=== PATIENT | female | born 1965 | race Caucasian/White ===

== ENCOUNTER 2021-08-11 21:52 | Inpatient (IN) | payer MEDICAID ==
[2021-08-11] MEDS ORDERED: solu-MEDROL 125 MG, Sterile H2O 10 ml 2 ML IV ONE ×2 (22:38)
--- NOTE | 2021-08-11 22:38 | ERPHSYRPT ---
- History of Present Illness Time Seen by Provider: 08/11/21 22:30 Source: patient Exam Limitations: clinical condition Patient Subjective Stated Complaint: pt states she has been coughing, short of breath. had fever today of 101.2, increased shortness of breath Triage Nursing Assessment: pt alert and oriented, answers questions approp. pt ambualtory with slow steady gait noted. pt short of breat, insp and exp wheezes noted thoughout. skin warm and dry. edema noted to bilat lower ext- pt states is her normal and no wore than her usual. Physician History: This is a 55-year-old obese white female has a history of asthma on albuterol inhalers and does not have a primary care physician locally. She is on no other medications. In the last 8 days the patient has noticed increasing cough and worsening shortness of breath. Today she had associated fever of 101.2. She has not been vaccinated against COVID-19 infection. She has no known exposures. She is short of breath. She denies chest pain. She has no abdominal pain. She has had no nausea vomiting or diarrhea. Timing/Duration: day(s) Activities at Onset: none Severity of Dyspnea-Max: moderate Severity of Dyspnea-Current: moderate Possible Cause: no prior episodes Modifying Factors: Improves With: coughing Associated Symptoms: cough, fever, weakness, No chest pain/discomfort Allergies/Adverse Reactions: Penicillins Allergy (Unknown, Verified 08/11/21 22:28) Home Medications: Albuterol Sulfate [Ventolin Hfa] 8 gm IH Q4HPRN PRN 08/11/21 [History] Hx Tetanus, Diphtheria Vaccination/Date Given: No Hx Influenza Vaccination/Date Given: No Hx Pneumococcal Vaccination/Date Given: No Immunizations Up to Date: No Travel Risk - International Travel Have you traveled outside of the country in past 3 weeks: No - Coronavirus Screening Are you exhibiting any of the following symptoms?: Yes Symptoms: Fever, Cough: New Onset, Shortness of Breath Close contact with a COVID-19 positive Pt in past 14-21 Days: No - Vaccine Status Have you recieved a Covid-19 vaccination: No - Review of Systems Constitutional: Fever Eyes: No Symptoms Ears, Nose, & Throat: No Symptoms Respiratory: Cough, Dyspnea Cardiac: No Symptoms Abdominal/Gastrointestinal: No Symptoms Genitourinary Symptoms: No Symptoms Musculoskeletal: No Symptoms Skin: No Symptoms Neurological: No Symptoms Psychological: No Symptoms Endocrine: No Symptoms Hematologic/Lymphatic: No Symptoms Immunological/Allergic: No Symptoms All Other Systems: Reviewed and Negative - Past Medical History Pertinent Past Medical History: Yes Respiratory History: Asthma - Past Surgical History Past Surgical History: Yes Female Surgical History: Section - Social History Smoking Status: Never smoker Exposure to second hand smoke: No Drug Use: none Patient Lives Alone: No - Nursing Vital Signs Nursing Vital Signs: Initial Vital Signs Temperature 98.5 F 08/11/21 22:13 Pulse Rate 106 H 08/11/21 22:13 Respiratory Rate 22 08/11/21 22:13 Blood Pressure 170/124 08/11/21 22:13 O2 Sat by Pulse Oximetry 88 L 08/11/21 22:13 Pain Scale Pain Intensity 0 - Physical Exam General Appearance: mild distress, lethargy, obese Eye Exam: PERRL/EOMI, eyes nml inspection Ears, Nose, Throat Exam: hearing grossly normal, normal ENT inspection, normal pharynx Neck Exam: normal inspection, non-tender, supple, full range of motion Respiratory Exam: normal breath sounds, lungs clear, respiratory distress, airway intact (Mild), No chest tenderness Cardiovascular/Chest Exam: normal heart sounds, regular rate/rhythm, murmur Abdominal/Gastrointestinal Exam: soft, normal bowel sounds, No tenderness Rectal Exam: not done Extremity Exam: non-tender, normal range of motion, pedal edema (Bilateral feet and ankles. Patient states this is normal level of pedal edema for her) Neurologic Exam: oriented x 3 (Mildly lethargic but arousable. 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 Skin Exam: normal color, warm, dry Lymphatic Exam: No adenopathy SpO2 Interpretation: hypoxic SpO2: 88 O2 Delivery: Room Air - Course Nursing assessment & vital signs reviewed: Yes Ordered Tests: Active Orders 24 hr Category Date Time Status Button Buttonhole Marker STAT Care 08/11/21 22:39 Active EKG-ER Only STAT Care 08/11/21 22:38 Active IV Insertion STAT Care 08/11/21 22:38 Active Pulse Oximetry (ED) STAT Care 08/11/21 22:38 Active CHEST WITH CONTRAST [CT] Stat Exams 08/12/21 04:34 Taken ARTERIAL BLOOD GASES Stat Lab 08/11/21 22:49 Completed CBC W DIFF Stat Lab 08/11/21 23:09 Completed CMP Stat Lab 08/11/21 23:09 Completed D-DIMER QUANTITATIVE Stat Lab 08/11/21 23:09 Completed INFLUENZA A+B ANKUR Stat Lab 08/11/21 23:09 Completed Lactic Acid Stat Lab 08/11/21 22:49 Completed MAGNESIUM Stat Lab 08/11/21 23:09 Completed [place] Screen Stat Lab 08/11/21 23:09 Completed NT PRO BNP Stat Lab 08/11/21 23:09 Completed TROPONIN Q3H Lab 08/11/21 23:09 Completed TROPONIN Q3H Lab 08/12/21 01:45 Completed TROPONIN Q3H Lab 08/12/21 05:11 Completed TROPONIN Q3H Lab 08/12/21 07:45 Ordered TROPONIN Q3H Lab 08/12/21 10:45 Ordered Transfer Order Routine Transfer 08/12/21 Ordered Medication Summary Discontinued Medications Generic Name Dose Route Start Last Admin Trade Name Freq PRN Reason Stop Dose Admin Methylprednisolone Sodium 0 mg 08/11/21 22:38 08/11/21 23:32 Succinate 125 mg/ Sterile IV 08/11/21 22:39 125 mg Water 2 ml STAT ONE Administration Sodium Chloride 1,000 mls @ 999 mls/hr 08/12/21 03:02 08/12/21 05:00 Sodium Chloride 0.9% 1000 Ml IV 08/12/21 04:02 999 mls/hr .Q1H1M STA Administration Levofloxacin/Dextrose 500 mg in 100 mls @ 100 mls/hr 08/12/21 03:03 08/12/21 05:00 Levofloxacin 500mg/100ml D5w IV 08/12/21 04:02 100 ml/hr STAT STA 100 mls/hr Administration Sodium Chloride Confirm 08/12/21 04:57 Sodium Chloride 0.9% 1000 Ml Administered 08/12/21 04:58 Dose 1,000 mls @ ud .ROUTE .STK-MED ONE Levofloxacin/Dextrose Confirm 08/12/21 04:58 Levofloxacin 500mg/100ml D5w Administered 08/12/21 04:59 Dose 500 mg in 100 mls @ ud IV .STK-MED ONE Methylprednisolone Sodium Succinate Confirm 08/11/21 23:30 Methylprednis Sod Succ 125 Mg/2 Ml Vial Administered 08/11/21 23:31 Dose 125 mg .ROUTE .STK-MED ONE Sterile Water Confirm 08/11/21 23:30 Water For Injection,Sterile 10 Ml Vial Administered 08/11/21 23:31 Dose 10 ml IJ .[place] ONE Lab/Rad Data: Laboratory Result Diagrams 08/11/21 23:09 08/11/21 23:09 Laboratory Results 08/12/21 08/12/21 08/12/21 Range/Units 05:11 01:45 01:10 WBC (4.0-10.5) K/mm3 RBC (4.1-5.4) M/mm3 Hgb (12.0-16.0) gm/dl Hct (35-47) % MCV (78-100) fl MCH (26-32) pg MCHC (32-36) g/dl RDW (11.5-14.0) % Plt Count (150-450) K/mm3 MPV (7.5-11.0) fl Gran % (36.0-66.0) % Eos # (Auto) (0-0.5) Absolute Lymphs (auto) (1.0-4.6) Absolute Monos (auto) (0.0-1.3) Lymphocytes % (24.0-44.0) % Monocytes % (0.0-12.0) % Eosinophils % (0.00-5.0) % Basophils % (0.0-0.4) % Absolute Granulocytes (1.4-6.9) Basophils # (0-0.4) D-Dimer (215-500) ng/mL Puncture Site pCO2 (35-45) mmHg pO2 (75-100) mmHg Base Excess (-2.0-2.0) O2 Saturation (94-100) g/dF ABG pH (7.35-7.45) ABG HCO3 (22-28) ABG O2 Sat (Measured) (95-100) % Ludin Test A-a Gradient a/A Ratio Hemoglobin Carboxyhemoglobin (0.0-6.9) % THgb Methemoglobin (1.4-1.5) % Potassium (3.5-5.1) Temperature C POC O2 Flow Rate % Sodium (137-145) mmol/L Chloride (98-107) mmol/L Carbon Dioxide (22-30) mmol/L Anion Gap (5-15) MEQ/L BUN (7-17) mg/dL Creatinine (0.52-1.04) mg/dL Estimated GFR ML/MIN Glucose (74-106) mg/dL Lactic Acid (0.4-2.0) Calcium (8.4-10.2) mg/dL Magnesium (1.6-2.3) mg/dL Total Bilirubin (0.2-1.3) mg/dL AST (14-36) U/L ALT (0-35) U/L Alkaline Phosphatase (38-126) U/L Troponin I 0.018 0.022 (0.000-0.034) ng/mL NT-Pro-B Natriuret Pep (0-900) pg/mL Serum Total Protein (6.3-8.2) g/dL Albumin (3.5-5.0) g/dL Monoscreen (Negative) Influenza Type A Ag NEGATIVE (NEGATIVE) Influenza Type B Ag NEGATIVE (NEGATIVE) RSV (PCR) NEGATIVE (Negative) SARS-CoV-2 (PCR) NEGATIVE (NEGATIVE) Group A Strep Antibody (NEGATIVE) 08/11/21 08/11/21 08/11/21 Range/Units 23:09 23:09 23:09 WBC (4.0-10.5) K/mm3 RBC (4.1-5.4) M/mm3 Hgb (12.0-16.0) gm/dl Hct (35-47) % MCV (78-100) fl MCH (26-32) pg MCHC (32-36) g/dl RDW (11.5-14.0) % Plt Count (150-450) K/mm3 MPV (7.5-11.0) fl Gran % (36.0-66.0) % Eos # (Auto) (0-0.5) Absolute Lymphs (auto) (1.0-4.6) Absolute Monos (auto) (0.0-1.3) Lymphocytes % (24.0-44.0) % Monocytes % (0.0-12.0) % Eosinophils % (0.00-5.0) % Basophils % (0.0-0.4) % Absolute Granulocytes (1.4-6.9) Basophils # (0-0.4) D-Dimer (215-500) ng/mL Puncture Site pCO2 (35-45) mmHg pO2 (75-100) mmHg Base Excess (-2.0-2.0) O2 Saturation (94-100) g/dF ABG pH (7.35-7.45) ABG HCO3 (22-28) ABG O2 Sat (Measured) (95-100) % Ludin Test A-a Gradient a/A Ratio Hemoglobin Carboxyhemoglobin (0.0-6.9) % THgb Methemoglobin (1.4-1.5) % Potassium (3.5-5.1) Temperature C POC O2 Flow Rate % Sodium (137-145) mmol/L Chloride (98-107) mmol/L Carbon Dioxide (22-30) mmol/L Anion Gap (5-15) MEQ/L BUN (7-17) mg/dL Creatinine (0.52-1.04) mg/dL Estimated GFR ML/MIN Glucose (74-106) mg/dL Lactic Acid (0.4-2.0) Calcium (8.4-10.2) mg/dL Magnesium (1.6-2.3) mg/dL Total Bilirubin (0.2-1.3) mg/dL AST (14-36) U/L ALT (0-35) U/L Alkaline Phosphatase (38-126) U/L Troponin I (0.000-0.034) ng/mL NT-Pro-B Natriuret Pep (0-900) pg/mL Serum Total Protein (6.3-8.2) g/dL Albumin (3.5-5.0) g/dL Monoscreen NEGATIVE (Negative) Influenza Type A Ag NEGATIVE (NEGATIVE) Influenza Type B Ag NEGATIVE (NEGATIVE) RSV (PCR) (Negative) SARS-CoV-2 (PCR) (NEGATIVE) Group A Strep Antibody NOT DETECTED (NEGATIVE) 08/11/21 08/11/21 08/11/21 Range/Units 23:09 23:09 23:09 WBC (4.0-10.5) K/mm3 RBC (4.1-5.4) M/mm3 Hgb (12.0-16.0) gm/dl Hct (35-47) % MCV (78-100) fl MCH (26-32) pg MCHC (32-36) g/dl RDW (11.5-14.0) % Plt Count (150-450) K/mm3 MPV (7.5-11.0) fl Gran % (36.0-66.0) % Eos # (Auto) (0-0.5) Absolute Lymphs (auto) (1.0-4.6) Absolute Monos (auto) (0.0-1.3) Lymphocytes % (24.0-44.0) % Monocytes % (0.0-12.0) % Eosinophils % (0.00-5.0) % Basophils % (0.0-0.4) % Absolute Granulocytes (1.4-6.9) Basophils # (0-0.4) D-Dimer 751 H* (215-500) ng/mL Puncture Site pCO2 (35-45) mmHg pO2 (75-100) mmHg Base Excess (-2.0-2.0) O2 Saturation (94-100) g/dF ABG pH (7.35-7.45) ABG HCO3 (22-28) ABG O2 Sat (Measured) (95-100) % Ludin Test A-a Gradient a/A Ratio Hemoglobin Carboxyhemoglobin (0.0-6.9) % THgb Methemoglobin (1.4-1.5) % Potassium 3.9 (3.5-5.1) Temperature C POC O2 Flow Rate % Sodium 139 (137-145) mmol/L Chloride 99 (98-107) mmol/L Carbon Dioxide 31 H (22-30) mmol/L Anion Gap 12.3 (5-15) MEQ/L BUN 13 (7-17) mg/dL Creatinine 0.67 (0.52-1.04) mg/dL Estimated GFR > 60.0 ML/MIN Glucose 230 H (74-106) mg/dL Lactic Acid (0.4-2.0) Calcium 8.8 (8.4-10.2) mg/dL Magnesium 1.5 L (1.6-2.3) mg/dL Total Bilirubin 0.70 (0.2-1.3) mg/dL AST 24 (14-36) U/L ALT 27 (0-35) U/L Alkaline Phosphatase 60 (38-126) U/L Troponin I 0.012 (0.000-0.034) ng/mL NT-Pro-B Natriuret Pep 522 (0-900) pg/mL Serum Total Protein 7.3 (6.3-8.2) g/dL Albumin 3.9 (3.5-5.0) g/dL Monoscreen (Negative) Influenza Type A Ag (NEGATIVE) Influenza Type B Ag (NEGATIVE) RSV (PCR) (Negative) SARS-CoV-2 (PCR) (NEGATIVE) Group A Strep Antibody (NEGATIVE) 08/11/21 08/11/21 Range/Units 23:09 22:49 WBC 17.4 H (4.0-10.5) K/mm3 RBC 4.47 (4.1-5.4) M/mm3 Hgb 13.1 (12.0-16.0) gm/dl Hct 41.6 (35-47) % MCV 93.1 (78-100) fl MCH 29.3 (26-32) pg MCHC 31.5 L (32-36) g/dl RDW 14.2 H (11.5-14.0) % Plt Count 220 (150-450) K/mm3 MPV 10.6 (7.5-11.0) fl Gran % 91.1 H (36.0-66.0) % Eos # (Auto) 0.14 (0-0.5) Absolute Lymphs (auto) 0.67 L (1.0-4.6) Absolute Monos (auto) 0.73 (0.0-1.3) Lymphocytes % 3.8 L (24.0-44.0) % Monocytes % 4.2 (0.0-12.0) % Eosinophils % 0.8 (0.00-5.0) % Basophils % 0.1 (0.0-0.4) % Absolute Granulocytes 15.88 H (1.4-6.9) Basophils # 0.02 (0-0.4) D-Dimer (215-500) ng/mL Puncture Site RIGHT BRACHIAL pCO2 41 (35-45) mmHg pO2 59 L (75-100) mmHg Base Excess 4.9 H (-2.0-2.0) O2 Saturation 90.8 L (94-100) g/dF ABG pH 7.46 H (7.35-7.45) ABG HCO3 29.2 H* (22-28) ABG O2 Sat (Measured) 93.0 L (95-100) % Ludin Test NOT APPLICABLE A-a Gradient 89 a/A Ratio 0.40 Hemoglobin 13.6 Carboxyhemoglobin 1.5 (0.0-6.9) % THgb Methemoglobin 0.9 L (1.4-1.5) % Potassium 3.5 (3.5-5.1) Temperature 37.0 C POC O2 Flow Rate 28 % Sodium (137-145) mmol/L Chloride (98-107) mmol/L Carbon Dioxide (22-30) mmol/L Anion Gap (5-15) MEQ/L BUN (7-17) mg/dL Creatinine (0.52-1.04) mg/dL Estimated GFR ML/MIN Glucose (74-106) mg/dL Lactic Acid 1.3 (0.4-2.0) Calcium (8.4-10.2) mg/dL Magnesium (1.6-2.3) mg/dL Total Bilirubin (0.2-1.3) mg/dL AST (14-36) U/L ALT (0-35) U/L Alkaline Phosphatase (38-126) U/L Troponin I (0.000-0.034) ng/mL NT-Pro-B Natriuret Pep (0-900) pg/mL Serum Total Protein (6.3-8.2) g/dL Albumin (3.5-5.0) g/dL Monoscreen (Negative) Influenza Type A Ag (NEGATIVE) Influenza Type B Ag (NEGATIVE) RSV (PCR) (Negative) SARS-CoV-2 (PCR) (NEGATIVE) Group A Strep Antibody (NEGATIVE) - Progress Progress: improved Air Movement: good Progress Note: 08/12/21 00:01 Chest x-ray shows bibasilar opacities present in a groundglass fashion. 08/12/21 01:21 Medical decision making: This patient has leukocytosis, entered the emergency department with hypoxia and history of recent fever. She has worsening shortness of breath and coughing in the last 8 days. She is not on any medication. Patient's oxygenation saturation level on 4 L is a running around 93-94%. This patient needs to be checked for COVID-19 infection. I did speak with Dr. Thomas Hernandez regarding admission of this patient. The patient's history, physical exam findings, EKG results, chest x-ray results were discussed with her in detail. She accepts the patient for placement in observation. If the patient is positive for COVID-19 infection, we will contact Dr. Segal for placement in observation in the Covid unit. 08/12/21 06:50 CAT scan of the chest with contrast shows no pulmonary emboli. She has mild air space consolidation in the right middle lobe consistent with multifocal pneumonia. Blood Culture(s) Obtained: Yes Antibiotics given: No Discussed with DrLuiza: Jonh Counseled pt/family regarding: lab results, diagnosis, rad results - Departure Departure Disposition: Observation Clinical Impression: Hypoxia, Leukocytosis, Multifocal pneumonia Condition: Fair Critical Care Time: Yes Critical Care Time(excluding separately billable procedures): Critical 30-74 m ins (30 minutes) Referrals: DOCTOR,NO FAMILY [Primary Care Provider] - Follow up/PCP as directed
[2021-08-11 22:53] LABS: A-aADO2 89; ABG HEMOGLOBIN 13.6; ABG POTASSIUM 3.5 (3.5-5.1); ABG SITE RIGHT BRACHIAL; ARTERIAL BLOOD GAS BASE EXCESS 4.9 (-2.0-2.0); ARTERIAL BLOOD GAS FIO2 28 %; ARTERIAL BLOOD GAS PCO2 41 mmHg (35-45); ARTERIAL BLOOD GAS PO2 59 mmHg (75-100); ARTERIAL BLOOD GAS pH 7.46 (7.35-7.45); CARBOXYHEMOGLOBIN 1.5 % THgb (0.0-6.9); HCO3- 29.2 (22-28); HGB O2 SAT 90.8 g/dF (94-100); Lactic Acid 1.3 (0.4-2.0); Methhemoglobin 0.9 % (1.4-1.5)
[2021-08-11 23:13] LABS: Absolute Neutrophil Ct (ANC) 15.88 (1.4-6.9); BASOPHIL % 0.1 % (0.0-0.4); Basophil (Absolute #) 0.02 (0-0.4); Eosinophil % 0.8 % (0.00-5.0); Eosinophil (Absolute #) 0.14 (0-0.5); Hematocrit 41.6 % (35-47); Hemoglobin 13.1 gm/dl (12.0-16.0); Lymphocyte (Absolute #) 0.67 (1.0-4.6); Lymphocytes % 3.8 % (24.0-44.0); Mean Cell Volume 93.1 fl (78-100); Mean Corpuscular Hemoglobin 29.3 pg (26-32); Mean Corpuscular Hgb Concent. 31.5 g/dl (32-36); Mean Platelet Volume 10.6 fl (7.5-11.0); Monocyte (Absolute #) 0.73 (0.0-1.3); Monocytes % 4.2 % (0.0-12.0); Neutrophil % 91.1 % (36.0-66.0); Platelet Count 220 K/mm3 (150-450); Red Blood Count 4.47 M/mm3 (4.1-5.4); Red Cell Distribution Width 14.2 % (11.5-14.0); White Blood Count 17.4 K/mm3 (4.0-10.5)
[2021-08-11] MEDS ORDERED: Sterile H2O 10 ml IJ ONE (23:30)
[2021-08-11] MEDS ORDERED: solu-MEDROL ONE (23:30)
[2021-08-11 23:32] LABS: INFLUENZA A NEGATIVE (NEGATIVE); INFLUENZA B NEGATIVE (NEGATIVE)
[2021-08-11 23:33] LABS: ALBUMIN 3.9 g/dL (3.5-5.0); ALKALINE PHOSPHATASE 60 U/L (38-126); ANION GAP 12.3 MEQ/L (5-15); BLOOD UREA NITROGEN 13 mg/dL (7-17); CHLORIDE 99 mmol/L (98-107); Calcium 8.8 mg/dL (8.4-10.2); Carbon Dioxide 31 mmol/L (22-30); Creatinine 1 0.67 mg/dL (0.52-1.04); EST GLOMERULAR FILTRATION RATE > 60.0 ML/MIN; Glucose 230 mg/dL (74-106); MAGNESIUM 1.5 mg/dL (1.6-2.3); NT PRO BNP 522 pg/mL (0-900); Potassium 3.9 mmol/L (3.5-5.1); SGOT/AST 24 U/L (14-36); SGPT/ALT 27 U/L (0-35); SODIUM 139 mmol/L (137-145); Total Protein 7.3 g/dL (6.3-8.2)
[2021-08-12 02:17] LABS: INFLUENZA A NEGATIVE (NEGATIVE); INFLUENZA B NEGATIVE (NEGATIVE); RESPIRATORY SYNCTIAL VIRUS NEGATIVE (Negative); SARS-CoV-2 Xpert Express NEGATIVE (NEGATIVE)
[2021-08-12] MEDS ORDERED: Sodium Chloride 0.9% 1000 ML 1,000 ML IV STA (03:02)
[2021-08-12] MEDS ORDERED: Levofloxacin 500MG/100ML D5W 500 MG/100 ML BAG IV STA (03:03)
[2021-08-12] MEDS ORDERED: Sodium Chloride 0.9% 1000 ML 1,000 ML ONE (04:57)
[2021-08-12] MEDS ORDERED: Levofloxacin 500MG/100ML D5W 500 MG/100 ML BAG IV ONE (04:58)
--- NOTE | 2021-08-12 08:52 | XRAY ---
Indication: Cough, short of breath, and elevated d-dimer. Multiple contiguous axial images obtained through the chest using 100 cc Isovue 370 contrast and PE protocol. Comparison: None There is good opacification of the pulmonary arteries to include the lobar and segmental branches. No pulmonary embolus. Heart not enlarged. Aorta is normal in course and caliber. No pathologic mediastinal/hilar lymphadenopathy. Lungs demonstrates right lower patchy consolidating airspace disease. Lesser degree seen of the right middle and left lower lobes. No effusion. Bony thorax intact with mild degenerative changes throughout the spine. Limited upper abdomen demonstrates fatty liver, 13.7 cm splenomegaly, and at least 2 gallstones, largest measuring 2.8 cm. Impression: 1. Negative pulmonary embolus. 2. Bilateral patchy consolidating airspace disease greatest right lower lobe. 3. Incidental fatty liver, splenomegaly, and cholelithiasis. Comment: Preliminary interpretation made by C. No critical discrepancy.
--- NOTE | 2021-08-12 08:54 | XRAY ---
Indication: Cough and short of breath. Suspect Covid 19. Comparison: None Portable chest demonstrates moderate right base and minimal left base airspace disease. Remaining heart and upper lungs unremarkable. Bony thorax intact with mild degenerative changes.
[2021-08-12] MEDS ORDERED: TYLENOL 325 MG PO PRN (09:15)
[2021-08-12] MEDS ORDERED: Zofran 4 MG/2 ML VIAL IV PRN (09:15)
[2021-08-12] MEDS ORDERED: HYDROCODONE-ACETAMIN 2.5-108/5 ML SOLUTION PO PRN (09:15)
--- NOTE | 2021-08-12 09:46 | PCM.HP ---
History of Present Illness - Chief Complaint Chief Complaint: cough History of Present Illness: is a 55 year old female who apparently has not seen a physician for the last several years but has seen me in the past. She presented with a 10 day history of cough, she progressively became short of breath in the last 2-3 days. She has some underlying lung problems and using an old script of ventolin, history of asthma but states she gets bronchitis every year and wheezes. she was found to have multifocal pneumonia, hypoxia and mild respiratory distress in ER but covid was surprisingly negative. - Review of Systems Constitutional: Fever, Chills Respiratory: Cough, Short Of Breath Cardiac: No Chest Pain, No Edema, No Syncope Abdominal/Gastrointestinal: No Abdominal Pain, No Nausea, No Vomiting, No Diarrhea Skin: No Rash Neurological: No Dizziness, No Focal Weakness, No Sensory Changes All Other Systems: Reviewed and Negative Medications & Allergies Home Medications: Home Medication List Albuterol Sulfate [Ventolin Hfa] 8 gm IH Q4HPRN PRN 08/11/21 [History Confirmed 08/12/21] Ascorbic Acid/Bioflavonoids [C Plus 1,000 mg Tablet] 1 each PO DAILY 08/12/21 [History Confirmed 08/12/21] Zinc 50 mg PO DAILY 08/12/21 [History Confirmed 08/12/21] Allergies/Adverse Reactions: Allergies Allergy/AdvReac Type Severity Reaction Status Date / Time Penicillins Allergy Unknown Verified 08/11/21 22:28 - Past Medical History Past Medical History: Yes Respiratory History: Asthma - Past Surgical History Past Surgical History: Yes Female Surgical History: Section - Social History Smoking Status: Never smoker Exposure to second hand smoke: No Alcohol: None Drug Use: none - Physical Exam Vital Signs: Vital Signs - 24 hr Temp Pulse Resp BP Pulse Ox 08/12/21 08:04 82 16 155/110 96 08/12/21 07:14 74 20 156/80 96 08/12/21 07:03 88 L 08/12/21 06:00 20 140/79 96 08/12/21 04:00 98 H 18 97 08/12/21 03:00 98 H 18 96 08/12/21 02:08 99 H 20 145/89 95 08/12/21 02:00 90 24 145/89 94 L 08/12/21 01:00 93 H 20 134/94 95 08/12/21 00:00 99 H 20 143/74 93 L 08/11/21 22:38 92 L 08/11/21 22:13 98.5 F 106 H 22 170/124 88 L General Appearance: no apparent distress Respiratory Exam: accessory muscle use, wheezing Cardiovascular Exam: regular rate/rhythm, normal heart sounds, normal peripheral pulses Gastrointestinal/Abdomen Exam: soft, normal bowel sounds, No tenderness, No mass Extremity Exam: normal inspection, normal range of motion, pelvis stable Skin Exam: normal color, warm, dry, No rash Results - Labs Lab/Micro Results: Lab Results-Last 24 Hours 08/11/21 08/11/21 08/11/21 Range/Units 22:49 23:09 23:09 WBC 17.4 H (4.0-10.5) K/mm3 RBC 4.47 (4.1-5.4) M/mm3 Hgb 13.1 (12.0-16.0) gm/dl Hct 41.6 (35-47) % MCV 93.1 (78-100) fl MCH 29.3 (26-32) pg MCHC 31.5 L (32-36) g/dl RDW 14.2 H (11.5-14.0) % Plt Count 220 (150-450) K/mm3 MPV 10.6 (7.5-11.0) fl Gran % 91.1 H (36.0-66.0) % Eos # (Auto) 0.14 (0-0.5) Absolute Lymphs (auto) 0.67 L (1.0-4.6) Absolute Monos (auto) 0.73 (0.0-1.3) Lymphocytes % 3.8 L (24.0-44.0) % Monocytes % 4.2 (0.0-12.0) % Eosinophils % 0.8 (0.00-5.0) % Basophils % 0.1 (0.0-0.4) % Absolute Granulocytes 15.88 H (1.4-6.9) Basophils # 0.02 (0-0.4) D-Dimer (215-500) ng/mL Puncture Site RIGHT BRACHIAL pCO2 41 (35-45) mmHg pO2 59 L (75-100) mmHg Base Excess 4.9 H (-2.0-2.0) O2 Saturation 90.8 L (94-100) g/dF ABG pH 7.46 H (7.35-7.45) ABG HCO3 29.2 H* (22-28) ABG O2 Sat (Measured) 93.0 L (95-100) % Ludin Test NOT APPLICABLE A-a Gradient 89 a/A Ratio 0.40 Hemoglobin 13.6 Carboxyhemoglobin 1.5 (0.0-6.9) % THgb Methemoglobin 0.9 L (1.4-1.5) % Potassium 3.5 3.9 (3.5-5.1) Temperature 37.0 C POC O2 Flow Rate 28 % Sodium 139 (137-145) mmol/L Chloride 99 (98-107) mmol/L Carbon Dioxide 31 H (22-30) mmol/L Anion Gap 12.3 (5-15) MEQ/L BUN 13 (7-17) mg/dL Creatinine 0.67 (0.52-1.04) mg/dL Estimated GFR > 60.0 ML/MIN Glucose 230 H (74-106) mg/dL Lactic Acid 1.3 (0.4-2.0) Calcium 8.8 (8.4-10.2) mg/dL Magnesium 1.5 L (1.6-2.3) mg/dL Total Bilirubin 0.70 (0.2-1.3) mg/dL AST 24 (14-36) U/L ALT 27 (0-35) U/L Alkaline Phosphatase 60 (38-126) U/L Troponin I (0.000-0.034) ng/mL NT-Pro-B Natriuret Pep 522 (0-900) pg/mL Serum Total Protein 7.3 (6.3-8.2) g/dL Albumin 3.9 (3.5-5.0) g/dL Monoscreen (Negative) Influenza Type A Ag (NEGATIVE) Influenza Type B Ag (NEGATIVE) RSV (PCR) (Negative) SARS-CoV-2 (PCR) (NEGATIVE) Group A Strep Antibody (NEGATIVE) 08/11/21 08/11/21 08/11/21 Range/Units 23:09 23:09 23:09 WBC (4.0-10.5) K/mm3 RBC (4.1-5.4) M/mm3 Hgb (12.0-16.0) gm/dl Hct (35-47) % MCV (78-100) fl MCH (26-32) pg MCHC (32-36) g/dl RDW (11.5-14.0) % Plt Count (150-450) K/mm3 MPV (7.5-11.0) fl Gran % (36.0-66.0) % Eos # (Auto) (0-0.5) Absolute Lymphs (auto) (1.0-4.6) Absolute Monos (auto) (0.0-1.3) Lymphocytes % (24.0-44.0) % Monocytes % (0.0-12.0) % Eosinophils % (0.00-5.0) % Basophils % (0.0-0.4) % Absolute Granulocytes (1.4-6.9) Basophils # (0-0.4) D-Dimer 751 H* (215-500) ng/mL Puncture Site pCO2 (35-45) mmHg pO2 (75-100) mmHg Base Excess (-2.0-2.0) O2 Saturation (94-100) g/dF ABG pH (7.35-7.45) ABG HCO3 (22-28) ABG O2 Sat (Measured) (95-100) % Ludin Test A-a Gradient a/A Ratio Hemoglobin Carboxyhemoglobin (0.0-6.9) % THgb Methemoglobin (1.4-1.5) % Potassium (3.5-5.1) Temperature C POC O2 Flow Rate % Sodium (137-145) mmol/L Chloride (98-107) mmol/L Carbon Dioxide (22-30) mmol/L Anion Gap (5-15) MEQ/L BUN (7-17) mg/dL Creatinine (0.52-1.04) mg/dL Estimated GFR ML/MIN Glucose (74-106) mg/dL Lactic Acid (0.4-2.0) Calcium (8.4-10.2) mg/dL Magnesium (1.6-2.3) mg/dL Total Bilirubin (0.2-1.3) mg/dL AST (14-36) U/L ALT (0-35) U/L Alkaline Phosphatase (38-126) U/L Troponin I 0.012 (0.000-0.034) ng/mL NT-Pro-B Natriuret Pep (0-900) pg/mL Serum Total Protein (6.3-8.2) g/dL Albumin (3.5-5.0) g/dL Monoscreen (Negative) Influenza Type A Ag NEGATIVE (NEGATIVE) Influenza Type B Ag NEGATIVE (NEGATIVE) RSV (PCR) (Negative) SARS-CoV-2 (PCR) (NEGATIVE) Group A Strep Antibody (NEGATIVE) 08/11/21 08/11/21 08/12/21 Range/Units 23:09 23:09 01:10 WBC (4.0-10.5) K/mm3 RBC (4.1-5.4) M/mm3 Hgb (12.0-16.0) gm/dl Hct (35-47) % MCV (78-100) fl MCH (26-32) pg MCHC (32-36) g/dl RDW (11.5-14.0) % Plt Count (150-450) K/mm3 MPV (7.5-11.0) fl Gran % (36.0-66.0) % Eos # (Auto) (0-0.5) Absolute Lymphs (auto) (1.0-4.6) Absolute Monos (auto) (0.0-1.3) Lymphocytes % (24.0-44.0) % Monocytes % (0.0-12.0) % Eosinophils % (0.00-5.0) % Basophils % (0.0-0.4) % Absolute Granulocytes (1.4-6.9) Basophils # (0-0.4) D-Dimer (215-500) ng/mL Puncture Site pCO2 (35-45) mmHg pO2 (75-100) mmHg Base Excess (-2.0-2.0) O2 Saturation (94-100) g/dF ABG pH (7.35-7.45) ABG HCO3 (22-28) ABG O2 Sat (Measured) (95-100) % Ludin Test A-a Gradient a/A Ratio Hemoglobin Carboxyhemoglobin (0.0-6.9) % THgb Methemoglobin (1.4-1.5) % Potassium (3.5-5.1) Temperature C POC O2 Flow Rate % Sodium (137-145) mmol/L Chloride (98-107) mmol/L Carbon Dioxide (22-30) mmol/L Anion Gap (5-15) MEQ/L BUN (7-17) mg/dL Creatinine (0.52-1.04) mg/dL Estimated GFR ML/MIN Glucose (74-106) mg/dL Lactic Acid (0.4-2.0) Calcium (8.4-10.2) mg/dL Magnesium (1.6-2.3) mg/dL Total Bilirubin (0.2-1.3) mg/dL AST (14-36) U/L ALT (0-35) U/L Alkaline Phosphatase (38-126) U/L Troponin I (0.000-0.034) ng/mL NT-Pro-B Natriuret Pep (0-900) pg/mL Serum Total Protein (6.3-8.2) g/dL Albumin (3.5-5.0) g/dL Monoscreen NEGATIVE (Negative) Influenza Type A Ag NEGATIVE (NEGATIVE) Influenza Type B Ag NEGATIVE (NEGATIVE) RSV (PCR) NEGATIVE (Negative) SARS-CoV-2 (PCR) NEGATIVE (NEGATIVE) Group A Strep Antibody NOT DETECTED (NEGATIVE) 08/12/21 08/12/21 08/12/21 Range/Units 01:45 05:11 07:55 WBC (4.0-10.5) K/mm3 RBC (4.1-5.4) M/mm3 Hgb (12.0-16.0) gm/dl Hct (35-47) % MCV (78-100) fl MCH (26-32) pg MCHC (32-36) g/dl RDW (11.5-14.0) % Plt Count (150-450) K/mm3 MPV (7.5-11.0) fl Gran % (36.0-66.0) % Eos # (Auto) (0-0.5) Absolute Lymphs (auto) (1.0-4.6) Absolute Monos (auto) (0.0-1.3) Lymphocytes % (24.0-44.0) % Monocytes % (0.0-12.0) % Eosinophils % (0.00-5.0) % Basophils % (0.0-0.4) % Absolute Granulocytes (1.4-6.9) Basophils # (0-0.4) D-Dimer (215-500) ng/mL Puncture Site pCO2 (35-45) mmHg pO2 (75-100) mmHg Base Excess (-2.0-2.0) O2 Saturation (94-100) g/dF ABG pH (7.35-7.45) ABG HCO3 (22-28) ABG O2 Sat (Measured) (95-100) % Ludin Test A-a Gradient a/A Ratio Hemoglobin Carboxyhemoglobin (0.0-6.9) % THgb Methemoglobin (1.4-1.5) % Potassium (3.5-5.1) Temperature C POC O2 Flow Rate % Sodium (137-145) mmol/L Chloride (98-107) mmol/L Carbon Dioxide (22-30) mmol/L Anion Gap (5-15) MEQ/L BUN (7-17) mg/dL Creatinine (0.52-1.04) mg/dL Estimated GFR ML/MIN Glucose (74-106) mg/dL Lactic Acid (0.4-2.0) Calcium (8.4-10.2) mg/dL Magnesium (1.6-2.3) mg/dL Total Bilirubin (0.2-1.3) mg/dL AST (14-36) U/L ALT (0-35) U/L Alkaline Phosphatase (38-126) U/L Troponin I 0.022 0.018 0.016 (0.000-0.034) ng/mL NT-Pro-B Natriuret Pep (0-900) pg/mL Serum Total Protein (6.3-8.2) g/dL Albumin (3.5-5.0) g/dL Monoscreen (Negative) Influenza Type A Ag (NEGATIVE) Influenza Type B Ag (NEGATIVE) RSV (PCR) (Negative) SARS-CoV-2 (PCR) (NEGATIVE) Group A Strep Antibody (NEGATIVE) - Radiology Impressions Radiology Exams & Impressions: Radiology Procedures Category Date Time Status CHEST 1 VIEW (PORTABLE) Stat Exams 08/11/21 00:30 Completed CHEST WITH CONTRAST [CT] Stat Exams 08/12/21 04:34 Completed - Other Procedures and Tests Respiratory Therapy 08/12/21 09:15 EKG Q8HX2 Oxygen Nasal Cannula 2 lpm Assessment/Plan (1) Multifocal pneumonia Current Visit: Yes Status: Acute Assessment & Plan: IV levaquin order (PCN allergic) likely viral based on xray but will treat with abx, has subjective fever and leukocytosis Code(s): J18.9 - PNEUMONIA, UNSPECIFIED ORGANISM (2) Acute bronchospasm Current Visit: Yes Status: Acute Assessment & Plan: IV steroids and nebs, likely component of asthma exacerbation. (3) Hypoxia Current Visit: Yes Status: Acute Assessment & Plan: supplemental oxygen ordered. Code(s): R09.02 - HYPOXEMIA
[2021-08-12] MEDS ORDERED: Levofloxacin 500MG/100ML D5W 500 MG/100 ML BAG IV SCH (10:00)
[2021-08-12] MEDS ORDERED: LEVOFLOXACIN 750MG/150ML D5W 750 MG/150 ML BAG IV SCH (10:00)
[2021-08-12] MEDS: Sodium Chloride 0.9% 1000 ML 1,000 ML IV SCH (10:37)
[2021-08-12] MEDS: ENOXAPARIN SODIUM SQ SCH (10:38)
[2021-08-12] MEDS: DUONEB 0.5-3 MG/3 ml Neb IH SCH ×2 (11:09→19:23)
[2021-08-12] MEDS ORDERED: solu-MEDROL W/DILUENT 500 MG IV SCH (12:00)
[2021-08-12] MEDS: solu-MEDROL 80 MG, Sterile H2O 10 ml 2 ML IV SCH ×6 (12:15→23:35)
[2021-08-12] MEDS: HUMALOG SQ PRN ×2 (17:36→21:51)
[2021-08-12] MEDS ORDERED: solu-MEDROL ONE (23:25)
[2021-08-13] MEDS: DUONEB 0.5-3 MG/3 ml Neb IH SCH ×4 (01:00→16:39)
[2021-08-13] MEDS: Sodium Chloride 0.9% 1000 ML 1,000 ML IV SCH ×2 (03:09→21:46)
[2021-08-13] MEDS: HUMALOG SQ PRN ×5 (03:20→21:49)
[2021-08-13] MEDS: solu-MEDROL 80 MG, Sterile H2O 10 ml 2 ML IV SCH ×6 (04:59→17:46)
[2021-08-13] MEDS: LEVOFLOXACIN 750MG/150ML D5W 750 MG/150 ML BAG IV SCH ×2 (05:00→21:47)
[2021-08-13 06:03] LABS: Hematocrit 41.3 % (35-47); Hemoglobin 12.6 gm/dl (12.0-16.0); Mean Cell Volume 95.8 fl (78-100); Mean Corpuscular Hemoglobin 29.2 pg (26-32); Mean Corpuscular Hgb Concent. 30.5 g/dl (32-36); Mean Platelet Volume 11.3 fl (7.5-11.0); Platelet Count 245 K/mm3 (150-450); Red Blood Count 4.31 M/mm3 (4.1-5.4); Red Cell Distribution Width 14.4 % (11.5-14.0)
[2021-08-13 06:07] LABS: White Blood Count 26.5 K/mm3 (4.0-10.5)
[2021-08-13 06:20] LABS: ALBUMIN 3.5 g/dL (3.5-5.0); ALKALINE PHOSPHATASE 52 U/L (38-126); BLOOD UREA NITROGEN 17 mg/dL (7-17); CHLORIDE 102 mmol/L (98-107); Calcium 8.7 mg/dL (8.4-10.2); Carbon Dioxide 28 mmol/L (22-30); Creatinine 1 0.49 mg/dL (0.52-1.04); EST GLOMERULAR FILTRATION RATE > 60.0 ML/MIN; Glucose 306 mg/dL (74-106); SGOT/AST 27 U/L (14-36); SGPT/ALT 29 U/L (0-35); SODIUM 139 mmol/L (137-145); Total Protein 6.6 g/dL (6.3-8.2)
[2021-08-13 06:43] LABS: Potassium 4.7 mmol/L (3.5-5.1)
[2021-08-13 07:34] LABS: BAND 10 % (0.0-2.0); Lymphocytes 1 % (24-44); Monocyte 2 % (0.0-12.0); Neutrophils 87 % (36.0-66.0); Total Cells Counted 100
[2021-08-13 07:35] LABS: Platelet Estimate NORMAL (NORMAL)
--- NOTE | 2021-08-13 08:45 | PCM.NOTE ---
Date and Time: 08/13/21 0843 Subjective Assessment: patient was able to lie flat last night and breathe which is an improvement. no new complaints, still requiring oxygen at 5L Objective Exam General Appearance: no apparent distress, obese Neurologic Exam: alert, oriented x 3 Respiratory Exam: accessory muscle use, prolonged expirations, wheezing Cardiovascular Exam: regular rate/rhythm, normal heart sounds Gastrointestinal/Abdomen Exam: soft, No tenderness, No mass Extremity Exam: normal inspection, normal range of motion OBJECTIVE DATA Vital Signs: Vital Signs - 24 hr Temp Pulse Resp BP Pulse Ox 08/13/21 07:42 97.7 F 97 H 16 114/56 94 L 08/13/21 06:47 99 H 24 91 L 08/13/21 04:00 97.5 F 108 H 25 H 130/88 90 L 08/13/21 01:00 101 H 27 H 91 L 08/12/21 23:42 97.8 F 96 H 26 H 167/85 94 L 08/12/21 20:01 97.5 F 81 22 136/70 93 L 08/12/21 19:23 80 24 91 L 08/12/21 16:00 98.1 F 80 18 138/71 96 08/12/21 12:00 97.1 F 78 24 140/70 93 L 08/12/21 11:15 78 22 93 L 08/12/21 09:59 97.1 F 79 16 140/70 91 L Pain Assessment - Last Documented Pain Intensity 0 Intake and Output: Intake & Output 08/10/21 08/11/21 08/12/21 08/13/21 11:59 11:59 11:59 11:59 Intake Total 240 2097 Output Total 300 2350 Balance -60 -253 Weight 116.8 kg 116.2 kg Lab Results: Lab Results-Last 24 Hours 08/11/21 08/12/21 08/12/21 Range/Units 22:53 07:55 10:52 WBC (4.0-10.5) K/mm3 RBC (4.1-5.4) M/mm3 Hgb (12.0-16.0) gm/dl Hct (35-47) % MCV (78-100) fl MCH (26-32) pg MCHC (32-36) g/dl RDW (11.5-14.0) % Plt Count (150-450) K/mm3 MPV (7.5-11.0) fl Segmented Neutrophils (36.0-66.0) % Band Neutrophils (0.0-2.0) % Lymphocytes (Manual) (24-44) % Monocytes (Manual) (0.0-12.0) % Platelet Estimate (NORMAL) RBC Morphology Sodium (137-145) mmol/L Potassium (3.5-5.1) mmol/L Chloride (98-107) mmol/L Carbon Dioxide (22-30) mmol/L Anion Gap (5-15) MEQ/L BUN (7-17) mg/dL Creatinine (0.52-1.04) mg/dL Estimated GFR ML/MIN Glucose (74-106) mg/dL POC Glucometer (74 to 106) mg/dL Hemoglobin A1c 7.14 H (4.5-6.0) % Calcium (8.4-10.2) mg/dL Total Bilirubin (0.2-1.3) mg/dL AST (14-36) U/L ALT (0-35) U/L Alkaline Phosphatase (38-126) U/L Troponin I 0.016 < 0.012 (0.000-0.034) ng/mL Serum Total Protein (6.3-8.2) g/dL Albumin (3.5-5.0) g/dL 08/12/21 08/12/21 08/13/21 Range/Units 16:25 20:43 03:15 WBC (4.0-10.5) K/mm3 RBC (4.1-5.4) M/mm3 Hgb (12.0-16.0) gm/dl Hct (35-47) % MCV (78-100) fl MCH (26-32) pg MCHC (32-36) g/dl RDW (11.5-14.0) % Plt Count (150-450) K/mm3 MPV (7.5-11.0) fl Segmented Neutrophils (36.0-66.0) % Band Neutrophils (0.0-2.0) % Lymphocytes (Manual) (24-44) % Monocytes (Manual) (0.0-12.0) % Platelet Estimate (NORMAL) RBC Morphology Sodium (137-145) mmol/L Potassium (3.5-5.1) mmol/L Chloride (98-107) mmol/L Carbon Dioxide (22-30) mmol/L Anion Gap (5-15) MEQ/L BUN (7-17) mg/dL Creatinine (0.52-1.04) mg/dL Estimated GFR ML/MIN Glucose (74-106) mg/dL POC Glucometer 334 H 434 H 311 H (74 to 106) mg/dL Hemoglobin A1c (4.5-6.0) % Calcium (8.4-10.2) mg/dL Total Bilirubin (0.2-1.3) mg/dL AST (14-36) U/L ALT (0-35) U/L Alkaline Phosphatase (38-126) U/L Troponin I (0.000-0.034) ng/mL Serum Total Protein (6.3-8.2) g/dL Albumin (3.5-5.0) g/dL 08/13/21 08/13/21 08/13/21 Range/Units 05:15 05:15 07:32 WBC 26.5 H* (4.0-10.5) K/mm3 RBC 4.31 (4.1-5.4) M/mm3 Hgb 12.6 (12.0-16.0) gm/dl Hct 41.3 (35-47) % MCV 95.8 (78-100) fl MCH 29.2 (26-32) pg MCHC 30.5 L (32-36) g/dl RDW 14.4 H (11.5-14.0) % Plt Count 245 (150-450) K/mm3 MPV 11.3 H (7.5-11.0) fl Segmented Neutrophils 87 H (36.0-66.0) % Band Neutrophils 10 H (0.0-2.0) % Lymphocytes (Manual) 1 L (24-44) % Monocytes (Manual) 2 (0.0-12.0) % Platelet Estimate NORMAL (NORMAL) RBC Morphology NORMAL Sodium 139 (137-145) mmol/L Potassium 4.7 D (3.5-5.1) mmol/L Chloride 102 (98-107) mmol/L Carbon Dioxide 28 (22-30) mmol/L Anion Gap 14.0 (5-15) MEQ/L BUN 17 (7-17) mg/dL Creatinine 0.49 L (0.52-1.04) mg/dL Estimated GFR > 60.0 ML/MIN Glucose 306 H (74-106) mg/dL POC Glucometer 361 H (74 to 106) mg/dL Hemoglobin A1c (4.5-6.0) % Calcium 8.7 (8.4-10.2) mg/dL Total Bilirubin 0.50 (0.2-1.3) mg/dL AST 27 (14-36) U/L ALT 29 (0-35) U/L Alkaline Phosphatase 52 (38-126) U/L Troponin I (0.000-0.034) ng/mL Serum Total Protein 6.6 (6.3-8.2) g/dL Albumin 3.5 (3.5-5.0) g/dL Radiology Exams: Radiology Procedures Category Date Time Status CHEST WITH CONTRAST [CT] Stat Exams 08/12/21 04:34 Completed Assessment/Plan (1) Multifocal pneumonia Current Visit: Yes Status: Acute Assessment & Plan: continue levaquin Code(s): J18.9 - PNEUMONIA, UNSPECIFIED ORGANISM (2) Acute bronchospasm Current Visit: Yes Status: Acute Assessment & Plan: continue steroids, abx and nebs (3) Hypoxia Current Visit: Yes Status: Acute Code(s): R09.02 - HYPOXEMIA
[2021-08-13] MEDS: ENOXAPARIN SODIUM SQ SCH (09:28)
[2021-08-13] MEDS ORDERED: solu-MEDROL ONE (21:30)
[2021-08-14] MEDS: solu-MEDROL 80 MG, Sterile H2O 10 ml 2 ML IV SCH ×4 (00:19→05:55)
[2021-08-14] MEDS: DUONEB 0.5-3 MG/3 ml Neb IH SCH ×2 (00:24→05:44)
[2021-08-14 05:47] LABS: Hematocrit 38.7 % (35-47); Hemoglobin 11.6 gm/dl (12.0-16.0); Mean Cell Volume 95.6 fl (78-100); Mean Corpuscular Hemoglobin 28.6 pg (26-32); Mean Platelet Volume 11.8 fl (7.5-11.0); Platelet Count 222 K/mm3 (150-450); Red Blood Count 4.05 M/mm3 (4.1-5.4); Red Cell Distribution Width 14.4 % (11.5-14.0); White Blood Count 19.4 K/mm3 (4.0-10.5)
[2021-08-14 05:50] VITALS: O2SAT 92
[2021-08-14] MEDS ORDERED: solu-MEDROL ONE (05:50)
[2021-08-14 06:08] LABS: ANION GAP 14.2 MEQ/L (5-15); BLOOD UREA NITROGEN 21 mg/dL (7-17); CHLORIDE 102 mmol/L (98-107); Calcium 8.7 mg/dL (8.4-10.2); Carbon Dioxide 29 mmol/L (22-30); Creatinine 1 0.54 mg/dL (0.52-1.04); EST GLOMERULAR FILTRATION RATE > 60.0 ML/MIN; Glucose 274 mg/dL (74-106); Potassium 4.4 mmol/L (3.5-5.1); SODIUM 141 mmol/L (137-145)
[2021-08-14 06:46] LABS: Lymphocytes 2 % (24-44); Monocyte 5 % (0.0-12.0); Neutrophils 93 % (36.0-66.0); Platelet Estimate NORMAL (NORMAL); Total Cells Counted 100
[2021-08-14 08:02] VITALS: BP 165/77; PULSE 83
--- NOTE | 2021-08-14 08:30 | XRAY ---
Indication: Follow-up pneumonia. Comparison: August 11, 2021 Portable chest again demonstrates bilateral mid to lower lung airspace disease minimally worsened on the left. Remaining heart and upper lungs unremarkable.
[2021-08-14] MEDS: HUMALOG SQ PRN (08:35)
--- NOTE | 2021-08-14 09:05 | PCM.DS ---
Discharge Summary Date of Admission: 08/12/21 08:45 Admitting Physician: ALEXSANDRA HINOJOSA Primary Care Provider: NO FAMILY DOCTOR Allergies Allergies Penicillins Allergy (Unknown, Verified 08/11/21 22:28) Hospital Summary - Hospital Course Hospital Course: patient was admitted with cough and shortness of breath, found to have bilateral pneumonia, covid was negative. treated with antibiotics and steroids, doing much better. sugars were high, a1c 7.1% so new onset of diabetes noted. - Vitals & Intake/Output Vital Signs: Vital Signs Temperature 98.6 F 08/14/21 08:00 Pulse Rate 83 08/14/21 08:00 Respiratory Rate 19 08/14/21 08:00 Blood Pressure 165/77 08/14/21 08:00 O2 Sat by Pulse Oximetry 92 L 08/14/21 05:45 Intake & Output: Intake & Output 08/11/21 08/12/21 08/13/21 08/14/21 11:59 11:59 11:59 11:59 Intake Total 240 2777 3737 Output Total 300 2350 2600 Balance -60 427 1137 Weight 116.8 kg 116.2 kg - Lab Result Diagrams: 08/14/21 04:20 08/14/21 04:20 Lab Results-Last 24 Hrs: Lab Results-Last 24 Hours 08/13/21 08/13/21 08/13/21 Range/Units 11:19 16:40 21:13 WBC (4.0-10.5) K/mm3 RBC (4.1-5.4) M/mm3 Hgb (12.0-16.0) gm/dl Hct (35-47) % MCV (78-100) fl MCH (26-32) pg MCHC (32-36) g/dl RDW (11.5-14.0) % Plt Count (150-450) K/mm3 MPV (7.5-11.0) fl Segmented Neutrophils (36.0-66.0) % Lymphocytes (Manual) (24-44) % Monocytes (Manual) (0.0-12.0) % Platelet Estimate (NORMAL) RBC Morphology Sodium (137-145) mmol/L Potassium (3.5-5.1) mmol/L Chloride (98-107) mmol/L Carbon Dioxide (22-30) mmol/L Anion Gap (5-15) MEQ/L BUN (7-17) mg/dL Creatinine (0.52-1.04) mg/dL Estimated GFR ML/MIN Glucose (74-106) mg/dL POC Glucometer 353 H 428 H 413 H (74 to 106) mg/dL Calcium (8.4-10.2) mg/dL 08/14/21 08/14/21 08/14/21 Range/Units 04:20 04:20 07:36 WBC 19.4 H (4.0-10.5) K/mm3 RBC 4.05 L (4.1-5.4) M/mm3 Hgb 11.6 L (12.0-16.0) gm/dl Hct 38.7 (35-47) % MCV 95.6 (78-100) fl MCH 28.6 (26-32) pg MCHC 30.0 L (32-36) g/dl RDW 14.4 H (11.5-14.0) % Plt Count 222 (150-450) K/mm3 MPV 11.8 H (7.5-11.0) fl Segmented Neutrophils 93 H (36.0-66.0) % Lymphocytes (Manual) 2 L (24-44) % Monocytes (Manual) 5 (0.0-12.0) % Platelet Estimate NORMAL (NORMAL) RBC Morphology NORMAL Sodium 141 (137-145) mmol/L Potassium 4.4 (3.5-5.1) mmol/L Chloride 102 (98-107) mmol/L Carbon Dioxide 29 (22-30) mmol/L Anion Gap 14.2 (5-15) MEQ/L BUN 21 H (7-17) mg/dL Creatinine 0.54 (0.52-1.04) mg/dL Estimated GFR > 60.0 ML/MIN Glucose 274 H (74-106) mg/dL POC Glucometer 275 H (74 to 106) mg/dL Calcium 8.7 (8.4-10.2) mg/dL Micro Results-Entire Visit: Accuchecks Date 08/14/21 Date 08/13/21 Date 08/13/21 Time 07:40 Time 16:47 Time 11:39 - Radiology Exams Ordered Rad Exams-Entire Visit: Radiology Procedures Category Date Time Status CHEST 1 VIEW (PORTABLE) Routine Exams 08/14/21 07:00 Completed - Procedures and Test Procedures and Tests throughout Hospitalization: Therapy Orders & Screens 08/12/21 09:15 Oxygen Nasal Cannula 2 lpm Comment: 08/12/21 09:47 EKG ONCE Comment: 08/12/21 11:01 Respiratory Therapy Assessment DAILY Comment: Diagnosis: cough, sob, pneumonia Discharge Exam General Appearance: no apparent distress, obese Neurologic Exam: alert, oriented x 3 Respiratory Exam: wheezing, No respiratory distress, No accessory muscle use Cardiovascular Exam: regular rate/rhythm, normal heart sounds Gastrointestinal/Abdomen Exam: soft, No tenderness, No mass Extremity Exam: normal inspection, normal range of motion Skin Exam: normal color, warm, dry Final Diagnosis/Problem List - Final Discharge Diagnosis/Problem (1) Multifocal pneumonia Current Visit: Yes Status: Acute Assessment & Plan: home on po levaquin x 3 more days Code(s): J18.9 - PNEUMONIA, UNSPECIFIED ORGANISM (2) Acute bronchospasm Current Visit: Yes Status: Acute Assessment & Plan: home on albuterol prn (3) Hypoxia Current Visit: Yes Status: Acute Assessment & Plan: home on oxygen therapy 2L Code(s): R09.02 - HYPOXEMIA (4) Diabetes mellitus type 2 in obese Current Visit: Yes Status: Acute Code(s): E11.69 - TYPE 2 DIABETES MELLITUS WITH OTHER SPECIFIED COMPLICATION; E66.9 - OBESITY, UNSPECIFIED (5) Chronic obstructive pulmonary disease with hypoxia Current Visit: Yes Status: Acute Code(s): J44.9 - CHRONIC OBSTRUCTIVE PULMONARY DISEASE, UNSPECIFIED; R09.02 - HYPOXEMIA - Discharge Disposition: Home, Self-Care Condition: Good Prescriptions: New Nebulizer Accessories [Adult Aerosol Mask] 1 each MC DAILY #1 unit Prednisone 20 mg [Deltasone 20 mg] 20 mg PO UD #18 tablet Albuterol/Ipratropium 3ml Neb* [DUONEB 0.5-3 MG/3 ml Neb] 3 ml IH Q6H PRN PRN #100 units PRN Reason: wheezing Metformin HCl 500 mg [Glucophage 500 MG] 500 mg PO BIDWM #60 tablet levoFLOXacin [Levofloxacin] 750 mg PO DAILY #3 tablet Continue Zinc 50 mg PO DAILY Ascorbic Acid/Bioflavonoids [C Plus 1,000 mg Tablet] 1 each PO DAILY Changed Albuterol Sulfate [Ventolin Hfa] 2 puffs IH Q4HPRN PRN #2 unit PRN Reason: Shortness Of Breath/Wheezing Follow up with: ALEXSANDRA HINOJOSA MD [ACTIVE STAFF] - 08/20/21 1:30 am (Dr Hinojosa scheduled appt)
[2021-08-14] MEDS: ENOXAPARIN SODIUM SQ SCH (09:38)
== END 2021-08-14 11:38 | disposition home or self-care (01) | DRG 195 ==
LOC: ED 21:52 → OBSVTOIN 08-12 08:45 → MED SURG 08-12 08:45
PROVIDERS: ADMIT Family Medicine; ATTEND Family Medicine
DX: J18.9 Pneumonia, unspecified organism (principal); J98.01 Acute bronchospasm; D72.829 Elevated white blood cell count, unspecified; R09.02 Hypoxemia; J44.9 Chronic obstructive pulmonary disease, unspecified; E11.69 Type 2 diabetes mellitus with other specified complication; E66.9 Obesity, unspecified; Z20.828 Contact with and (suspected) exposure to other viral communicable diseases; Z79.899 Other long term (current) drug therapy
CPT/HCPCS: 0241U; 36000; 36415; 36600; 71045; 71260; 80048; 80053; 82375; 82803; 82947; 83036; 83605; 83735; 83880; 84484; 85025; 85379; 86308; 87400; 87651; 93005; 93041; 94640; 94760; 96365; 96374; 99285; 99291; J1650; J1817; J1956; J2930; A9270-GY

== ENCOUNTER 2022-05-20 08:23 | Inpatient (IN) | payer MEDICAID, OTHER ==
[2022-05-20] MEDS ORDERED: DUONEB 0.5-3 MG/3 ml Neb IH ONE ×2 (08:25→08:39)
[2022-05-20] MEDS ORDERED: solu-MEDROL 125 MG, Sterile H2O 10 ml 2 ML IV ONE ×2 (08:39)
--- NOTE | 2022-05-20 08:50 | ERPHSYRPT ---
- History of Present Illness Time Seen by Provider: 05/20/22 08:30 Source: patient Exam Limitations: no limitations Patient Subjective Stated Complaint: " I feel short of breath that began yesterday". Triage Nursing Assessment: Pt presents to ER with complaints of shortness of breath that began yesterday, pt appears short of breath. Respirations are labored. Mild cough. Lung sounds present wheezes and mild crackles throughout. Air movement is "tight". Pt is alert and oriented, able to speak in 4-5 word sentences. Pt is pale, hot, and diaphoretic. Able to ambulate short steps with assistance. States had nausea yesterday and vomited "bile". Pt is weak and low grade fever upon triage. States was around Covid+ person a couple weeks ago. Physician History: Patient is a 56-year-old female presents to emergency department for evaluation of shortness of breath x1 day. Patient has been coughing. Patient states that shortness of breath is progressively worse. She does not require oxygen at home. Upon arrival to our ED patient was hypoxic. Patient started on 2 L nasal cannula. Patient states she feels somewhat weak. Patient had 1 episode of nausea and vomiting. No reported fever. No rash. Positive COVID contact. Patient has not been formally tested for COVID. Symptoms are moderate in intensity. No specific worsening improving factors. Patient voices no other complaints or concerns at this time. Portions of this note were created with voice recognition technology. There may be grammatical, spelling, punctuation or sound alike errors Timing/Duration: yesterday Activities at Onset: none Severity of Dyspnea-Max: moderate Severity of Dyspnea-Current: mild Possible Cause: no prior episodes Modifying Factors: Improves With: other (Activity worsens shortness of breath) Associated Symptoms: cough, wheezing, No chest pain/discomfort, No fever, No ankle swelling, No dizziness, No heart racing, No leg swelling, No painful breathing, No tingling hands Allergies/Adverse Reactions: Penicillins Allergy (Unknown, Verified 05/20/22 08:24) Home Medications: Budesonide/Formoterol Fumarate [Budesonide-Formoterol 160-4.5] 2 puff IH BID 05/20/22 [History] Hx Tetanus, Diphtheria Vaccination/Date Given: No Hx Influenza Vaccination/Date Given: No Hx Pneumococcal Vaccination/Date Given: No Immunizations Up to Date: No Travel Risk - International Travel Have you traveled outside of the country in past 3 weeks: No - Coronavirus Screening Are you exhibiting any of the following symptoms?: Yes Symptoms: Fever, Cough: New Onset, Shortness of Breath, Vomiting/Diarrhea Close contact with a COVID-19 positive Pt in past 14-21 Days: Yes - Vaccine Status Have you recieved a Covid-19 vaccination: No - Review of Systems Constitutional: No Symptoms, No Fever, No Chills Eyes: No Symptoms Ears, Nose, & Throat: No Symptoms Respiratory: No Symptoms, No Cough, No Dyspnea Cardiac: No Symptoms, No Chest Pain, No Edema, No Syncope Abdominal/Gastrointestinal: No Symptoms, No Abdominal Pain, No Nausea, No Vomiting, No Diarrhea Genitourinary Symptoms: No Symptoms, No Dysuria Musculoskeletal: No Symptoms, No Back Pain, No Neck Pain Skin: No Symptoms, No Rash Neurological: No Symptoms, No Dizziness, No Focal Weakness, No Sensory Changes Psychological: No Symptoms Endocrine: No Symptoms Hematologic/Lymphatic: No Symptoms Immunological/Allergic: No Symptoms All Other Systems: Reviewed and Negative - Past Medical History Pertinent Past Medical History: Yes Neurological History: No Pertinent History ENT History: No Pertinent History Cardiac History: No Pertinent History Respiratory History: Asthma Endocrine Medical History: Diabetes Type II Musculoskeletal History: Fractures GI Medical History: Colitis History: No Pertinent History Female Reproductive Disorders: No Pertinent History Other Medical History: fx r ankle, pathological fx r foot - Past Surgical History Past Surgical History: Yes Neuro Surgical History: No Pertinent History Cardiac: No Pertinent History Respiratory: No Pertinent History Gastrointestinal: No Pertinent History Genitourinary: No Pertinent History Musculoskeletal: No Pertinent History Female Surgical History: Section Other Surgical History: brain hematoma drained as child - Social History Smoking Status: Never smoker Exposure to second hand smoke: No Drug Use: none Patient Lives Alone: No - Nursing Vital Signs Nursing Vital Signs: Initial Vital Signs Temperature 99.3 F 05/20/22 08:24 Pulse Rate 77 05/20/22 08:24 Respiratory Rate 24 05/20/22 08:24 Blood Pressure 117/77 05/20/22 08:24 O2 Sat by Pulse Oximetry 82 L 05/20/22 08:24 Pain Scale Pain Intensity 0 - Physical Exam General Appearance: no apparent distress, alert Eye Exam: PERRL/EOMI, eyes nml inspection Ears, Nose, Throat Exam: hearing grossly normal, normal ENT inspection, normal pharynx Neck Exam: normal inspection, supple, full range of motion Respiratory Exam: diminished breath sounds, wheezing (Breath sounds diminished wheezing mildly coarse), other (Hypoxia) Cardiovascular/Chest Exam: normal heart sounds, regular rate/rhythm, 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) Abdominal/Gastrointestinal Exam: soft, No tenderness, No distention, No mass Extremity Exam: non-tender, normal range of motion, normal inspection, no calf tenderness, no pedal edema Neurologic Exam: alert, oriented x 3, cooperative, 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 Bilateral pneumonia observed. 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 Care 05/20/22 08:38 Completed Code Status Order ROUTINE Care 05/20/22 11:11 Active EKG-ER Only STAT Care 05/20/22 08:37 Completed IV Care Q6H Care 05/20/22 11:11 Active IV Insertion STAT Care 05/20/22 08:[address] in Observation ROUTINE Care 05/20/22 11:11 Active Pulse Oximetry (ED) STAT Care 05/20/22 08:37 Completed Telemetry q6h Care 05/20/22 11:11 Active Consistent Carbohydrate Diet 2000 Calorie Diet 05/20/22 Lunch Active CHEST 1 VIEW (PORTABLE) Stat Exams 05/20/22 08:38 Completed CHEST WITH CONTRAST [CT] Stat Exams 05/20/22 09:46 Completed BNP [NT PRO BNP] Stat Lab 05/20/22 08:00 Completed CBC W DIFF AM.LAB Lab 05/21/22 04:00 Ordered CBC W DIFF Stat Lab 05/20/22 08:55 Completed CMP AM.LAB Lab 05/21/22 04:00 Ordered CMP Stat Lab 05/20/22 08:55 Completed CULTURE,URINE Stat Lab 05/20/22 12:23 Received D-DIMER QUANTITATIVE Stat Lab 05/20/22 08:50 Completed Lactic Acid Stat Lab 05/20/22 08:37 Completed PROCALCITONIN Stat Lab 05/20/22 08:55 Completed UA W/RFX CULTURE Stat Lab 05/20/22 12:23 Completed Pulse Oximetry CONTINUOUS RT 05/20/22 11:11 Active Transfer Order Routine Transfer 05/20/22 Completed Medication Summary Generic Name Dose Route Start Last Admin Trade Name Freq PRN Reason Stop Dose Admin Acetaminophen 650 mg 05/20/22 11:11 Acetaminophen 325 Mg Tablet PO 06/19/22 11:10 Q4H PRN PRN PAIN AND/OR FEVER Albuterol Sulfate 2.5 mg 05/20/22 11:11 05/20/22 14:45 Albuterol Sulfate 2.5 Mg/3 Ml On license of [facility] 06/19/22 11:10 2.5 mg Q4H PRN PRN Administration SHORTNESS OF BREATH/WHEEZING Albuterol/Ipratropium 3 ml 05/20/22 19:00 Ipratropium/Albuterol Sulfate 3 Ml Ampul.On license of [facility] 06/19/22 18:59 QIDRT CAMI Device 1 05/22/22 09:30 Therapuetic Drug Level Monitor Each IJ 05/22/22 09:31 1XONLY ONE Aztreonam 1 gm/ Sodium 100 mls @ 200 mls/hr 05/20/22 22:00 Chloride IV 05/23/22 21:59 Q12HT [facility] Vancomycin HCl 1.25 gm in 250 mls @ 166.667 mls/hr 05/20/22 22:00 Vancomycin 1.25 Gm/250 Ml Bag IV 05/23/22 21:59 Q12HT [facility] Insulin Human Lispro 0 unit 05/20/22 14:25 05/20/22 14:55 Insulin Lispro 1 Unit SQ 06/19/22 14:24 5 unit UD PRN Administration HYPERGLYCEMIA Morphine Sulfate 2 mg 05/20/22 11:11 Morphine Sulfate 2 Mg/Ml Inj IV 05/25/22 11:10 Q4H PRN PRN PAIN Ondansetron HCl 4 mg 05/20/22 11:11 Ondansetron Hcl 4 Mg/2 Ml Vial IV 06/19/22 11:10 Q6H PRN PRN NAUSEA/VOMITING Fluticasone/Salmeterol 2 puff 05/20/22 19:00 Fluticasone/Salmeterol 230/21 Common Canister IH 06/19/22 18:59 BIDRT CAMI Discontinued Medications Generic Name Dose Route Start Last Admin Trade Name Freisabel PRN Reason Stop Dose Admin Albuterol Sulfate Confirm 05/20/22 11:17 Albuterol Sulfate 2.5 Mg/3 Ml Neb Administered 05/20/22 11:18 Dose 2.5 mg IH .STK-MED ONE Albuterol/Ipratropium Confirm 05/20/22 08:25 Ipratropium/Albuterol Sulfate 3 Ml Ampul.Neb Administered 05/20/22 08:26 Dose 3 ml IH .STK-MED ONE Albuterol/Ipratropium 3 ml 05/20/22 08:39 05/20/22 08:44 Ipratropium/Albuterol Sulfate 3 Ml Ampul.Neb IH 05/20/22 08:40 3 ml STAT ONE Administration Methylprednisolone Sodium 0 mg 05/20/22 08:39 05/20/22 08:53 Succinate 125 mg/ Sterile IV 05/20/22 08:40 125 mg Water 2 ml STAT ONE Administration Vancomycin HCl 1 gm in 200 mls @ 125 mls/hr 05/20/22 10:26 05/20/22 10:32 Vancomycin 1 Gram/200 Ml Bag IV 05/20/22 12:01 Not Given STAT ONE Aztreonam 1 gm in 100 mls @ 100 mls/hr 05/20/22 11:00 05/20/22 10:38 Azactam 1 Gm/100 Ml D5w IV 05/20/22 11:59 100 mls/hr STAT ONE Administration Methylprednisolone Sodium Succinate Confirm 05/20/22 08:53 Methylprednis Sod Succ 125 Mg/2 Ml Vial Administered 05/20/22 08:54 Dose 125 mg .ROUTE .STK-MED ONE Miscellaneous Information 1 each 05/20/22 14:00 Medication Intervention 1 Each Each 06/19/22 13:59 .RT TO CHECK CAMI Sterile Water Confirm 05/20/22 08:53 Water For Injection,Sterile 10 Ml Vial Administered 05/20/22 08:54 Dose 10 ml IJ .STK-MED ONE Lab/Rad Data: Laboratory Result Diagrams 05/20/22 08:55 05/20/22 08:55 Laboratory Results 05/20/22 05/20/22 05/20/22 Range/Units 08:57 08:55 08:55 WBC (4.0-10.5) x10^3/uL RBC (4.1-5.4) x10^6/uL Hgb (12.0-16.0) g/dL Hct (35-47) % MCV (78-100) fL MCH (26-32) pg MCHC (32-36) g/dL RDW (11.5-14.0) % Plt Count (150-450) x10^3/uL MPV (7.5-11.0) fL Gran % (36.0-66.0) % Immature Gran % (Auto) (0.00-0.4) % Nucleat RBC Rel Count (0.00-0.1) % Eos # (Auto) (0-0.5) x10^3/uL Immature Gran # (Auto) (0.00-0.03) x10^3u/L Absolute Lymphs (auto) (1.0-4.6) x10^3/uL Absolute Monos (auto) (0.0-1.3) x10^3/uL Absolute Nucleated RBC (0.00-0.01) x10^3u/L Lymphocytes % (24.0-44.0) % Monocytes % (0.0-12.0) % Eosinophils % (0.00-5.0) % Basophils % (0.0-0.4) % Absolute Granulocytes (1.4-6.9) x10^3/uL Basophils # (0-0.4) x10^3/uL D-Dimer (0.0-0.50) mg/L Sodium 136 L (137-145) mmol/L Potassium 3.6 (3.5-5.1) mmol/L Chloride 95 L (98-107) mmol/L Carbon Dioxide 33 H (22-30) mmol/L Anion Gap 12.1 (5-15) MEQ/L BUN 17 (7-17) mg/dL Creatinine 0.86 (0.52-1.04) mg/dL Estimated GFR > 60.0 ML/MIN Glucose 172 H (74-106) mg/dL Lactic Acid (0.4-2.0) Calcium 8.8 (8.4-10.2) mg/dL Total Bilirubin 1.00 (0.2-1.3) mg/dL AST 109 H (14-36) U/L ALT 94 H (0-35) U/L Alkaline Phosphatase 100 (38-126) U/L NT-Pro-B Natriuret Pep (0-900) pg/mL Serum Total Protein 8.1 (6.3-8.2) g/dL Albumin 3.9 (3.5-5.0) g/dL Procalcitonin 0.782 H (0.030-0.080) ng/mL Influenza Type A Ag NEGATIVE (NEGATIVE) Influenza Type B Ag NEGATIVE (NEGATIVE) RSV (PCR) NEGATIVE (Negative) SARS-CoV-2 (PCR) NEGATIVE (NEGATIVE) 05/20/22 05/20/22 05/20/22 Range/Units 08:55 08:50 08:37 WBC 19.3 H (4.0-10.5) x10^3/uL RBC 4.20 (4.1-5.4) x10^6/uL Hgb 12.2 (12.0-16.0) g/dL Hct 38.3 (35-47) % MCV 91.2 (78-100) fL MCH 29.0 (26-32) pg MCHC 31.9 L (32-36) g/dL RDW 14.3 H (11.5-14.0) % Plt Count 244 (150-450) x10^3/uL MPV 11.8 H (7.5-11.0) fL Gran % 83.0 H (36.0-66.0) % Immature Gran % (Auto) 2.5 H (0.00-0.4) % Nucleat RBC Rel Count 0.0 (0.00-0.1) % Eos # (Auto) 0.07 (0-0.5) x10^3/uL Immature Gran # (Auto) 0.49 H (0.00-0.03) x10^3u/L Absolute Lymphs (auto) 1.17 (1.0-4.6) x10^3/uL Absolute Monos (auto) 1.43 H (0.0-1.3) x10^3/uL Absolute Nucleated RBC 0.00 (0.00-0.01) x10^3u/L Lymphocytes % 6.1 L (24.0-44.0) % Monocytes % 7.4 (0.0-12.0) % Eosinophils % 0.4 (0.00-5.0) % Basophils % 0.6 (0.0-0.4) % Absolute Granulocytes 16.01 H (1.4-6.9) x10^3/uL Basophils # 0.11 (0-0.4) x10^3/uL D-Dimer 2.00 H* (0.0-0.50) mg/L Sodium (137-145) mmol/L Potassium (3.5-5.1) mmol/L Chloride (98-107) mmol/L Carbon Dioxide (22-30) mmol/L Anion Gap (5-15) MEQ/L BUN (7-17) mg/dL Creatinine (0.52-1.04) mg/dL Estimated GFR ML/MIN Glucose (74-106) mg/dL Lactic Acid 1.8 (0.4-2.0) Calcium (8.4-10.2) mg/dL Total Bilirubin (0.2-1.3) mg/dL AST (14-36) U/L ALT (0-35) U/L Alkaline Phosphatase (38-126) U/L NT-Pro-B Natriuret Pep (0-900) pg/mL Serum Total Protein (6.3-8.2) g/dL Albumin (3.5-5.0) g/dL Procalcitonin (0.030-0.080) ng/mL Influenza Type A Ag (NEGATIVE) Influenza Type B Ag (NEGATIVE) RSV (PCR) (Negative) SARS-CoV-2 (PCR) (NEGATIVE) 05/20/22 Range/Units 08:00 WBC (4.0-10.5) x10^3/uL RBC (4.1-5.4) x10^6/uL Hgb (12.0-16.0) g/dL Hct (35-47) % MCV (78-100) fL MCH (26-32) pg MCHC (32-36) g/dL RDW (11.5-14.0) % Plt Count (150-450) x10^3/uL MPV (7.5-11.0) fL Gran % (36.0-66.0) % Immature Gran % (Auto) (0.00-0.4) % Nucleat RBC Rel Count (0.00-0.1) % Eos # (Auto) (0-0.5) x10^3/uL Immature Gran # (Auto) (0.00-0.03) x10^3u/L Absolute Lymphs (auto) (1.0-4.6) x10^3/uL Absolute Monos (auto) (0.0-1.3) x10^3/uL Absolute Nucleated RBC (0.00-0.01) x10^3u/L Lymphocytes % (24.0-44.0) % Monocytes % (0.0-12.0) % Eosinophils % (0.00-5.0) % Basophils % (0.0-0.4) % Absolute Granulocytes (1.4-6.9) x10^3/uL Basophils # (0-0.4) x10^3/uL D-Dimer (0.0-0.50) mg/L Sodium (137-145) mmol/L Potassium (3.5-5.1) mmol/L Chloride (98-107) mmol/L Carbon Dioxide (22-30) mmol/L Anion Gap (5-15) MEQ/L BUN (7-17) mg/dL Creatinine (0.52-1.04) mg/dL Estimated GFR ML/MIN Glucose (74-106) mg/dL Lactic Acid (0.4-2.0) Calcium (8.4-10.2) mg/dL Total Bilirubin (0.2-1.3) mg/dL AST (14-36) U/L ALT (0-35) U/L Alkaline Phosphatase (38-126) U/L NT-Pro-B Natriuret Pep 629 (0-900) pg/mL Serum Total Protein (6.3-8.2) g/dL Albumin (3.5-5.0) g/dL Procalcitonin (0.030-0.080) ng/mL Influenza Type A Ag (NEGATIVE) Influenza Type B Ag (NEGATIVE) RSV (PCR) (Negative) SARS-CoV-2 (PCR) (NEGATIVE) - Progress Progress: improved Air Movement: poor Progress Note: Work-up reveals bilateral pneumonia. Patient was hypoxic and placed on oxygen. Blood cultures obtained. Antibiotics obtained. CTA chest negative for PE. Case discussed Dr. Hubbard accepts admission to observation. Plan of care discussed with patient. She agrees to admission [facility] for further evaluation and treatment. Portions of this note were created with voice recognition technology. There may be grammatical, spelling, punctuation or sound alike errors 05/20/22 15:03 Blood Culture(s) Obtained: Yes Discussed with Dr.: Shelly Will see patient in: hospital (observation) - Departure Departure Disposition: Observation Clinical Impression: Hypoxia, SOB (shortness of breath), Leukocytosis, Hyperglycemia, Elevated liver enzymes, Pneumonia, Fatty liver, Splenomegaly, Gallstones, Pleural effusion Condition: Stable Critical Care Time: No
[2022-05-20 08:51] LABS: Absolute Neutrophil Ct (ANC) 16.01 x10^3/uL (1.4-6.9); Basophil (Absolute #) 0.11 x10^3/uL (0-0.4); Eosinophil % 0.4 % (0.00-5.0); Eosinophil (Absolute #) 0.07 x10^3/uL (0-0.5); Hematocrit 38.3 % (35-47); Hemoglobin 12.2 g/dL (12.0-16.0); Lymphocyte (Absolute #) 1.17 x10^3/uL (1.0-4.6); Lymphocytes % 6.1 % (24.0-44.0); Mean Cell Volume 91.2 fL (78-100); Mean Corpuscular Hgb Concent. 31.9 g/dL (32-36); Mean Platelet Volume 11.8 fL (7.5-11.0); Monocyte (Absolute #) 1.43 x10^3/uL (0.0-1.3); Monocytes % 7.4 % (0.0-12.0); Platelet Count 244 x10^3/uL (150-450); Red Cell Distribution Width 14.3 % (11.5-14.0); White Blood Count 19.3 x10^3/uL (4.0-10.5)
[2022-05-20] MEDS ORDERED: Sterile H2O 10 ml IJ ONE (08:53)
[2022-05-20] MEDS ORDERED: solu-MEDROL ONE (08:53)
[2022-05-20 09:06] LABS: ALBUMIN 3.9 g/dL (3.5-5.0); ALKALINE PHOSPHATASE 100 U/L (38-126); ANION GAP 12.1 MEQ/L (5-15); BLOOD UREA NITROGEN 17 mg/dL (7-17); CHLORIDE 95 mmol/L (98-107); Calcium 8.8 mg/dL (8.4-10.2); Carbon Dioxide 33 mmol/L (22-30); Creatinine 1 0.86 mg/dL (0.52-1.04); EST GLOMERULAR FILTRATION RATE > 60.0 ML/MIN; Glucose 172 mg/dL (74-106); Potassium 3.6 mmol/L (3.5-5.1); SGOT/AST 109 U/L (14-36); SGPT/ALT 94 U/L (0-35); SODIUM 136 mmol/L (137-145); Total Protein 8.1 g/dL (6.3-8.2)
--- NOTE | 2022-05-20 09:26 | XRAY ---
Indication: Short of breath and fever. Comparison: August 14, 2021 Portable chest again demonstrates bilateral mid and lower lung airspace disease more than before. No consolidation/large effusion. Heart not enlarged. Bony thorax intact again with degenerative changes.
[2022-05-20 09:39] LABS: INFLUENZA A NEGATIVE (NEGATIVE); INFLUENZA B NEGATIVE (NEGATIVE); RESPIRATORY SYNCTIAL VIRUS NEGATIVE (Negative); SARS-CoV-2 Xpert Express NEGATIVE (NEGATIVE)
[2022-05-20] MEDS ORDERED: VANCOMYCIN 1 GRAM/200 ML BAG 1 GM/200 ML PIGGYBACK IV ONE (10:26)
--- NOTE | 2022-05-20 10:50 | XRAY ---
Indication: Cough and short of breath. Elevated d-dimer. Multiple contiguous axial images obtained through the chest using 100 cc Isovue 370 contrast and PE protocol. Comparison: August 12, 2021 Good opacification of the pulmonary arteries to include the lobar and segmental branches. However mild respiration artifact limits evaluation the more distal lobar and segmental branches. No obvious central pulmonary embolus. Heart not enlarged. Aorta is normal in course and caliber. No pathologic mediastinal/hilar lymphadenopathy. Lungs demonstrates worsening bilateral mid to lower lung patchy consolidating airspace disease greatest in both lower lobes.. New tiny bilateral pleural effusions. Bony thorax intact again with mild degenerative changes throughout the spine. Limited upper abdomen again demonstrates fatty liver, 13.2 cm splenomegaly, and large gallstones. Impression: 1. Respiration artifact limits evaluation for pulmonary embolus. Again no obvious central pulmonary embolus. 2. Worsening bilateral mid to lower lung consolidating airspace disease with new tiny bilateral effusions. 3. Again incidental fatty liver, splenomegaly, and cholelithiasis.
[2022-05-20] MEDS ORDERED: Azactam 1 GM/100 ML D5W 1 GM/100 ML IVPB IV ONE (11:00)
[2022-05-20] MEDS ORDERED: MORPHINE SULFATE 2 MG INJ IV PRN (11:11)
[2022-05-20] MEDS ORDERED: Zofran 4 MG/2 ML VIAL IV PRN (11:11)
[2022-05-20] MEDS ORDERED: TYLENOL 325 MG PO PRN (11:11)
[2022-05-20] MEDS ORDERED: PROVENTIL 2.5 MG/3 ML NEB IH ONE (11:17)
[2022-05-20] MEDS: PROVENTIL 2.5 MG/3 ML NEB IH PRN ×3 (11:23→23:00)
[2022-05-20 12:39] LABS: RBC 0-2 /HPF (0-2)
[2022-05-20 12:41] LABS: Appearance CLEAR (CLEAR); Bilirubin SMALL (NEGATIVE); Dipstick done @ ? MAIN LAB; Glucose NEGATIVE (NEGATIVE); Ketones TRACE (NEGATIVE); Nitrite NEGATIVE (NEGATIVE); Protein,Urine Dip 30 (Negative); RBC TRACE-INTACT Ery/ul (0-5); Specific Gravity <=1.005 (1.005-1.025); Urobilinogen 0.2 mg/dL (0-1)
[2022-05-20 12:46] LABS: Urine Cultured Indicated? YES
[2022-05-20] MEDS ORDERED: MEDICATION INTERVENTION MC SCH (14:00)
[2022-05-20] MEDS: HUMALOG SQ PRN ×3 (14:55→21:37)
[2022-05-20] MEDS: DUONEB 0.5-3 MG/3 ml Neb IH SCH (19:19)
[2022-05-20] MEDS: Advair Hfa 230/21 Mcg COMMON CANISTER IH SCH (19:19)
[2022-05-20] MEDS: AZACTAM 1 GM*** 1 GM in Sodium Chloride 100ML MINI-BAG PLUS 100 ML IV SCH (20:51)
[2022-05-20] MEDS: VANCOMYCIN 1.25 GM/250 ML BAG 1.25 GM/250 ML PIGGYBACK IV SCH (21:39)
[2022-05-20] MEDS ORDERED: NON-FORMULARY ITEM (Budesonide/Formoterol Fumarate [Budesonide-Formoterol 160-4.5] 10.2 GM IH SCH (22:00)
[2022-05-21] MEDS: PROVENTIL 2.5 MG/3 ML NEB IH PRN (03:56)
[2022-05-21 04:07] LABS: Absolute Neutrophil Ct (ANC) 16.82 x10^3/uL (1.4-6.9); Basophil (Absolute #) 0.11 x10^3/uL (0-0.4); Eosinophil (Absolute #) 0 x10^3/uL (0-0.5); Hematocrit 35.7 % (35-47); Hemoglobin 11.3 g/dL (12.0-16.0); Lymphocyte (Absolute #) 1.02 x10^3/uL (1.0-4.6); Lymphocytes % 5.2 % (24.0-44.0); Mean Cell Volume 89.9 fL (78-100); Mean Corpuscular Hemoglobin 28.5 pg (26-32); Mean Corpuscular Hgb Concent. 31.7 g/dL (32-36); Mean Platelet Volume 11.6 fL (7.5-11.0); Monocyte (Absolute #) 1.02 x10^3/uL (0.0-1.3); Monocytes % 5.2 % (0.0-12.0); Neutrophil % 85.4 % (36.0-66.0); Platelet Count 284 x10^3/uL (150-450); Red Blood Count 3.97 x10^6/uL (4.1-5.4); Red Cell Distribution Width 14.6 % (11.5-14.0); White Blood Count 19.7 x10^3/uL (4.0-10.5)
[2022-05-21 04:38] LABS: ALBUMIN 3.1 g/dL (3.5-5.0); ALKALINE PHOSPHATASE 82 U/L (38-126); ANION GAP 11.5 MEQ/L (5-15); BLOOD UREA NITROGEN 24 mg/dL (7-17); CHLORIDE 99 mmol/L (98-107); Calcium 8.4 mg/dL (8.4-10.2); Carbon Dioxide 31 mmol/L (22-30); Creatinine 1 0.67 mg/dL (0.52-1.04); EST GLOMERULAR FILTRATION RATE > 60.0 ML/MIN; Glucose 234 mg/dL (74-106); Potassium 3.7 mmol/L (3.5-5.1); SGOT/AST 98 U/L (14-36); SGPT/ALT 102 U/L (0-35); SODIUM 137 mmol/L (137-145); Total Protein 6.4 g/dL (6.3-8.2)
[2022-05-21] MEDS: DUONEB 0.5-3 MG/3 ml Neb IH SCH ×4 (07:05→18:37)
[2022-05-21] MEDS: Advair Hfa 230/21 Mcg COMMON CANISTER IH SCH ×2 (07:08→18:41)
--- NOTE | 2022-05-21 08:10 | PCM.HP ---
History of Present Illness - Chief Complaint Chief Complaint: PNEUMONIA, HYPOXIA, LUEKOCYTOSIS History of Present Illness: is a 56 year old female who presented to the ER with increasing shortness of breath and wheezing, she has some cough, no fever. cough is not productive, her breathing and oxygen sats were worsening at home. she was admitted to in in July as a service patient with pneumonia and apparent copd exacerbation at that time. - Review of Systems Constitutional: No Symptoms Respiratory: Cough, Short Of Breath, Wheezing Cardiac: No Chest Pain, No Edema, No Syncope Abdominal/Gastrointestinal: No Abdominal Pain, No Nausea, No Vomiting, No Diarrhea Genitourinary Symptoms: No Dysuria Skin: No Rash All Other Systems: Reviewed and Negative Medications & Allergies Home Medications: Home Medication List Albuterol Sulfate [Ventolin Hfa] 2 puffs IH Q4HPRN PRN #2 unit 08/14/21 [Rx Confirmed 05/20/22] Albuterol/Ipratropium 3ml Neb* [DUONEB 0.5-3 MG/3 ml Neb] 3 ml IH Q6H PRN PRN #100 units 08/14/21 [Rx Confirmed 05/20/22] Metformin HCl 500 mg [Glucophage 500 MG] 500 mg PO BIDWM #60 tablet 08/14/21 [Rx Confirmed 05/20/22] Budesonide/Formoterol Fumarate [Budesonide-Formoterol 160-4.5] 2 puff IH BID 05/20/22 [History Confirmed 05/20/22] Allergies/Adverse Reactions: Allergies Allergy/AdvReac Type Severity Reaction Status Date / Time Penicillins Allergy Unknown Verified 05/20/22 08:24 - Past Medical History Past Medical History: Yes Neurological History: No Pertinent History ENT History: No Pertinent History Cardiac History: No Pertinent History Respiratory History: Asthma Endocrine Medical History: Diabetes Type II Musculoskelatal History: Fractures GI Medical History: Colitis History: No Pertinent History Reproductive Disorders: No Pertinent History Comment: fx r ankle, pathological fx r foot - Past Surgical History Past Surgical History: Yes Neuro Surgical History: No Pertinent History Cardiac History: No Pertinent History Respiratory Surgery: No Pertinent History GI Surgical History: No Pertinent History Genitourinary Surgical Hx: No Pertinent History Musculskeletal Surgical Hx: No Pertinent History Female Surgical History: Section Other Surgical History: brain hematoma drained as child - Social History Smoking Status: Never smoker Exposure to second hand smoke: No Alcohol: None Drug Use: none - Physical Exam Vital Signs: Vital Signs - 24 hr Temp Pulse Resp BP Pulse Ox 05/21/22 07:08 20 L 94 L 05/21/22 04:00 97.1 F 56 L 21 147/65 96 05/21/22 03:56 60 19 92 L 05/20/22 23:28 98.0 F 60 17 127/59 100 05/20/22 23:01 60 22 100 05/20/22 19:30 97.9 F 69 24 121/84 92 L 05/20/22 19:19 73 23 93 L 05/20/22 17:00 94 L 05/20/22 16:00 97.3 F 69 32 H 135/80 94 L 05/20/22 15:35 96 05/20/22 15:04 82 L 05/20/22 14:47 77 24 98 05/20/22 11:26 89 L 05/20/22 10:30 99.3 F 74 20 112/70 90 L 05/20/22 09:44 99.3 F 74 20 112/71 93 L 05/20/22 08:57 88 L 05/20/22 08:51 88 L 05/20/22 08:49 79 21 91 L 05/20/22 08:24 99.3 F 77 24 117/77 82 L General Appearance: no apparent distress, obese Neurologic Exam: alert, oriented x 3, cooperative, normal mood/affect, nml cerebellar function, nml station & gait, sensation nml, No motor deficits Eye Exam: PERRL/EOMI, eyes nml inspection Neck Exam: normal inspection, non-tender, supple, full range of motion Respiratory Exam: diminished breath sounds, prolonged expirations, wheezing Cardiovascular Exam: regular rate/rhythm, normal heart sounds, normal peripheral pulses Gastrointestinal/Abdomen Exam: soft, normal bowel sounds, No tenderness, No mass Extremity Exam: normal inspection, normal range of motion, pelvis stable Skin Exam: normal color, warm, dry, No rash Results - Labs Lab/Micro Results: Lab Results-Last 24 Hours 05/20/22 05/20/22 05/20/22 Range/Units 08:00 08:37 08:50 WBC (4.0-10.5) x10^3/uL RBC (4.1-5.4) x10^6/uL Hgb (12.0-16.0) g/dL Hct (35-47) % MCV (78-100) fL MCH (26-32) pg MCHC (32-36) g/dL RDW (11.5-14.0) % Plt Count (150-450) x10^3/uL MPV (7.5-11.0) fL Gran % (36.0-66.0) % Immature Gran % (Auto) (0.00-0.4) % Nucleat RBC Rel Count (0.00-0.1) % Eos # (Auto) (0-0.5) x10^3/uL Immature Gran # (Auto) (0.00-0.03) x10^3u/L Absolute Lymphs (auto) (1.0-4.6) x10^3/uL Absolute Monos (auto) (0.0-1.3) x10^3/uL Absolute Nucleated RBC (0.00-0.01) x10^3u/L Lymphocytes % (24.0-44.0) % Monocytes % (0.0-12.0) % Eosinophils % (0.00-5.0) % Basophils % (0.0-0.4) % Absolute Granulocytes (1.4-6.9) x10^3/uL Basophils # (0-0.4) x10^3/uL D-Dimer 2.00 H* (0.0-0.50) mg/L Sodium (137-145) mmol/L Potassium (3.5-5.1) mmol/L Chloride (98-107) mmol/L Carbon Dioxide (22-30) mmol/L Anion Gap (5-15) MEQ/L BUN (7-17) mg/dL Creatinine (0.52-1.04) mg/dL Estimated GFR ML/MIN Glucose (74-106) mg/dL POC Glucometer (74 to 106) mg/dL Lactic Acid 1.8 (0.4-2.0) Calcium (8.4-10.2) mg/dL Total Bilirubin (0.2-1.3) mg/dL AST (14-36) U/L ALT (0-35) U/L Alkaline Phosphatase (38-126) U/L NT-Pro-B Natriuret Pep 629 (0-900) pg/mL Serum Total Protein (6.3-8.2) g/dL Albumin (3.5-5.0) g/dL Procalcitonin (0.030-0.080) ng/mL Urinalys Dipstick Clnc Urine Color (YELLOW) Urine Appearance (CLEAR) Urine pH (5-6) Ur Specific [place] (1.005-1.025) POC Urine Protein Conf (Negative) Urine Ketones (NEGATIVE) Urine Nitrite (NEGATIVE) Urine Bilirubin (NEGATIVE) Urine Urobilinogen (0-1) mg/dL Urine Leukocytes (NEGATIVE) Urine WBC (Auto) (0-5) /HPF Urine RBC (Auto) (0-2) /HPF U Epithel Cells (Auto) (FEW) /HPF Urine Bacteria (Auto) (NEGATIVE) /HPF Urine RBC (0-5) Drew/ul Ur Culture Indicated? Urine Glucose (NEGATIVE) mg/dL Influenza Type A Ag (NEGATIVE) Influenza Type B Ag (NEGATIVE) RSV (PCR) (Negative) SARS-CoV-2 (PCR) (NEGATIVE) 05/20/22 05/20/22 05/20/22 Range/Units 08:55 08:55 08:55 WBC 19.3 H (4.0-10.5) x10^3/uL RBC 4.20 (4.1-5.4) x10^6/uL Hgb 12.2 (12.0-16.0) g/dL Hct 38.3 (35-47) % MCV 91.2 (78-100) fL MCH 29.0 (26-32) pg MCHC 31.9 L (32-36) g/dL RDW 14.3 H (11.5-14.0) % Plt Count 244 (150-450) x10^3/uL MPV 11.8 H (7.5-11.0) fL Gran % 83.0 H (36.0-66.0) % Immature Gran % (Auto) 2.5 H (0.00-0.4) % Nucleat RBC Rel Count 0.0 (0.00-0.1) % Eos # (Auto) 0.07 (0-0.5) x10^3/uL Immature Gran # (Auto) 0.49 H (0.00-0.03) x10^3u/L Absolute Lymphs (auto) 1.17 (1.0-4.6) x10^3/uL Absolute Monos (auto) 1.43 H (0.0-1.3) x10^3/uL Absolute Nucleated RBC 0.00 (0.00-0.01) x10^3u/L Lymphocytes % 6.1 L (24.0-44.0) % Monocytes % 7.4 (0.0-12.0) % Eosinophils % 0.4 (0.00-5.0) % Basophils % 0.6 (0.0-0.4) % Absolute Granulocytes 16.01 H (1.4-6.9) x10^3/uL Basophils # 0.11 (0-0.4) x10^3/uL D-Dimer (0.0-0.50) mg/L Sodium 136 L (137-145) mmol/L Potassium 3.6 (3.5-5.1) mmol/L Chloride 95 L (98-107) mmol/L Carbon Dioxide 33 H (22-30) mmol/L Anion Gap 12.1 (5-15) MEQ/L BUN 17 (7-17) mg/dL Creatinine 0.86 (0.52-1.04) mg/dL Estimated GFR > 60.0 ML/MIN Glucose 172 H (74-106) mg/dL POC Glucometer (74 to 106) mg/dL Lactic Acid (0.4-2.0) Calcium 8.8 (8.4-10.2) mg/dL Total Bilirubin 1.00 (0.2-1.3) mg/dL AST 109 H (14-36) U/L ALT 94 H (0-35) U/L Alkaline Phosphatase 100 (38-126) U/L NT-Pro-B Natriuret Pep (0-900) pg/mL Serum Total Protein 8.1 (6.3-8.2) g/dL Albumin 3.9 (3.5-5.0) g/dL Procalcitonin 0.782 H (0.030-0.080) ng/mL Urinalys Dipstick Clnc Urine Color (YELLOW) Urine Appearance (CLEAR) Urine pH (5-6) Ur Specific [place] (1.005-1.025) POC Urine Protein Conf (Negative) Urine Ketones (NEGATIVE) Urine Nitrite (NEGATIVE) Urine Bilirubin (NEGATIVE) Urine Urobilinogen (0-1) mg/dL Urine Leukocytes (NEGATIVE) Urine WBC (Auto) (0-5) /HPF Urine RBC (Auto) (0-2) /HPF U Epithel Cells (Auto) (FEW) /HPF Urine Bacteria (Auto) (NEGATIVE) /HPF Urine RBC (0-5) Drew/ul Ur Culture Indicated? Urine Glucose (NEGATIVE) mg/dL Influenza Type A Ag (NEGATIVE) Influenza Type B Ag (NEGATIVE) RSV (PCR) (Negative) SARS-CoV-2 (PCR) (NEGATIVE) 05/20/22 05/20/22 05/20/22 Range/Units 08:57 12:23 13:41 WBC (4.0-10.5) x10^3/uL RBC (4.1-5.4) x10^6/uL Hgb (12.0-16.0) g/dL Hct (35-47) % MCV (78-100) fL MCH (26-32) pg MCHC (32-36) g/dL RDW (11.5-14.0) % Plt Count (150-450) x10^3/uL MPV (7.5-11.0) fL Gran % (36.0-66.0) % Immature Gran % (Auto) (0.00-0.4) % Nucleat RBC Rel Count (0.00-0.1) % Eos # (Auto) (0-0.5) x10^3/uL Immature Gran # (Auto) (0.00-0.03) x10^3u/L Absolute Lymphs (auto) (1.0-4.6) x10^3/uL Absolute Monos (auto) (0.0-1.3) x10^3/uL Absolute Nucleated RBC (0.00-0.01) x10^3u/L Lymphocytes % (24.0-44.0) % Monocytes % (0.0-12.0) % Eosinophils % (0.00-5.0) % Basophils % (0.0-0.4) % Absolute Granulocytes (1.4-6.9) x10^3/uL Basophils # (0-0.4) x10^3/uL D-Dimer (0.0-0.50) mg/L Sodium (137-145) mmol/L Potassium (3.5-5.1) mmol/L Chloride (98-107) mmol/L Carbon Dioxide (22-30) mmol/L Anion Gap (5-15) MEQ/L BUN (7-17) mg/dL Creatinine (0.52-1.04) mg/dL Estimated GFR ML/MIN Glucose (74-106) mg/dL POC Glucometer 247 H (74 to 106) mg/dL Lactic Acid (0.4-2.0) Calcium (8.4-10.2) mg/dL Total Bilirubin (0.2-1.3) mg/dL AST (14-36) U/L ALT (0-35) U/L Alkaline Phosphatase (38-126) U/L NT-Pro-B Natriuret Pep (0-900) pg/mL Serum Total Protein (6.3-8.2) g/dL Albumin (3.5-5.0) g/dL Procalcitonin (0.030-0.080) ng/mL Urinalys Dipstick Clnc MAIN LAB Urine Color YELLOW (YELLOW) Urine Appearance CLEAR (CLEAR) Urine pH 7.0 (5-6) Ur Specific [place] <=1.005 (1.005-1.025) POC Urine Protein Conf 30 (Negative) Urine Ketones TRACE (NEGATIVE) Urine Nitrite NEGATIVE (NEGATIVE) Urine Bilirubin SMALL (NEGATIVE) Urine Urobilinogen 0.2 (0-1) mg/dL Urine Leukocytes NEGATIVE (NEGATIVE) Urine WBC (Auto) 3-5 (0-5) /HPF Urine RBC (Auto) 0-2 (0-2) /HPF U Epithel Cells (Auto) NONE (FEW) /HPF Urine Bacteria (Auto) NONE (NEGATIVE) /HPF Urine RBC TRACE-INTACT (0-5) Drew/ul Ur Culture Indicated? YES Urine Glucose NEGATIVE (NEGATIVE) mg/dL Influenza Type A Ag NEGATIVE (NEGATIVE) Influenza Type B Ag NEGATIVE (NEGATIVE) RSV (PCR) NEGATIVE (Negative) SARS-CoV-2 (PCR) NEGATIVE (NEGATIVE) 05/20/22 05/20/22 05/21/22 Range/Units 16:41 21:15 03:17 WBC (4.0-10.5) x10^3/uL RBC (4.1-5.4) x10^6/uL Hgb (12.0-16.0) g/dL Hct (35-47) % MCV (78-100) fL MCH (26-32) pg MCHC (32-36) g/dL RDW (11.5-14.0) % Plt Count (150-450) x10^3/uL MPV (7.5-11.0) fL Gran % (36.0-66.0) % Immature Gran % (Auto) (0.00-0.4) % Nucleat RBC Rel Count (0.00-0.1) % Eos # (Auto) (0-0.5) x10^3/uL Immature Gran # (Auto) (0.00-0.03) x10^3u/L Absolute Lymphs (auto) (1.0-4.6) x10^3/uL Absolute Monos (auto) (0.0-1.3) x10^3/uL Absolute Nucleated RBC (0.00-0.01) x10^3u/L Lymphocytes % (24.0-44.0) % Monocytes % (0.0-12.0) % Eosinophils % (0.00-5.0) % Basophils % (0.0-0.4) % Absolute Granulocytes (1.4-6.9) x10^3/uL Basophils # (0-0.4) x10^3/uL D-Dimer (0.0-0.50) mg/L Sodium (137-145) mmol/L Potassium (3.5-5.1) mmol/L Chloride (98-107) mmol/L Carbon Dioxide (22-30) mmol/L Anion Gap (5-15) MEQ/L BUN (7-17) mg/dL Creatinine (0.52-1.04) mg/dL Estimated GFR ML/MIN Glucose (74-106) mg/dL POC Glucometer 277 H 284 H 212 H (74 to 106) mg/dL Lactic Acid (0.4-2.0) Calcium (8.4-10.2) mg/dL Total Bilirubin (0.2-1.3) mg/dL AST (14-36) U/L ALT (0-35) U/L Alkaline Phosphatase (38-126) U/L NT-Pro-B Natriuret Pep (0-900) pg/mL Serum Total Protein (6.3-8.2) g/dL Albumin (3.5-5.0) g/dL Procalcitonin (0.030-0.080) ng/mL Urinalys Dipstick Clnc Urine Color (YELLOW) Urine Appearance (CLEAR) Urine pH (5-6) Ur Specific [place] (1.005-1.025) POC Urine Protein Conf (Negative) Urine Ketones (NEGATIVE) Urine Nitrite (NEGATIVE) Urine Bilirubin (NEGATIVE) Urine Urobilinogen (0-1) mg/dL Urine Leukocytes (NEGATIVE) Urine WBC (Auto) (0-5) /HPF Urine RBC (Auto) (0-2) /HPF U Epithel Cells (Auto) (FEW) /HPF Urine Bacteria (Auto) (NEGATIVE) /HPF Urine RBC (0-5) Drew/ul Ur Culture Indicated? Urine Glucose (NEGATIVE) mg/dL Influenza Type A Ag (NEGATIVE) Influenza Type B Ag (NEGATIVE) RSV (PCR) (Negative) SARS-CoV-2 (PCR) (NEGATIVE) 05/21/22 05/21/22 05/21/22 Range/Units 04:00 04:00 07:34 WBC 19.7 H (4.0-10.5) x10^3/uL RBC 3.97 L (4.1-5.4) x10^6/uL Hgb 11.3 L (12.0-16.0) g/dL Hct 35.7 (35-47) % MCV 89.9 (78-100) fL MCH 28.5 (26-32) pg MCHC 31.7 L (32-36) g/dL RDW 14.6 H (11.5-14.0) % Plt Count 284 (150-450) x10^3/uL MPV 11.6 H (7.5-11.0) fL Gran % 85.4 H (36.0-66.0) % Immature Gran % (Auto) 3.6 H (0.00-0.4) % Nucleat RBC Rel Count 0.0 (0.00-0.1) % Eos # (Auto) 0 (0-0.5) x10^3/uL Immature Gran # (Auto) 0.70 H (0.00-0.03) x10^3u/L Absolute Lymphs (auto) 1.02 (1.0-4.6) x10^3/uL Absolute Monos (auto) 1.02 (0.0-1.3) x10^3/uL Absolute Nucleated RBC 0.00 (0.00-0.01) x10^3u/L Lymphocytes % 5.2 L (24.0-44.0) % Monocytes % 5.2 (0.0-12.0) % Eosinophils % 0.0 (0.00-5.0) % Basophils % 0.6 (0.0-0.4) % Absolute Granulocytes 16.82 H (1.4-6.9) x10^3/uL Basophils # 0.11 (0-0.4) x10^3/uL D-Dimer (0.0-0.50) mg/L Sodium 137 (137-145) mmol/L Potassium 3.7 (3.5-5.1) mmol/L Chloride 99 (98-107) mmol/L Carbon Dioxide 31 H (22-30) mmol/L Anion Gap 11.5 (5-15) MEQ/L BUN 24 H (7-17) mg/dL Creatinine 0.67 (0.52-1.04) mg/dL Estimated GFR > 60.0 ML/MIN Glucose 234 H (74-106) mg/dL POC Glucometer 187 H (74 to 106) mg/dL Lactic Acid (0.4-2.0) Calcium 8.4 (8.4-10.2) mg/dL Total Bilirubin 0.40 (0.2-1.3) mg/dL AST 98 H (14-36) U/L ALT 102 H (0-35) U/L Alkaline Phosphatase 82 (38-126) U/L NT-Pro-B Natriuret Pep (0-900) pg/mL Serum Total Protein 6.4 (6.3-8.2) g/dL Albumin 3.1 L (3.5-5.0) g/dL Procalcitonin (0.030-0.080) ng/mL Urinalys Dipstick Clnc Urine Color (YELLOW) Urine Appearance (CLEAR) Urine pH (5-6) Ur Specific [place] (1.005-1.025) POC Urine Protein Conf (Negative) Urine Ketones (NEGATIVE) Urine Nitrite (NEGATIVE) Urine Bilirubin (NEGATIVE) Urine Urobilinogen (0-1) mg/dL Urine Leukocytes (NEGATIVE) Urine WBC (Auto) (0-5) /HPF Urine RBC (Auto) (0-2) /HPF U Epithel Cells (Auto) (FEW) /HPF Urine Bacteria (Auto) (NEGATIVE) /HPF Urine RBC (0-5) Drew/ul Ur Culture Indicated? Urine Glucose (NEGATIVE) mg/dL Influenza Type A Ag (NEGATIVE) Influenza Type B Ag (NEGATIVE) RSV (PCR) (Negative) SARS-CoV-2 (PCR) (NEGATIVE) Accuchecks Date 05/20/22 - Radiology Impressions Radiology Exams & Impressions: Radiology Procedures Category Date Time Status CHEST 1 VIEW (PORTABLE) Stat Exams 05/20/22 08:38 Completed CHEST WITH CONTRAST [CT] Stat Exams 05/20/22 09:46 Completed - Other Procedures and Tests Respiratory Therapy 05/20/22 12:20 Oxygen High Flow per RT 100% Assessment/Plan (1) Pneumonia Current Visit: Yes Status: Acute Assessment & Plan: on vanc and azactam, wbc remains elevated but patient got steroids in ER. will follow elevated procalcitonin, discussed that patient will need pulm consult after pneumonia improved Code(s): J18.9 - PNEUMONIA, UNSPECIFIED ORGANISM (2) Acute exacerbation of chronic obstructive airways disease Current Visit: Yes Status: Acute Assessment & Plan: IV steroids ordered, continue antibiotics Code(s): J44.1 - CHRONIC OBSTRUCTIVE PULMONARY DISEASE W (ACUTE) EXACERBATION
[2022-05-21] MEDS: AZACTAM 1 GM*** 1 GM in Sodium Chloride 100ML MINI-BAG PLUS 100 ML IV SCH ×2 (09:38→21:14)
[2022-05-21] MEDS: VANCOMYCIN 1.25 GM/250 ML BAG 1.25 GM/250 ML PIGGYBACK IV SCH ×2 (09:43→21:47)
[2022-05-21] MEDS ORDERED: solu-MEDROL IV SCH (12:00)
[2022-05-21] MEDS: solu-MEDROL 125 MG, Sterile H2O 10 ml 2 ML IV SCH ×4 (13:15→18:39)
[2022-05-21] MEDS: HYDROCODONE-CHLORPHEN ER SUSP PO PRN (16:59)
[2022-05-21] MEDS: HUMALOG SQ PRN ×2 (18:39→21:07)
[2022-05-22] MEDS: solu-MEDROL 125 MG, Sterile H2O 10 ml 2 ML IV SCH ×10 (00:08→23:44)
[2022-05-22] MEDS ORDERED: solu-MEDROL ONE (04:41)
[2022-05-22] MEDS: HYDROCODONE-CHLORPHEN ER SUSP PO PRN ×3 (05:31→19:23)
[2022-05-22] MEDS: Advair Hfa 230/21 Mcg COMMON CANISTER IH SCH ×2 (06:00→19:12)
[2022-05-22] MEDS: DUONEB 0.5-3 MG/3 ml Neb IH SCH ×5 (06:00→19:12)
[2022-05-22 06:26] LABS: Absolute Neutrophil Ct (ANC) 14.31 x10^3/uL (1.4-6.9); Basophil (Absolute #) 0.07 x10^3/uL (0-0.4); Eosinophil (Absolute #) 0 x10^3/uL (0-0.5); Hematocrit 35.9 % (35-47); Lymphocyte (Absolute #) 0.99 x10^3/uL (1.0-4.6); Lymphocytes % 6.1 % (24.0-44.0); Mean Cell Volume 93.5 fL (78-100); Mean Corpuscular Hemoglobin 28.6 pg (26-32); Mean Corpuscular Hgb Concent. 30.6 g/dL (32-36); Mean Platelet Volume 11.9 fL (7.5-11.0); Monocyte (Absolute #) 0.37 x10^3/uL (0.0-1.3); Monocytes % 2.3 % (0.0-12.0); Neutrophil % 87.8 % (36.0-66.0); Platelet Count 235 x10^3/uL (150-450); Red Blood Count 3.84 x10^6/uL (4.1-5.4); Red Cell Distribution Width 14.6 % (11.5-14.0); White Blood Count 16.3 x10^3/uL (4.0-10.5)
[2022-05-22 06:45] LABS: ANION GAP 11.3 MEQ/L (5-15); BLOOD UREA NITROGEN 23 mg/dL (7-17); CHLORIDE 99 mmol/L (98-107); Calcium 8.6 mg/dL (8.4-10.2); Carbon Dioxide 31 mmol/L (22-30); EST GLOMERULAR FILTRATION RATE > 60.0 ML/MIN; Glucose 304 mg/dL (74-106); MAGNESIUM 2.2 mg/dL (1.6-2.3); Potassium 4.5 mmol/L (3.5-5.1); SODIUM 137 mmol/L (137-145)
[2022-05-22] MEDS: AZACTAM 1 GM*** 1 GM in Sodium Chloride 100ML MINI-BAG PLUS 100 ML IV SCH ×2 (09:27→21:41)
[2022-05-22] MEDS: HUMALOG SQ PRN ×3 (09:29→21:41)
[2022-05-22] MEDS ORDERED: TROUGH DRUG LEVELS IJ ONE (09:30)
[2022-05-22] MEDS: Tessalon Perles 100 MG PO PRN ×2 (13:17→21:41)
--- NOTE | 2022-05-22 13:52 | PCM.NOTE ---
Date and Time: 05/22/22 1350 Subjective Assessment: still very short of breath, still require high flow oxygen - Review of Systems Constitutional: No Fever, No Chills Eyes: No Symptoms Ears, Nose, & Throat: No Symptoms Respiratory: Orthopnea, Short Of Breath, Wheezing, No Cough Cardiac: No Chest Pain, No Edema, No Syncope Abdominal/Gastrointestinal: No Abdominal Pain, No Nausea, No Vomiting, No Diarrhea Genitourinary Symptoms: No Dysuria Musculoskeletal: No Back Pain, No Neck Pain Skin: No Rash Neurological: No Dizziness, No Focal Weakness, No Sensory Changes Psychological: No Symptoms Endocrine: No Symptoms Hematologic/Lymphatic: No Symptoms Immunological/Allergic: No Symptoms Objective Exam General Appearance: no apparent distress, alert Neurologic Exam: alert, oriented x 3, cooperative, normal mood/affect, nml cerebellar function, sensation nml, No motor deficits Skin Exam: normal color, warm, dry Eye Exam: PERRL, EOMI, eyes nml inspection Ears, Nose, Throat Exam: normal ENT inspection, pharynx normal, moist mucous membranes Neck Exam: normal inspection, non-tender, supple, full range of motion Respiratory Exam: respiratory distress, diminished breath sounds, crackles/rales, rhonchi, wheezing Cardiovascular Exam: regular rate/rhythm, normal heart sounds Gastrointestinal/Abdomen Exam: soft, No tenderness, No mass Extremity Exam: normal inspection, normal range of motion Back Exam: normal inspection, normal range of motion, No CVA tenderness, No vertebral tenderness Pelvic Exam: deferred Rectal Exam: deferred OBJECTIVE DATA Vital Signs: Vital Signs - 24 hr Temp Pulse Resp BP Pulse Ox 05/22/22 12:00 97.1 F 69 23 143/76 88 L 05/22/22 10:43 66 20 94 L 05/22/22 08:00 97.3 F 60 19 144/76 90 L 05/22/22 06:00 63 20 94 L 05/22/22 03:43 97.1 F 60 22 127/77 92 L 05/21/22 23:46 97.9 F 64 16 121/66 91 L 05/21/22 20:00 97.3 F 71 16 120/71 91 L 05/21/22 18:42 65 20 96 05/21/22 16:00 97.5 F 76 32 H 121/59 05/21/22 15:07 90 22 89 L Pain Assessment - Last Documented Pain Intensity 0 Intake and Output: Intake & Output 05/20/22 05/21/22 05/22/22 05/23/22 11:59 11:59 11:59 11:59 Intake Total 660 1880 120 Output Total 650 1200 300 Balance 10 680 -180 Weight 102 kg Lab Results: Lab Results-Last 24 Hours 05/21/22 05/21/22 05/22/22 Range/Units 16:07 20:47 05:28 WBC 16.3 H (4.0-10.5) x10^3/uL RBC 3.84 L (4.1-5.4) x10^6/uL Hgb 11.0 L (12.0-16.0) g/dL Hct 35.9 (35-47) % MCV 93.5 (78-100) fL MCH 28.6 (26-32) pg MCHC 30.6 L (32-36) g/dL RDW 14.6 H (11.5-14.0) % Plt Count 235 (150-450) x10^3/uL MPV 11.9 H (7.5-11.0) fL Gran % 87.8 H (36.0-66.0) % Immature Gran % (Auto) 3.4 H (0.00-0.4) % Nucleat RBC Rel Count 0.0 (0.00-0.1) % Eos # (Auto) 0 (0-0.5) x10^3/uL Immature Gran # (Auto) 0.55 H (0.00-0.03) x10^3u/L Absolute Lymphs (auto) 0.99 L (1.0-4.6) x10^3/uL Absolute Monos (auto) 0.37 (0.0-1.3) x10^3/uL Absolute Nucleated RBC 0.00 (0.00-0.01) x10^3u/L Lymphocytes % 6.1 L (24.0-44.0) % Monocytes % 2.3 (0.0-12.0) % Eosinophils % 0.0 (0.00-5.0) % Basophils % 0.4 (0.0-0.4) % Absolute Granulocytes 14.31 H (1.4-6.9) x10^3/uL Basophils # 0.07 (0-0.4) x10^3/uL Sodium (137-145) mmol/L Potassium (3.5-5.1) mmol/L Chloride (98-107) mmol/L Carbon Dioxide (22-30) mmol/L Anion Gap (5-15) MEQ/L BUN (7-17) mg/dL Creatinine (0.52-1.04) mg/dL Estimated GFR ML/MIN Glucose (74-106) mg/dL POC Glucometer 275 H 323 H (74 to 106) mg/dL Calcium (8.4-10.2) mg/dL Magnesium (1.6-2.3) mg/dL Vancomycin Trough (10-20) ug/mL 05/22/22 05/22/22 05/22/22 Range/Units 05:28 07:47 09:00 WBC (4.0-10.5) x10^3/uL RBC (4.1-5.4) x10^6/uL Hgb (12.0-16.0) g/dL Hct (35-47) % MCV (78-100) fL MCH (26-32) pg MCHC (32-36) g/dL RDW (11.5-14.0) % Plt Count (150-450) x10^3/uL MPV (7.5-11.0) fL Gran % (36.0-66.0) % Immature Gran % (Auto) (0.00-0.4) % Nucleat RBC Rel Count (0.00-0.1) % Eos # (Auto) (0-0.5) x10^3/uL Immature Gran # (Auto) (0.00-0.03) x10^3u/L Absolute Lymphs (auto) (1.0-4.6) x10^3/uL Absolute Monos (auto) (0.0-1.3) x10^3/uL Absolute Nucleated RBC (0.00-0.01) x10^3u/L Lymphocytes % (24.0-44.0) % Monocytes % (0.0-12.0) % Eosinophils % (0.00-5.0) % Basophils % (0.0-0.4) % Absolute Granulocytes (1.4-6.9) x10^3/uL Basophils # (0-0.4) x10^3/uL Sodium 137 (137-145) mmol/L Potassium 4.5 D (3.5-5.1) mmol/L Chloride 99 (98-107) mmol/L Carbon Dioxide 31 H (22-30) mmol/L Anion Gap 11.3 (5-15) MEQ/L BUN 23 H (7-17) mg/dL Creatinine 0.70 (0.52-1.04) mg/dL Estimated GFR > 60.0 ML/MIN Glucose 304 H (74-106) mg/dL POC Glucometer 286 H (74 to 106) mg/dL Calcium 8.6 (8.4-10.2) mg/dL Magnesium 2.2 (1.6-2.3) mg/dL Vancomycin Trough 8.21 L (10-20) ug/mL 05/22/22 Range/Units 11:30 WBC (4.0-10.5) x10^3/uL RBC (4.1-5.4) x10^6/uL Hgb (12.0-16.0) g/dL Hct (35-47) % MCV (78-100) fL MCH (26-32) pg MCHC (32-36) g/dL RDW (11.5-14.0) % Plt Count (150-450) x10^3/uL MPV (7.5-11.0) fL Gran % (36.0-66.0) % Immature Gran % (Auto) (0.00-0.4) % Nucleat RBC Rel Count (0.00-0.1) % Eos # (Auto) (0-0.5) x10^3/uL Immature Gran # (Auto) (0.00-0.03) x10^3u/L Absolute Lymphs (auto) (1.0-4.6) x10^3/uL Absolute Monos (auto) (0.0-1.3) x10^3/uL Absolute Nucleated RBC (0.00-0.01) x10^3u/L Lymphocytes % (24.0-44.0) % Monocytes % (0.0-12.0) % Eosinophils % (0.00-5.0) % Basophils % (0.0-0.4) % Absolute Granulocytes (1.4-6.9) x10^3/uL Basophils # (0-0.4) x10^3/uL Sodium (137-145) mmol/L Potassium (3.5-5.1) mmol/L Chloride (98-107) mmol/L Carbon Dioxide (22-30) mmol/L Anion Gap (5-15) MEQ/L BUN (7-17) mg/dL Creatinine (0.52-1.04) mg/dL Estimated GFR ML/MIN Glucose (74-106) mg/dL POC Glucometer 305 H (74 to 106) mg/dL Calcium (8.4-10.2) mg/dL Magnesium (1.6-2.3) mg/dL Vancomycin Trough (10-20) ug/mL Assessment/Plan (1) Chronic obstructive pulmonary disease with hypoxia Current Visit: Yes Status: Acute Assessment & Plan: Chief Complaint Diagnosis PNEUMONIA, HYPOXIA, LUEKOCYTOSIS Allergies Allergy/AdvReac Type Severity Reaction Status Date / Time Penicillins Allergy Unknown Verified 05/20/22 08:24 Vital Signs (Last 24 hours) Temp Pulse Resp BP Pulse Ox 05/22/22 12:00 97.1 F 69 23 143/76 88 L 05/22/22 10:43 66 20 94 L 05/22/22 08:00 97.3 F 60 19 144/76 90 L 05/22/22 06:00 63 20 94 L 05/22/22 03:43 97.1 F 60 22 127/77 92 L 05/21/22 23:46 97.9 F 64 16 121/66 91 L 05/21/22 20:00 97.3 F 71 16 120/71 91 L 05/21/22 18:42 65 20 96 05/21/22 16:00 97.5 F 76 32 H 121/59 05/21/22 15:07 90 22 89 L Home Medications Medication Instructions Recorded Confirmed Last Taken Type Budesonide/Formoterol Fumarate 2 puff IH BID 05/20/22 05/20/22 05/20/22 History [Budesonide-Formoterol 160-4.5] Current Medications Generic Name Dose Route Start Last Admin Trade Name Freq PRN Reason Stop Dose Admin Acetaminophen 650 mg 05/20/22 11:11 Acetaminophen 325 Mg Tablet PO 06/19/22 11:10 Q4H PRN PRN PAIN AND/OR FEVER Albuterol Sulfate 2.5 mg 05/20/22 11:11 05/21/22 03:56 Albuterol Sulfate 2.5 Mg/3 Ml [facility] 06/19/22 11:10 2.5 mg Q4H PRN PRN Administration SHORTNESS OF BREATH/WHEEZING Albuterol/Ipratropium 3 ml 05/20/22 15:00 05/22/22 10:40 Ipratropium/Albuterol Sulfate 3 Ml Ampul.[facility] 06/19/22 14:59 3 ml QIDRT CAMI Administration Benzonatate 100 mg 05/22/22 11:54 05/22/22 13:17 Benzonatate 100 Mg Capsule PO 06/21/22 11:53 100 mg QID PRN PRN Administration COUGH Chlorphenir/Hydrocodone Polistirex 5 ml 05/21/22 16:52 05/22/22 05:38 Hydrocodone/Chlorphen P-Stirex 1 Ml [facility].12h PO 06/20/22 16:51 5 ml [id number] PRN Administration COUGH Methylprednisolone Sodium 0 mg 05/21/22 12:00 05/22/22 13:18 Succinate 125 mg/ Sterile IV 06/20/22 11:59 125 mg Water 2 ml Q6HT CAMI Administration Aztreonam 1 gm/ Sodium 100 mls @ 200 mls/hr 05/20/22 22:00 05/22/22 09:27 Chloride IV 05/23/22 21:59 200 mls/hr Q12HT CAMI Administration Vancomycin HCl 1.5 gm in 300 mls @ 166.667 mls/hr 05/22/22 14:00 Vancomycin 1.5 Gram/300 Ml Bag IV 06/21/22 13:59 Q12HT [facility] Insulin Human Lispro 0 unit 05/20/22 14:25 05/22/22 13:19 Insulin Lispro 1 Unit SQ 06/19/22 14:24 9 unit UD PRN Administration HYPERGLYCEMIA Morphine Sulfate 2 mg 05/20/22 11:11 Morphine Sulfate 2 Mg/Ml Inj IV 05/25/22 11:10 Q4H PRN PRN PAIN Ondansetron HCl 4 mg 05/20/22 11:11 Ondansetron Hcl 4 Mg/2 Ml Vial IV 06/19/22 11:10 Q6H PRN PRN NAUSEA/VOMITING Fluticasone/Salmeterol 2 puff 05/20/22 19:00 05/22/22 06:00 Fluticasone/Salmeterol 230/21 Common Canister 06/19/22 18:59 2 puff BIDRT ACMI Administration Discontinued Medications Generic Name Dose Route Start Last Admin Trade Name Freq PRN Reason Stop Dose Admin Albuterol Sulfate Confirm 05/20/22 11:17 Albuterol Sulfate 2.5 Mg/3 Ml Neb Administered 05/20/22 11:18 Dose 2.5 mg IH .STK-MED ONE Albuterol/Ipratropium Confirm 05/20/22 08:25 Ipratropium/Albuterol Sulfate 3 Ml Ampul.Neb Administered 05/20/22 08:26 Dose 3 ml IH .STK-MED ONE Albuterol/Ipratropium 3 ml 05/20/22 08:39 05/20/22 08:44 Ipratropium/Albuterol Sulfate 3 Ml Ampul.Neb IH 05/20/22 08:40 3 ml STAT ONE Administration Methylprednisolone Sodium 0 mg 05/20/22 08:39 05/20/22 08:53 Succinate 125 mg/ Sterile IV 05/20/22 08:40 125 mg Water 2 ml STAT ONE Administration Device 1 05/22/22 09:30 Therapuetic Drug Level Monitor Each IJ 05/22/22 09:31 1XONLY ONE Vancomycin HCl 1 gm in 200 mls @ 125 mls/hr 05/20/22 10:26 05/20/22 10:32 Vancomycin 1 Gram/200 Ml Bag IV 05/20/22 12:01 Not Given STAT ONE Aztreonam 1 gm in 100 mls @ 100 mls/hr 05/20/22 11:00 05/20/22 10:38 Azactam 1 Gm/100 Ml D5w IV 05/20/22 11:59 100 mls/hr STAT ONE Administration Vancomycin HCl 1.25 gm in 250 mls @ 166.667 mls/hr 05/20/22 22:00 05/21/22 21:47 Vancomycin 1.25 Gm/250 Ml Bag IV 05/23/22 21:59 166.667 mls/hr Q12HT CAMI Administration Methylprednisolone Sodium Succinate Confirm 05/20/22 08:53 Methylprednis Sod Succ 125 Mg/2 Ml Vial Administered 05/20/22 08:54 Dose 125 mg .ROUTE .STK-MED ONE Methylprednisolone Sodium Succinate 125 mg 05/21/22 12:00 Methylprednis Sod Succ 125 Mg/2 Ml Vial IV 06/20/22 11:59 Q6HT CAMI Methylprednisolone Sodium Succinate Confirm 05/22/22 04:41 Methylprednis Sod Succ 125 Mg/2 Ml Vial Administered 05/22/22 04:42 Dose 125 mg .ROUTE .STK-MED ONE Miscellaneous Information 1 each 05/20/22 14:00 Medication Intervention 1 Each Each MC 06/19/22 13:59 .RT TO CHECK CAMI Sterile Water Confirm 05/20/22 08:53 Water For Injection,Sterile 10 Ml Vial Administered 05/20/22 08:54 Dose 10 ml IJ .STK-MED ONE Intake & Output (Last 24 hours) 05/20/22 05/21/22 05/22/22 05/23/22 11:59 11:59 11:59 11:59 Intake Total 660 1880 120 Output Total 650 1200 300 Balance 10 680 -180 Weight 102 kg Microbiology Results (Last 24 hours) 05/20/22 12:23 Urine, Void Urine Culture - Preliminary <10K NORMAL SKIN CLARA PROBABLE SKIN CONTAMINANT Laboratory Results (Last 24 hours) 05/22/22 05/22/22 05/22/22 11:30 09:00 07:47 WBC RBC Hgb Hct MCV MCH MCHC RDW Plt Count MPV Gran % Immature Gran % (Auto) Nucleat RBC Rel Count Eos # (Auto) Immature Gran # (Auto) Absolute Lymphs (auto) Absolute Monos (auto) Absolute Nucleated RBC Lymphocytes % Monocytes % Eosinophils % Basophils % Absolute Granulocytes Basophils # Sodium Potassium Chloride Carbon Dioxide Anion Gap BUN Creatinine Estimated GFR Glucose POC Glucometer 305 H 286 H Calcium Magnesium Vancomycin Trough 8.21 L 05/22/22 05/22/22 05/21/22 05:28 05:28 20:47 WBC 16.3 H RBC 3.84 L Hgb 11.0 L Hct 35.9 MCV 93.5 MCH 28.6 MCHC 30.6 L RDW 14.6 H Plt Count 235 MPV 11.9 H Gran % 87.8 H Immature Gran % (Auto) 3.4 H Nucleat RBC Rel Count 0.0 Eos # (Auto) 0 Immature Gran # (Auto) 0.55 H Absolute Lymphs (auto) 0.99 L Absolute Monos (auto) 0.37 Absolute Nucleated RBC 0.00 Lymphocytes % 6.1 L Monocytes % 2.3 Eosinophils % 0.0 Basophils % 0.4 Absolute Granulocytes 14.31 H Basophils # 0.07 Sodium 137 Potassium 4.5 D Chloride 99 Carbon Dioxide 31 H Anion Gap 11.3 BUN 23 H Creatinine 0.70 Estimated GFR > 60.0 Glucose 304 H POC Glucometer 323 H Calcium 8.6 Magnesium 2.2 Vancomycin Trough 05/21/22 16:07 WBC RBC Hgb Hct MCV MCH MCHC RDW Plt Count MPV Gran % Immature Gran % (Auto) Nucleat RBC Rel Count Eos # (Auto) Immature Gran # (Auto) Absolute Lymphs (auto) Absolute Monos (auto) Absolute Nucleated RBC Lymphocytes % Monocytes % Eosinophils % Basophils % Absolute Granulocytes Basophils # Sodium Potassium Chloride Carbon Dioxide Anion Gap BUN Creatinine Estimated GFR Glucose POC Glucometer 275 H Calcium Magnesium Vancomycin Trough Orders (Last 24 hours) Category Date Time Status BMP AM.LAB Lab 05/22/22 05:28 Completed CBC W DIFF AM.LAB Lab 05/22/22 05:28 Completed MAGNESIUM AM.LAB Lab 05/22/22 05:28 Completed POCT GLUCOSE Stat Lab 05/21/22 16:07 Completed POCT GLUCOSE Stat Lab 05/21/22 20:47 Completed POCT GLUCOSE Stat Lab 05/22/22 07:47 Completed POCT GLUCOSE Stat Lab 05/22/22 11:30 Completed Vancomycin, Trough Urgent Lab 05/22/22 09:00 Completed Vancomycin, Trough Urgent Lab 05/24/22 09:30 Ordered Benzonatate 100 mg [Tessalon Perles 100 MG] Med 05/22/22 11:54 Active 100 mg PO QID PRN PRN Hydrocodone/Chlorphen P-Stirex [Hydrocodone-Chlorphen Med 05/21/22 16:52 Active ER Susp] 5 ml PO [id number] PRN Methylprednis Sod Succ 125 mg* [solu-MEDROL] Med 05/22/22 04:41 Discontinued 125 mg .ROUTE .STK-MED ONE Therapuetic Drug Level Monitor [Trough Drug Levels] Med 05/22/22 09:30 Discontinued 1 IJ 1XONLY ONE Vancomycin/Water For Inj (Peg) [Vancomycin 1.5 Gram/300 Med 05/22/22 14:00 Active ml Bag] 1.5 gm in 300 ml IV Q12HT Patient Care Notes (Last 24 hours) 05/21/22 17:06 Nursing Note by Ernie Stark PT HAVING COUGHING FITS MAKING HER SOB. CALLED DR HINOJOSA, NEW ORDER FOR JUDSON Initialized on 05/21/22 17:06 - END OF NOTE Code(s): J44.9 - CHRONIC OBSTRUCTIVE PULMONARY DISEASE, UNSPECIFIED; R09.02 - HYPOXEMIA (2) Acute exacerbation of chronic obstructive airways disease Current Visit: Yes Status: Acute Code(s): J44.1 - CHRONIC OBSTRUCTIVE PULMONARY DISEASE W (ACUTE) EXACERBATION (3) Elevated liver enzymes Current Visit: Yes Status: Acute Code(s): R74.8 - ABNORMAL LEVELS OF OTHER SERUM ENZYMES (4) Hypoxia Current Visit: Yes Status: Acute Code(s): R09.02 - HYPOXEMIA (5) Diabetes mellitus type 2 in obese Current Visit: No Status: Acute Code(s): E11.69 - TYPE 2 DIABETES MELLITUS WITH OTHER SPECIFIED COMPLICATION; E66.9 - OBESITY, UNSPECIFIED
[2022-05-22] MEDS: VANCOMYCIN 1.5 GRAM/300 ML BAG 1.5 GM/300 ML PIGGYBACK IV SCH ×2 (14:50→22:22)
[2022-05-22] MEDS: VANCOMYCIN 1.25 GM/250 ML BAG 1.25 GM/250 ML PIGGYBACK IV SCH (15:32)
[2022-05-23] MEDS ORDERED: solu-MEDROL ONE (05:37)
[2022-05-23] MEDS: solu-MEDROL 125 MG, Sterile H2O 10 ml 2 ML IV SCH ×6 (05:40→17:23)
[2022-05-23] MEDS: Tessalon Perles 100 MG PO PRN ×2 (05:47→15:24)
[2022-05-23 06:46] LABS: Absolute Neutrophil Ct (ANC) 13.54 x10^3/uL (1.4-6.9); Basophil (Absolute #) 0.05 x10^3/uL (0-0.4); Eosinophil (Absolute #) 0 x10^3/uL (0-0.5); Hematocrit 36.6 % (35-47); Hemoglobin 11.1 g/dL (12.0-16.0); Lymphocyte (Absolute #) 0.82 x10^3/uL (1.0-4.6); Lymphocytes % 5.2 % (24.0-44.0); Mean Cell Volume 95.1 fL (78-100); Mean Corpuscular Hemoglobin 28.8 pg (26-32); Mean Corpuscular Hgb Concent. 30.3 g/dL (32-36); Mean Platelet Volume 11.7 fL (7.5-11.0); Monocytes % 3.2 % (0.0-12.0); Neutrophil % 86.7 % (36.0-66.0); Platelet Count 246 x10^3/uL (150-450); Red Blood Count 3.85 x10^6/uL (4.1-5.4); Red Cell Distribution Width 14.6 % (11.5-14.0); White Blood Count 15.6 x10^3/uL (4.0-10.5)
[2022-05-23] MEDS: DUONEB 0.5-3 MG/3 ml Neb IH SCH ×4 (06:56→19:01)
[2022-05-23] MEDS: Advair Hfa 230/21 Mcg COMMON CANISTER IH SCH ×2 (06:56→19:02)
[2022-05-23 06:58] LABS: ALBUMIN 3.3 g/dL (3.5-5.0); ALKALINE PHOSPHATASE 63 U/L (38-126); ANION GAP 12.7 MEQ/L (5-15); BLOOD UREA NITROGEN 24 mg/dL (7-17); CHLORIDE 99 mmol/L (98-107); Calcium 8.4 mg/dL (8.4-10.2); Carbon Dioxide 29 mmol/L (22-30); Creatinine 1 0.74 mg/dL (0.52-1.04); EST GLOMERULAR FILTRATION RATE > 60.0 ML/MIN; Glucose 386 mg/dL (74-106); Potassium 4.8 mmol/L (3.5-5.1); SGOT/AST 21 U/L (14-36); SGPT/ALT 61 U/L (0-35); SODIUM 136 mmol/L (137-145); Total Protein 6.8 g/dL (6.3-8.2)
[2022-05-23] MEDS: HUMALOG SQ PRN ×4 (08:25→21:33)
--- NOTE | 2022-05-23 08:54 | PCM.NOTE ---
Date and Time: 05/23/22 0850 Subjective Assessment: still short of breath - Review of Systems Constitutional: No Fever, No Chills Eyes: No Symptoms Ears, Nose, & Throat: No Symptoms Respiratory: Short Of Breath, Wheezing, No Cough Cardiac: No Chest Pain, No Edema, No Syncope Abdominal/Gastrointestinal: No Abdominal Pain, No Nausea, No Vomiting, No Diarrhea Genitourinary Symptoms: No Dysuria Musculoskeletal: No Back Pain, No Neck Pain Skin: No Rash Neurological: No Dizziness, No Focal Weakness, No Sensory Changes Psychological: No Symptoms Endocrine: No Symptoms Hematologic/Lymphatic: No Symptoms Immunological/Allergic: No Symptoms Objective Exam General Appearance: no apparent distress, alert Neurologic Exam: alert, oriented x 3, cooperative, normal mood/affect, nml cerebellar function, sensation nml, No motor deficits Skin Exam: normal color, warm, dry Eye Exam: PERRL, EOMI, eyes nml inspection Ears, Nose, Throat Exam: normal ENT inspection, pharynx normal, moist mucous membranes Neck Exam: normal inspection, non-tender, supple, full range of motion Respiratory Exam: diminished breath sounds, rhonchi, wheezing, No respiratory distress Cardiovascular Exam: regular rate/rhythm, normal heart sounds Gastrointestinal/Abdomen Exam: soft, No tenderness, No mass Extremity Exam: normal inspection, normal range of motion Back Exam: normal inspection, normal range of motion, No CVA tenderness, No vertebral tenderness Pelvic Exam: deferred Rectal Exam: deferred OBJECTIVE DATA Vital Signs: Vital Signs - 24 hr Temp Pulse Resp BP Pulse Ox 05/23/22 07:08 98.1 F 48 L 20 168/79 94 L 05/23/22 06:56 57 L 20 92 L 05/23/22 04:00 96.4 F 56 L 18 131/71 98 05/22/22 23:59 97.1 F 66 19 130/65 95 05/22/22 19:48 97.5 F 69 18 132/70 91 L 05/22/22 19:11 69 20 94 L 05/22/22 16:00 97.5 F 57 L 21 153/74 91 L 05/22/22 15:51 84 20 91 L 05/22/22 12:00 97.1 F 69 23 143/76 88 L 05/22/22 10:43 66 20 94 L Pain Assessment - Last Documented Pain Intensity 0 Pain Scale Used FLACC Intake and Output: Intake & Output 05/20/22 05/21/22 05/22/22 05/23/22 11:59 11:59 11:59 11:59 Intake Total 660 1880 1080 Output Total 650 1200 1700 Balance 10 680 -620 Weight 102 kg Lab Results: Lab Results-Last 24 Hours 05/22/22 05/22/22 05/22/22 Range/Units 09:00 11:30 15:52 WBC (4.0-10.5) x10^3/uL RBC (4.1-5.4) x10^6/uL Hgb (12.0-16.0) g/dL Hct (35-47) % MCV (78-100) fL MCH (26-32) pg MCHC (32-36) g/dL RDW (11.5-14.0) % Plt Count (150-450) x10^3/uL MPV (7.5-11.0) fL Gran % (36.0-66.0) % Immature Gran % (Auto) (0.00-0.4) % Nucleat RBC Rel Count (0.00-0.1) % Eos # (Auto) (0-0.5) x10^3/uL Immature Gran # (Auto) (0.00-0.03) x10^3u/L Absolute Lymphs (auto) (1.0-4.6) x10^3/uL Absolute Monos (auto) (0.0-1.3) x10^3/uL Absolute Nucleated RBC (0.00-0.01) x10^3u/L Lymphocytes % (24.0-44.0) % Monocytes % (0.0-12.0) % Eosinophils % (0.00-5.0) % Basophils % (0.0-0.4) % Absolute Granulocytes (1.4-6.9) x10^3/uL Basophils # (0-0.4) x10^3/uL Sodium (137-145) mmol/L Potassium (3.5-5.1) mmol/L Chloride (98-107) mmol/L Carbon Dioxide (22-30) mmol/L Anion Gap (5-15) MEQ/L BUN (7-17) mg/dL Creatinine (0.52-1.04) mg/dL Estimated GFR ML/MIN Glucose (74-106) mg/dL POC Glucometer 305 H 267 H (74 to 106) mg/dL Calcium (8.4-10.2) mg/dL Total Bilirubin (0.2-1.3) mg/dL AST (14-36) U/L ALT (0-35) U/L Alkaline Phosphatase (38-126) U/L Serum Total Protein (6.3-8.2) g/dL Albumin (3.5-5.0) g/dL Vancomycin Trough 8.21 L (10-20) ug/mL 05/22/22 05/23/22 05/23/22 Range/Units 20:38 05:42 05:42 WBC 15.6 H (4.0-10.5) x10^3/uL RBC 3.85 L (4.1-5.4) x10^6/uL Hgb 11.1 L (12.0-16.0) g/dL Hct 36.6 (35-47) % MCV 95.1 (78-100) fL MCH 28.8 (26-32) pg MCHC 30.3 L (32-36) g/dL RDW 14.6 H (11.5-14.0) % Plt Count 246 (150-450) x10^3/uL MPV 11.7 H (7.5-11.0) fL Gran % 86.7 H (36.0-66.0) % Immature Gran % (Auto) 4.6 H (0.00-0.4) % Nucleat RBC Rel Count 0.0 (0.00-0.1) % Eos # (Auto) 0 (0-0.5) x10^3/uL Immature Gran # (Auto) 0.72 H (0.00-0.03) x10^3u/L Absolute Lymphs (auto) 0.82 L (1.0-4.6) x10^3/uL Absolute Monos (auto) 0.50 (0.0-1.3) x10^3/uL Absolute Nucleated RBC 0.00 (0.00-0.01) x10^3u/L Lymphocytes % 5.2 L (24.0-44.0) % Monocytes % 3.2 (0.0-12.0) % Eosinophils % 0.0 (0.00-5.0) % Basophils % 0.3 (0.0-0.4) % Absolute Granulocytes 13.54 H (1.4-6.9) x10^3/uL Basophils # 0.05 (0-0.4) x10^3/uL Sodium 136 L (137-145) mmol/L Potassium 4.8 (3.5-5.1) mmol/L Chloride 99 (98-107) mmol/L Carbon Dioxide 29 (22-30) mmol/L Anion Gap 12.7 (5-15) MEQ/L BUN 24 H (7-17) mg/dL Creatinine 0.74 (0.52-1.04) mg/dL Estimated GFR > 60.0 ML/MIN Glucose 386 H (74-106) mg/dL POC Glucometer 341 H (74 to 106) mg/dL Calcium 8.4 (8.4-10.2) mg/dL Total Bilirubin 0.30 (0.2-1.3) mg/dL AST 21 (14-36) U/L ALT 61 H (0-35) U/L Alkaline Phosphatase 63 (38-126) U/L Serum Total Protein 6.8 (6.3-8.2) g/dL Albumin 3.3 L (3.5-5.0) g/dL Vancomycin Trough (10-20) ug/mL 05/23/22 Range/Units 07:34 WBC (4.0-10.5) x10^3/uL RBC (4.1-5.4) x10^6/uL Hgb (12.0-16.0) g/dL Hct (35-47) % MCV (78-100) fL MCH (26-32) pg MCHC (32-36) g/dL RDW (11.5-14.0) % Plt Count (150-450) x10^3/uL MPV (7.5-11.0) fL Gran % (36.0-66.0) % Immature Gran % (Auto) (0.00-0.4) % Nucleat RBC Rel Count (0.00-0.1) % Eos # (Auto) (0-0.5) x10^3/uL Immature Gran # (Auto) (0.00-0.03) x10^3u/L Absolute Lymphs (auto) (1.0-4.6) x10^3/uL Absolute Monos (auto) (0.0-1.3) x10^3/uL Absolute Nucleated RBC (0.00-0.01) x10^3u/L Lymphocytes % (24.0-44.0) % Monocytes % (0.0-12.0) % Eosinophils % (0.00-5.0) % Basophils % (0.0-0.4) % Absolute Granulocytes (1.4-6.9) x10^3/uL Basophils # (0-0.4) x10^3/uL Sodium (137-145) mmol/L Potassium (3.5-5.1) mmol/L Chloride (98-107) mmol/L Carbon Dioxide (22-30) mmol/L Anion Gap (5-15) MEQ/L BUN (7-17) mg/dL Creatinine (0.52-1.04) mg/dL Estimated GFR ML/MIN Glucose (74-106) mg/dL POC Glucometer 323 H (74 to 106) mg/dL Calcium (8.4-10.2) mg/dL Total Bilirubin (0.2-1.3) mg/dL AST (14-36) U/L ALT (0-35) U/L Alkaline Phosphatase (38-126) U/L Serum Total Protein (6.3-8.2) g/dL Albumin (3.5-5.0) g/dL Vancomycin Trough (10-20) ug/mL Radiology Exams: 0004 CT/CHEST WITH CONTRAST Indication: Cough and short of breath. Elevated d-dimer. Multiple contiguous axial images obtained through the chest using 100 cc Isovue 370 contrast and PE protocol. Comparison: August 12, 2021 Good opacification of the pulmonary arteries to include the lobar and segmental branches. However mild respiration artifact limits evaluation the more distal lobar and segmental branches. No obvious central pulmonary embolus. Heart not enlarged. Aorta is normal in course and caliber. No pathologic mediastinal/hilar lymphadenopathy. Lungs demonstrates worsening bilateral mid to lower lung patchy consolidating airspace disease greatest in both lower lobes.. New tiny bilateral pleural effusions. Bony thorax intact again with mild degenerative changes throughout the spine. Limited upper abdomen again demonstrates fatty liver, 13.2 cm splenomegaly, and large gallstones. Impression: 1. Respiration artifact limits evaluation for pulmonary embolus. Again no obvious central pulmonary embolus. 2. Worsening bilateral mid to lower lung consolidating airspace disease with new tiny bilateral effusions. 3. Again incidental fatty liver, splenomegaly, and cholelithiasis. Assessment/Plan (1) Acute exacerbation of chronic obstructive airways disease Current Visit: Yes Status: Acute Code(s): J44.1 - CHRONIC OBSTRUCTIVE PULMONARY DISEASE W (ACUTE) EXACERBATION (2) Chronic obstructive pulmonary disease with hypoxia Current Visit: Yes Status: Acute Code(s): J44.9 - CHRONIC OBSTRUCTIVE PULMONARY DISEASE, UNSPECIFIED; R09.02 - HYPOXEMIA (3) Elevated liver enzymes Current Visit: Yes Status: Acute Code(s): R74.8 - ABNORMAL LEVELS OF OTHER SERUM ENZYMES (4) Hypoxia Current Visit: Yes Status: Acute Code(s): R09.02 - HYPOXEMIA (5) Diabetes mellitus type 2 in obese Current Visit: No Status: Acute Code(s): E11.69 - TYPE 2 DIABETES MELLITUS WITH OTHER SPECIFIED COMPLICATION; E66.9 - OBESITY, UNSPECIFIED (6) Cholelithiasis Current Visit: Yes Status: Acute Qualifiers: Cholecystitis presence: without cholecystitis Biliary obstruction: without biliary obstruction (7) Pneumonia Current Visit: Yes Status: Acute Qualifiers: Pneumonia type: due to unspecified organism Laterality: bilateral Lung location: lower lobe of lung Qualified Code(s): J18.9 - Pneumonia, unspecified organism Assessment & Plan: Chief Complaint Diagnosis PNEUMONIA, HYPOXIA, LUEKOCYTOSIS Allergies Allergy/AdvReac Type Severity Reaction Status Date / Time Penicillins Allergy Unknown Verified 05/20/22 08:24 Vital Signs (Last 24 hours) Temp Pulse Resp BP Pulse Ox 05/23/22 07:08 98.1 F 48 L 20 168/79 94 L 05/23/22 06:56 57 L 20 92 L 05/23/22 04:00 96.4 F 56 L 18 131/71 98 05/22/22 23:59 97.1 F 66 19 130/65 95 05/22/22 19:48 97.5 F 69 18 132/70 91 L 05/22/22 19:11 69 20 94 L 05/22/22 16:00 97.5 F 57 L 21 153/74 91 L 05/22/22 15:51 84 20 91 L 05/22/22 12:00 97.1 F 69 23 143/76 88 L 05/22/22 10:43 66 20 94 L Home Medications Medication Instructions Recorded Confirmed Last Taken Type Budesonide/Formoterol Fumarate 2 puff IH BID 05/20/22 05/20/22 05/20/22 History [Budesonide-Formoterol 160-4.5] Current Medications Generic Name Dose Route Start Last Admin Trade Name Freq PRN Reason Stop Dose Admin Acetaminophen 650 mg 05/20/22 11:11 Acetaminophen 325 Mg Tablet PO 06/19/22 11:10 Q4H PRN PRN PAIN AND/OR FEVER Albuterol Sulfate 2.5 mg 05/20/22 11:11 05/21/22 03:56 Albuterol Sulfate 2.5 Mg/3 Ml [facility] 06/19/22 11:10 2.5 mg Q4H PRN PRN Administration SHORTNESS OF BREATH/WHEEZING Albuterol/Ipratropium 3 ml 05/20/22 15:00 05/23/22 06:56 Ipratropium/Albuterol Sulfate 3 Ml [facility] 06/19/22 14:59 3 ml QIDRT CAMI Administration Benzonatate 100 mg 05/22/22 11:54 05/23/22 05:47 Benzonatate 100 Mg Capsule PO 06/21/22 11:53 100 mg QID PRN PRN Administration COUGH Chlorphenir/Hydrocodone Polistirex 5 ml 05/21/22 16:52 05/22/22 19:23 Hydrocodone/Chlorphen P-Stirex 1 Ml Belinda.Er.12h PO 06/20/22 16:51 5 ml [id number] PRN Administration COUGH Methylprednisolone Sodium 0 mg 05/21/22 12:00 05/23/22 05:40 Succinate 125 mg/ Sterile IV 06/20/22 11:59 125 mg Water 2 ml Q6HT CAMI Administration Aztreonam 1 gm/ Sodium 100 mls @ 200 mls/hr 05/20/22 22:00 05/22/22 21:41 Chloride IV 05/23/22 21:59 200 mls/hr Q12HT CAMI Administration Vancomycin HCl 1.5 gm in 300 mls @ 166.667 mls/hr 05/22/22 14:00 05/22/22 22:22 Vancomycin 1.5 Gram/300 Ml Bag IV 06/21/22 13:59 166.667 mls/hr Q12HT CAMI Administration Insulin Human Lispro 0 unit 05/20/22 14:25 05/23/22 08:25 Insulin Lispro 1 Unit SQ 06/19/22 14:24 9 unit UD PRN Administration HYPERGLYCEMIA Metformin HCl 500 mg 05/23/22 09:00 Metformin Hcl 500 Mg Tablet PO 06/22/22 08:59 BIDWM CAMI Morphine Sulfate 2 mg 05/20/22 11:11 Morphine Sulfate 2 Mg/Ml Inj IV 05/25/22 11:10 Q4H PRN PRN PAIN Ondansetron HCl 4 mg 05/20/22 11:11 Ondansetron Hcl 4 Mg/2 Ml Vial IV 06/19/22 11:10 Q6H PRN PRN NAUSEA/VOMITING Fluticasone/Salmeterol 2 puff 05/20/22 19:00 05/23/22 06:56 Fluticasone/Salmeterol 230/21 Common Canister 06/19/22 18:59 2 puff BIDRT CAMI Administration Discontinued Medications Generic Name Dose Route Start Last Admin Trade Name Freq PRN Reason Stop Dose Admin Albuterol Sulfate Confirm 05/20/22 11:17 Albuterol Sulfate 2.5 Mg/3 Ml Neb Administered 05/20/22 11:18 Dose 2.5 mg IH .STK-MED ONE Albuterol/Ipratropium Confirm 05/20/22 08:25 Ipratropium/Albuterol Sulfate 3 Ml Ampul.Neb Administered 05/20/22 08:26 Dose 3 ml IH .STK-MED ONE Albuterol/Ipratropium 3 ml 05/20/22 08:39 05/20/22 08:44 Ipratropium/Albuterol Sulfate 3 Ml Ampul.Neb IH 05/20/22 08:40 3 ml STAT ONE Administration Methylprednisolone Sodium 0 mg 05/20/22 08:39 05/20/22 08:53 Succinate 125 mg/ Sterile IV 05/20/22 08:40 125 mg Water 2 ml STAT ONE Administration Device 1 05/22/22 09:30 05/22/22 14:47 Therapuetic Drug Level Monitor Each IJ 05/22/22 09:31 1 1XONLY ONE Administration Vancomycin HCl 1 gm in 200 mls @ 125 mls/hr 05/20/22 10:26 05/20/22 10:32 Vancomycin 1 Gram/200 Ml Bag IV 05/20/22 12:01 Not Given STAT ONE Aztreonam 1 gm in 100 mls @ 100 mls/hr 05/20/22 11:00 05/20/22 10:38 Azactam 1 Gm/100 Ml D5w IV 05/20/22 11:59 100 mls/hr STAT ONE Administration Vancomycin HCl 1.25 gm in 250 mls @ 166.667 mls/hr 05/20/22 22:00 05/22/22 15:32 Vancomycin 1.25 Gm/250 Ml Bag IV 05/23/22 21:59 Not Given Q12HT [facility] Methylprednisolone Sodium Succinate Confirm 05/20/22 08:53 Methylprednis Sod Succ 125 Mg/2 Ml Vial Administered 05/20/22 08:54 Dose 125 mg .ROUTE .STK-MED ONE Methylprednisolone Sodium Succinate 125 mg 05/21/22 12:00 Methylprednis Sod Succ 125 Mg/2 Ml Vial IV 06/20/22 11:59 Q6HT [facility] Methylprednisolone Sodium Succinate Confirm 05/22/22 04:41 Methylprednis Sod Succ 125 Mg/2 Ml Vial Administered 05/22/22 04:42 Dose 125 mg .ROUTE .STK-MED ONE Methylprednisolone Sodium Succinate Confirm 05/23/22 05:37 Methylprednis Sod Succ 125 Mg/2 Ml Vial Administered 05/23/22 05:38 Dose 125 mg .ROUTE .STK-MED ONE Miscellaneous Information 1 each 05/20/22 14:00 Medication Intervention 1 Each Each 06/19/22 13:59 .RT TO CHECK [facility] Sterile Water Confirm 05/20/22 08:53 Water For Injection,Sterile 10 Ml Vial Administered 05/20/22 08:54 Dose 10 ml IJ .STK-MED ONE Intake & Output (Last 24 hours) 05/20/22 05/21/22 05/22/22 05/23/22 11:59 11:59 11:59 11:59 Intake Total 660 1880 1080 Output Total 650 1200 1700 Balance 10 680 -620 Weight 102 kg Microbiology Results (Last 24 hours) 05/20/22 12:23 Urine, Void Urine Culture - Final MIXED CLARA; 3 OR MORE TYPES. NO PREDOMINANT ORGANISM. NO FURTHER WORKUP. PLEASE RESUBMIT IF CLINICALLY INDICATED. Laboratory Results (Last 24 hours) 05/23/22 05/23/22 05/23/22 07:34 05:42 05:42 WBC 15.6 H RBC 3.85 L Hgb 11.1 L Hct 36.6 MCV 95.1 MCH 28.8 MCHC 30.3 L RDW 14.6 H Plt Count 246 MPV 11.7 H Gran % 86.7 H Immature Gran % (Auto) 4.6 H Nucleat RBC Rel Count 0.0 Eos # (Auto) 0 Immature Gran # (Auto) 0.72 H Absolute Lymphs (auto) 0.82 L Absolute Monos (auto) 0.50 Absolute Nucleated RBC 0.00 Lymphocytes % 5.2 L Monocytes % 3.2 Eosinophils % 0.0 Basophils % 0.3 Absolute Granulocytes 13.54 H Basophils # 0.05 Sodium 136 L Potassium 4.8 Chloride 99 Carbon Dioxide 29 Anion Gap 12.7 BUN 24 H Creatinine 0.74 Estimated GFR > 60.0 Glucose 386 H POC Glucometer 323 H Calcium 8.4 Total Bilirubin 0.30 AST 21 ALT 61 H Alkaline Phosphatase 63 Serum Total Protein 6.8 Albumin 3.3 L Vancomycin Trough 05/22/22 05/22/22 05/22/22 20:38 15:52 11:30 WBC RBC Hgb Hct MCV MCH MCHC RDW Plt Count MPV Gran % Immature Gran % (Auto) Nucleat RBC Rel Count Eos # (Auto) Immature Gran # (Auto) Absolute Lymphs (auto) Absolute Monos (auto) Absolute Nucleated RBC Lymphocytes % Monocytes % Eosinophils % Basophils % Absolute Granulocytes Basophils # Sodium Potassium Chloride Carbon Dioxide Anion Gap BUN Creatinine Estimated GFR Glucose POC Glucometer 341 H 267 H 305 H Calcium Total Bilirubin AST ALT Alkaline Phosphatase Serum Total Protein Albumin Vancomycin Trough 05/22/22 09:00 WBC RBC Hgb Hct MCV MCH MCHC RDW Plt Count MPV Gran % Immature Gran % (Auto) Nucleat RBC Rel Count Eos # (Auto) Immature Gran # (Auto) Absolute Lymphs (auto) Absolute Monos (auto) Absolute Nucleated RBC Lymphocytes % Monocytes % Eosinophils % Basophils % Absolute Granulocytes Basophils # Sodium Potassium Chloride Carbon Dioxide Anion Gap BUN Creatinine Estimated GFR Glucose POC Glucometer Calcium Total Bilirubin AST ALT Alkaline Phosphatase Serum Total Protein Albumin Vancomycin Trough 8.21 L Orders (Last 24 hours) Category Date Time Status CBC W DIFF AM.LAB Lab 05/23/22 05:42 Completed CMP AM.LAB Lab 05/23/22 05:42 Completed POCT GLUCOSE Stat Lab 05/22/22 11:30 Completed POCT GLUCOSE Stat Lab 05/22/22 15:52 Completed POCT GLUCOSE Stat Lab 05/22/22 20:38 Completed POCT GLUCOSE Stat Lab 05/23/22 07:34 Completed Vancomycin, Trough Urgent Lab 05/22/22 09:00 Completed Vancomycin, Trough Urgent Lab 05/24/22 09:30 Ordered Benzonatate 100 mg [Tessalon Perles 100 MG] Med 05/22/22 11:54 Active 100 mg PO QID PRN PRN Metformin HCl 500 mg [Glucophage 500 MG] Med 05/23/22 09:00 Active 500 mg PO BIDWM Methylprednis Sod Succ 125 mg* [solu-MEDROL] Med 05/23/22 05:37 Discontinued 125 mg .ROUTE .STK-MED ONE Therapuetic Drug Level Monitor [Trough Drug Levels] Med 05/22/22 09:30 Discontinued 1 IJ 1XONLY ONE Vancomycin/Water For Inj (Peg) [Vancomycin 1.5 Gram/300 Med 05/22/22 14:00 Active ml Bag] 1.5 gm in 300 ml IV Q12HT Code(s): J18.9 - PNEUMONIA, UNSPECIFIED ORGANISM
[2022-05-23] MEDS: Glucophage 500 MG PO SCH ×2 (09:22→17:23)
[2022-05-23] MEDS: VANCOMYCIN 1.5 GRAM/300 ML BAG 1.5 GM/300 ML PIGGYBACK IV SCH ×2 (09:22→21:38)
[2022-05-23] MEDS: AZACTAM 1 GM*** 1 GM in Sodium Chloride 100ML MINI-BAG PLUS 100 ML IV SCH ×2 (09:22→23:30)
[2022-05-23] MEDS: HYDROCODONE-CHLORPHEN ER SUSP PO PRN ×2 (10:29→23:04)
[2022-05-24] MEDS: solu-MEDROL 125 MG, Sterile H2O 10 ml 2 ML IV SCH ×10 (00:01→23:46)
[2022-05-24] MEDS: Tessalon Perles 100 MG PO PRN ×4 (00:02→23:47)
[2022-05-24] MEDS: DUONEB 0.5-3 MG/3 ml Neb IH SCH ×4 (07:15→19:08)
[2022-05-24] MEDS: Advair Hfa 230/21 Mcg COMMON CANISTER IH SCH ×2 (07:16→19:08)
--- NOTE | 2022-05-24 09:30 | PCM.NOTE ---
Date and Time: 05/24/22928 Subjective Assessment: still vary short of breath - Review of Systems Constitutional: No Fever, No Chills Eyes: No Symptoms Ears, Nose, & Throat: No Symptoms Respiratory: Orthopnea, Short Of Breath, No Cough Cardiac: No Chest Pain, No Edema, No Syncope Abdominal/Gastrointestinal: No Abdominal Pain, No Nausea, No Vomiting, No Diarrhea Genitourinary Symptoms: No Dysuria Musculoskeletal: No Back Pain, No Neck Pain Skin: No Rash Neurological: No Dizziness, No Focal Weakness, No Sensory Changes Psychological: No Symptoms Endocrine: No Symptoms Hematologic/Lymphatic: No Symptoms Immunological/Allergic: No Symptoms Objective Exam General Appearance: no apparent distress, alert Neurologic Exam: alert, oriented x 3, cooperative, normal mood/affect, nml cerebellar function, sensation nml, No motor deficits Skin Exam: normal color, warm, dry Eye Exam: PERRL, EOMI, eyes nml inspection Ears, Nose, Throat Exam: normal ENT inspection, pharynx normal, moist mucous membranes Neck Exam: normal inspection, non-tender, supple, full range of motion Respiratory Exam: diminished breath sounds, crackles/rales, wheezing, No respiratory distress Cardiovascular Exam: regular rate/rhythm, normal heart sounds Gastrointestinal/Abdomen Exam: soft, No tenderness, No mass Extremity Exam: normal inspection, normal range of motion Back Exam: normal inspection, normal range of motion, No CVA tenderness, No vertebral tenderness Pelvic Exam: deferred Rectal Exam: deferred OBJECTIVE DATA Vital Signs: Vital Signs - 24 hr Temp Pulse Resp BP Pulse Ox 05/24/22 07:39 97.9 F 52 L 16 173/84 95 05/24/22 07:16 60 20 96 05/24/22 04:00 97.3 F 55 L 19 123/59 93 L 05/23/22 23:48 97.5 F 74 20 133/83 97 05/23/22 19:50 97.8 F 85 19 152/79 92 L 05/23/22 19:05 60 18 92 L 05/23/22 16:00 98.0 F 72 16 139/87 92 L 05/23/22 15:14 66 18 93 L 05/23/22 11:50 97.8 F 73 18 131/74 91 L 05/23/22 10:59 64 20 94 L Pain Assessment - Last Documented Pain Intensity 0 Pain Scale Used FLACC Intake and Output: Intake & Output 05/21/22 05/22/22 05/23/22 05/24/22 11:59 11:59 11:59 11:59 Intake Total 660 1880 1360 2520 Output Total 650 1200 1700 2100 Balance 10 680 -340 420 Weight 102 kg Lab Results: Lab Results-Last 24 Hours 05/23/22 05/23/22 05/23/22 Range/Units 11:21 16:25 20:26 POC Glucometer 344 H 284 H 297 H (74 to 106) mg/dL 05/24/22 Range/Units 07:05 POC Glucometer 309 H (74 to 106) mg/dL Multi-Disciplinary Progress Notes: Multi-Disciplinary Progress Notes 05/23/22 17:43 Respiratory Note by Tena Mahoney spo2 96% on n/c 3lpm. dec to 2lpm Initialized on 05/23/22 17:43 - END OF NOTE Assessment/Plan (1) Acute exacerbation of chronic obstructive airways disease Current Visit: Yes Status: Acute Assessment & Plan: Chief Complaint Diagnosis PNEUMONIA, HYPOXIA, LUEKOCYTOSIS Allergies Allergy/AdvReac Type Severity Reaction Status Date / Time Penicillins Allergy Unknown Verified 05/20/22 08:24 Vital Signs (Last 24 hours) Temp Pulse Resp BP Pulse Ox 05/24/22 07:39 97.9 F 52 L 16 173/84 95 05/24/22 07:16 60 20 96 05/24/22 04:00 97.3 F 55 L 19 123/59 93 L 05/23/22 23:48 97.5 F 74 20 133/83 97 05/23/22 19:50 97.8 F 85 19 152/79 92 L 05/23/22 19:05 60 18 92 L 05/23/22 16:00 98.0 F 72 16 139/87 92 L 05/23/22 15:14 66 18 93 L 05/23/22 11:50 97.8 F 73 18 131/74 91 L 05/23/22 10:59 64 20 94 L Home Medications Medication Instructions Recorded Confirmed Last Taken Type Budesonide/Formoterol Fumarate 2 puff IH BID 05/20/22 05/20/22 05/20/22 History [Budesonide-Formoterol 160-4.5] Current Medications Generic Name Dose Route Start Last Admin Trade Name Freq PRN Reason Stop Dose Admin Acetaminophen 650 mg 05/20/22 11:11 Acetaminophen 325 Mg Tablet PO 06/19/22 11:10 Q4H PRN PRN PAIN AND/OR FEVER Albuterol Sulfate 2.5 mg 05/20/22 11:11 05/21/22 03:56 Albuterol Sulfate 2.5 Mg/3 Ml [facility] 06/19/22 11:10 2.5 mg Q4H PRN PRN Administration SHORTNESS OF BREATH/WHEEZING Albuterol/Ipratropium 3 ml 05/20/22 15:00 05/24/22 07:15 Ipratropium/Albuterol Sulfate 3 Ml Ampul[facility] 06/19/22 14:59 3 ml QIDRT CAMI Administration Benzonatate 100 mg 05/22/22 11:54 05/24/22 00:02 Benzonatate 100 Mg Capsule PO 06/21/22 11:53 100 mg QID PRN PRN Administration COUGH Chlorphenir/Hydrocodone Polistirex 5 ml 05/21/22 16:52 05/23/22 23:04 Hydrocodone/Chlorphen P-Stirex 1 Ml [facility]inda.Er.12h PO 06/20/22 16:51 5 ml [id number] PRN Administration COUGH Methylprednisolone Sodium 0 mg 05/21/22 12:00 05/24/22 05:30 Succinate 125 mg/ Sterile IV 06/20/22 11:59 125 mg Water 2 ml Q6HT CAMI Administration Aztreonam 1 gm/ Sodium 100 mls @ 200 mls/hr 05/20/22 22:00 05/23/22 23:30 Chloride IV 05/24/22 21:59 200 mls/hr Q12HT CAMI Administration Vancomycin HCl 1.5 gm in 300 mls @ 166.667 mls/hr 05/22/22 14:00 05/23/22 21:38 Vancomycin 1.5 Gram/300 Ml Bag IV 06/21/22 13:59 166.667 mls/hr Q12HT CAMI Administration Insulin Human Lispro 0 unit 05/20/22 14:25 05/23/22 21:33 Insulin Lispro 1 Unit SQ 06/19/22 14:24 7 unit UD PRN Administration HYPERGLYCEMIA Metformin HCl 500 mg 05/23/22 09:00 05/23/22 17:23 Metformin Hcl 500 Mg Tablet PO 06/22/22 08:59 500 mg BIDWM CAMI Administration Morphine Sulfate 2 mg 05/20/22 11:11 Morphine Sulfate 2 Mg/Ml Inj IV 05/25/22 11:10 Q4H PRN PRN PAIN Ondansetron HCl 4 mg 05/20/22 11:11 Ondansetron Hcl 4 Mg/2 Ml Vial IV 06/19/22 11:10 Q6H PRN PRN NAUSEA/VOMITING Fluticasone/Salmeterol 2 puff 05/20/22 19:00 05/24/22 07:16 Fluticasone/Salmeterol / Common Canister IH 06/19/22 18:59 2 puff BIDRT CAMI Administration Discontinued Medications Generic Name Dose Route Start Last Admin Trade Name Freq PRN Reason Stop Dose Admin Albuterol Sulfate Confirm 05/20/22 11:17 Albuterol Sulfate 2.5 Mg/3 Ml Neb Administered 05/20/22 11:18 Dose 2.5 mg IH .STK-MED ONE Albuterol/Ipratropium Confirm 05/20/22 08:25 Ipratropium/Albuterol Sulfate 3 Ml Ampul.Neb Administered 05/20/22 08:26 Dose 3 ml IH .STK-MED ONE Albuterol/Ipratropium 3 ml 05/20/22 08:39 05/20/22 08:44 Ipratropium/Albuterol Sulfate 3 Ml Ampul.Neb IH 05/20/22 08:40 3 ml STAT ONE Administration Methylprednisolone Sodium 0 mg 05/20/22 08:39 05/20/22 08:53 Succinate 125 mg/ Sterile IV 05/20/22 08:40 125 mg Water 2 ml STAT ONE Administration Device 1 05/22/22 09:30 05/22/22 14:47 Therapuetic Drug Level Monitor Each IJ 05/22/22 09:31 1 1XONLY ONE Administration Vancomycin HCl 1 gm in 200 mls @ 125 mls/hr 05/20/22 10:26 05/20/22 10:32 Vancomycin 1 Gram/200 Ml Bag IV 05/20/22 12:01 Not Given STAT ONE Aztreonam 1 gm in 100 mls @ 100 mls/hr 05/20/22 11:00 05/20/22 10:38 Azactam 1 Gm/100 Ml D5w IV 05/20/22 11:59 100 mls/hr STAT ONE Administration Vancomycin HCl 1.25 gm in 250 mls @ 166.667 mls/hr 05/20/22 22:00 05/22/22 15:32 Vancomycin 1.25 Gm/250 Ml Bag IV 05/23/22 21:59 Not Given Q12HT [facility] Methylprednisolone Sodium Succinate Confirm 05/20/22 08:53 Methylprednis Sod Succ 125 Mg/2 Ml Vial Administered 05/20/22 08:54 Dose 125 mg .ROUTE .STK-MED ONE Methylprednisolone Sodium Succinate 125 mg 05/21/22 12:00 Methylprednis Sod Succ 125 Mg/2 Ml Vial IV 06/20/22 11:59 Q6HT [facility] Methylprednisolone Sodium Succinate Confirm 05/22/22 04:41 Methylprednis Sod Succ 125 Mg/2 Ml Vial Administered 05/22/22 04:42 Dose 125 mg .ROUTE .STK-MED ONE Methylprednisolone Sodium Succinate Confirm 05/23/22 05:37 Methylprednis Sod Succ 125 Mg/2 Ml Vial Administered 05/23/22 05:38 Dose 125 mg .ROUTE .STK-MED ONE Miscellaneous Information 1 each 05/20/22 14:00 Medication Intervention 1 Each Each 06/19/22 13:59 .RT TO CHECK [facility] Sterile Water Confirm 05/20/22 08:53 Water For Injection,Sterile 10 Ml Vial Administered 05/20/22 08:54 Dose 10 ml IJ .STK-MED ONE Intake & Output (Last 24 hours) 05/21/22 05/22/22 05/23/22 05/24/22 11:59 11:59 11:59 11:59 Intake Total 660 1880 1360 2520 Output Total 650 1200 1700 2100 Balance 10 680 -340 420 Weight 102 kg Laboratory Results (Last 24 hours) 05/24/22 05/23/22 05/23/22 07:05 20:26 16:25 POC Glucometer 309 H 297 H 284 H 05/23/22 11:21 POC Glucometer 344 H Orders (Last 24 hours) Category Date Time Status POCT GLUCOSE Stat Lab 05/23/22 11:21 Completed POCT GLUCOSE Stat Lab 05/23/22 16:25 Completed POCT GLUCOSE Stat Lab 05/23/22 20:26 Completed POCT GLUCOSE Stat Lab 05/24/22 07:05 Completed Vancomycin, [facility] 05/24/22 09:30 Ordered Metformin HCl 500 mg [Glucophage 500 MG] Med 05/23/22 09:00 Active 500 mg PO BIDWM Patient Care Notes (Last 24 hours) 05/23/22 17:43 Respiratory Note by Tena Mahoney spo2 96% on n/c 3lpm. dec to 2lpm Initialized on 05/23/22 17:43 - END OF NOTE Code(s): J44.1 - CHRONIC OBSTRUCTIVE PULMONARY DISEASE W (ACUTE) EXACERBATION (2) Chronic obstructive pulmonary disease with hypoxia Current Visit: Yes Status: Acute Code(s): J44.9 - CHRONIC OBSTRUCTIVE PULMONARY DISEASE, UNSPECIFIED; R09.02 - HYPOXEMIA (3) Elevated liver enzymes Current Visit: Yes Status: Acute Code(s): R74.8 - ABNORMAL LEVELS OF OTHER SERUM ENZYMES (4) Hypoxia Current Visit: Yes Status: Acute Code(s): R09.02 - HYPOXEMIA (5) Diabetes mellitus type 2 in obese Current Visit: No Status: Acute Code(s): E11.69 - TYPE 2 DIABETES MELLITUS WITH OTHER SPECIFIED COMPLICATION; E66.9 - OBESITY, UNSPECIFIED (6) Cholelithiasis Current Visit: Yes Status: Acute Qualifiers: Cholecystitis presence: without cholecystitis Biliary obstruction: without biliary obstruction (7) Pneumonia Current Visit: Yes Status: Acute Qualifiers: Pneumonia type: due to unspecified organism Laterality: bilateral Lung location: lower lobe of lung Qualified Code(s): J18.9 - Pneumonia, unspecified organism Code(s): J18.9 - PNEUMONIA, UNSPECIFIED ORGANISM
[2022-05-24] MEDS: VANCOMYCIN 1.5 GRAM/300 ML BAG 1.5 GM/300 ML PIGGYBACK IV SCH (09:54)
[2022-05-24] MEDS: AZACTAM 1 GM*** 1 GM in Sodium Chloride 100ML MINI-BAG PLUS 100 ML IV SCH ×2 (09:54→22:27)
[2022-05-24] MEDS: Glucophage 500 MG PO SCH ×2 (09:54→17:41)
[2022-05-24] MEDS: HUMALOG SQ PRN ×3 (09:55→22:27)
[2022-05-24] MEDS: HYDROCODONE-CHLORPHEN ER SUSP PO PRN (15:32)
[2022-05-24] MEDS ORDERED: solu-MEDROL ONE (17:39)
[2022-05-24] MEDS: VANCOMYCIN 1 GRAM/200 ML BAG 1 GM/200 ML PIGGYBACK IV SCH (17:45)
[2022-05-25] MEDS: VANCOMYCIN 1 GRAM/200 ML BAG 1 GM/200 ML PIGGYBACK IV SCH ×3 (02:15→18:44)
[2022-05-25] MEDS: HYDROCODONE-CHLORPHEN ER SUSP PO PRN ×2 (02:25→18:43)
[2022-05-25] MEDS: solu-MEDROL 125 MG, Sterile H2O 10 ml 2 ML IV SCH ×2 (04:59)
[2022-05-25 05:40] LABS: Hematocrit 35.6 % (35-47); Hemoglobin 11.2 g/dL (12.0-16.0); Mean Cell Volume 93.4 fL (78-100); Mean Corpuscular Hemoglobin 29.4 pg (26-32); Mean Corpuscular Hgb Concent. 31.5 g/dL (32-36); Mean Platelet Volume 11.6 fL (7.5-11.0); Platelet Count 227 x10^3/uL (150-450); Red Blood Count 3.81 x10^6/uL (4.1-5.4); Red Cell Distribution Width 14.6 % (11.5-14.0); White Blood Count 13.9 x10^3/uL (4.0-10.5)
[2022-05-25 06:04] LABS: ALBUMIN 3.1 g/dL (3.5-5.0); ALKALINE PHOSPHATASE 54 U/L (38-126); ANION GAP 10.8 MEQ/L (5-15); BLOOD UREA NITROGEN 23 mg/dL (7-17); CHLORIDE 99 mmol/L (98-107); Calcium 8.4 mg/dL (8.4-10.2); Carbon Dioxide 30 mmol/L (22-30); Creatinine 1 0.67 mg/dL (0.52-1.04); EST GLOMERULAR FILTRATION RATE > 60.0 ML/MIN; Glucose 404 mg/dL (74-106); Potassium 4.9 mmol/L (3.5-5.1); SGOT/AST 16 U/L (14-36); SGPT/ALT 37 U/L (0-35); SODIUM 135 mmol/L (137-145); Total Protein 6.1 g/dL (6.3-8.2)
[2022-05-25] MEDS: DUONEB 0.5-3 MG/3 ml Neb IH SCH ×4 (07:32→19:50)
[2022-05-25] MEDS: Advair Hfa 230/21 Mcg COMMON CANISTER IH SCH ×2 (07:37→19:50)
[2022-05-25] MEDS: Tessalon Perles 100 MG PO PRN ×2 (08:26→18:43)
[2022-05-25] MEDS: Glucophage 500 MG PO SCH ×2 (08:26→17:47)
[2022-05-25] MEDS: HUMALOG SQ PRN ×4 (08:27→22:07)
[2022-05-25] MEDS: AZACTAM 1 GM*** 1 GM in Sodium Chloride 100ML MINI-BAG PLUS 100 ML IV SCH ×2 (11:00→20:44)
--- NOTE | 2022-05-25 13:23 | PCM.NOTE ---
Date and Time: 05/25/22 1318 Subjective Assessment: Pt is off O2 currently but continues to use it intermittently. Was up out of bed in the hallways a little bit yesterday. Is tolerating po. Has a hoarse voice, but thinks that's getting better. - Review of Systems Constitutional: No Fever Ears, Nose, & Throat: Hoarse Respiratory: Cough, Short Of Breath Objective Exam General Appearance: no apparent distress, alert Neurologic Exam: oriented x 3, cooperative Skin Exam: normal color, warm, dry, No rash Eye Exam: eyes nml inspection Ears, Nose, Throat Exam: moist mucous membranes Neck Exam: normal inspection, non-tender, supple, No lymphadenopathy, No thyromegaly Respiratory Exam: lungs clear, diminished breath sounds, No crackles/rales, No rhonchi, No wheezing Cardiovascular Exam: regular rate/rhythm, normal heart sounds, murmur (II/ sys murmur best heard R sternal border) Extremity Exam: normal inspection, No pedal edema, No swelling OBJECTIVE DATA Vital Signs: Vital Signs - 24 hr Temp Pulse Resp BP Pulse Ox 05/25/22 12:00 98.0 F 67 18 173/81 95 05/25/22 11:11 62 18 91 L 05/25/22 07:38 56 L 18 95 05/25/22 07:32 98.0 F 57 L 16 140/81 92 L 05/25/22 03:55 97.3 F 64 16 135/70 94 L 05/24/22 23:01 97.1 F 66 16 169/79 93 L 05/24/22 19:39 97.5 F 65 16 171/84 92 L 05/24/22 19:11 64 24 93 L 05/24/22 15:45 97.6 F 75 16 148/86 92 L 05/24/22 15:17 74 18 93 L Pain Assessment - Last Documented Pain Intensity 0 Pain Scale Used 0-10 Pain Scale Intake and Output: Intake & Output 05/23/22 05/24/22 05/25/22 05/26/22 11:59 11:59 11:59 11:59 Intake Total 1360 3000 2086 Output Total 1700 2500 500 Balance -502 143 6860 Weight 102 kg Lab Results: Lab Results-Last 24 Hours 05/24/22 05/24/22 05/24/22 Range/Units 16:31 21:37 21:37 WBC (4.0-10.5) x10^3/uL RBC (4.1-5.4) x10^6/uL Hgb (12.0-16.0) g/dL Hct (35-47) % MCV (78-100) fL MCH (26-32) pg MCHC (32-36) g/dL RDW (11.5-14.0) % Plt Count (150-450) x10^3/uL MPV (7.5-11.0) fL Sodium (137-145) mmol/L Potassium (3.5-5.1) mmol/L Chloride (98-107) mmol/L Carbon Dioxide (22-30) mmol/L Anion Gap (5-15) MEQ/L BUN (7-17) mg/dL Creatinine (0.52-1.04) mg/dL Estimated GFR ML/MIN Glucose (74-106) mg/dL POC Glucometer 295 H 334 H 334 H (74 to 106) mg/dL Calcium (8.4-10.2) mg/dL Total Bilirubin (0.2-1.3) mg/dL AST (14-36) U/L ALT (0-35) U/L Alkaline Phosphatase (38-126) U/L Serum Total Protein (6.3-8.2) g/dL Albumin (3.5-5.0) g/dL 05/25/22 05/25/22 05/25/22 Range/Units 05:40 05:40 07:19 WBC 13.9 H (4.0-10.5) x10^3/uL RBC 3.81 L (4.1-5.4) x10^6/uL Hgb 11.2 L (12.0-16.0) g/dL Hct 35.6 (35-47) % MCV 93.4 (78-100) fL MCH 29.4 (26-32) pg MCHC 31.5 L (32-36) g/dL RDW 14.6 H (11.5-14.0) % Plt Count 227 (150-450) x10^3/uL MPV 11.6 H (7.5-11.0) fL Sodium 135 L (137-145) mmol/L Potassium 4.9 (3.5-5.1) mmol/L Chloride 99 (98-107) mmol/L Carbon Dioxide 30 (22-30) mmol/L Anion Gap 10.8 (5-15) MEQ/L BUN 23 H (7-17) mg/dL Creatinine 0.67 (0.52-1.04) mg/dL Estimated GFR > 60.0 ML/MIN Glucose 404 H (74-106) mg/dL POC Glucometer TNP (74 to 106) mg/dL Calcium 8.4 (8.4-10.2) mg/dL Total Bilirubin 0.40 (0.2-1.3) mg/dL AST 16 (14-36) U/L ALT 37 H (0-35) U/L Alkaline Phosphatase 54 (38-126) U/L Serum Total Protein 6.1 L (6.3-8.2) g/dL Albumin 3.1 L (3.5-5.0) g/dL 05/25/22 Range/Units 11:17 WBC (4.0-10.5) x10^3/uL RBC (4.1-5.4) x10^6/uL Hgb (12.0-16.0) g/dL Hct (35-47) % MCV (78-100) fL MCH (26-32) pg MCHC (32-36) g/dL RDW (11.5-14.0) % Plt Count (150-450) x10^3/uL MPV (7.5-11.0) fL Sodium (137-145) mmol/L Potassium (3.5-5.1) mmol/L Chloride (98-107) mmol/L Carbon Dioxide (22-30) mmol/L Anion Gap (5-15) MEQ/L BUN (7-17) mg/dL Creatinine (0.52-1.04) mg/dL Estimated GFR ML/MIN Glucose (74-106) mg/dL POC Glucometer 354 H (74 to 106) mg/dL Calcium (8.4-10.2) mg/dL Total Bilirubin (0.2-1.3) mg/dL AST (14-36) U/L ALT (0-35) U/L Alkaline Phosphatase (38-126) U/L Serum Total Protein (6.3-8.2) g/dL Albumin (3.5-5.0) g/dL Multi-Disciplinary Progress Notes: Multi-Disciplinary Progress Notes 05/25/22 11:27 Case Management Note by Isabella Marlow S/W PATIENT- HE CONTINUES TO DENY ANY NEW NEEDS AT TIME OF DC (BESIDES A NEW NEB MACHINE). 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 Would likely send her home tomorrow on po antibiotics. Needs neb machine at home. She is concerned because there has been a question of COPD this hospital stay; she has never been a smoker and never dx with COPD. She has now had 2 episodes of pneumonia within the past 10 months and I agree she needs to f/u with pulmonology outpatient (appt being set up by RN today). She is on a large amount of steroid (still 125mg IV q6h) - cutting down to 40mg IV q8h today, and likely home on prednisone tomorrow if doing well. Code(s): J18.9 - PNEUMONIA, UNSPECIFIED ORGANISM (2) Hypoxia Current Visit: Yes Status: Acute Assessment & Plan: much improved. May need O2 at home. Code(s): R09.02 - HYPOXEMIA (3) Leukocytosis Current Visit: Yes Status: Acute Qualifiers: Leukocytosis type: unspecified Qualified Code(s): D72.829 - Elevated white blood cell count, unspecified Assessment & Plan: down from 19.7 to 13 today - likely to be elevated due to steroids. Code(s): D72.829 - ELEVATED WHITE BLOOD CELL COUNT, UNSPECIFIED (4) Diabetes mellitus type 2 in obese Current Visit: No Status: Chronic Code(s): E11.69 - TYPE 2 DIABETES MELLITUS WITH OTHER SPECIFIED COMPLICATION; E66.9 - OBESITY, UNSPECIFIED (5) Elevated liver enzymes Current Visit: Yes Status: Acute Assessment & Plan: nearly resolved - ALT to 37, otherwise nl today. Code(s): R74.8 - ABNORMAL LEVELS OF OTHER SERUM ENZYMES
[2022-05-25] MEDS: solu-MEDROL 40 MG, Sterile H2O 10 ml 1 ML IV SCH ×4 (14:23→20:43)
[2022-05-26] MEDS: VANCOMYCIN 1 GRAM/200 ML BAG 1 GM/200 ML PIGGYBACK IV SCH ×2 (02:51→10:24)
[2022-05-26] MEDS: solu-MEDROL 40 MG, Sterile H2O 10 ml 1 ML IV SCH ×2 (06:01)
[2022-05-26] MEDS: Advair Hfa 230/21 Mcg COMMON CANISTER IH SCH (07:44)
[2022-05-26] MEDS: DUONEB 0.5-3 MG/3 ml Neb IH SCH ×2 (07:47→10:55)
[2022-05-26] MEDS: Glucophage 500 MG PO SCH (08:00)
[2022-05-26] MEDS: AZACTAM 1 GM*** 1 GM in Sodium Chloride 100ML MINI-BAG PLUS 100 ML IV SCH (08:44)
--- NOTE | 2022-05-26 09:27 | PCM.DS ---
Discharge Summary Date of Admission: 05/20/22 10:49 Admitting Physician: ALEXSANDRA HINOJOSA Primary Care Provider: ALEXSANDRA HINOJOSA Allergies Allergies Penicillins Allergy (Unknown, Verified 05/20/22 08:24) Hospital Summary - Hospital Course Hospital Course: patient was admitted with pneumonia, cough and shortness of breath. had a bout of severe pneumonia with wheezing in the fall. she has no prior smoking history of asthma/copd history but required steroids for wheezing - Vitals & Intake/Output Vital Signs: Vital Signs Temperature 98.0 F 05/26/22 07:57 Pulse Rate 63 05/26/22 07:57 Respiratory Rate 17 05/26/22 07:57 Blood Pressure 137/79 05/26/22 07:57 O2 Sat by Pulse Oximetry 93 L 05/26/22 07:57 Intake & Output: Intake & Output 05/23/22 05/24/22 05/25/22 05/26/22 11:59 11:59 11:59 11:59 Intake Total 1360 3000 2086 1511 Output Total 1700 2500 500 2500 Balance -746 076 3466 -989 Weight 102 kg - Lab Result Diagrams: 05/25/22 05:40 05/25/22 05:40 Lab Results-Last 24 Hrs: Lab Results-Last 24 Hours 05/25/22 05/25/22 05/25/22 Range/Units 11:17 16:05 21:34 POC Glucometer 354 H 220 H 328 H (74 to 106) mg/dL 05/26/22 Range/Units 07:22 POC Glucometer 195 H (74 to 106) mg/dL Micro Results-Entire Visit: Microbiology 05/20/22 12:23 Urine Culture - Final Urine, Void MIXED CLARA; 3 OR MORE TYPES. NO PREDOMINANT ORGANISM. NO FURTHER WORKUP. PLEASE RESUBMIT IF CLINICALLY INDICATED. Accuchecks Date 05/26/22 Date 05/25/22 Date 05/25/22 Date 05/25/22 Time 07:57 Time 16:54 Time 16:23 Time 12:30 - Procedures and Test Procedures and Tests throughout Hospitalization: Therapy Orders & Screens 05/20/22 12:20 Oxygen High Flow per RT 100% Comment: 40L Diagnosis: PNEUMONIA, HYPOXIA, LUEKOCYTOSIS Discharge Exam General Appearance: no apparent distress, obese Neurologic Exam: alert, oriented x 3 Respiratory Exam: diminished breath sounds, prolonged expirations Cardiovascular Exam: regular rate/rhythm, normal heart sounds Gastrointestinal/Abdomen Exam: soft, No tenderness, No mass Extremity Exam: normal inspection, normal range of motion Skin Exam: normal color, warm, dry Final Diagnosis/Problem List - Final Discharge Diagnosis/Problem (1) Pneumonia Current Visit: Yes Status: Acute Assessment & Plan: home on po levaquin and nebs. due to 2nd recent bout of pneumonia and wheezing will refer to pulmonology as outpatient and draw alpha 1 antitrypsin level prior to discharge Code(s): J18.9 - PNEUMONIA, UNSPECIFIED ORGANISM (2) Acute exacerbation of chronic obstructive airways disease Current Visit: Yes Status: Acute Code(s): J44.1 - CHRONIC OBSTRUCTIVE PULMONARY DISEASE W (ACUTE) EXACERBATION - Discharge Disposition: Home, Self-Care Condition: Stable Prescriptions: New Nebulizer and Compressor [[place] Choice Nebulizer] 1 each UD #1 unit Prednisone 20 mg [Deltasone 20 mg] 20 mg PO UD #18 tablet Albuterol/Ipratropium 3ml Neb* [DUONEB 0.5-3 MG/3 ml Neb] 3 ml IH Q6H PRN PRN #100 unit PRN Reason: Cough Levofloxacin [Levofloxacin 500 MG Tablet] 500 mg PO DAILY #10 tablet Continue Albuterol/Ipratropium 3ml Neb* [DUONEB 0.5-3 MG/3 ml Neb] 3 ml IH Q6H PRN PRN #100 units PRN Reason: wheezing Metformin HCl 500 mg [Glucophage 500 MG] 500 mg PO BIDWM #60 tablet Albuterol Sulfate [Ventolin Hfa] 2 puffs IH Q4HPRN PRN #2 unit PRN Reason: Shortness Of Breath/Wheezing Budesonide/Formoterol Fumarate [Budesonide-Formoterol 160-4.5] 2 puff IH BID Instructions: Pneumonia, Adult (DC) Follow up with: ZEE HAIRSTON [ACTIVE STAFF] - 06/03/22 9:30 am () ALEXSANDRA HINOJOSA MD [Primary Care Provider] - 06/02/22 1:30 pm
[2022-05-26] MEDS ORDERED: TROUGH DRUG LEVELS IJ ONE (09:30)
[2022-05-26] MEDS: Tessalon Perles 100 MG PO PRN (11:04)
[2022-05-26 12:02] VITALS: BP 146/86; PULSE 66; O2SAT 92
== END 2022-05-26 12:24 | disposition home or self-care (01) | DRG 194 ==
LOC: ED 08:23 → MED SURG 10:49 → OBSVTOIN 10:49
PROVIDERS: ADMIT Family Medicine; ATTEND Family Medicine
DX: J18.9 Pneumonia, unspecified organism (principal); J44.1 Chronic obstructive pulmonary disease with (acute) exacerbation; R74.8 Abnormal levels of other serum enzymes; R09.02 Hypoxemia; E11.9 Type 2 diabetes mellitus without complications; E66.9 Obesity, unspecified; K80.20 Calculus of gallbladder without cholecystitis without obstruction; D72.829 Elevated white blood cell count, unspecified; Z79.899 Other long term (current) drug therapy; Z20.828 Contact with and (suspected) exposure to other viral communicable diseases
CPT/HCPCS: 0241U; 36000; 36415; 71045; 71260; 80048; 80053; 80202; 81015; 82947; 83605; 83735; 83880; 84145; 85025; 85027; 85379; 87086; 93005; 93041; 94640; 94760; 94762; 96374; 99285; J1817; J2920; J2930; J7609; A9270-GY; J3370

== ENCOUNTER 2023-01-10 07:05 | Inpatient (IN) | payer OTHER ==
[2023-01-10] MEDS ORDERED: solu-MEDROL 125 MG, Sterile H2O 10 ml 2 ML IV ONE ×2 (07:39)
--- NOTE | 2023-01-10 07:39 | ERPHSYRPT ---
- History of Present Illness Time Seen by Provider: 01/10/23 07:25 Source: patient Exam Limitations: clinical condition Patient Subjective Stated Complaint: SOB Triage Nursing Assessment: Patient brought into ED per w/c and transferred self to bed. Patient A+O X 3. Patient's skin flushed, warm and dry. Patient complains of right sided chest pain 5/10 and SOB for one week that has gotten worse. Patient complains of N/V and diarrea. Physician History: This is a 57-year-old obese white female patient of Dr. Hinojosa and motor boss Dr. Dawson who has medical history of diabetes on metformin, COPD (no home oxygen) and asthma and presents with hypoxia and shortness of breath with cough. Patient had 1 episode of vomiting 3 days ago when her above symptoms began. Symptoms have worsened over the last 3 days. Patient was seen by her motor boss last week and given a bolus of steroids. Her last dose of steroid s was yesterday afternoon. Patient took her metformin this morning per her report. She also gave herself a DuoNeb nebulizer treatment at 5 AM. She denies chest pain. She has no abdominal pain. She has had no diarrhea. She has had no fevers. She has not been knowingly exposed to individuals with viral illness. Patient presents to the emergency department via family vehicle and her room air oxygen saturation level was 83% Timing/Duration: day(s) (3), worse Activities at Onset: none Severity of Dyspnea-Max: moderate Severity of Dyspnea-Current: moderate Possible Cause: occasional episodes Modifying Factors: Improves With: activity (Worsens), oxygen (Improves), rest (Improved) Associated Symptoms: cough, No chest pain/discomfort Allergies/Adverse Reactions: Penicillins Allergy (Unknown, Verified 01/10/23 07:10) Home Medications: Budesonide/Formoterol Fumarate [Budesonide-Formoterol 160-4.5] 2 puff IH BID 05/20/22 [History] Hx Tetanus, Diphtheria Vaccination/Date Given: No Hx Influenza Vaccination/Date Given: No Hx Pneumococcal Vaccination/Date Given: No Immunizations Up to Date: Yes Travel Risk - International Travel Have you traveled outside of the country in past 3 weeks: No - Coronavirus Screening Are you exhibiting any of the following symptoms?: No Close contact with a COVID-19 positive Pt in past 14-21 Days: No - Vaccine Status Have you recieved a Covid-19 vaccination: No - Review of Systems Constitutional: No Symptoms Eyes: No Symptoms Ears, Nose, & Throat: No Symptoms Respiratory: Cough, Dyspnea, Wheezing Cardiac: No Symptoms Abdominal/Gastrointestinal: Vomiting (1 episode 3 days ago) Genitourinary Symptoms: No Symptoms Musculoskeletal: No Symptoms Skin: No Symptoms Neurological: No Symptoms, Sensory Changes Psychological: No Symptoms Endocrine: No Symptoms Hematologic/Lymphatic: No Symptoms Immunological/Allergic: No Symptoms All Other Systems: Reviewed and Negative - Past Medical History Pertinent Past Medical History: Yes Neurological History: No Pertinent History ENT History: No Pertinent History Cardiac History: No Pertinent History Respiratory History: Asthma Endocrine Medical History: Diabetes Type II Musculoskeletal History: Fractures GI Medical History: Colitis History: No Pertinent History Psycho-Social History: No Pertinent History Female Reproductive Disorders: No Pertinent History Other Medical History: fx r ankle, pathological fx r foot - Past Surgical History Past Surgical History: Yes Neuro Surgical History: No Pertinent History Cardiac: No Pertinent History Respiratory: No Pertinent History Gastrointestinal: No Pertinent History Genitourinary: No Pertinent History Musculoskeletal: No Pertinent History Female Surgical History: Section Other Surgical History: brain hematoma drained as child - Social History Smoking Status: Never smoker Exposure to second hand smoke: No Drug Use: none Patient Lives Alone: No - Nursing Vital Signs Nursing Vital Signs: Initial Vital Signs Temperature 103.7 F 01/10/23 07:17 Pulse Rate 99 H 01/10/23 07:17 Respiratory Rate 30 H 01/10/23 07:17 Blood Pressure 140/85 01/10/23 07:17 O2 Sat by Pulse Oximetry 83 L 01/10/23 07:17 Pain Scale Pain Intensity 5 - Physical Exam General Appearance: mild distress, alert, anxiety, obese Eye Exam: PERRL/EOMI, eyes nml inspection Ears, Nose, Throat Exam: hearing grossly normal, normal ENT inspection, normal pharynx Neck Exam: normal inspection, non-tender, supple, full range of motion Respiratory Exam: respiratory distress (Mild to moderate), airway intact, wheezing, No chest tenderness Cardiovascular/Chest Exam: tachycardia Abdominal/Gastrointestinal Exam: soft, normal bowel sounds, No tenderness Rectal Exam: not done Extremity Exam: non-tender, normal range of motion, normal inspection Neurologic Exam: alert, oriented x 3, cooperative, administrative intern II-XII nml as tested, normal mood/affect, nml cerebellar function, nml station & gait, sensation nml Skin Exam: normal color, warm, dry Lymphatic Exam: No adenopathy SpO2 Interpretation: hypoxic SpO2: 83 O2 Delivery: Room Air - Course Nursing assessment & vital signs reviewed: Yes EKG Interpreted by Me: RATE (99), Sinus Rhythm, NORMAL AXIS, prolonged QT interval (Borderline), NORMAL QRS, Other (No acute ischemic changes on today's twelve-lead EKG.) Ordered Tests: Active Orders 24 hr Category Date Time Status Plumber Apprentice STAT Care 01/10/23 07:40 Active EKG-ER Only STAT Care 01/10/23 07:39 Active IV Insertion STAT Care 01/10/23 07:39 Active Pulse Oximetry (ED) STAT Care 01/10/23 07:39 Active CHEST 1 VIEW (PORTABLE) Stat Exams 01/10/23 07:39 Completed CHEST WITH CONTRAST [CT] Stat Exams 01/10/23 09:28 Completed ARTERIAL BLOOD GASES Stat Lab 01/10/23 07:40 Completed BLOOD CULTURE Stat Lab 01/10/23 08:04 Received CBC W DIFF Stat Lab 01/10/23 07:30 Completed CMP Stat Lab 01/10/23 07:30 Completed D-DIMER QUANTITATIVE Stat Lab 01/10/23 07:30 Completed Lactic Acid Stat Lab 01/10/23 07:40 Completed NT PRO BNPII Stat Lab 01/10/23 07:30 Completed POCT GLUCOSE Stat Lab 01/10/23 07:15 Completed TROPONIN Q4H Lab 01/10/23 07:30 Completed TROPONIN Q4H Lab 01/10/23 11:45 Ordered TROPONIN Q4H Lab 01/10/23 15:45 Ordered Oxygen High Flow per RT 40% RT 01/10/23 07:55 Active Respiratory Therapy Assessment DAILY RT 01/10/23 08:12 Active Transfer Order Routine Transfer 01/10/23 Ordered Medication Summary Discontinued Medications Generic Name Dose Route Start Last Admin Trade Name Freq PRN Reason Stop Dose Admin Albuterol Sulfate Confirm 01/10/23 08:01 Albuterol Sulfate 2.5 Mg/3 Ml Neb Administered 01/10/23 08:02 Dose 2.5 mg IH .STK-MED ONE Albuterol Sulfate 2.5 mg 01/10/23 08:12 01/10/23 08:13 Albuterol Sulfate 2.5 Mg/3 Ml Neb IH 01/10/23 08:13 2.5 mg STAT ONE Administration Methylprednisolone Sodium 0 mg 01/10/23 07:39 01/10/23 07:47 Succinate 125 mg/ Sterile IV 01/10/23 07:40 125 mg Water 2 ml STAT ONE Administration Furosemide 40 mg 01/10/23 10:42 01/10/23 11:19 Furosemide 40 Mg/4 Ml Vial IV 01/10/23 10:43 40 mg STAT ONE Administration Furosemide Confirm 01/10/23 11:18 Furosemide 40 Mg/4 Ml Vial Administered 01/10/23 11:19 Dose 40 mg .ROUTE .STK-MED ONE Levofloxacin/Dextrose 500 mg in 100 mls @ 100 mls/hr 01/10/23 08:49 01/10/23 10:23 Levofloxacin 500mg/100ml D5w IV 01/10/23 09:48 Infused STAT STA Infusion Levofloxacin/Dextrose Confirm 01/10/23 09:00 Levofloxacin 500mg/100ml D5w Administered 01/10/23 09:01 Dose 500 mg in 100 mls @ ud IV .STK-MED ONE Sodium Chloride 500 mls @ 500 mls/hr 01/10/23 09:27 01/10/23 10:57 Sodium Chloride 0.9% 500 Ml IV 01/10/23 10:26 Infused .Q1H ONE Infusion Sodium Chloride Confirm 01/10/23 09:33 Sodium Chloride 0.9% 500 Ml Administered 01/10/23 09:34 Dose 500 mls @ ud IV .STK-MED ONE Methylprednisolone Sodium Succinate Confirm 01/10/23 07:46 Methylprednis Sod Succ 125 Mg/2 Ml Vial Administered 01/10/23 07:47 Dose 125 mg .ROUTE .STK-MED ONE Sterile Water Confirm 01/10/23 07:46 Water For Injection,Sterile 10 Ml Vial Administered 01/10/23 07:47 Dose 10 ml IJ .STK-MED ONE Lab/Rad Data: Laboratory Result Diagrams 01/10/23 07:30 01/10/23 07:30 Laboratory Results 01/10/23 01/10/23 01/10/23 Range/Units 08:15 07:40 07:30 WBC (4.0-10.5) x10^3/uL RBC (4.1-5.4) x10^6/uL Hgb (12.0-16.0) g/dL Hct (35-47) % MCV (78-100) fL MCH (26-32) pg MCHC (32-36) g/dL RDW (11.5-14.0) % Plt Count (150-450) x10^3/uL MPV (7.5-11.0) fL Gran % (36.0-66.0) % Immature Gran % (Auto) (0.00-0.4) % Nucleat RBC Rel Count (0.00-0.1) % Eos # (Auto) (0-0.5) x10^3/uL Immature Gran # (Auto) (0.00-0.03) x10^3u/L Absolute Lymphs (auto) (1.0-4.6) x10^3/uL Absolute Monos (auto) (0.0-1.3) x10^3/uL Absolute Nucleated RBC (0.00-0.01) x10^3u/L Lymphocytes % (24.0-44.0) % Monocytes % (0.0-12.0) % Eosinophils % (0.00-5.0) % Basophils % (0.0-0.4) % Absolute Granulocytes (1.4-6.9) x10^3/uL Basophils # (0-0.4) x10^3/uL D-Dimer (0.0-0.50) mg/L Puncture Site LEFT RADIAL pCO2 31 L (35-45) mmHg pO2 54 L (75-100) mmHg Base Excess 3.1 H (-2.0-2.0) O2 Saturation 88.6 L (94-100) g/dF ABG pH 7.52 H (7.35-7.45) ABG HCO3 25.3 (22-28) ABG O2 Sat (Measured) 91.2 L (95-100) % Ludin Test YES A-a Gradient 335 a/A Ratio 0.14 Hemoglobin 13.7 Carboxyhemoglobin 2.1 (0.0-6.9) % THgb Methemoglobin 0.8 L (1.4-1.5) % Temperature 37.0 C POC O2 Flow Rate 60 % Sodium 138 (137-145) mmol/L Potassium 3.5 3.9 (3.5-5.1) mmol/L Chloride 98 (98-107) mmol/L Carbon Dioxide 28 (22-30) mmol/L Anion Gap 15.9 H (5-15) MEQ/L BUN 18 H (7-17) mg/dL Creatinine 0.61 (0.52-1.04) mg/dL Estimated GFR > 60.0 ML/MIN Glucose 173 H (74-106) mg/dL POC Glucometer (74 to 106) mg/dL Lactic Acid 1.3 (0.4-2.0) Calcium 8.4 (8.4-10.2) mg/dL Total Bilirubin 0.90 (0.2-1.3) mg/dL AST 29 (14-36) U/L ALT 28 (0-35) U/L Alkaline Phosphatase 61 (38-126) U/L Troponin I (0.000-0.034) ng/mL NT-Pro-B Natriuret Pep 743 (<300) pg/mL Serum Total Protein 6.7 (6.3-8.2) g/dL Albumin 3.4 L (3.5-5.0) g/dL Influenza Type A Ag NEGATIVE (NEGATIVE) Influenza Type B Ag NEGATIVE (NEGATIVE) RSV (PCR) NEGATIVE (NEGATIVE) SARS-CoV-2 (PCR) NEGATIVE (NEGATIVE) 01/10/23 01/10/23 01/10/23 Range/Units 07:30 07:30 07:30 WBC 19.6 H (4.0-10.5) x10^3/uL RBC 4.49 (4.1-5.4) x10^6/uL Hgb 13.0 (12.0-16.0) g/dL Hct 40.9 (35-47) % MCV 91.1 (78-100) fL MCH 29.0 (26-32) pg MCHC 31.8 L (32-36) g/dL RDW 14.3 H (11.5-14.0) % Plt Count 338 (150-450) x10^3/uL MPV 11.2 H (7.5-11.0) fL Gran % 92.5 H (36.0-66.0) % Immature Gran % (Auto) 0.8 H (0.00-0.4) % Nucleat RBC Rel Count 0.0 (0.00-0.1) % Eos # (Auto) 0.02 (0-0.5) x10^3/uL Immature Gran # (Auto) 0.15 H (0.00-0.03) x10^3u/L Absolute Lymphs (auto) 0.65 L (1.0-4.6) x10^3/uL Absolute Monos (auto) 0.58 (0.0-1.3) x10^3/uL Absolute Nucleated RBC 0.00 (0.00-0.01) x10^3u/L Lymphocytes % 3.3 L (24.0-44.0) % Monocytes % 3.0 (0.0-12.0) % Eosinophils % 0.1 (0.00-5.0) % Basophils % 0.3 (0.0-0.4) % Absolute Granulocytes 18.16 H (1.4-6.9) x10^3/uL Basophils # 0.05 (0-0.4) x10^3/uL D-Dimer 1.23 H* (0.0-0.50) mg/L Puncture Site pCO2 (35-45) mmHg pO2 (75-100) mmHg Base Excess (-2.0-2.0) O2 Saturation (94-100) g/dF ABG pH (7.35-7.45) ABG HCO3 (22-28) ABG O2 Sat (Measured) (95-100) % Ludin Test A-a Gradient a/A Ratio Hemoglobin Carboxyhemoglobin (0.0-6.9) % THgb Methemoglobin (1.4-1.5) % Temperature C POC O2 Flow Rate % Sodium (137-145) mmol/L Potassium (3.5-5.1) mmol/L Chloride (98-107) mmol/L Carbon Dioxide (22-30) mmol/L Anion Gap (5-15) MEQ/L BUN (7-17) mg/dL Creatinine (0.52-1.04) mg/dL Estimated GFR ML/MIN Glucose (74-106) mg/dL POC Glucometer (74 to 106) mg/dL Lactic Acid (0.4-2.0) Calcium (8.4-10.2) mg/dL Total Bilirubin (0.2-1.3) mg/dL AST (14-36) U/L ALT (0-35) U/L Alkaline Phosphatase (38-126) U/L Troponin I < 0.012 (0.000-0.034) ng/mL NT-Pro-B Natriuret Pep (<300) pg/mL Serum Total Protein (6.3-8.2) g/dL Albumin (3.5-5.0) g/dL Influenza Type A Ag (NEGATIVE) Influenza Type B Ag (NEGATIVE) RSV (PCR) (NEGATIVE) SARS-CoV-2 (PCR) (NEGATIVE) 01/10/23 Range/Units 07:15 WBC (4.0-10.5) x10^3/uL RBC (4.1-5.4) x10^6/uL Hgb (12.0-16.0) g/dL Hct (35-47) % MCV (78-100) fL MCH (26-32) pg MCHC (32-36) g/dL RDW (11.5-14.0) % Plt Count (150-450) x10^3/uL MPV (7.5-11.0) fL Gran % (36.0-66.0) % Immature Gran % (Auto) (0.00-0.4) % Nucleat RBC Rel Count (0.00-0.1) % Eos # (Auto) (0-0.5) x10^3/uL Immature Gran # (Auto) (0.00-0.03) x10^3u/L Absolute Lymphs (auto) (1.0-4.6) x10^3/uL Absolute Monos (auto) (0.0-1.3) x10^3/uL Absolute Nucleated RBC (0.00-0.01) x10^3u/L Lymphocytes % (24.0-44.0) % Monocytes % (0.0-12.0) % Eosinophils % (0.00-5.0) % Basophils % (0.0-0.4) % Absolute Granulocytes (1.4-6.9) x10^3/uL Basophils # (0-0.4) x10^3/uL D-Dimer (0.0-0.50) mg/L Puncture Site pCO2 (35-45) mmHg pO2 (75-100) mmHg Base Excess (-2.0-2.0) O2 Saturation (94-100) g/dF ABG pH (7.35-7.45) ABG HCO3 (22-28) ABG O2 Sat (Measured) (95-100) % Ludin Test A-a Gradient a/A Ratio Hemoglobin Carboxyhemoglobin (0.0-6.9) % THgb Methemoglobin (1.4-1.5) % Temperature C POC O2 Flow Rate % Sodium (137-145) mmol/L Potassium (3.5-5.1) mmol/L Chloride (98-107) mmol/L Carbon Dioxide (22-30) mmol/L Anion Gap (5-15) MEQ/L BUN (7-17) mg/dL Creatinine (0.52-1.04) mg/dL Estimated GFR ML/MIN Glucose (74-106) mg/dL POC Glucometer 152 H (74 to 106) mg/dL Lactic Acid (0.4-2.0) Calcium (8.4-10.2) mg/dL Total Bilirubin (0.2-1.3) mg/dL AST (14-36) U/L ALT (0-35) U/L Alkaline Phosphatase (38-126) U/L Troponin I (0.000-0.034) ng/mL NT-Pro-B Natriuret Pep (<300) pg/mL Serum Total Protein (6.3-8.2) g/dL Albumin (3.5-5.0) g/dL Influenza Type A Ag (NEGATIVE) Influenza Type B Ag (NEGATIVE) RSV (PCR) (NEGATIVE) SARS-CoV-2 (PCR) (NEGATIVE) - Progress Progress: improved, re-examined Air Movement: fair Progress Note: 01/10/23 08:49 Chest x-ray was read by the radiologist and I reviewed the impression. Chest x- ray reveals moderate right and mild left infiltrate/atelectasis/effusion 01/10/23 10:50 This patient's medical issue is 1 of high complexity. The level of complexity in the work-up performed is based on the review of the patient's past medical history, review of the patient's past inpatient hospitalization, medication list, drug allergy list, history of present illness and physical findings on examination. I reviewed the results of the work-up/studies. Patient CT scan of the chest with contrast shows no pulmonary embolus. There is bilateral mid to lower lung consolidating disease with moderate right effusion present. The patient was started on Levaquin 500 mg intravenously. Patient had received Solu-Medrol 125 mg intravenously. We did provide her with intravenous fluids to protect her kidneys during a ct chest with contrast. I placed a call to the patient's primary care physician, Dr. Hinojosa we are awaiting his call back. 01/10/23 10:52 01/10/23 11:[address] Hinojosa, the patient's primary care physician and I reviewed the patient history, physical findings and the results of the work-up. Together, we decided to place the patient in the hospital for full admission. She will be on a telemetry bed. We will provide her with intravenous Levaquin and repeat labs in the morning. Respiratory therapy will monitor and manage her respiratory status. Blood Culture(s) Obtained: Yes Antibiotics given: Yes Discussed with : Shelly Counseled pt/family regarding: lab results, diagnosis, rad results Medical Desision Making - External Record(s) Reviewed Records reviewed as a part of evaluation & management: Inpatient - Discussion of managment Care discussed with:: PCP Reviewed:: Test results, Need for additional workup Agreed on:: Treatment plan, decision to admit - Diagnostic Testing Diagnostic test were ordered, analyzed, and reviewed by me: Yes Radiological Interpretation: Reviewed by me, Teleradiologist Report - Risk of complications The pt has a high risk of morbidity or mortality based on: Decision regarding hospitilization or escalation of hosp level of care - Departure Departure Disposition: In-patient Admission Clinical Impression: Hypoxia, Infiltrate of lung present on chest x-ray, Pneumonia Condition: Fair Critical Care Time: Yes Critical Care Time(excluding separately billable procedures): Critical 30-74 mins (45) Referrals: ALEXSANDRA HINOJOSA MD [Primary Care Provider] - Follow up/PCP as directed
[2023-01-10] MEDS ORDERED: solu-MEDROL ONE (07:46)
[2023-01-10] MEDS ORDERED: Sterile H2O 10 ml IJ ONE (07:46)
[2023-01-10 07:52] LABS: A-aADO2 335; ABG HEMOGLOBIN 13.7; ABG POTASSIUM 3.5 (3.5-5.1); ARTERIAL BLD GAS O2 SATURATION 91.2 % (95-100); ARTERIAL BLOOD GAS BASE EXCESS 3.1 (-2.0-2.0); ARTERIAL BLOOD GAS FIO2 60 %; ARTERIAL BLOOD GAS PCO2 31 mmHg (35-45); ARTERIAL BLOOD GAS PO2 54 mmHg (75-100); ARTERIAL BLOOD GAS pH 7.52 (7.35-7.45); CARBOXYHEMOGLOBIN 2.1 % THgb (0.0-6.9); HCO3- 25.3 (22-28); HGB O2 SAT 88.6 g/dF (94-100); Lactic Acid 1.3 (0.4-2.0); Methhemoglobin 0.8 % (1.4-1.5); paO2 pAO1 0.14
[2023-01-10 07:53] LABS: ABG SITE LEFT RADIAL; ALLEN TEST OK? YES
[2023-01-10] MEDS ORDERED: PROVENTIL 2.5 MG/3 ML NEB IH ONE ×2 (08:01→08:12)
[2023-01-10 08:39] LABS: Absolute Neutrophil Ct (ANC) 18.16 x10^3/uL (1.4-6.9); BASOPHIL % 0.3 % (0.0-0.4); Basophil (Absolute #) 0.05 x10^3/uL (0-0.4); Eosinophil % 0.1 % (0.00-5.0); Eosinophil (Absolute #) 0.02 x10^3/uL (0-0.5); Hematocrit 40.9 % (35-47); IMMATURE GRAN # 0.15 x10^3u/L (0.00-0.03); IMMATURE GRAN % 0.8 % (0.00-0.4); Lymphocyte (Absolute #) 0.65 x10^3/uL (1.0-4.6); Lymphocytes % 3.3 % (24.0-44.0); Mean Cell Volume 91.1 fL (78-100); Mean Corpuscular Hgb Concent. 31.8 g/dL (32-36); Mean Platelet Volume 11.2 fL (7.5-11.0); Monocyte (Absolute #) 0.58 x10^3/uL (0.0-1.3); Neutrophil % 92.5 % (36.0-66.0); Platelet Count 338 x10^3/uL (150-450); Red Blood Count 4.49 x10^6/uL (4.1-5.4); Red Cell Distribution Width 14.3 % (11.5-14.0); White Blood Count 19.6 x10^3/uL (4.0-10.5)
--- NOTE | 2023-01-10 08:41 | XRAY ---
Indication: Short of breath. Comparison: July 05, 2022 Portable chest demonstrates new moderate right and mild left mid to lower lung infiltrates/atelectasis/effusions. Heart not enlarged. Bony thorax intact again with osteopenia and mild degenerative changes.
[2023-01-10 08:44] LABS: INFLUENZA A NEGATIVE (NEGATIVE); INFLUENZA B NEGATIVE (NEGATIVE); RESPIRATORY SYNCTIAL VIRUS NEGATIVE (NEGATIVE); SARS-CoV-2 Xpert Express NEGATIVE (NEGATIVE)
[2023-01-10] MEDS ORDERED: Levofloxacin 500MG/100ML D5W 500 MG/100 ML BAG IV STA (08:49)
[2023-01-10] MEDS ORDERED: Levofloxacin 500MG/100ML D5W 500 MG/100 ML BAG IV ONE (09:00)
[2023-01-10 09:06] LABS: ALBUMIN 3.4 g/dL (3.5-5.0); ALKALINE PHOSPHATASE 61 U/L (38-126); ANION GAP 15.9 MEQ/L (5-15); BLOOD UREA NITROGEN 18 mg/dL (7-17); CHLORIDE 98 mmol/L (98-107); Calcium 8.4 mg/dL (8.4-10.2); Carbon Dioxide 28 mmol/L (22-30); Creatinine 1 0.61 mg/dL (0.52-1.04); EST GLOMERULAR FILTRATION RATE > 60.0 ML/MIN; Glucose 173 mg/dL (74-106); NT PRO BNPII 743 pg/mL (<300); Potassium 3.9 mmol/L (3.5-5.1); SGOT/AST 29 U/L (14-36); SGPT/ALT 28 U/L (0-35); SODIUM 138 mmol/L (137-145); Total Protein 6.7 g/dL (6.3-8.2)
[2023-01-10] MEDS ORDERED: Sodium Chloride 0.9% 500 ML 500 ML IV ONE ×2 (09:27→09:33)
--- NOTE | 2023-01-10 10:32 | XRAY ---
Indication: Short of breath. Elevated d-dimer. Multiple contiguous axial images obtained through the chest using 80 cc Isovue 370 contrast and PE protocol. Comparison: May 20, 2022 Good opacification of the pulmonary arteries to include the lobar and segmental branches. No pulmonary embolus. Heart borderline enlarged. Aorta remains normal in course and caliber. Stable small nonpathologic mediastinal nodes and tiny right hilar calcified nodes. No pathologic mediastinal/hilar lymphadenopathy. Lungs again demonstrates bilateral mid to lower lung patchy consolidating airspace disease more than before with new moderate right effusion. Bony thorax intact again with mild degenerative changes throughout the spine. Limited upper abdomen again demonstrates fatty liver and 13.2 cm splenomegaly. Impression: 1. Continued negative pulmonary embolus. 2. Worsening bilateral mid to lower lung consolidating airspace disease with new moderate right effusion. 3. Again incidental fatty liver and splenomegaly.
[2023-01-10] MEDS ORDERED: Lasix 40 MG/4 ML IV ONE (10:42)
[2023-01-10] MEDS ORDERED: Lasix 40 MG/4 ML ONE (11:18)
[2023-01-10] MEDS ORDERED: HUMULIN R SQ PRN (12:00)
[2023-01-10] MEDS ORDERED: Zofran 4 MG/2 ML VIAL IV PRN (12:00)
[2023-01-10] MEDS: TYLENOL 325 MG PO PRN ×2 (13:40→19:42)
[2023-01-10] MEDS: HOLD METFORMIN PRODUCTS FOR 48 HOURS MC SCH (13:51)
[2023-01-10] MEDS: DUONEB 0.5-3 MG/3 ml Neb IH SCH ×3 (14:45→23:08)
--- NOTE | 2023-01-10 16:31 | PCM.HP ---
History of Present Illness - Chief Complaint Chief Complaint: Pneumonia History of Present Illness: is a 57 year old female with a history of copd and pneumonia, she had a cough and shortness of breath last week, was treated with steroid by Dr Nava and felt better for a few days then became very short of breath and ill with cough, she has fever as well. worsening today and now requiring high flow oxygen. - Review of Systems Constitutional: Fever Respiratory: Cough, Short Of Breath Cardiac: No Chest Pain, No Edema, No Syncope Abdominal/Gastrointestinal: No Abdominal Pain, No Nausea, No Vomiting, No Diarrhea Skin: No Rash All Other Systems: Reviewed and Negative Medications & Allergies Home Medications: Home Medication List Albuterol Sulfate [Ventolin Hfa] 2 puffs IH Q4HPRN PRN #2 unit 08/14/21 [Rx Confirmed 01/10/23] Metformin HCl 500 mg [Glucophage 500 MG] 500 mg PO BIDWM #60 tablet 08/14/21 [Rx Confirmed 01/10/23] Budesonide/Formoterol Fumarate [Budesonide-Formoterol 160-4.5] 2 puff IH BID 05/20/22 [History Confirmed 01/10/23] Albuterol/Ipratropium 3ml Neb* [DUONEB 0.5-3 MG/3 ml Neb] 3 ml IH Q6H PRN PRN #100 unit 05/26/22 [Rx Confirmed 01/10/23] Benzonatate 100 mg PO Q6HPRN PRN #30 cap 05/26/22 [Rx Confirmed 01/10/23] Prednisone 20 mg [Deltasone 20 mg] 20 mg PO DAILY 01/10/23 [History Confirmed 01/10/23] Allergies/Adverse Reactions: Allergies Allergy/AdvReac Type Severity Reaction Status Date / Time Penicillins Allergy Unknown Verified 01/10/23 07:10 - Past Medical History Past Medical History: Yes Neurological History: No Pertinent History ENT History: No Pertinent History Cardiac History: No Pertinent History Respiratory History: Asthma, Pneumonia Endocrine Medical History: Diabetes Type II Musculoskelatal History: Fractures GI Medical History: Colitis History: No Pertinent History Pyscho-Social History: No Pertinent History Reproductive Disorders: No Pertinent History Comment: fx l ankle in high school , pathological fx l foot metatarsals approximately age 30 - Female History Are you now?: No - Past Surgical History Past Surgical History: Yes Neuro Surgical History: Other Cardiac History: No Pertinent History Respiratory Surgery: No Pertinent History GI Surgical History: No Pertinent History Genitourinary Surgical Hx: No Pertinent History Musculskeletal Surgical Hx: No Pertinent History Female Surgical History: Section, Tubal Ligation Other Surgical History: subdural hematoma removed from right side of head at age 6 - Social History Smoking Status: Never smoker Exposure to second hand smoke: No Alcohol: Rarely Drug Use: other - Physical Exam Vital Signs: Vital Signs - 24 hr Temp Pulse Resp BP Pulse Ox 01/10/23 14:46 75 20 95 01/10/23 12:22 97.0 F 71 18 112/60 94 L 01/10/23 12:14 78 24 94 L 01/10/23 11:24 83 L 01/10/23 11:00 99.4 F 76 22 97 01/10/23 09:39 83 30 H 120/72 95 01/10/23 08:15 100 H 26 H 93 L 01/10/23 08:09 102 H 26 H 152/72 93 L 01/10/23 07:42 86 L 01/10/23 07:17 103.7 F 99 H 30 H 140/85 83 L General Appearance: mild distress, obese Respiratory Exam: accessory muscle use, rhonchi Cardiovascular Exam: regular rate/rhythm, normal heart sounds, normal peripheral pulses Gastrointestinal/Abdomen Exam: soft, normal bowel sounds, No tenderness, No mass Extremity Exam: normal inspection, normal range of motion, pelvis stable Skin Exam: normal color, warm, dry, No rash Results - Labs Lab/Micro Results: Lab Results-Last 24 Hours 01/10/23 01/10/23 01/10/23 Range/Units 07:15 07:30 07:30 WBC 19.6 H (4.0-10.5) x10^3/uL RBC 4.49 (4.1-5.4) x10^6/uL Hgb 13.0 (12.0-16.0) g/dL Hct 40.9 (35-47) % MCV 91.1 (78-100) fL MCH 29.0 (26-32) pg MCHC 31.8 L (32-36) g/dL RDW 14.3 H (11.5-14.0) % Plt Count 338 (150-450) x10^3/uL MPV 11.2 H (7.5-11.0) fL Gran % 92.5 H (36.0-66.0) % Immature Gran % (Auto) 0.8 H (0.00-0.4) % Nucleat RBC Rel Count 0.0 (0.00-0.1) % Eos # (Auto) 0.02 (0-0.5) x10^3/uL Immature Gran # (Auto) 0.15 H (0.00-0.03) x10^3u/L Absolute Lymphs (auto) 0.65 L (1.0-4.6) x10^3/uL Absolute Monos (auto) 0.58 (0.0-1.3) x10^3/uL Absolute Nucleated RBC 0.00 (0.00-0.01) x10^3u/L Lymphocytes % 3.3 L (24.0-44.0) % Monocytes % 3.0 (0.0-12.0) % Eosinophils % 0.1 (0.00-5.0) % Basophils % 0.3 (0.0-0.4) % Absolute Granulocytes 18.16 H (1.4-6.9) x10^3/uL Basophils # 0.05 (0-0.4) x10^3/uL D-Dimer 1.23 H* (0.0-0.50) mg/L Puncture Site pCO2 (35-45) mmHg pO2 (75-100) mmHg Base Excess (-2.0-2.0) O2 Saturation (94-100) g/dF ABG pH (7.35-7.45) ABG HCO3 (22-28) ABG O2 Sat (Measured) (95-100) % Ludin Test A-a Gradient a/A Ratio Hemoglobin Carboxyhemoglobin (0.0-6.9) % THgb Methemoglobin (1.4-1.5) % Temperature C POC O2 Flow Rate % Sodium (137-145) mmol/L Potassium (3.5-5.1) mmol/L Chloride (98-107) mmol/L Carbon Dioxide (22-30) mmol/L Anion Gap (5-15) MEQ/L BUN (7-17) mg/dL Creatinine (0.52-1.04) mg/dL Estimated GFR ML/MIN Glucose (74-106) mg/dL POC Glucometer 152 H (74 to 106) mg/dL Lactic Acid (0.4-2.0) Calcium (8.4-10.2) mg/dL Total Bilirubin (0.2-1.3) mg/dL AST (14-36) U/L ALT (0-35) U/L Alkaline Phosphatase (38-126) U/L Troponin I (0.000-0.034) ng/mL NT-Pro-B Natriuret Pep (<300) pg/mL Serum Total Protein (6.3-8.2) g/dL Albumin (3.5-5.0) g/dL Influenza Type A Ag (NEGATIVE) Influenza Type B Ag (NEGATIVE) RSV (PCR) (NEGATIVE) SARS-CoV-2 (PCR) (NEGATIVE) 01/10/23 01/10/23 01/10/23 Range/Units 07:30 07:30 07:40 WBC (4.0-10.5) x10^3/uL RBC (4.1-5.4) x10^6/uL Hgb (12.0-16.0) g/dL Hct (35-47) % MCV (78-100) fL MCH (26-32) pg MCHC (32-36) g/dL RDW (11.5-14.0) % Plt Count (150-450) x10^3/uL MPV (7.5-11.0) fL Gran % (36.0-66.0) % Immature Gran % (Auto) (0.00-0.4) % Nucleat RBC Rel Count (0.00-0.1) % Eos # (Auto) (0-0.5) x10^3/uL Immature Gran # (Auto) (0.00-0.03) x10^3u/L Absolute Lymphs (auto) (1.0-4.6) x10^3/uL Absolute Monos (auto) (0.0-1.3) x10^3/uL Absolute Nucleated RBC (0.00-0.01) x10^3u/L Lymphocytes % (24.0-44.0) % Monocytes % (0.0-12.0) % Eosinophils % (0.00-5.0) % Basophils % (0.0-0.4) % Absolute Granulocytes (1.4-6.9) x10^3/uL Basophils # (0-0.4) x10^3/uL D-Dimer (0.0-0.50) mg/L Puncture Site LEFT RADIAL pCO2 31 L (35-45) mmHg pO2 54 L (75-100) mmHg Base Excess 3.1 H (-2.0-2.0) O2 Saturation 88.6 L (94-100) g/dF ABG pH 7.52 H (7.35-7.45) ABG HCO3 25.3 (22-28) ABG O2 Sat (Measured) 91.2 L (95-100) % Ludin Test YES A-a Gradient 335 a/A Ratio 0.14 Hemoglobin 13.7 Carboxyhemoglobin 2.1 (0.0-6.9) % THgb Methemoglobin 0.8 L (1.4-1.5) % Temperature 37.0 C POC O2 Flow Rate 60 % Sodium 138 (137-145) mmol/L Potassium 3.9 3.5 (3.5-5.1) mmol/L Chloride 98 (98-107) mmol/L Carbon Dioxide 28 (22-30) mmol/L Anion Gap 15.9 H (5-15) MEQ/L BUN 18 H (7-17) mg/dL Creatinine 0.61 (0.52-1.04) mg/dL Estimated GFR > 60.0 ML/MIN Glucose 173 H (74-106) mg/dL POC Glucometer (74 to 106) mg/dL Lactic Acid 1.3 (0.4-2.0) Calcium 8.4 (8.4-10.2) mg/dL Total Bilirubin 0.90 (0.2-1.3) mg/dL AST 29 (14-36) U/L ALT 28 (0-35) U/L Alkaline Phosphatase 61 (38-126) U/L Troponin I < 0.012 (0.000-0.034) ng/mL NT-Pro-B Natriuret Pep 743 (<300) pg/mL Serum Total Protein 6.7 (6.3-8.2) g/dL Albumin 3.4 L (3.5-5.0) g/dL Influenza Type A Ag (NEGATIVE) Influenza Type B Ag (NEGATIVE) RSV (PCR) (NEGATIVE) SARS-CoV-2 (PCR) (NEGATIVE) 01/10/23 01/10/23 01/10/23 Range/Units 08:15 11:56 12:03 WBC (4.0-10.5) x10^3/uL RBC (4.1-5.4) x10^6/uL Hgb (12.0-16.0) g/dL Hct (35-47) % MCV (78-100) fL MCH (26-32) pg MCHC (32-36) g/dL RDW (11.5-14.0) % Plt Count (150-450) x10^3/uL MPV (7.5-11.0) fL Gran % (36.0-66.0) % Immature Gran % (Auto) (0.00-0.4) % Nucleat RBC Rel Count (0.00-0.1) % Eos # (Auto) (0-0.5) x10^3/uL Immature Gran # (Auto) (0.00-0.03) x10^3u/L Absolute Lymphs (auto) (1.0-4.6) x10^3/uL Absolute Monos (auto) (0.0-1.3) x10^3/uL Absolute Nucleated RBC (0.00-0.01) x10^3u/L Lymphocytes % (24.0-44.0) % Monocytes % (0.0-12.0) % Eosinophils % (0.00-5.0) % Basophils % (0.0-0.4) % Absolute Granulocytes (1.4-6.9) x10^3/uL Basophils # (0-0.4) x10^3/uL D-Dimer (0.0-0.50) mg/L Puncture Site pCO2 (35-45) mmHg pO2 (75-100) mmHg Base Excess (-2.0-2.0) O2 Saturation (94-100) g/dF ABG pH (7.35-7.45) ABG HCO3 (22-28) ABG O2 Sat (Measured) (95-100) % Ludin Test A-a Gradient a/A Ratio Hemoglobin Carboxyhemoglobin (0.0-6.9) % THgb Methemoglobin (1.4-1.5) % Temperature C POC O2 Flow Rate % Sodium (137-145) mmol/L Potassium (3.5-5.1) mmol/L Chloride (98-107) mmol/L Carbon Dioxide (22-30) mmol/L Anion Gap (5-15) MEQ/L BUN (7-17) mg/dL Creatinine (0.52-1.04) mg/dL Estimated GFR ML/MIN Glucose (74-106) mg/dL POC Glucometer 224 H (74 to 106) mg/dL Lactic Acid (0.4-2.0) Calcium (8.4-10.2) mg/dL Total Bilirubin (0.2-1.3) mg/dL AST (14-36) U/L ALT (0-35) U/L Alkaline Phosphatase (38-126) U/L Troponin I 0.019 (0.000-0.034) ng/mL NT-Pro-B Natriuret Pep (<300) pg/mL Serum Total Protein (6.3-8.2) g/dL Albumin (3.5-5.0) g/dL Influenza Type A Ag NEGATIVE (NEGATIVE) Influenza Type B Ag NEGATIVE (NEGATIVE) RSV (PCR) NEGATIVE (NEGATIVE) SARS-CoV-2 (PCR) NEGATIVE (NEGATIVE) 01/10/23 Range/Units 16:24 WBC (4.0-10.5) x10^3/uL RBC (4.1-5.4) x10^6/uL Hgb (12.0-16.0) g/dL Hct (35-47) % MCV (78-100) fL MCH (26-32) pg MCHC (32-36) g/dL RDW (11.5-14.0) % Plt Count (150-450) x10^3/uL MPV (7.5-11.0) fL Gran % (36.0-66.0) % Immature Gran % (Auto) (0.00-0.4) % Nucleat RBC Rel Count (0.00-0.1) % Eos # (Auto) (0-0.5) x10^3/uL Immature Gran # (Auto) (0.00-0.03) x10^3u/L Absolute Lymphs (auto) (1.0-4.6) x10^3/uL Absolute Monos (auto) (0.0-1.3) x10^3/uL Absolute Nucleated RBC (0.00-0.01) x10^3u/L Lymphocytes % (24.0-44.0) % Monocytes % (0.0-12.0) % Eosinophils % (0.00-5.0) % Basophils % (0.0-0.4) % Absolute Granulocytes (1.4-6.9) x10^3/uL Basophils # (0-0.4) x10^3/uL D-Dimer (0.0-0.50) mg/L Puncture Site pCO2 (35-45) mmHg pO2 (75-100) mmHg Base Excess (-2.0-2.0) O2 Saturation (94-100) g/dF ABG pH (7.35-7.45) ABG HCO3 (22-28) ABG O2 Sat (Measured) (95-100) % Ludin Test A-a Gradient a/A Ratio Hemoglobin Carboxyhemoglobin (0.0-6.9) % THgb Methemoglobin (1.4-1.5) % Temperature C POC O2 Flow Rate % Sodium (137-145) mmol/L Potassium (3.5-5.1) mmol/L Chloride (98-107) mmol/L Carbon Dioxide (22-30) mmol/L Anion Gap (5-15) MEQ/L BUN (7-17) mg/dL Creatinine (0.52-1.04) mg/dL Estimated GFR ML/MIN Glucose (74-106) mg/dL POC Glucometer 371 H (74 to 106) mg/dL Lactic Acid (0.4-2.0) Calcium (8.4-10.2) mg/dL Total Bilirubin (0.2-1.3) mg/dL AST (14-36) U/L ALT (0-35) U/L Alkaline Phosphatase (38-126) U/L Troponin I (0.000-0.034) ng/mL NT-Pro-B Natriuret Pep (<300) pg/mL Serum Total Protein (6.3-8.2) g/dL Albumin (3.5-5.0) g/dL Influenza Type A Ag (NEGATIVE) Influenza Type B Ag (NEGATIVE) RSV (PCR) (NEGATIVE) SARS-CoV-2 (PCR) (NEGATIVE) Accuchecks Date 01/10/23 Time 07:15 - Radiology Impressions Radiology Exams & Impressions: Radiology Procedures Category Date Time Status CHEST 1 VIEW (PORTABLE) Stat Exams 01/10/23 07:39 Completed CHEST WITH CONTRAST [CT] Stat Exams 01/10/23 09:28 Completed - Other Procedures and Tests Respiratory Therapy 01/10/23 07:55 Oxygen High Flow per RT 40% 01/10/23 08:12 Respiratory Therapy Assessment DAILY 01/10/23 12:00 EKG REPEAT IN AM Assessment/Plan (1) Pneumonia Current Visit: No Status: Acute Assessment & Plan: continue pneumonia, nebs and high flow oxygen. pulm consulted Code(s): J18.9 - PNEUMONIA, UNSPECIFIED ORGANISM (2) Acute exacerbation of chronic obstructive airways disease Current Visit: No Status: Acute Assessment & Plan: IV steroids, nebs and abx ordered. Code(s): J44.1 - CHRONIC OBSTRUCTIVE PULMONARY DISEASE W (ACUTE) EXACERBATION (3) Hypoxia Current Visit: Yes Status: Acute Code(s): R09.02 - HYPOXEMIA (4) Diabetes mellitus type 2 in obese Current Visit: No Status: Chronic Code(s): E11.69 - TYPE 2 DIABETES MELLITUS WITH OTHER SPECIFIED COMPLICATION; E66.9 - OBESITY, UNSPECIFIED
[2023-01-10] MEDS: HUMALOG SQ PRN ×2 (16:46→21:34)
[2023-01-10] MEDS: solu-MEDROL 80 MG, Sterile H2O 10 ml 2 ML IV SCH ×4 (18:08→23:43)
[2023-01-10] MEDS: Advair Hfa 230/21 Mcg COMMON CANISTER IH SCH (18:40)
[2023-01-10] MEDS: ENOXAPARIN SODIUM SQ SCH (20:26)
[2023-01-11] MEDS: DUONEB 0.5-3 MG/3 ml Neb IH SCH ×6 (02:42→23:52)
[2023-01-11] MEDS: TYLENOL 325 MG PO PRN ×3 (03:00→22:21)
[2023-01-11] MEDS: solu-MEDROL 80 MG, Sterile H2O 10 ml 2 ML IV SCH ×8 (05:29→23:55)
[2023-01-11 05:33] LABS: Absolute Neutrophil Ct (ANC) 20.93 x10^3/uL (1.4-6.9); BASOPHIL % 0.2 % (0.0-0.4); Basophil (Absolute #) 0.05 x10^3/uL (0-0.4); Eosinophil (Absolute #) 0 x10^3/uL (0-0.5); Hematocrit 38.2 % (35-47); Hemoglobin 12.3 g/dL (12.0-16.0); IMMATURE GRAN # 0.17 x10^3u/L (0.00-0.03); IMMATURE GRAN % 0.8 % (0.00-0.4); Lymphocyte (Absolute #) 0.34 x10^3/uL (1.0-4.6); Lymphocytes % 1.5 % (24.0-44.0); Mean Cell Volume 89.7 fL (78-100); Mean Corpuscular Hemoglobin 28.9 pg (26-32); Mean Corpuscular Hgb Concent. 32.2 g/dL (32-36); Mean Platelet Volume 11.5 fL (7.5-11.0); Monocyte (Absolute #) 0.84 x10^3/uL (0.0-1.3); Monocytes % 3.8 % (0.0-12.0); Neutrophil % 93.7 % (36.0-66.0); Platelet Count 270 x10^3/uL (150-450); Red Blood Count 4.26 x10^6/uL (4.1-5.4); Red Cell Distribution Width 14.4 % (11.5-14.0); White Blood Count 22.3 x10^3/uL (4.0-10.5)
[2023-01-11 05:55] LABS: ALBUMIN 3.7 g/dL (3.5-5.0); ALKALINE PHOSPHATASE 55 U/L (38-126); ANION GAP 11.8 MEQ/L (5-15); BLOOD UREA NITROGEN 24 mg/dL (7-17); CHLORIDE 96 mmol/L (98-107); Calcium 8.8 mg/dL (8.4-10.2); Carbon Dioxide 33 mmol/L (22-30); Creatinine 1 0.78 mg/dL (0.52-1.04); EST GLOMERULAR FILTRATION RATE > 60.0 ML/MIN; Glucose 365 mg/dL (74-106); NT PRO BNPII 1440 pg/mL (<300); Potassium 3.4 mmol/L (3.5-5.1); SGOT/AST 18 U/L (14-36); SGPT/ALT 31 U/L (0-35); SODIUM 137 mmol/L (137-145); Total Protein 7.3 g/dL (6.3-8.2)
[2023-01-11 06:11] LABS: Slide Review 1 YES
[2023-01-11] MEDS: Advair Hfa 230/21 Mcg COMMON CANISTER IH SCH ×2 (07:16→18:38)
--- NOTE | 2023-01-11 08:33 | XRAY ---
Indication: Pneumonia. Comparison: One day earlier PA/lateral chest worsening moderate right base infiltrate/atelectasis/effusion. Minimal improving mild left base infiltrate/atelectasis/effusion. Remaining heart and upper lungs unremarkable.
[2023-01-11] MEDS: ENOXAPARIN SODIUM SQ SCH (08:36)
--- NOTE | 2023-01-11 08:36 | PCM.NOTE ---
Date and Time: 01/11/23833 Subjective Assessment: patient notes improvement in her respiratory status, she is breathing better. no other complaints. cough is somewhat painful but improved Objective Exam General Appearance: no apparent distress Neurologic Exam: alert, oriented x 3 Respiratory Exam: accessory muscle use, prolonged expirations, crackles/rales Cardiovascular Exam: regular rate/rhythm, normal heart sounds Gastrointestinal/Abdomen Exam: soft, No tenderness, No mass Extremity Exam: normal inspection, normal range of motion OBJECTIVE DATA Vital Signs: Vital Signs - 24 hr Temp Pulse Resp BP Pulse Ox 01/11/23 07:28 98.0 F 70 18 116/64 91 L 01/11/23 03:53 96.9 F 69 28 H 112/56 94 L 01/11/23 02:42 58 L 24 98 01/10/23 23:35 97.6 F 61 24 110/56 95 01/10/23 23:08 61 24 95 01/10/23 20:00 98.0 F 75 30 H 107/56 91 L 01/10/23 18:37 71 24 95 01/10/23 16:00 98.3 F 69 24 123/67 97 01/10/23 14:46 75 20 95 01/10/23 12:22 97.0 F 71 18 112/60 94 L 01/10/23 12:14 78 24 94 L 01/10/23 11:24 83 L 01/10/23 11:00 99.4 F 76 22 97 01/10/23 09:39 83 30 H 120/72 95 Pain Assessment - Last Documented Pain Intensity 1 Pain Scale Used 0-10 Pain Scale Intake and Output: Intake & Output 01/08/23 01/09/23 01/10/23 01/11/23 11:59 11:59 11:59 11:59 Intake Total 1600 Output Total 2100 Balance -500 Weight 56.245 kg 224.4 kg Lab Results: Lab Results-Last 24 Hours 01/10/23 01/10/23 01/10/23 Range/Units 07:30 07:30 07:30 WBC 19.6 H (4.0-10.5) x10^3/uL RBC 4.49 (4.1-5.4) x10^6/uL Hgb 13.0 (12.0-16.0) g/dL Hct 40.9 (35-47) % MCV 91.1 (78-100) fL MCH 29.0 (26-32) pg MCHC 31.8 L (32-36) g/dL RDW 14.3 H (11.5-14.0) % Plt Count 338 (150-450) x10^3/uL MPV 11.2 H (7.5-11.0) fL Gran % 92.5 H (36.0-66.0) % Immature Gran % (Auto) 0.8 H (0.00-0.4) % Nucleat RBC Rel Count 0.0 (0.00-0.1) % Eos # (Auto) 0.02 (0-0.5) x10^3/uL Immature Gran # (Auto) 0.15 H (0.00-0.03) x10^3u/L Absolute Lymphs (auto) 0.65 L (1.0-4.6) x10^3/uL Absolute Monos (auto) 0.58 (0.0-1.3) x10^3/uL Absolute Nucleated RBC 0.00 (0.00-0.01) x10^3u/L Lymphocytes % 3.3 L (24.0-44.0) % Monocytes % 3.0 (0.0-12.0) % Eosinophils % 0.1 (0.00-5.0) % Basophils % 0.3 (0.0-0.4) % Absolute Granulocytes 18.16 H (1.4-6.9) x10^3/uL Basophils # 0.05 (0-0.4) x10^3/uL D-Dimer 1.23 H* (0.0-0.50) mg/L Sodium (137-145) mmol/L Potassium (3.5-5.1) mmol/L Chloride (98-107) mmol/L Carbon Dioxide (22-30) mmol/L Anion Gap (5-15) MEQ/L BUN (7-17) mg/dL Creatinine (0.52-1.04) mg/dL Estimated GFR ML/MIN Glucose (74-106) mg/dL POC Glucometer (74 to 106) mg/dL Hemoglobin A1c (4.5-6.0) % Calcium (8.4-10.2) mg/dL Total Bilirubin (0.2-1.3) mg/dL AST (14-36) U/L ALT (0-35) U/L Alkaline Phosphatase (38-126) U/L Troponin (0.00-0.03) ng/mL Troponin I < 0.012 (0.000-0.034) ng/mL NT-Pro-B Natriuret Pep (<300) pg/mL Serum Total Protein (6.3-8.2) g/dL Albumin (3.5-5.0) g/dL Influenza Type A Ag (NEGATIVE) Influenza Type B Ag (NEGATIVE) RSV (PCR) (NEGATIVE) SARS-CoV-2 (PCR) (NEGATIVE) Slides for Path Review 01/10/23 01/10/23 01/10/23 Range/Units 07:30 08:15 11:56 WBC (4.0-10.5) x10^3/uL RBC (4.1-5.4) x10^6/uL Hgb (12.0-16.0) g/dL Hct (35-47) % MCV (78-100) fL MCH (26-32) pg MCHC (32-36) g/dL RDW (11.5-14.0) % Plt Count (150-450) x10^3/uL MPV (7.5-11.0) fL Gran % (36.0-66.0) % Immature Gran % (Auto) (0.00-0.4) % Nucleat RBC Rel Count (0.00-0.1) % Eos # (Auto) (0-0.5) x10^3/uL Immature Gran # (Auto) (0.00-0.03) x10^3u/L Absolute Lymphs (auto) (1.0-4.6) x10^3/uL Absolute Monos (auto) (0.0-1.3) x10^3/uL Absolute Nucleated RBC (0.00-0.01) x10^3u/L Lymphocytes % (24.0-44.0) % Monocytes % (0.0-12.0) % Eosinophils % (0.00-5.0) % Basophils % (0.0-0.4) % Absolute Granulocytes (1.4-6.9) x10^3/uL Basophils # (0-0.4) x10^3/uL D-Dimer (0.0-0.50) mg/L Sodium 138 (137-145) mmol/L Potassium 3.9 (3.5-5.1) mmol/L Chloride 98 (98-107) mmol/L Carbon Dioxide 28 (22-30) mmol/L Anion Gap 15.9 H (5-15) MEQ/L BUN 18 H (7-17) mg/dL Creatinine 0.61 (0.52-1.04) mg/dL Estimated GFR > 60.0 ML/MIN Glucose 173 H (74-106) mg/dL POC Glucometer (74 to 106) mg/dL Hemoglobin A1c (4.5-6.0) % Calcium 8.4 (8.4-10.2) mg/dL Total Bilirubin 0.90 (0.2-1.3) mg/dL AST 29 (14-36) U/L ALT 28 (0-35) U/L Alkaline Phosphatase 61 (38-126) U/L Troponin (0.00-0.03) ng/mL Troponin I 0.019 (0.000-0.034) ng/mL NT-Pro-B Natriuret Pep 743 (<300) pg/mL Serum Total Protein 6.7 (6.3-8.2) g/dL Albumin 3.4 L (3.5-5.0) g/dL Influenza Type A Ag NEGATIVE (NEGATIVE) Influenza Type B Ag NEGATIVE (NEGATIVE) RSV (PCR) NEGATIVE (NEGATIVE) SARS-CoV-2 (PCR) NEGATIVE (NEGATIVE) Slides for Path Review 01/10/23 01/10/23 01/10/23 Range/Units 12:03 16:15 16:19 WBC (4.0-10.5) x10^3/uL RBC (4.1-5.4) x10^6/uL Hgb (12.0-16.0) g/dL Hct (35-47) % MCV (78-100) fL MCH (26-32) pg MCHC (32-36) g/dL RDW (11.5-14.0) % Plt Count (150-450) x10^3/uL MPV (7.5-11.0) fL Gran % (36.0-66.0) % Immature Gran % (Auto) (0.00-0.4) % Nucleat RBC Rel Count (0.00-0.1) % Eos # (Auto) (0-0.5) x10^3/uL Immature Gran # (Auto) (0.00-0.03) x10^3u/L Absolute Lymphs (auto) (1.0-4.6) x10^3/uL Absolute Monos (auto) (0.0-1.3) x10^3/uL Absolute Nucleated RBC (0.00-0.01) x10^3u/L Lymphocytes % (24.0-44.0) % Monocytes % (0.0-12.0) % Eosinophils % (0.00-5.0) % Basophils % (0.0-0.4) % Absolute Granulocytes (1.4-6.9) x10^3/uL Basophils # (0-0.4) x10^3/uL D-Dimer (0.0-0.50) mg/L Sodium (137-145) mmol/L Potassium (3.5-5.1) mmol/L Chloride (98-107) mmol/L Carbon Dioxide (22-30) mmol/L Anion Gap (5-15) MEQ/L BUN (7-17) mg/dL Creatinine (0.52-1.04) mg/dL Estimated GFR ML/MIN Glucose (74-106) mg/dL POC Glucometer 224 H (74 to 106) mg/dL Hemoglobin A1c 6.02 H (4.5-6.0) % Calcium (8.4-10.2) mg/dL Total Bilirubin (0.2-1.3) mg/dL AST (14-36) U/L ALT (0-35) U/L Alkaline Phosphatase (38-126) U/L Troponin 0.00 (0.00-0.03) ng/mL Troponin I (0.000-0.034) ng/mL NT-Pro-B Natriuret Pep (<300) pg/mL Serum Total Protein (6.3-8.2) g/dL Albumin (3.5-5.0) g/dL Influenza Type A Ag (NEGATIVE) Influenza Type B Ag (NEGATIVE) RSV (PCR) (NEGATIVE) SARS-CoV-2 (PCR) (NEGATIVE) Slides for Path Review 01/10/23 01/10/23 01/11/23 Range/Units 16:24 20:55 04:41 WBC 22.3 H (4.0-10.5) x10^3/uL RBC 4.26 (4.1-5.4) x10^6/uL Hgb 12.3 (12.0-16.0) g/dL Hct 38.2 (35-47) % MCV 89.7 (78-100) fL MCH 28.9 (26-32) pg MCHC 32.2 (32-36) g/dL RDW 14.4 H (11.5-14.0) % Plt Count 270 (150-450) x10^3/uL MPV 11.5 H (7.5-11.0) fL Gran % 93.7 H (36.0-66.0) % Immature Gran % (Auto) 0.8 H (0.00-0.4) % Nucleat RBC Rel Count 0.0 (0.00-0.1) % Eos # (Auto) 0 (0-0.5) x10^3/uL Immature Gran # (Auto) 0.17 H (0.00-0.03) x10^3u/L Absolute Lymphs (auto) 0.34 L (1.0-4.6) x10^3/uL Absolute Monos (auto) 0.84 (0.0-1.3) x10^3/uL Absolute Nucleated RBC 0.00 (0.00-0.01) x10^3u/L Lymphocytes % 1.5 L (24.0-44.0) % Monocytes % 3.8 (0.0-12.0) % Eosinophils % 0.0 (0.00-5.0) % Basophils % 0.2 (0.0-0.4) % Absolute Granulocytes 20.93 H (1.4-6.9) x10^3/uL Basophils # 0.05 (0-0.4) x10^3/uL D-Dimer (0.0-0.50) mg/L Sodium (137-145) mmol/L Potassium (3.5-5.1) mmol/L Chloride (98-107) mmol/L Carbon Dioxide (22-30) mmol/L Anion Gap (5-15) MEQ/L BUN (7-17) mg/dL Creatinine (0.52-1.04) mg/dL Estimated GFR ML/MIN Glucose (74-106) mg/dL POC Glucometer 371 H 428 H (74 to 106) mg/dL Hemoglobin A1c (4.5-6.0) % Calcium (8.4-10.2) mg/dL Total Bilirubin (0.2-1.3) mg/dL AST (14-36) U/L ALT (0-35) U/L Alkaline Phosphatase (38-126) U/L Troponin (0.00-0.03) ng/mL Troponin I (0.000-0.034) ng/mL NT-Pro-B Natriuret Pep (<300) pg/mL Serum Total Protein (6.3-8.2) g/dL Albumin (3.5-5.0) g/dL Influenza Type A Ag (NEGATIVE) Influenza Type B Ag (NEGATIVE) RSV (PCR) (NEGATIVE) SARS-CoV-2 (PCR) (NEGATIVE) Slides for Path Review YES 01/11/23 01/11/23 Range/Units 04:41 07:04 WBC (4.0-10.5) x10^3/uL RBC (4.1-5.4) x10^6/uL Hgb (12.0-16.0) g/dL Hct (35-47) % MCV (78-100) fL MCH (26-32) pg MCHC (32-36) g/dL RDW (11.5-14.0) % Plt Count (150-450) x10^3/uL MPV (7.5-11.0) fL Gran % (36.0-66.0) % Immature Gran % (Auto) (0.00-0.4) % Nucleat RBC Rel Count (0.00-0.1) % Eos # (Auto) (0-0.5) x10^3/uL Immature Gran # (Auto) (0.00-0.03) x10^3u/L Absolute Lymphs (auto) (1.0-4.6) x10^3/uL Absolute Monos (auto) (0.0-1.3) x10^3/uL Absolute Nucleated RBC (0.00-0.01) x10^3u/L Lymphocytes % (24.0-44.0) % Monocytes % (0.0-12.0) % Eosinophils % (0.00-5.0) % Basophils % (0.0-0.4) % Absolute Granulocytes (1.4-6.9) x10^3/uL Basophils # (0-0.4) x10^3/uL D-Dimer (0.0-0.50) mg/L Sodium 137 (137-145) mmol/L Potassium 3.4 L (3.5-5.1) mmol/L Chloride 96 L (98-107) mmol/L Carbon Dioxide 33 H (22-30) mmol/L Anion Gap 11.8 (5-15) MEQ/L BUN 24 H (7-17) mg/dL Creatinine 0.78 (0.52-1.04) mg/dL Estimated GFR > 60.0 ML/MIN Glucose 365 H (74-106) mg/dL POC Glucometer 321 H (74 to 106) mg/dL Hemoglobin A1c (4.5-6.0) % Calcium 8.8 (8.4-10.2) mg/dL Total Bilirubin 0.80 (0.2-1.3) mg/dL AST 18 (14-36) U/L ALT 31 (0-35) U/L Alkaline Phosphatase 55 (38-126) U/L Troponin (0.00-0.03) ng/mL Troponin I (0.000-0.034) ng/mL NT-Pro-B Natriuret Pep 1440 (<300) pg/mL Serum Total Protein 7.3 (6.3-8.2) g/dL Albumin 3.7 (3.5-5.0) g/dL Influenza Type A Ag (NEGATIVE) Influenza Type B Ag (NEGATIVE) RSV (PCR) (NEGATIVE) SARS-CoV-2 (PCR) (NEGATIVE) Slides for Path Review Radiology Exams: Radiology Procedures Category Date Time Status CHEST 1 VIEW (PORTABLE) Stat Exams 01/10/23 07:39 Completed CHEST 2 VIEWS (PA AND LAT) Routine Exams 01/11/23 07:00 Taken CHEST WITH CONTRAST [CT] Stat Exams 01/10/23 09:28 Completed Multi-Disciplinary Progress Notes: Multi-Disciplinary Progress Notes 01/10/23 10:30 Respiratory Note by DivinaVandana O2 SAT 99%. OXYGEN DECREASED TO 60%, FLOW REMAINS AT 40LPM. NURSE AWARE. Initialized on 01/10/23 10:30 - END OF NOTE 01/10/23 08:45 (created 01/10/23 09:06) Respiratory Note by DivinaVandana O2 SAT 98%. OXYGEN DECREASED TO 70%, FLOW REMAINS AT 40LPM. NURSE AWARE. Initialized on 01/10/23 09:06 - END OF NOTE Assessment/Plan (1) Pneumonia Current Visit: No Status: Acute Assessment & Plan: continue levaquin, chest xray with worsening right base disease/effusion, left improved. continue high flow oxygen Code(s): J18.9 - PNEUMONIA, UNSPECIFIED ORGANISM (2) Acute exacerbation of chronic obstructive airways disease Current Visit: No Status: Acute Assessment & Plan: continue nebs, levaquin and steroids at this time. Code(s): J44.1 - CHRONIC OBSTRUCTIVE PULMONARY DISEASE W (ACUTE) EXACERBATION (3) Hypoxia Current Visit: Yes Status: Acute Code(s): R09.02 - HYPOXEMIA (4) Diabetes mellitus type 2 in obese Current Visit: No Status: Chronic Code(s): E11.69 - TYPE 2 DIABETES MELLITUS WITH OTHER SPECIFIED COMPLICATION; E66.9 - OBESITY, UNSPECIFIED
[2023-01-11] MEDS: LEVOFLOXACIN 750MG/150ML D5W 750 MG/150 ML BAG IV SCH (08:37)
[2023-01-11] MEDS: Tessalon Perles 100 MG PO PRN ×3 (08:50→23:56)
[2023-01-11] MEDS: HUMALOG SQ PRN ×4 (08:51→22:18)
[2023-01-11] MEDS ORDERED: Levofloxacin 500MG/100ML D5W 500 MG/100 ML BAG IV SCH (10:00)
--- NOTE | 2023-01-11 10:28 | CONS ---
CONSULT DATE: 01/10/2023 HISTORY: Margarette Chavez is a 57-year-old woman, well known to me, who has been sick for the past few days. The patient was seen by me on 01/05/2023 with bronchitis-like symptoms and was treated with IM and p.o. steroids. She does report initial clinical improvement although over the weekend she started feeling sick. She woke up this morning with worsening shortness of breath and was brought into the emergency room at [facility] by ambulance. She was noted to have low oxygen saturation. Subsequent chest x-ray followed by a CT chest showed bibasilar infiltrates with right pleural effusion. The patient has been started on broad spectrum antibiotics. She does have a nonproductive cough. She denies any chest pain now but did have right-sided pleuritic chest pain earlier which has now resolved. PAST MEDICAL HISTORY: Positive for history of history of obstructive airway disease, diabetes mellitus and prior history of pneumonia. PAST SURGICAL HISTORY: Tonsillectomy. section. Tubal ligation. Subdural hematoma right side of head in the past. PERSONAL AND SOCIAL HISTORY: She is a nonsmoker. MEDICATIONS: Home and current medications are reviewed. ALLERGIES: PENICILLIN. PHYSICAL EXAMINATION: This is a middle-aged woman who appears comfortable sitting in chair. She is mildly short of breath but able to carry out a conversation. She was noted with prior history of temperature which has now resolved. Heart rate is 90, blood pressure 112/60. She is saturating 95% on high flow nasal cannula. HEENT: Normocephalic. Oral exam limited. NECK: Supple. CVS: First and second heart sounds are normal, regular, rhythmic. RESPIRATORY: Shows diminished breath sounds particularly at right lung base with crackles. ABDOMEN: Soft. EXTREMITIES: No edema is noted. LABORATORY DATA AND TESTS: White count is 19.6, hemoglobin 13, hematocrit 41, PLT count 333,000. The pH 7.52, pCO2 of 31 and pO2 of 54 on admission. Influenza A/B, respiratory syncytial virus and COVID results were negative. Chest x-ray and CT chest were reviewed. ASSESSMENT: This is a 57-year-old woman admitted with: 1) Acute hypoxic respiratory failure. 2) Bilateral community acquired pneumonia. 3) Right pleural effusion likely parapneumonic. 4) History of obstructive airway disease with asthma with mild exacerbation. 5) History of diabetes mellitus. 6) General debilitation. RECOMMENDATIONS: 1) The patient has been started on IV Levaquin 750 mg daily. 2) I agree with Solu-Medrol although will require close monitoring of glycemic control. 3) Continue bronchodilators. 4) Continue home medications. 5) Deep vein thrombosis prophylaxis. 6) Follow up chest x-ray in 48 hours to assess clinical improvement and resolution of pulmonary infiltrates. I have discussed these recommendations with the patient who is in agreement. I will be available as needed. Thank you for allowing me to participate in the care of your patient.
[2023-01-12] MEDS: LOPRESSOR INJECTION IV ONE ×2 (03:10→03:28)
[2023-01-12 03:21] LABS: Absolute Neutrophil Ct (ANC) 21.26 x10^3/uL (1.4-6.9); BASOPHIL % 0.2 % (0.0-0.4); Basophil (Absolute #) 0.05 x10^3/uL (0-0.4); Eosinophil (Absolute #) 0 x10^3/uL (0-0.5); Hematocrit 38.8 % (35-47); Hemoglobin 12.3 g/dL (12.0-16.0); IMMATURE GRAN # 0.17 x10^3u/L (0.00-0.03); IMMATURE GRAN % 0.7 % (0.00-0.4); Lymphocyte (Absolute #) 0.42 x10^3/uL (1.0-4.6); Lymphocytes % 1.8 % (24.0-44.0); Mean Cell Volume 91.1 fL (78-100); Mean Corpuscular Hemoglobin 28.9 pg (26-32); Mean Corpuscular Hgb Concent. 31.7 g/dL (32-36); Mean Platelet Volume 11.6 fL (7.5-11.0); Monocyte (Absolute #) 1.11 x10^3/uL (0.0-1.3); Monocytes % 4.8 % (0.0-12.0); Neutrophil % 92.5 % (36.0-66.0); Platelet Count 288 x10^3/uL (150-450); Red Blood Count 4.26 x10^6/uL (4.1-5.4); Red Cell Distribution Width 14.3 % (11.5-14.0)
[2023-01-12] MEDS ORDERED: Lopressor 25MG Tab PO ONE (03:25)
[2023-01-12] MEDS ORDERED: LOPRESSOR INJECTION IV ONE (03:26)
[2023-01-12 03:55] LABS: ANION GAP 12.9 MEQ/L (5-15); BLOOD UREA NITROGEN 25 mg/dL (7-17); CHLORIDE 95 mmol/L (98-107); Calcium 9.1 mg/dL (8.4-10.2); Carbon Dioxide 33 mmol/L (22-30); EST GLOMERULAR FILTRATION RATE > 60.0 ML/MIN; Glucose 353 mg/dL (74-106); Potassium 3.6 mmol/L (3.5-5.1); SODIUM 138 mmol/L (137-145)
[2023-01-12] MEDS: DUONEB 0.5-3 MG/3 ml Neb IH SCH ×6 (04:02→22:45)
[2023-01-12] MEDS ORDERED: Cardizem IV 50 MG/10 ML IV ONE (04:18)
[2023-01-12] MEDS ORDERED: Klor Con PO ONE (04:19)
[2023-01-12] MEDS ORDERED: Cardizem 30 MG PO ONE (05:41)
[2023-01-12] MEDS: solu-MEDROL 80 MG, Sterile H2O 10 ml 2 ML IV SCH ×6 (05:59→18:02)
[2023-01-12] MEDS ORDERED: solu-MEDROL ONE (05:59)
[2023-01-12] MEDS: Advair Hfa 230/21 Mcg COMMON CANISTER IH SCH ×2 (06:57→18:20)
[2023-01-12] MEDS: HUMALOG SQ PRN ×4 (09:15→22:11)
--- NOTE | 2023-01-12 09:22 | PCM.NOTE ---
Date and Time: 01/12/23919 Subjective Assessment: patient in a fib with rvr with heart rate in the 150's this morning. started overnight, was given lopressor and cardizem push with no improvement. she denies chest pain, no palpitations. her breathing is improved Objective Exam General Appearance: no apparent distress, obese Neurologic Exam: alert, oriented x 3 Respiratory Exam: diminished breath sounds, prolonged expirations Cardiovascular Exam: tachycardia, irregular Gastrointestinal/Abdomen Exam: soft, No tenderness, No mass Extremity Exam: normal inspection, normal range of motion OBJECTIVE DATA Vital Signs: Vital Signs - 24 hr Temp Pulse Resp BP Pulse Ox 01/12/23 07:40 96.6 F 146 H 21 98/77 94 L 01/12/23 07:00 155 H 22 93 L 01/12/23 05:57 96 01/12/23 05:00 96.8 F 137 H 26 H 120/69 95 01/12/23 03:48 151 H 124/76 95 01/12/23 03:20 152 H 129/94 01/12/23 03:10 156 H 01/12/23 00:11 94 L 01/12/23 00:00 97.6 F 88 26 H 120/73 95 01/11/23 23:55 69 24 97 01/11/23 20:00 98.4 F 82 26 H 113/64 93 L 01/11/23 18:38 77 22 94 L 01/11/23 17:51 96 01/11/23 15:23 97.1 F 85 18 116/58 93 L 01/11/23 14:57 84 22 95 01/11/23 12:00 97.8 F 73 16 121/62 92 L 01/11/23 11:37 70 18 96 Pain Assessment - Last Documented Pain Intensity 0 Pain Scale Used 0-10 Pain Scale Intake and Output: Intake & Output 01/09/23 01/10/23 01/11/23 01/12/23 11:59 11:59 11:59 11:59 Intake Total 1960 2510 Output Total 2100 Balance -140 2510 Weight 56.245 kg 224.4 kg 224.4 kg Lab Results: Lab Results-Last 24 Hours 01/11/23 01/11/23 01/11/23 Range/Units 10:40 16:19 21:44 WBC (4.0-10.5) x10^3/uL RBC (4.1-5.4) x10^6/uL Hgb (12.0-16.0) g/dL Hct (35-47) % MCV (78-100) fL MCH (26-32) pg MCHC (32-36) g/dL RDW (11.5-14.0) % Plt Count (150-450) x10^3/uL MPV (7.5-11.0) fL Gran % (36.0-66.0) % Immature Gran % (Auto) (0.00-0.4) % Nucleat RBC Rel Count (0.00-0.1) % Eos # (Auto) (0-0.5) x10^3/uL Immature Gran # (Auto) (0.00-0.03) x10^3u/L Absolute Lymphs (auto) (1.0-4.6) x10^3/uL Absolute Monos (auto) (0.0-1.3) x10^3/uL Absolute Nucleated RBC (0.00-0.01) x10^3u/L Lymphocytes % (24.0-44.0) % Monocytes % (0.0-12.0) % Eosinophils % (0.00-5.0) % Basophils % (0.0-0.4) % Absolute Granulocytes (1.4-6.9) x10^3/uL Basophils # (0-0.4) x10^3/uL Sodium (137-145) mmol/L Potassium (3.5-5.1) mmol/L Chloride (98-107) mmol/L Carbon Dioxide (22-30) mmol/L Anion Gap (5-15) MEQ/L BUN (7-17) mg/dL Creatinine (0.52-1.04) mg/dL Estimated GFR ML/MIN Glucose (74-106) mg/dL POC Glucometer 346 H 434 H 290 H (74 to 106) mg/dL Calcium (8.4-10.2) mg/dL Magnesium (1.6-2.3) mg/dL Troponin I (0.000-0.034) ng/mL NT-Pro-B Natriuret Pep (<300) pg/mL 01/12/23 01/12/23 01/12/23 Range/Units 03:17 03:17 03:17 WBC 23.0 H (4.0-10.5) x10^3/uL RBC 4.26 (4.1-5.4) x10^6/uL Hgb 12.3 (12.0-16.0) g/dL Hct 38.8 (35-47) % MCV 91.1 (78-100) fL MCH 28.9 (26-32) pg MCHC 31.7 L (32-36) g/dL RDW 14.3 H (11.5-14.0) % Plt Count 288 (150-450) x10^3/uL MPV 11.6 H (7.5-11.0) fL Gran % 92.5 H (36.0-66.0) % Immature Gran % (Auto) 0.7 H (0.00-0.4) % Nucleat RBC Rel Count 0.0 (0.00-0.1) % Eos # (Auto) 0 (0-0.5) x10^3/uL Immature Gran # (Auto) 0.17 H (0.00-0.03) x10^3u/L Absolute Lymphs (auto) 0.42 L (1.0-4.6) x10^3/uL Absolute Monos (auto) 1.11 (0.0-1.3) x10^3/uL Absolute Nucleated RBC 0.00 (0.00-0.01) x10^3u/L Lymphocytes % 1.8 L (24.0-44.0) % Monocytes % 4.8 (0.0-12.0) % Eosinophils % 0.0 (0.00-5.0) % Basophils % 0.2 (0.0-0.4) % Absolute Granulocytes 21.26 H (1.4-6.9) x10^3/uL Basophils # 0.05 (0-0.4) x10^3/uL Sodium 138 (137-145) mmol/L Potassium 3.6 (3.5-5.1) mmol/L Chloride 95 L (98-107) mmol/L Carbon Dioxide 33 H (22-30) mmol/L Anion Gap 12.9 (5-15) MEQ/L BUN 25 H (7-17) mg/dL Creatinine 0.80 (0.52-1.04) mg/dL Estimated GFR > 60.0 ML/MIN Glucose 353 H (74-106) mg/dL POC Glucometer (74 to 106) mg/dL Calcium 9.1 (8.4-10.2) mg/dL Magnesium (1.6-2.3) mg/dL Troponin I < 0.012 (0.000-0.034) ng/mL NT-Pro-B Natriuret Pep (<300) pg/mL 01/12/23 01/12/23 01/12/23 Range/Units 03:17 03:17 07:16 WBC (4.0-10.5) x10^3/uL RBC (4.1-5.4) x10^6/uL Hgb (12.0-16.0) g/dL Hct (35-47) % MCV (78-100) fL MCH (26-32) pg MCHC (32-36) g/dL RDW (11.5-14.0) % Plt Count (150-450) x10^3/uL MPV (7.5-11.0) fL Gran % (36.0-66.0) % Immature Gran % (Auto) (0.00-0.4) % Nucleat RBC Rel Count (0.00-0.1) % Eos # (Auto) (0-0.5) x10^3/uL Immature Gran # (Auto) (0.00-0.03) x10^3u/L Absolute Lymphs (auto) (1.0-4.6) x10^3/uL Absolute Monos (auto) (0.0-1.3) x10^3/uL Absolute Nucleated RBC (0.00-0.01) x10^3u/L Lymphocytes % (24.0-44.0) % Monocytes % (0.0-12.0) % Eosinophils % (0.00-5.0) % Basophils % (0.0-0.4) % Absolute Granulocytes (1.4-6.9) x10^3/uL Basophils # (0-0.4) x10^3/uL Sodium (137-145) mmol/L Potassium (3.5-5.1) mmol/L Chloride (98-107) mmol/L Carbon Dioxide (22-30) mmol/L Anion Gap (5-15) MEQ/L BUN (7-17) mg/dL Creatinine (0.52-1.04) mg/dL Estimated GFR ML/MIN Glucose (74-106) mg/dL POC Glucometer 293 H (74 to 106) mg/dL Calcium (8.4-10.2) mg/dL Magnesium 2.3 (1.6-2.3) mg/dL Troponin I (0.000-0.034) ng/mL NT-Pro-B Natriuret Pep 935 (<300) pg/mL Radiology Exams: Radiology Procedures Category Date Time Status CHEST 2 VIEWS (PA AND LAT) Routine Exams 01/11/23 07:00 Completed CHEST WITH CONTRAST [CT] Stat Exams 01/10/23 09:28 Completed ECHO W/2D AND DOPPLER [US] Routine Exams 01/12/23 09:19 Ordered Assessment/Plan (1) Atrial fibrillation with rapid ventricular response Current Visit: Yes Status: Acute Assessment & Plan: troponin is negative, will start IV cardizem drip and lovenox 1mg/kg bid (weight in chart is error, patient does not weight 224kg, nursing was notified yesterday and today) check echo and tsh Code(s): I48.91 - UNSPECIFIED ATRIAL FIBRILLATION (2) Pneumonia Current Visit: No Status: Acute Assessment & Plan: continue levaquin, steroids and nebs. clinically respiratory status is improving. Code(s): J18.9 - PNEUMONIA, UNSPECIFIED ORGANISM (3) Acute exacerbation of chronic obstructive airways disease Current Visit: No Status: Acute Code(s): J44.1 - CHRONIC OBSTRUCTIVE PULMONARY DISEASE W (ACUTE) EXACERBATION (4) Hypoxia Current Visit: Yes Status: Acute Code(s): R09.02 - HYPOXEMIA (5) Diabetes mellitus type 2 in obese Current Visit: No Status: Chronic Code(s): E11.69 - TYPE 2 DIABETES MELLITUS WITH OTHER SPECIFIED COMPLICATION; E66.9 - OBESITY, UNSPECIFIED
[2023-01-12] MEDS ORDERED: CARDIZEM DRIP 100 MG/100 ML D5W 100 ML IV ONE (09:33)
[2023-01-12] MEDS ORDERED: ENOXAPARIN SODIUM SQ ONE (09:33)
[2023-01-12] MEDS: LEVOFLOXACIN 750MG/150ML D5W 750 MG/150 ML BAG IV SCH (09:45)
[2023-01-12] MEDS: CARDIZEM DRIP 100 MG/100 ML D5W 100 ML IV PRN ×2 (09:46→16:11)
[2023-01-12] MEDS ORDERED: ENOXAPARIN SODIUM SQ SCH (10:00)
[2023-01-12] MEDS: HOLD METFORMIN PRODUCTS FOR 48 HOURS MC SCH (10:01)
--- NOTE | 2023-01-12 10:29 | XRAY ---
Indication: Follow-up pneumonia/effusion. Comparison: One day earlier. Portable chest demonstrates grossly stable moderate right base infiltrate/atelectasis/effusion and mild left base infiltrate/atelectasis. Remaining heart and upper lungs unremarkable. No new cardiopulmonary abnormalities.
[2023-01-12] MEDS: Tessalon Perles 100 MG PO PRN ×2 (12:11→18:17)
--- NOTE | 2023-01-12 13:22 | PROG NOTE ---
Events noted. Chart reviewed. DATE: 01/12/2023 HISTORY: The patient was evaluated. She was sitting in chair reports feeling "A lot better". The patient was noted to have atrial fibrillation last night and was switched to full dose anticoagulation with Lovenox. She had an echo and venous Doppler performed results of which are pending. PHYSICAL EXAMINATION: Heart rate is 104 irregular, blood pressure 134/70, saturating 94% on high flow oxygen 40 liters at 40% FIO2. HEENT: Normocephalic. Oral exam showed small oropharynx. NECK: Supple. CVS: First and second heart sounds are normal, regular, rhythmic. RESPIRATORY: Shows diminished breath sounds particularly at right lung base with crackles. ABDOMEN: Soft. EXTREMITIES: No edema is noted. LABORATORY DATA AND TESTS: Labs, x-rays and medications all reviewed. ASSESSMENT: This is a 57-year-old woman admitted with: 1) Bilateral community acquired pneumonia. 2) Right pleural effusion likely parapneumonic. 3) Bronchial asthma with exacerbation. 4) Paroxysmal atrial fibrillation. 5) Acute hypoxic respiratory failure. RECOMMENDATIONS: 1) The patient is clinically improving. 2) She would benefit from right thoracentesis. However it is a bit complicated given she has been on full dose anticoagulation for atrial fibrillation. Advised nursing staff to check with radiology if they are comfortable holding morning dose of Lovenox and draining the right side to improve pulmonary status. 3) May reduce steroids. 4) Increase ambulation. 5) Continue IV Levaquin and other supportive care. Follow up echo and venous Doppler. 6) If thoracentesis is performed, send pleural fluid for glucose, protein, ADH, bacteria, culture and cytology. I will continue to follow.
[2023-01-12] MEDS: Cardizem CD PO SCH (16:56)
[2023-01-13] MEDS: solu-MEDROL 80 MG, Sterile H2O 10 ml 2 ML IV SCH ×10 (00:20→23:08)
[2023-01-13] MEDS: Tessalon Perles 100 MG PO PRN ×2 (02:22→07:34)
[2023-01-13] MEDS: DUONEB 0.5-3 MG/3 ml Neb IH SCH ×6 (03:20→23:22)
[2023-01-13 05:37] LABS: Absolute Neutrophil Ct (ANC) 13.98 x10^3/uL (1.4-6.9); BASOPHIL % 0.3 % (0.0-0.4); Basophil (Absolute #) 0.05 x10^3/uL (0-0.4); Eosinophil (Absolute #) 0 x10^3/uL (0-0.5); Hematocrit 33.4 % (35-47); Hemoglobin 10.6 g/dL (12.0-16.0); IMMATURE GRAN # 0.29 x10^3u/L (0.00-0.03); IMMATURE GRAN % 1.9 % (0.00-0.4); Lymphocyte (Absolute #) 0.53 x10^3/uL (1.0-4.6); Lymphocytes % 3.4 % (24.0-44.0); Mean Cell Volume 89.5 fL (78-100); Mean Corpuscular Hemoglobin 28.4 pg (26-32); Mean Corpuscular Hgb Concent. 31.7 g/dL (32-36); Mean Platelet Volume 11.5 fL (7.5-11.0); Monocytes % 4.5 % (0.0-12.0); Neutrophil % 89.9 % (36.0-66.0); Platelet Count 261 x10^3/uL (150-450); Red Blood Count 3.73 x10^6/uL (4.1-5.4); Red Cell Distribution Width 14.7 % (11.5-14.0); White Blood Count 15.6 x10^3/uL (4.0-10.5)
[2023-01-13 05:51] LABS: PROTIME 10.9 SECONDS (9.4-12.5); PTT 26.8 SECONDS (25.1-36.5)
[2023-01-13 05:58] LABS: ALBUMIN 3.4 g/dL (3.5-5.0); ALKALINE PHOSPHATASE 55 U/L (38-126); ANION GAP 11.7 MEQ/L (5-15); BLOOD UREA NITROGEN 31 mg/dL (7-17); CHLORIDE 96 mmol/L (98-107); Calcium 8.8 mg/dL (8.4-10.2); Carbon Dioxide 32 mmol/L (22-30); Creatinine 1 0.84 mg/dL (0.52-1.04); EST GLOMERULAR FILTRATION RATE > 60.0 ML/MIN; Glucose 447 mg/dL (74-106); LDH-LACTATE DEHYDROGENASE 172 U/L (120-246); MAGNESIUM 2.4 mg/dL (1.6-2.3); Potassium 4.4 mmol/L (3.5-5.1); SGOT/AST 28 U/L (14-36); SGPT/ALT 54 U/L (0-35); SODIUM 136 mmol/L (137-145)
[2023-01-13 06:23] LABS: Slide Review 1 YES
--- NOTE | 2023-01-13 07:35 | PCM.NOTE ---
Date and Time: 01/13/23732 Subjective Assessment: patient weaned to oxymizer, sinus rhythm and is feeling much better. she appears much more comfortable Objective Exam General Appearance: no apparent distress Neurologic Exam: alert, oriented x 3 Respiratory Exam: diminished breath sounds, prolonged expirations Cardiovascular Exam: regular rate/rhythm, normal heart sounds Gastrointestinal/Abdomen Exam: soft, No tenderness, No mass Extremity Exam: normal inspection, normal range of motion OBJECTIVE DATA Vital Signs: Vital Signs - 24 hr Temp Pulse Resp BP BP BP Pulse Ox 01/13/23 04:25 97.3 F 56 L 23 121/62 94 L 01/13/23 03:57 97.7 F 56 L 25 H 94/80 96 01/13/23 03:20 61 15 96 01/13/23 00:00 56 L 01/12/23 23:53 97.7 F 56 L 25 H 94/80 96 01/12/23 22:45 56 L 18 96 01/12/23 20:00 97.4 F 56 L 24 101/66 95 01/12/23 18:22 67 22 96 01/12/23 18:03 63 22 137/78 01/12/23 18:00 63 22 137/78 97 01/12/23 17:00 60 20 141/72 96 01/12/23 16:17 64 01/12/23 16:11 150 H 26 H 118/80 01/12/23 16:00 150 H 28 H 118/80 94 L 01/12/23 15:00 139 H 35 H 124/92 95 01/12/23 14:53 139 H 22 94 L 01/12/23 13:57 140 H 30 H 124/82 91 L 01/12/23 13:02 143 H 28 H 118/75 01/12/23 13:00 143 H 28 H 118/75 01/12/23 12:06 149 H 24 128/70 01/12/23 12:00 143 H 24 128/70 01/12/23 11:51 96.7 F 144 H 22 130/68 98 01/12/23 11:01 144 H 22 130/68 01/12/23 11:00 144 H 22 130/68 01/12/23 10:11 111 H 24 91 L 01/12/23 09:46 154 H 27 H 102/62 01/12/23 07:40 96.6 F 146 H 21 98/77 94 L Pain Assessment - Last Documented Pain Intensity 0 Pain Scale Used 0-10 Pain Scale Intake and Output: Intake & Output 01/10/23 01/11/23 01/12/23 01/13/23 11:59 11:59 11:59 11:59 Intake Total 1960 2510 2440 Output Total 2100 1720 Balance -140 2510 720 Weight 56.245 kg 224.4 kg 102.149 kg 102.149 kg Lab Results: Lab Results-Last 24 Hours 01/12/23 01/12/23 01/12/23 Range/Units 04:40 11:00 13:17 WBC (4.0-10.5) x10^3/uL RBC (4.1-5.4) x10^6/uL Hgb (12.0-16.0) g/dL Hct (35-47) % MCV (78-100) fL MCH (26-32) pg MCHC (32-36) g/dL RDW (11.5-14.0) % Plt Count (150-450) x10^3/uL MPV (7.5-11.0) fL Gran % (36.0-66.0) % Immature Gran % (Auto) (0.00-0.4) % Nucleat RBC Rel Count (0.00-0.1) % Eos # (Auto) (0-0.5) x10^3/uL Immature Gran # (Auto) (0.00-0.03) x10^3u/L Absolute Lymphs (auto) (1.0-4.6) x10^3/uL Absolute Monos (auto) (0.0-1.3) x10^3/uL Absolute Nucleated RBC (0.00-0.01) x10^3u/L Lymphocytes % (24.0-44.0) % Monocytes % (0.0-12.0) % Eosinophils % (0.00-5.0) % Basophils % (0.0-0.4) % Absolute Granulocytes (1.4-6.9) x10^3/uL Basophils # (0-0.4) x10^3/uL PT (9.4-12.5) SECONDS INR (0.8-3.0) APTT (25.1-36.5) SECONDS Sodium (137-145) mmol/L Potassium (3.5-5.1) mmol/L Chloride (98-107) mmol/L Carbon Dioxide (22-30) mmol/L Anion Gap (5-15) MEQ/L BUN (7-17) mg/dL Creatinine (0.52-1.04) mg/dL Estimated GFR ML/MIN Glucose (74-106) mg/dL POC Glucometer 379 H (74 to 106) mg/dL Calcium (8.4-10.2) mg/dL Magnesium (1.6-2.3) mg/dL Total Bilirubin (0.2-1.3) mg/dL AST (14-36) U/L ALT (0-35) U/L Alkaline Phosphatase (38-126) U/L Lactate Dehydrogenase (120-246) U/L Troponin I (0.000-0.034) ng/mL Serum Total Protein (6.3-8.2) g/dL Albumin (3.5-5.0) g/dL Free T4 1.81 (0.78-2.19) ng/dL TSH 3rd Generation 0.059 L (0.47-4.68) mIU/L Slides for Path Review 01/12/23 01/12/23 01/13/23 Range/Units 16:40 21:08 05:22 WBC 15.6 H (4.0-10.5) x10^3/uL RBC 3.73 L (4.1-5.4) x10^6/uL Hgb 10.6 L (12.0-16.0) g/dL Hct 33.4 L (35-47) % MCV 89.5 (78-100) fL MCH 28.4 (26-32) pg MCHC 31.7 L (32-36) g/dL RDW 14.7 H (11.5-14.0) % Plt Count 261 (150-450) x10^3/uL MPV 11.5 H (7.5-11.0) fL Gran % 89.9 H (36.0-66.0) % Immature Gran % (Auto) 1.9 H (0.00-0.4) % Nucleat RBC Rel Count 0.0 (0.00-0.1) % Eos # (Auto) 0 (0-0.5) x10^3/uL Immature Gran # (Auto) 0.29 H (0.00-0.03) x10^3u/L Absolute Lymphs (auto) 0.53 L (1.0-4.6) x10^3/uL Absolute Monos (auto) 0.70 (0.0-1.3) x10^3/uL Absolute Nucleated RBC 0.00 (0.00-0.01) x10^3u/L Lymphocytes % 3.4 L (24.0-44.0) % Monocytes % 4.5 (0.0-12.0) % Eosinophils % 0.0 (0.00-5.0) % Basophils % 0.3 (0.0-0.4) % Absolute Granulocytes 13.98 H (1.4-6.9) x10^3/uL Basophils # 0.05 (0-0.4) x10^3/uL PT (9.4-12.5) SECONDS INR (0.8-3.0) APTT (25.1-36.5) SECONDS Sodium (137-145) mmol/L Potassium (3.5-5.1) mmol/L Chloride (98-107) mmol/L Carbon Dioxide (22-30) mmol/L Anion Gap (5-15) MEQ/L BUN (7-17) mg/dL Creatinine (0.52-1.04) mg/dL Estimated GFR ML/MIN Glucose (74-106) mg/dL POC Glucometer 415 H 439 H (74 to 106) mg/dL Calcium (8.4-10.2) mg/dL Magnesium (1.6-2.3) mg/dL Total Bilirubin (0.2-1.3) mg/dL AST (14-36) U/L ALT (0-35) U/L Alkaline Phosphatase (38-126) U/L Lactate Dehydrogenase (120-246) U/L Troponin I (0.000-0.034) ng/mL Serum Total Protein (6.3-8.2) g/dL Albumin (3.5-5.0) g/dL Free T4 (0.78-2.19) ng/dL TSH 3rd Generation (0.47-4.68) mIU/L Slides for Path Review YES 01/13/23 01/13/23 01/13/23 Range/Units 05:22 05:22 05:22 WBC (4.0-10.5) x10^3/uL RBC (4.1-5.4) x10^6/uL Hgb (12.0-16.0) g/dL Hct (35-47) % MCV (78-100) fL MCH (26-32) pg MCHC (32-36) g/dL RDW (11.5-14.0) % Plt Count (150-450) x10^3/uL MPV (7.5-11.0) fL Gran % (36.0-66.0) % Immature Gran % (Auto) (0.00-0.4) % Nucleat RBC Rel Count (0.00-0.1) % Eos # (Auto) (0-0.5) x10^3/uL Immature Gran # (Auto) (0.00-0.03) x10^3u/L Absolute Lymphs (auto) (1.0-4.6) x10^3/uL Absolute Monos (auto) (0.0-1.3) x10^3/uL Absolute Nucleated RBC (0.00-0.01) x10^3u/L Lymphocytes % (24.0-44.0) % Monocytes % (0.0-12.0) % Eosinophils % (0.00-5.0) % Basophils % (0.0-0.4) % Absolute Granulocytes (1.4-6.9) x10^3/uL Basophils # (0-0.4) x10^3/uL PT 10.9 (9.4-12.5) SECONDS INR 1.00 (0.8-3.0) APTT 26.8 (25.1-36.5) SECONDS Sodium 136 L (137-145) mmol/L Potassium 4.4 D (3.5-5.1) mmol/L Chloride 96 L (98-107) mmol/L Carbon Dioxide 32 H (22-30) mmol/L Anion Gap 11.7 (5-15) MEQ/L BUN 31 H (7-17) mg/dL Creatinine 0.84 (0.52-1.04) mg/dL Estimated GFR > 60.0 ML/MIN Glucose 447 H (74-106) mg/dL POC Glucometer (74 to 106) mg/dL Calcium 8.8 (8.4-10.2) mg/dL Magnesium 2.4 H (1.6-2.3) mg/dL Total Bilirubin 0.40 (0.2-1.3) mg/dL AST 28 (14-36) U/L ALT 54 H (0-35) U/L Alkaline Phosphatase 55 (38-126) U/L Lactate Dehydrogenase 172 (120-246) U/L Troponin I 0.023 (0.000-0.034) ng/mL Serum Total Protein 7.0 (6.3-8.2) g/dL Albumin 3.4 L (3.5-5.0) g/dL Free T4 (0.78-2.19) ng/dL TSH 3rd Generation (0.47-4.68) mIU/L Slides for Path Review Radiology Exams: Radiology Procedures Category Date Time Status CHEST 1 VIEW (PORTABLE) Routine Exams 01/12/23 09:41 Completed CHEST 2 VIEWS (PA AND LAT) Routine Exams 01/11/23 07:00 Completed ECHO W/2D AND DOPPLER [US] Routine Exams 01/12/23 09:41 Taken THORACENTESIS [US] Urgent Exams 01/13/23 13:00 Ordered Multi-Disciplinary Progress Notes: Multi-Disciplinary Progress Notes 01/12/23 13:26 Case Management Note by Isabella Marlow S/W PATIENT- SHE CONTINUES TO DENY ANY NEW NEEDS AT TIME OF DC. SHE LIVES WITH OTHER ADULTS WHO CAN ASSIST HER NEEDED. PATIENT CURRENTLY ON HIGH HARSHAD OXYGEN- DOES NOT WEARS OXYGEN AT HOME. THIS WILL NEED EVALED AT TIME OF DC Initialized on 01/12/23 13:26 - END OF NOTE Assessment/Plan (1) Pneumonia Current Visit: No Status: Acute Assessment & Plan: continue rocephin/zithromax at this time Code(s): J18.9 - PNEUMONIA, UNSPECIFIED ORGANISM (2) Acute exacerbation of chronic obstructive airways disease Current Visit: No Status: Acute Assessment & Plan: continue current management Code(s): J44.1 - CHRONIC OBSTRUCTIVE PULMONARY DISEASE W (ACUTE) EXACERBATION (3) Atrial fibrillation with rapid ventricular response Current Visit: Yes Status: Acute Assessment & Plan: resolved at this time, continue po cardizem. hold lovenox at this time for pleurocentesis per Dr Dawson's recommendation Code(s): I48.91 - UNSPECIFIED ATRIAL FIBRILLATION (4) Hypoxia Current Visit: Yes Status: Acute Code(s): R09.02 - HYPOXEMIA (5) Diabetes mellitus type 2 in obese Current Visit: No Status: Chronic Code(s): E11.69 - TYPE 2 DIABETES MELLITUS WITH OTHER SPECIFIED COMPLICATION; E66.9 - OBESITY, UNSPECIFIED
[2023-01-13] MEDS: Advair Hfa 230/21 Mcg COMMON CANISTER IH SCH ×2 (07:47→18:26)
[2023-01-13] MEDS: HUMALOG SQ PRN ×4 (08:30→22:44)
[2023-01-13] MEDS: Cardizem CD PO SCH (09:15)
[2023-01-13] MEDS: LEVOFLOXACIN 750MG/150ML D5W 750 MG/150 ML BAG IV SCH (09:15)
--- NOTE | 2023-01-13 13:50 | XRAY ---
Indication: Status post right thoracentesis. Comparison: One day earlier. Portable chest obtained in expiration demonstrates minimal clearing right base infiltrate/atelectasis/effusion consistent with thoracentesis. No pneumothorax. Stable mild left base infiltrate/atelectasis. Heart not enlarged. No new cardiopulmonary abnormalities.
[2023-01-14] MEDS: DUONEB 0.5-3 MG/3 ml Neb IH SCH ×6 (03:45→23:20)
[2023-01-14] MEDS: solu-MEDROL 80 MG, Sterile H2O 10 ml 2 ML IV SCH ×2 (05:07)
[2023-01-14 05:35] LABS: Absolute Neutrophil Ct (ANC) 7.51 x10^3/uL (1.4-6.9); BASOPHIL % 0.4 % (0.0-0.4); Basophil (Absolute #) 0.04 x10^3/uL (0-0.4); Eosinophil (Absolute #) 0 x10^3/uL (0-0.5); Hematocrit 32.5 % (35-47); Hemoglobin 10.3 g/dL (12.0-16.0); IMMATURE GRAN # 0.44 x10^3u/L (0.00-0.03); IMMATURE GRAN % 4.9 % (0.00-0.4); Lymphocyte (Absolute #) 0.68 x10^3/uL (1.0-4.6); Lymphocytes % 7.5 % (24.0-44.0); Mean Corpuscular Hemoglobin 28.5 pg (26-32); Mean Corpuscular Hgb Concent. 31.7 g/dL (32-36); Mean Platelet Volume 11.8 fL (7.5-11.0); Monocyte (Absolute #) 0.36 x10^3/uL (0.0-1.3); Neutrophil % 83.2 % (36.0-66.0); Platelet Count 246 x10^3/uL (150-450); Red Blood Count 3.61 x10^6/uL (4.1-5.4); Red Cell Distribution Width 14.7 % (11.5-14.0)
[2023-01-14 05:59] LABS: ALBUMIN 3.1 g/dL (3.5-5.0); ALKALINE PHOSPHATASE 48 U/L (38-126); ANION GAP 12.1 MEQ/L (5-15); BLOOD UREA NITROGEN 32 mg/dL (7-17); CHLORIDE 98 mmol/L (98-107); Calcium 8.4 mg/dL (8.4-10.2); Carbon Dioxide 31 mmol/L (22-30); Creatinine 1 0.79 mg/dL (0.52-1.04); EST GLOMERULAR FILTRATION RATE > 60.0 ML/MIN; Glucose 431 mg/dL (74-106); Potassium 4.5 mmol/L (3.5-5.1); SGOT/AST 28 U/L (14-36); SGPT/ALT 51 U/L (0-35); SODIUM 137 mmol/L (137-145); Total Protein 6.7 g/dL (6.3-8.2)
[2023-01-14] MEDS: Advair Hfa 230/21 Mcg COMMON CANISTER IH SCH ×2 (07:08→19:03)
[2023-01-14 07:26] LABS: Lymphocytes 13 % (24-44); Monocyte 2 % (0.0-12.0); Neutrophils 85 % (36.0-66.0); Total Cells Counted 100
[2023-01-14 07:27] LABS: Hypochromia 1+; Platelet Estimate NORMAL (NORMAL)
[2023-01-14] MEDS ORDERED: solu-MEDROL 40 MG, Sterile H2O 10 ml 2 ML IV SCH ×2 (08:12)
--- NOTE | 2023-01-14 08:15 | PCM.NOTE ---
Date and Time: 01/14/23811 Subjective Assessment: patient is feeling much better after thoracentesis, pressure relieved and dyspnea improved. still on oxymizer but breathing much more comfortably today Objective Exam General Appearance: no apparent distress, obese Neurologic Exam: alert, oriented x 3 Respiratory Exam: crackles/rales (clearing in bases), No wheezing Cardiovascular Exam: regular rate/rhythm, normal heart sounds Gastrointestinal/Abdomen Exam: soft, No tenderness, No mass Extremity Exam: normal inspection, normal range of motion OBJECTIVE DATA Vital Signs: Vital Signs - 24 hr Temp Pulse Resp BP Pulse Ox 01/14/23 07:40 98.6 F 58 L 16 129/75 92 L 01/14/23 07:08 54 L 18 94 L 01/14/23 04:00 97.5 F 51 L 20 99/69 94 L 01/14/23 03:45 51 L 20 94 L 01/14/23 00:00 97.5 F 52 L 19 115/65 94 L 01/13/23 23:22 70 20 92 L 01/13/23 20:00 97.5 F 62 20 154/72 93 L 01/13/23 18:29 63 20 94 L 01/13/23 16:00 98.5 F 62 24 111/63 91 L 01/13/23 15:01 60 22 92 L 01/13/23 12:00 98.6 F 30 L 24 140/93 98 01/13/23 10:20 60 20 98 Pain Assessment - Last Documented Pain Intensity 0 Pain Scale Used 0-10 Pain Scale Intake and Output: Intake & Output 01/11/23 01/12/23 01/13/23 01/14/23 11:59 11:59 11:59 11:59 Intake Total 1960 2510 2560 830 Output Total 2100 1721 1 Balance -140 2510 839 829 Weight 224.4 kg 102.149 kg 102.149 kg 102.2 kg Lab Results: Lab Results-Last 24 Hours 01/13/23 01/13/23 01/13/23 Range/Units 11:17 16:56 22:35 WBC (4.0-10.5) x10^3/uL RBC (4.1-5.4) x10^6/uL Hgb (12.0-16.0) g/dL Hct (35-47) % MCV (78-100) fL MCH (26-32) pg MCHC (32-36) g/dL RDW (11.5-14.0) % Plt Count (150-450) x10^3/uL MPV (7.5-11.0) fL Gran % (36.0-66.0) % Immature Gran % (Auto) (0.00-0.4) % Nucleat RBC Rel Count (0.00-0.1) % Eos # (Auto) (0-0.5) x10^3/uL Immature Gran # (Auto) (0.00-0.03) x10^3u/L Absolute Lymphs (auto) (1.0-4.6) x10^3/uL Absolute Monos (auto) (0.0-1.3) x10^3/uL Absolute Nucleated RBC (0.00-0.01) x10^3u/L Lymphocytes % (24.0-44.0) % Monocytes % (0.0-12.0) % Eosinophils % (0.00-5.0) % Basophils % (0.0-0.4) % Absolute Granulocytes (1.4-6.9) x10^3/uL Segmented Neutrophils (36.0-66.0) % Lymphocytes (Manual) (24-44) % Monocytes (Manual) (0.0-12.0) % Basophils # (0-0.4) x10^3/uL Hypochromia Platelet Estimate (NORMAL) RBC Morphology Sodium (137-145) mmol/L Potassium (3.5-5.1) mmol/L Chloride (98-107) mmol/L Carbon Dioxide (22-30) mmol/L Anion Gap (5-15) MEQ/L BUN (7-17) mg/dL Creatinine (0.52-1.04) mg/dL Estimated GFR ML/MIN Glucose (74-106) mg/dL POC Glucometer 359 H 459 H 456 H (74 to 106) mg/dL Calcium (8.4-10.2) mg/dL Total Bilirubin (0.2-1.3) mg/dL AST (14-36) U/L ALT (0-35) U/L Alkaline Phosphatase (38-126) U/L Serum Total Protein (6.3-8.2) g/dL Albumin (3.5-5.0) g/dL 01/14/23 01/14/23 01/14/23 Range/Units 05:10 05:10 07:18 WBC 9.0 (4.0-10.5) x10^3/uL RBC 3.61 L (4.1-5.4) x10^6/uL Hgb 10.3 L (12.0-16.0) g/dL Hct 32.5 L (35-47) % MCV 90.0 (78-100) fL MCH 28.5 (26-32) pg MCHC 31.7 L (32-36) g/dL RDW 14.7 H (11.5-14.0) % Plt Count 246 (150-450) x10^3/uL MPV 11.8 H (7.5-11.0) fL Gran % 83.2 H (36.0-66.0) % Immature Gran % (Auto) 4.9 H (0.00-0.4) % Nucleat RBC Rel Count 0.0 (0.00-0.1) % Eos # (Auto) 0 (0-0.5) x10^3/uL Immature Gran # (Auto) 0.44 H (0.00-0.03) x10^3u/L Absolute Lymphs (auto) 0.68 L (1.0-4.6) x10^3/uL Absolute Monos (auto) 0.36 (0.0-1.3) x10^3/uL Absolute Nucleated RBC 0.00 (0.00-0.01) x10^3u/L Lymphocytes % 7.5 L (24.0-44.0) % Monocytes % 4.0 (0.0-12.0) % Eosinophils % 0.0 (0.00-5.0) % Basophils % 0.4 (0.0-0.4) % Absolute Granulocytes 7.51 H (1.4-6.9) x10^3/uL Segmented Neutrophils 85 H (36.0-66.0) % Lymphocytes (Manual) 13 L (24-44) % Monocytes (Manual) 2 (0.0-12.0) % Basophils # 0.04 (0-0.4) x10^3/uL Hypochromia 1+ Platelet Estimate NORMAL (NORMAL) RBC Morphology ABNORMAL Sodium 137 (137-145) mmol/L Potassium 4.5 (3.5-5.1) mmol/L Chloride 98 (98-107) mmol/L Carbon Dioxide 31 H (22-30) mmol/L Anion Gap 12.1 (5-15) MEQ/L BUN 32 H (7-17) mg/dL Creatinine 0.79 (0.52-1.04) mg/dL Estimated GFR > 60.0 ML/MIN Glucose 431 H (74-106) mg/dL POC Glucometer 419 H (74 to 106) mg/dL Calcium 8.4 (8.4-10.2) mg/dL Total Bilirubin 0.50 (0.2-1.3) mg/dL AST 28 (14-36) U/L ALT 51 H (0-35) U/L Alkaline Phosphatase 48 (38-126) U/L Serum Total Protein 6.7 (6.3-8.2) g/dL Albumin 3.1 L (3.5-5.0) g/dL Radiology Exams: Radiology Procedures Category Date Time Status CHEST 1 VIEW (PORTABLE) Routine Exams 01/12/23 09:41 Completed CHEST 1 VIEW (PORTABLE) Stat Exams 01/13/23 13:32 Completed ECHO W/2D AND DOPPLER [US] Routine Exams 01/12/23 09:41 Taken THORACENTESIS [US] Urgent Exams 01/13/23 13:00 Taken Assessment/Plan (1) Pneumonia Current Visit: No Status: Acute Assessment & Plan: on levaquin, clinically improving. s/p thoracentesis. repeat chest xray today, anticipate possible discharge tomorrow if ok with Dr Dawson, will need home oxygen. has nebulizer and supplies at home Code(s): J18.9 - PNEUMONIA, UNSPECIFIED ORGANISM (2) Acute exacerbation of chronic obstructive airways disease Current Visit: No Status: Acute Assessment & Plan: no wheezing, wean solu medrol from 80mg to 40mg Code(s): J44.1 - CHRONIC OBSTRUCTIVE PULMONARY DISEASE W (ACUTE) EXACERBATION (3) Atrial fibrillation with rapid ventricular response Current Visit: Yes Status: Acute Assessment & Plan: converted, resolved. continue cardizem but will reduce dosage due to bp running low at times. Code(s): I48.91 - UNSPECIFIED ATRIAL FIBRILLATION (4) Hypoxia Current Visit: Yes Status: Acute Code(s): R09.02 - HYPOXEMIA (5) Diabetes mellitus type 2 in obese Current Visit: No Status: Chronic Code(s): E11.69 - TYPE 2 DIABETES MELLITUS WITH OTHER SPECIFIED COMPLICATION; E66.9 - OBESITY, UNSPECIFIED
[2023-01-14] MEDS: HUMALOG SQ PRN ×4 (08:39→20:49)
--- NOTE | 2023-01-14 08:42 | XRAY ---
Indication: Follow-up pneumonia. Comparison: One day earlier. Portable chest unchanged again demonstrating bibasilar infiltrates/atelectasis right greater than left and right effusion. Heart not enlarged. No new cardiopulmonary abnormalities.
[2023-01-14] MEDS: Cardizem CD PO SCH (09:41)
[2023-01-14] MEDS: LEVOFLOXACIN 750MG/150ML D5W 750 MG/150 ML BAG IV SCH (09:41)
[2023-01-14] MEDS: Tessalon Perles 100 MG PO PRN ×2 (09:41→23:54)
[2023-01-14] MEDS: solu-MEDROL 40 MG, Sterile H2O 10 ml 1 ML IV SCH ×6 (12:01→23:54)
[2023-01-14 14:29] LABS: Protein, Body Fluid 3.3 g/dL (.)
[2023-01-15] MEDS: DUONEB 0.5-3 MG/3 ml Neb IH SCH ×5 (02:08→18:52)
[2023-01-15] MEDS: solu-MEDROL 40 MG, Sterile H2O 10 ml 1 ML IV SCH ×4 (06:31→12:10)
[2023-01-15 07:03] LABS: Hematocrit 36.7 % (35-47); Mean Cell Volume 93.6 fL (78-100); Mean Corpuscular Hemoglobin 28.1 pg (26-32); Mean Platelet Volume 11.5 fL (7.5-11.0); Platelet Count 245 x10^3/uL (150-450); Red Blood Count 3.92 x10^6/uL (4.1-5.4); Red Cell Distribution Width 14.5 % (11.5-14.0); White Blood Count 8.4 x10^3/uL (4.0-10.5)
[2023-01-15 07:17] LABS: ALBUMIN 3.2 g/dL (3.5-5.0); ALKALINE PHOSPHATASE 46 U/L (38-126); ANION GAP 6.2 MEQ/L (5-15); BLOOD UREA NITROGEN 27 mg/dL (7-17); CHLORIDE 96 mmol/L (98-107); Calcium 8.4 mg/dL (8.4-10.2); Carbon Dioxide 40 mmol/L (22-30); Creatinine 1 0.82 mg/dL (0.52-1.04); EST GLOMERULAR FILTRATION RATE > 60.0 ML/MIN; Glucose 413 mg/dL (74-106); Potassium 4.5 mmol/L (3.5-5.1); SGOT/AST 19 U/L (14-36); SGPT/ALT 47 U/L (0-35); SODIUM 137 mmol/L (137-145); Total Protein 6.7 g/dL (6.3-8.2)
[2023-01-15] MEDS: Advair Hfa 230/21 Mcg COMMON CANISTER IH SCH ×2 (07:33→18:52)
[2023-01-15] MEDS: Tessalon Perles 100 MG PO PRN ×2 (08:57→23:46)
[2023-01-15] MEDS: HUMALOG SQ PRN ×4 (08:57→22:08)
[2023-01-15] MEDS: LEVOFLOXACIN 750MG/150ML D5W 750 MG/150 ML BAG IV SCH (08:57)
[2023-01-15] MEDS: Cardizem CD PO SCH (08:58)
[2023-01-15 11:09] LABS: Lymphocytes 11 % (24-44); Monocyte 1 % (0.0-12.0); Neutrophils 88 % (36.0-66.0); Total Cells Counted 100
[2023-01-15 11:10] LABS: ANISOCYTOSIS 1+; Platelet Estimate NORMAL (NORMAL)
--- NOTE | 2023-01-15 16:00 | PCM.NOTE ---
Date and Time: 01/15/23 1558 Subjective Assessment: Patient continues to improve. Has shortness of breath with walking. Thoracentesis results pending. Sugars up on Solumedrol and Metformin held. Objective Exam General Appearance: no apparent distress Neurologic Exam: alert, oriented x 3, cooperative, normal mood/affect Ears, Nose, Throat Exam: normal ENT inspection Neck Exam: normal inspection Respiratory Exam: wheezing (right mid/low lung robles) Cardiovascular Exam: regular rate/rhythm, murmur (ECHO results pending) OBJECTIVE DATA Vital Signs: Vital Signs - 24 hr Temp Pulse Resp BP Pulse Ox 01/15/23 15:05 68 16 95 01/15/23 12:00 97.6 F 70 16 124/61 96 01/15/23 11:03 71 18 96 01/15/23 07:52 97.6 F 67 16 153/76 97 01/15/23 07:36 70 18 93 L 01/15/23 04:00 98.5 F 67 22 114/88 92 L 01/15/23 02:11 64 20 94 L 01/14/23 23:58 98.7 F 57 L 17 131/76 96 01/14/23 23:22 60 16 98 01/14/23 19:57 99.1 F 65 18 132/63 94 L 01/14/23 19:00 67 18 97 01/14/23 16:00 98.9 F 63 29 H 137/72 Pain Assessment - Last Documented Pain Intensity 0 Pain Scale Used 0-10 Pain Scale Intake and Output: Intake & Output 01/13/23 01/14/23 01/15/23 01/16/23 11:59 11:59 11:59 11:59 Intake Total 2560 1070 2500 480 Output Total 1721 1 Balance 839 1069 2500 480 Weight 102.149 kg 102.2 kg Lab Results: Lab Results-Last 24 Hours 01/14/23 01/15/23 01/15/23 Range/Units 20:30 07:08 07:21 WBC 8.4 (4.0-10.5) x10^3/uL RBC 3.92 L (4.1-5.4) x10^6/uL Hgb 11.0 L (12.0-16.0) g/dL Hct 36.7 (35-47) % MCV 93.6 (78-100) fL MCH 28.1 (26-32) pg MCHC 30.0 L (32-36) g/dL RDW 14.5 H (11.5-14.0) % Plt Count 245 (150-450) x10^3/uL MPV 11.5 H (7.5-11.0) fL Segmented Neutrophils 88 H (36.0-66.0) % Lymphocytes (Manual) 11 L (24-44) % Monocytes (Manual) 1 (0.0-12.0) % Platelet Estimate NORMAL (NORMAL) RBC Morphology ABNORMAL Anisocytosis 1+ Sodium 137 (137-145) mmol/L Potassium 4.5 (3.5-5.1) mmol/L Chloride 96 L (98-107) mmol/L Carbon Dioxide 40 H (22-30) mmol/L Anion Gap 6.2 (5-15) MEQ/L BUN 27 H (7-17) mg/dL Creatinine 0.82 (0.52-1.04) mg/dL Estimated GFR > 60.0 ML/MIN Glucose 413 H (74-106) mg/dL POC Glucometer 418 H (74 to 106) mg/dL Calcium 8.4 (8.4-10.2) mg/dL Total Bilirubin 0.60 (0.2-1.3) mg/dL AST 19 (14-36) U/L ALT 47 H (0-35) U/L Alkaline Phosphatase 46 (38-126) U/L Serum Total Protein 6.7 (6.3-8.2) g/dL Albumin 3.2 L (3.5-5.0) g/dL 01/15/23 01/15/23 Range/Units 07:35 12:00 WBC (4.0-10.5) x10^3/uL RBC (4.1-5.4) x10^6/uL Hgb (12.0-16.0) g/dL Hct (35-47) % MCV (78-100) fL MCH (26-32) pg MCHC (32-36) g/dL RDW (11.5-14.0) % Plt Count (150-450) x10^3/uL MPV (7.5-11.0) fL Segmented Neutrophils (36.0-66.0) % Lymphocytes (Manual) (24-44) % Monocytes (Manual) (0.0-12.0) % Platelet Estimate (NORMAL) RBC Morphology Anisocytosis Sodium (137-145) mmol/L Potassium (3.5-5.1) mmol/L Chloride (98-107) mmol/L Carbon Dioxide (22-30) mmol/L Anion Gap (5-15) MEQ/L BUN (7-17) mg/dL Creatinine (0.52-1.04) mg/dL Estimated GFR ML/MIN Glucose (74-106) mg/dL POC Glucometer 379 H 412 H (74 to 106) mg/dL Calcium (8.4-10.2) mg/dL Total Bilirubin (0.2-1.3) mg/dL AST (14-36) U/L ALT (0-35) U/L Alkaline Phosphatase (38-126) U/L Serum Total Protein (6.3-8.2) g/dL Albumin (3.5-5.0) g/dL Radiology Exams: Radiology Procedures Category Date Time Status CHEST 1 VIEW (PORTABLE) Routine Exams 01/14/23 08:16 Completed Assessment/Plan (1) Pneumonia Current Visit: Yes Status: Acute Qualifiers: Assessment & Plan: improved on Levaquin WBC now in normal range Code(s): J18.9 - PNEUMONIA, UNSPECIFIED ORGANISM (2) Hyperglycemia due to type 2 diabetes mellitus Current Visit: Yes Status: Acute Qualifiers: Diabetes mellitus group 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
[2023-01-16] MEDS: DUONEB 0.5-3 MG/3 ml Neb IH SCH ×3 (00:25→13:17)
[2023-01-16] MEDS: Advair Hfa 230/21 Mcg COMMON CANISTER IH SCH (07:08)
--- NOTE | 2023-01-16 07:20 | XRAY ---
Indication: Right pleural fluid. Procedure performed bedside. Informed consent obtained. Initial ultrasound of the right back performed for localization. Largest pocket lower chest. The right back was prepped and draped in sterile fashion. 1% lidocaine plain was used for local anesthesia. Tiny skin incision made. 5 [employer] paracentesis needle/catheter was then percutaneously inserted. Once fluid was aspirating, the outer catheter was then advanced with the inner needle removed. Catheter was connected to a Vacutainer. Approximately 250 cc of cloudy pink colored fluid aspirated and was disposed of properly. Approximately 50 cc was collected and sent to laboratory for analysis as ordered by the clinician. Repeat sonogram demonstrates small residual. Catheter removed. Hemostasis achieved using digital pressure over the puncture site. Band-Aid applied over the puncture site. Postthoracentesis chest radiograph pending. Impression: Technically successful ultrasound guided right thoracentesis for both diagnostic and therapeutic purpose. No immediate complications or blood loss.
[2023-01-16] MEDS: HUMALOG SQ PRN ×2 (08:45→11:40)
[2023-01-16] MEDS: Cardizem CD PO SCH (08:45)
[2023-01-16] MEDS: LEVOFLOXACIN 750MG/150ML D5W 750 MG/150 ML BAG IV SCH (08:46)
[2023-01-16] MEDS ORDERED: solu-MEDROL 40 MG, Sterile H2O 10 ml 1 ML IV SCH ×2 (10:00)
[2023-01-16] MEDS ORDERED: Sodium Chloride 3 ML UD NEBULES IH ONE (13:26)
--- NOTE | 2023-01-16 15:38 | PCM.DCORD ---
- Discharge Disposition: Home, Self-Care Condition: Good Prescriptions: New Prednisone 10 mg [Deltasone 10 mg] 10 mg PO DAILY #20 tablet Levofloxacin [Levofloxacin 500 MG Tablet] 750 mg PO DAILY #5 tablet Continue Metformin HCl 500 mg [Glucophage 500 MG] 500 mg PO BIDWM #60 tablet Albuterol Sulfate [Ventolin Hfa] 2 puffs IH Q4HPRN PRN #2 unit PRN Reason: Shortness Of Breath/Wheezing Budesonide/Formoterol Fumarate [Budesonide-Formoterol 160-4.5] 2 puff IH BID Albuterol/Ipratropium 3ml Neb* [DUONEB 0.5-3 MG/3 ml Neb] 3 ml IH Q6H PRN PRN #100 unit PRN Reason: Cough Benzonatate 100 mg PO Q6HPRN PRN #30 cap PRN Reason: Cough Discontinued Prednisone 20 mg [Deltasone 20 mg] 20 mg PO DAILY Additional Instructions: follow up with DR Dawson and Dr Savage- call for appt Follow up with: ALEXSANDRA HINOJOSA MD [Primary Care Provider] -
--- NOTE | 2023-01-16 15:52 | PCM.DS ---
Discharge Summary Date of Admission: 01/10/23 11:50 Date of Discharge: 01/16/23 Admitting Physician: ALEXSANDRA HINOJOSA Consults: Consults on Case 01/10/23 16:28 Consult Pulmonology ROUTINE Primary Care Provider: ALEXSANDRA HINOJOSA Allergies Allergies Penicillins Allergy (Unknown, Verified 01/10/23 07:10) Hospital Summary - Vitals & Intake/Output Vital Signs: Vital Signs Temperature 98.0 F 01/16/23 12:00 Pulse Rate 66 01/16/23 13:18 Respiratory Rate 18 01/16/23 13:18 Blood Pressure 142/65 01/16/23 12:00 O2 Sat by Pulse Oximetry 96 01/16/23 13:18 Intake & Output: Intake & Output 01/14/23 01/15/23 01/16/23 01/17/23 11:59 11:59 11:59 11:59 Intake Total 1070 2500 3920 780 Output Total 1 Balance 1069 2500 3920 780 Weight 102.2 kg - Lab Result Diagrams: 01/15/23 07:08 01/15/23 07:21 Lab Results-Last 24 Hrs: Lab Results-Last 24 Hours 01/15/23 01/15/23 01/16/23 Range/Units 16:28 21:11 07:38 POC Glucometer 353 H 473 H 242 H (74 to 106) mg/dL 01/16/23 Range/Units 11:26 POC Glucometer 286 H (74 to 106) mg/dL Micro Results-Entire Visit: Microbiology 01/13/23 13:18 Sterile Body Fluid Culture - Preliminary Paracentesis - Right Body Fluid Culture Result 1 - Preliminary 01/10/23 08:04 Blood Culture - Final Blood NO GROWTH 01/10/23 07:30 Blood Culture - Final Blood NO GROWTH Accuchecks Date 01/15/23 Date 01/15/23 Time 21:40 Time 17:00 - Procedures and Test Procedures and Tests throughout Hospitalization: Therapy Orders & Screens 01/10/23 07:55 Oxygen High Flow per RT 40% Comment: 01/10/23 08:12 Respiratory Therapy Assessment DAILY Comment: 01/10/23 12:00 EKG REPEAT IN AM Comment: Respiratory Therapy Consult ROUTINE Comment: Reason For Exam: 01/11/23 15:00 Flutter Therapy UD Comment: Diagnosis: Pneumonia 01/12/23 03:23 EKG STAT Comment: Diagnosis: Pneumonia 01/14/23 06:14 Oxygen Nasal Cannula 2 lpm Comment: Diagnosis: Pneumonia Final Diagnosis/Problem List - Final Discharge Diagnosis/Problem (1) Pneumonia Current Visit: Yes Status: Acute Code(s): J18.9 - PNEUMONIA, UNSPECIFIED ORGANISM (2) Hyperglycemia due to type 2 diabetes mellitus Current Visit: Yes Status: Acute Code(s): E11.65 - TYPE 2 DIABETES MELLITUS WITH HYPERGLYCEMIA - Discharge Disposition: Home, Self-Care Condition: Good Prescriptions: New Prednisone 10 mg [Deltasone 10 mg] 10 mg PO DAILY #20 tablet Levofloxacin [Levofloxacin 500 MG Tablet] 750 mg PO DAILY #5 tablet Continue Metformin HCl 500 mg [Glucophage 500 MG] 500 mg PO BIDWM #60 tablet Albuterol Sulfate [Ventolin Hfa] 2 puffs IH Q4HPRN PRN #2 unit PRN Reason: Shortness Of Breath/Wheezing Budesonide/Formoterol Fumarate [Budesonide-Formoterol 160-4.5] 2 puff IH BID Albuterol/Ipratropium 3ml Neb* [DUONEB 0.5-3 MG/3 ml Neb] 3 ml IH Q6H PRN PRN #100 unit PRN Reason: Cough Benzonatate 100 mg PO Q6HPRN PRN #30 cap PRN Reason: Cough Discontinued Prednisone 20 mg [Deltasone 20 mg] 20 mg PO DAILY Additional Instructions: follow up with DR Dawson and Dr Savage- call for appt Follow up with: ALEXSANDRA HINOJOSA MD [Primary Care Provider] -
[2023-01-16 16:18] VITALS: BP 160/72; PULSE 68; O2SAT 92
--- NOTE | 2023-01-17 10:04 | PROG NOTE ---
DATE: 01/14/2023 HISTORY: The patient was seen on 01/14/2023 and appeared to be sitting up in bed resting comfortably on 3 liters of oxygen. The patient has shown significant oxygen reduction and improvement in her overall condition. The patient underwent a right thoracentesis with pleural fluid sent out however due to the send out, there is no pleural fluid studies available for assessment at this time. I will follow up as an outpatient with findings. Orders are to continue wean O2 as tolerated. Continue antibiotics over the weekend. White blood cell count is down to 9,000 with improvement noted. The patient will be able to discharge home on Tuesday with a home O2 evaluation and a follow up in the [facility] in two weeks. ASSESSMENT: 1) Bilateral pneumonia. 2) Right pleural effusion. 3) Acute hypoxic respiratory failure. 4) Asthma exacerbation. 5) Paroxysmal atrial fibrillation. As dictated by TAMARA Law.
--- NOTE | 2023-01-17 11:53 | ECHO ---
Transthoracic echocardiographic examination and color Doppler was done on 01/12/2023. INDICATION: New onset of atrial fibrillation. IMPRESSION: 1) NO DEFINITE REGIONAL WALL MOTION ABNORMALITY. ESTIMATED GLOBAL LEFT VENTRICULAR EJECTION FRACTION OF AROUND 55 TO 60%. 2) MODERATE CONCENTRIC LEFT VENTRICULAR HYPERTROPHY. 3) LEFT ATRIAL ENLARGEMENT. 4) AORTIC STENOSIS WITH PEAK TRANSAORTIC GRADIENT OF 37 MM OF MERCURY AND MEAN GRADIENT OF 23 MM OF MERCURY. 5) MILD TRICUSPID REGURGITATION. RIGHT VENTRICULAR SYSTOLIC PRESSURE OF 49 MM OF MERCURY. 6) LEFT ATRIAL ENLARGEMENT. The left ventricle is visualized and demonstrated adequate motion of all the segments. Estimated global left ventricular ejection fraction around 55 to 60%. There is moderate left ventricular hypertrophy. The mitral valve is seen and this opens adequately. There is trace mitral regurgitation. The left atrium is enlarged. The aortic valve appears to be thickened. The gradient across the aortic valve is about 37 mm of Mercury with a mean gradient of 23 mm of Mercury. The right side chambers are mildly dilated. There is trace tricuspid regurgitation. The right ventricular systolic pressure of 49 mm of Mercury which is suggestive of moderate pulmonary hypertension. Inferior vena cava appears to be mildly dilated. I suggest additional interrogation of the left ventricular outflow tract. The left ventricular hypertrophy has some features of hypertrophic type of cardiomyopathy or could be secondary to aortic stenosis.
== END 2023-01-16 16:35 | disposition home or self-care (01) | DRG 194 ==
LOC: ED 07:05 → MED SURG 11:50 → OBSVTOIN 11:50 → ICU 01-12 14:30 → MED SURG 01-13 19:28
PROVIDERS: ADMIT Family Medicine; ATTEND Family Medicine
DX: J18.9 Pneumonia, unspecified organism (principal); I48.20 Chronic atrial fibrillation, unspecified; J44.1 Chronic obstructive pulmonary disease with (acute) exacerbation; J45.901 Unspecified asthma with (acute) exacerbation; E11.65 Type 2 diabetes mellitus with hyperglycemia; R09.02 Hypoxemia; E66.9 Obesity, unspecified; Z79.899 Other long term (current) drug therapy; Z20.828 Contact with and (suspected) exposure to other viral communicable diseases
CPT/HCPCS: 0241U; 32555; 36000; 36415; 36600; 71045; 71046; 71260; 80048; 80053; 82375; 82803; 82945; 82947; 83036; 83605; 83615; 83735; 83880; 84157; 84439; 84443; 84484; 85025; 85379; 85610; 85730; 87040; 87070; 93005; 93041; 93306; 94640; 94667; 94760; 94762; 96360; 96365; 96374; 96375; 99285; 99291; J1650; J1815; J1817; J1940; J1956; J2920; J2930; J7609; A9270-GY

== ENCOUNTER 2023-02-02 16:51 | Inpatient (IN) | payer OTHER ==
[2023-02-02 17:22] LABS: BASOPHIL % 0.3 % (0.0-0.4); Basophil (Absolute #) 0.02 x10^3/uL (0-0.4); Eosinophil % 0.3 % (0.00-5.0); Eosinophil (Absolute #) 0.02 x10^3/uL (0-0.5); Hematocrit 36.2 % (35-47); Hemoglobin 11.1 g/dL (12.0-16.0); IMMATURE GRAN # 0.12 x10^3u/L (0.00-0.03); IMMATURE GRAN % 2.1 % (0.00-0.4); Lymphocyte (Absolute #) 1.05 x10^3/uL (1.0-4.6); Mean Cell Volume 91.4 fL (78-100); Mean Corpuscular Hgb Concent. 30.7 g/dL (32-36); Mean Platelet Volume 10.2 fL (7.5-11.0); Monocyte (Absolute #) 0.61 x10^3/uL (0.0-1.3); Monocytes % 10.5 % (0.0-12.0); Neutrophil % 68.8 % (36.0-66.0); Platelet Count 267 x10^3/uL (150-450); Red Blood Count 3.96 x10^6/uL (4.1-5.4); White Blood Count 5.8 x10^3/uL (4.0-10.5)
[2023-02-02 17:37] LABS: INR 1.13 (0.8-3.0); PROTIME 12.2 SECONDS (9.4-12.5); PTT 26.8 SECONDS (25.1-36.5)
[2023-02-02 17:38] LABS: ALBUMIN 3.8 g/dL (3.5-5.0); ALKALINE PHOSPHATASE 58 U/L (38-126); ANION GAP 13.3 MEQ/L (5-15); BLOOD UREA NITROGEN 14 mg/dL (7-17); CHLORIDE 98 mmol/L (98-107); Calcium 8.7 mg/dL (8.4-10.2); Carbon Dioxide 30 mmol/L (22-30); EST GLOMERULAR FILTRATION RATE > 60.0 ML/MIN; Glucose 140 mg/dL (74-106); Potassium 3.9 mmol/L (3.5-5.1); SGOT/AST 36 U/L (14-36); SGPT/ALT 60 U/L (0-35); SODIUM 137 mmol/L (137-145)
--- NOTE | 2023-02-02 17:46 | ERPHSYRPT ---
<MIKEYCHRISTINA VázquezR - Last Filed: 02/02/23 21:15> - History of Present Illness Source: patient Exam Limitations: no limitations Patient Subjective Stated Complaint: Pt c/o of being SOB and feels that she needs to be here Triage Nursing Assessment: Pt brought to the ER by her dad, hypoxic, febrile, denies pain, sputum has been green today but it had been clear, pt was diagnosed with pnuemonia at the end of December and doesn't appear to have gotten over it yet, pulses normal, skin clammy and hot, steroids will make her blood sugar laya rocket and she has been increasing it but it hasn't been real bad Timing/Duration: other (1-2 hours) Activities at Onset: rest Severity of Dyspnea-Max: severe Severity of Dyspnea-Current: moderate Possible Cause: no prior episodes Modifying Factors: Improves With: activity, coughing Associated Symptoms: denies symptoms, fever Hx Tetanus, Diphtheria Vaccination/Date Given: No Hx Influenza Vaccination/Date Given: No Hx Pneumococcal Vaccination/Date Given: No <ALONDRA HOYOS - Last Filed: 02/09/23 07:38> - History of Present Illness Physician History: 57 yo WF w dyspnea x 1hour. Pt has had a cough x 1 month and was admitted x 1 week for pneumonia at the end of December. Pt has coryza and a fever. She denies N/V/diarrhea/melena/hematochezia/chest pain. PMH includes DM2/Asthma. She does not smoke. CXR as an outpt today demonstrated mild clearing R mid/lower lobe infiltrate/Moderate residual effusion/L lung clear. Pt arrived w RA sats of 85% which improved on 2L O2 NC. (ALONDRA HOYOS) Allergies/Adverse Reactions: Penicillins Allergy (Unknown, Verified 02/02/23 17:23) Home Medications: Budesonide/Formoterol Fumarate [Budesonide-Formoterol 160-4.5] 2 puff IH BID 05/20/22 [History] Travel Risk - International Travel Have you traveled outside of the country in past 3 weeks: No - Coronavirus Screening Are you exhibiting any of the following symptoms?: Yes Symptoms: Fever, Cough: New Onset, Shortness of Breath Close contact with a COVID-19 positive Pt in past 14-21 Days: No - Vaccine Status Have you recieved a Covid-19 vaccination: No <ALONDRA HOYOS - Last Filed: 02/09/23 07:38> - Review of Systems Constitutional: No Symptoms, Fever Eyes: No Symptoms Ears, Nose, & Throat: No Symptoms, Nose Discharge Respiratory: No Symptoms, Cough, Dyspnea Cardiac: No Symptoms Abdominal/Gastrointestinal: No Symptoms Genitourinary Symptoms: No Symptoms Musculoskeletal: No Symptoms Skin: No Symptoms Neurological: No Symptoms Psychological: No Symptoms Endocrine: No Symptoms Hematologic/Lymphatic: No Symptoms Immunological/Allergic: No Symptoms <ALONDRA HOYOS - Filed: 02/09/23 07:38> - Past Medical History Pertinent Past Medical History: Yes Neurological History: No Pertinent History ENT History: No Pertinent History Cardiac History: No Pertinent History Respiratory History: Asthma, Pneumonia Endocrine Medical History: Diabetes Type II Musculoskeletal History: Fractures GI Medical History: Colitis History: No Pertinent History Psycho-Social History: No Pertinent History Female Reproductive Disorders: No Pertinent History Other Medical History: fx l ankle in high school , pathological fx l foot metatarsals approximately age 30 - Past Surgical History Past Surgical History: Yes Neuro Surgical History: Other Cardiac: No Pertinent History Respiratory: No Pertinent History Gastrointestinal: No Pertinent History Genitourinary: No Pertinent History Musculoskeletal: No Pertinent History Female Surgical History: Section, Tubal Ligation Other Surgical History: subdural hematoma removed from right side of head at age 6 - Social History Smoking Status: Never smoker Exposure to second hand smoke: No Drug Use: none Patient Lives Alone: No <ALONDRA HOYOS Filed: 02/09/23 07:38> - Physical Exam General Appearance: mild distress Eye Exam: PERRL/EOMI, eyes nml inspection Ears, Nose, Throat Exam: hearing grossly normal, normal ENT inspection, normal pharynx Neck Exam: normal inspection, non-tender, supple, full range of motion, No Brudzinski, No Kernig's, No meningismus Respiratory Exam: other (Rales L base/Decreased BS R base) Cardiovascular/Chest Exam: regular rate/rhythm, murmur (3/6 SHANTA) Abdominal/Gastrointestinal Exam: soft, normal bowel sounds, No tenderness Extremity Exam: non-tender, normal range of motion, normal inspection, normal capillary refill, no calf tenderness Peripheral Pulses Exam: carotid (R): 2+, carotid (L): 2+ Neurologic Exam: alert, oriented x 3, cooperative, 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, normal mood/affect, nml cerebellar function, nml station & gait, sensation nml Skin Exam: normal color, warm, dry Lymphatic Exam: No adenopathy SpO2 Interpretation: borderline oxygenation SpO2: 92 O2 Delivery: Nasal Cannula <ALONDRA HOYOS - Last Filed: 02/09/23 07:38> - Nursing Vital Signs Nursing Vital Signs: Initial Vital Signs Temperature 103.1 F 02/02/23 16:54 Pulse Rate 94 H 02/02/23 16:54 Respiratory Rate 21 02/02/23 16:54 Blood Pressure 123/63 02/02/23 16:54 O2 Sat by Pulse Oximetry 85 L 02/02/23 16:54 Pain Scale Pain Intensity 0 Febrile/Hypoxic (ALONDRA HOYOS) - Course Nursing assessment & vital signs reviewed: Yes EKG Interpreted by Me: RATE (NSR/Rate 94/Normal QT-QTc/Twave inversion V4- V6/Nonspecific ST-Twave changes) <ALONDRA HOYOS - Last Filed: 02/09/23 07:38> Ordered Tests: Medication Summary Discontinued Medications Generic Name Dose Route Start Last Admin Trade Name Avelinoq PRN Reason Stop Dose Admin Acetaminophen 1,000 mg 02/02/23 18:01 02/02/23 18:11 Acetaminophen 500 Mg Tablet PO 02/02/23 18:02 1,000 mg STAT ONE Administration Acetaminophen Confirm 02/02/23 18:06 Acetaminophen 500 Mg Tablet Administered 02/02/23 18:07 Dose 1,000 mg .ROUTE .STK-MED ONE Albuterol/Ipratropium 3 ml 02/02/23 20:57 02/02/23 21:10 Ipratropium/Albuterol Sulfate 3 Ml Ampul.Neb IH 02/02/23 20:58 3 ml STAT ONE Administration Albuterol/Ipratropium Confirm 02/02/23 21:07 Ipratropium/Albuterol Sulfate 3 Ml Ampul.Neb Administered 02/02/23 21:08 Dose 3 ml IH .STK-MED ONE Albuterol/Ipratropium 3 ml 02/03/23 01:00 02/07/23 07:17 Ipratropium/Albuterol Sulfate 3 Ml Ampul.Neb IH 03/05/23 00:59 3 ml Q6HRT CAMI Administration Aztreonam Confirm 02/03/23 05:13 Aztreonam 1 Gm Vial Administered 02/03/23 05:14 Dose 1 gm .ROUTE .STK-MED ONE Benzonatate 100 mg 02/03/23 01:35 02/03/23 06:19 Benzonatate 100 Mg Capsule PO 03/05/23 01:34 100 mg TID PRN PRN Administration COUGH Benzonatate 100 mg 02/03/23 09:49 02/07/23 06:50 Benzonatate 100 Mg Capsule PO 03/05/23 09:48 100 mg Q6H PRN PRN Administration COUGH Methylprednisolone Sodium 0 mg 02/02/23 20:57 02/02/23 21:42 Succinate 125 mg/ Sterile IV 02/02/23 20:58 125 mg Water 2 ml STAT ONE Administration Methylprednisolone Sodium 0 mg 02/03/23 00:00 02/03/23 06:09 Succinate 60 mg/ Sterile Water IV 03/05/23 00:00 60 mg 2 ml Q6HT CAMI Administration Methylprednisolone Sodium 0 mg 02/03/23 12:00 02/07/23 06:01 Succinate 60 mg/ Sterile Water IV 03/05/23 11:59 60 mg 1 ml Q6HT CAMI Administration Enoxaparin Sodium 40 mg 02/03/23 10:00 02/07/23 08:53 Enoxaparin Sodium 40 Mg/0.4 Ml Syringe SQ 03/05/23 09:59 40 mg DAILY CAMI Administration Azithromycin 500 mg in 250 mls @ 250 mls/hr 02/02/23 20:36 02/02/23 21:41 Zithromax 500 Mg/ 250 Ml Nacl Premix IV 02/02/23 21:35 250 mls/hr STAT STA 250 mls/hr Administration Aztreonam 2 gm/ Sodium 100 mls @ 200 mls/hr 02/02/23 20:38 02/02/23 20:51 Chloride IV 02/02/23 21:07 200 mls/hr STAT ONE Administration Azithromycin Confirm 02/02/23 21:39 Zithromax 500 Mg/ 250 Ml Nacl Premix Administered 02/02/23 21:40 Dose 500 mg in 250 mls @ ud IV .STK-MED ONE Azithromycin 500 mg in 250 mls @ 250 mls/hr 02/03/23 22:00 02/06/23 22:12 Zithromax 500 Mg/ 250 Ml Nacl Premix IV 03/05/23 21:59 250 mls/hr Q24H22 CAMI Administration Aztreonam 2 gm/ Sodium 100 mls @ 200 mls/hr 02/02/23 22:39 02/05/23 08:32 Chloride IV 02/05/23 22:38 200 mls/hr Q8HT CAMI Administration Dextrose Confirm 02/03/23 05:13 D5w 100ml Mini Bag 100 Ml Administered 02/03/23 05:14 Dose 100 mls @ ud IV .STK-MED ONE Sodium Chloride Confirm 02/04/23 05:28 Sodium Chloride 0.9% Administered 02/04/23 05:29 Dose 100 mls @ ud .ROUTE .STK-MED ONE Insulin Human Lispro 0 unit 02/02/23 22:39 02/07/23 08:03 Insulin Lispro 1 Unit SQ 03/04/23 22:38 10 unit UD PRN Administration HYPERGLYCEMIA Metformin HCl 500 mg 02/05/23 17:00 02/07/23 08:04 Metformin Hcl 500 Mg Tablet PO 03/07/23 16:59 500 mg BIDWM CAMI Administration Methylprednisolone Sodium Succinate Confirm 02/02/23 21:39 Methylprednis Sod Succ 125 Mg/2 Ml Vial Administered 02/02/23 21:40 Dose 125 mg .ROUTE .STK-MED ONE Methylprednisolone Sodium Succinate Confirm 02/03/23 05:16 Methylprednis Sod Succ 125 Mg/2 Ml Vial Administered 02/03/23 05:17 Dose 125 mg .ROUTE .STK-MED ONE Methylprednisolone Sodium Succinate Confirm 02/04/23 17:05 Methylprednisolone Sod Suc 40m 40 Mg/Ml Vial Administered 02/04/23 17:06 Dose 80 mg .ROUTE .STK-MED ONE Ondansetron HCl 4 mg 02/02/23 22:39 Ondansetron Hcl 4 Mg/2 Ml Vial IV 03/04/23 22:38 Q6H PRN PRN NAUSEA/VOMITING Pantoprazole Sodium 40 mg 02/03/23 10:00 02/07/23 08:54 Pantoprazole 40 Mg Vial IV 03/05/23 09:59 40 mg Q24H10 CAMI Administration Fluticasone/Salmeterol 2 puff 05/18/23 07:00 02/07/23 07:17 Fluticasone/Salmeterol 115/21 - 120 Puff Common Canister IH 03/05/23 06:59 2 puff BIDRT CAMI Administration Sodium Chloride Confirm 02/04/23 18:40 Sodium Cl For Inhalation 3 Ml Ud Nebule Administered 02/04/23 18:41 Dose 6 ml IH .STK-MED ONE Sterile Water Confirm 02/02/23 21:39 Water For Injection,Sterile 10 Ml Vial Administered 02/02/23 21:40 Dose 10 ml IJ .STK-MED ONE Sterile Water Confirm 02/03/23 05:16 Water For Injection,Sterile 10 Ml Vial Administered 02/03/23 05:17 Dose 10 ml IJ .STK-MED ONE Lab/Rad Data: Laboratory Result Diagrams 02/03/23 04:00 02/03/23 04:00 Laboratory Results 02/03/23 02/03/23 02/03/23 Range/Units 06:40 04:00 04:00 WBC 5.9 (4.0-10.5) x10^3/uL RBC 3.82 L (4.1-5.4) x10^6/uL Hgb 10.9 L (12.0-16.0) g/dL Hct 35.2 (35-47) % MCV 92.1 (78-100) fL MCH 28.5 (26-32) pg MCHC 31.0 L (32-36) g/dL RDW 14.1 H (11.5-14.0) % Plt Count 257 (150-450) x10^3/uL MPV 10.8 (7.5-11.0) fL Gran % (36.0-66.0) % Immature Gran % (Auto) (0.00-0.4) % Nucleat RBC Rel Count (0.00-0.1) % Eos # (Auto) (0-0.5) x10^3/uL Immature Gran # (Auto) (0.00-0.03) x10^3u/L Absolute Lymphs (auto) (1.0-4.6) x10^3/uL Absolute Monos (auto) (0.0-1.3) x10^3/uL Absolute Nucleated RBC (0.00-0.01) x10^3u/L Lymphocytes % (24.0-44.0) % Monocytes % (0.0-12.0) % Eosinophils % (0.00-5.0) % Basophils % (0.0-0.4) % Absolute Granulocytes (1.4-6.9) x10^3/uL Segmented Neutrophils 88 H (36.0-66.0) % Band Neutrophils 1 (0.0-2.0) % Lymphocytes (Manual) 10 L (24-44) % Monocytes (Manual) 1 (0.0-12.0) % Basophils # (0-0.4) x10^3/uL Platelet Estimate NORMAL (NORMAL) RBC Morphology ABNORMAL Anisocytosis 1+ PT (9.4-12.5) SECONDS INR (0.8-3.0) APTT (25.1-36.5) SECONDS Sodium 137 (137-145) mmol/L Potassium 4.8 D (3.5-5.1) mmol/L Chloride 98 (98-107) mmol/L Carbon Dioxide 32 H (22-30) mmol/L Anion Gap 11.2 (5-15) MEQ/L BUN 13 (7-17) mg/dL Creatinine 0.56 (0.52-1.04) mg/dL Estimated GFR > 60.0 ML/MIN Glucose 396 H (74-106) mg/dL POC Glucometer 343 H (74 to 106) mg/dL Lactic Acid (0.4-2.0) Calcium 8.2 L (8.4-10.2) mg/dL Total Bilirubin 0.50 (0.2-1.3) mg/dL AST 26 (14-36) U/L ALT 53 H (0-35) U/L Alkaline Phosphatase 56 (38-126) U/L Troponin I (0.000-0.034) ng/mL NT-Pro-B Natriuret Pep (<300) pg/mL Serum Total Protein 6.9 (6.3-8.2) g/dL Albumin 3.3 L (3.5-5.0) g/dL Prealbumin 7.71 L (17.6-36.0) mg/dL Influenza Type A Ag (NEGATIVE) Influenza Type B Ag (NEGATIVE) RSV (PCR) (NEGATIVE) SARS-CoV-2 (PCR) (NEGATIVE) 02/03/23 02/03/23 02/02/23 Range/Units 04:00 01:37 20:56 WBC (4.0-10.5) x10^3/uL RBC (4.1-5.4) x10^6/uL Hgb (12.0-16.0) g/dL Hct (35-47) % MCV (78-100) fL MCH (26-32) pg MCHC (32-36) g/dL RDW (11.5-14.0) % Plt Count (150-450) x10^3/uL MPV (7.5-11.0) fL Gran % (36.0-66.0) % Immature Gran % (Auto) (0.00-0.4) % Nucleat RBC Rel Count (0.00-0.1) % Eos # (Auto) (0-0.5) x10^3/uL Immature Gran # (Auto) (0.00-0.03) x10^3u/L Absolute Lymphs (auto) (1.0-4.6) x10^3/uL Absolute Monos (auto) (0.0-1.3) x10^3/uL Absolute Nucleated RBC (0.00-0.01) x10^3u/L Lymphocytes % (24.0-44.0) % Monocytes % (0.0-12.0) % Eosinophils % (0.00-5.0) % Basophils % (0.0-0.4) % Absolute Granulocytes (1.4-6.9) x10^3/uL Segmented Neutrophils (36.0-66.0) % Band Neutrophils (0.0-2.0) % Lymphocytes (Manual) (24-44) % Monocytes (Manual) (0.0-12.0) % Basophils # (0-0.4) x10^3/uL Platelet Estimate (NORMAL) RBC Morphology Anisocytosis PT (9.4-12.5) SECONDS INR (0.8-3.0) APTT (25.1-36.5) SECONDS Sodium (137-145) mmol/L Potassium (3.5-5.1) mmol/L Chloride (98-107) mmol/L Carbon Dioxide (22-30) mmol/L Anion Gap (5-15) MEQ/L BUN (7-17) mg/dL Creatinine (0.52-1.04) mg/dL Estimated GFR ML/MIN Glucose (74-106) mg/dL POC Glucometer 270 H (74 to 106) mg/dL Lactic Acid (0.4-2.0) Calcium (8.4-10.2) mg/dL Total Bilirubin (0.2-1.3) mg/dL AST (14-36) U/L ALT (0-35) U/L Alkaline Phosphatase (38-126) U/L Troponin I < 0.012 0.015 (0.000-0.034) ng/mL NT-Pro-B Natriuret Pep (<300) pg/mL Serum Total Protein (6.3-8.2) g/dL Albumin (3.5-5.0) g/dL Prealbumin (17.6-36.0) mg/dL Influenza Type A Ag (NEGATIVE) Influenza Type B Ag (NEGATIVE) RSV (PCR) (NEGATIVE) SARS-CoV-2 (PCR) (NEGATIVE) 02/02/23 02/02/23 02/02/23 Range/Units 17:21 17:21 17:21 WBC (4.0-10.5) x10^3/uL RBC (4.1-5.4) x10^6/uL Hgb (12.0-16.0) g/dL Hct (35-47) % MCV (78-100) fL MCH (26-32) pg MCHC (32-36) g/dL RDW (11.5-14.0) % Plt Count (150-450) x10^3/uL MPV (7.5-11.0) fL Gran % (36.0-66.0) % Immature Gran % (Auto) (0.00-0.4) % Nucleat RBC Rel Count (0.00-0.1) % Eos # (Auto) (0-0.5) x10^3/uL Immature Gran # (Auto) (0.00-0.03) x10^3u/L Absolute Lymphs (auto) (1.0-4.6) x10^3/uL Absolute Monos (auto) (0.0-1.3) x10^3/uL Absolute Nucleated RBC (0.00-0.01) x10^3u/L Lymphocytes % (24.0-44.0) % Monocytes % (0.0-12.0) % Eosinophils % (0.00-5.0) % Basophils % (0.0-0.4) % Absolute Granulocytes (1.4-6.9) x10^3/uL Segmented Neutrophils (36.0-66.0) % Band Neutrophils (0.0-2.0) % Lymphocytes (Manual) (24-44) % Monocytes (Manual) (0.0-12.0) % Basophils # (0-0.4) x10^3/uL Platelet Estimate (NORMAL) RBC Morphology Anisocytosis PT 12.2 (9.4-12.5) SECONDS INR 1.13 (0.8-3.0) APTT 26.8 (25.1-36.5) SECONDS Sodium 137 (137-145) mmol/L Potassium 3.9 (3.5-5.1) mmol/L Chloride 98 (98-107) mmol/L Carbon Dioxide 30 (22-30) mmol/L Anion Gap 13.3 (5-15) MEQ/L BUN 14 (7-17) mg/dL Creatinine 0.60 (0.52-1.04) mg/dL Estimated GFR > 60.0 ML/MIN Glucose 140 H (74-106) mg/dL POC Glucometer (74 to 106) mg/dL Lactic Acid (0.4-2.0) Calcium 8.7 (8.4-10.2) mg/dL Total Bilirubin 0.60 (0.2-1.3) mg/dL AST 36 (14-36) U/L ALT 60 H (0-35) U/L Alkaline Phosphatase 58 (38-126) U/L Troponin I (0.000-0.034) ng/mL NT-Pro-B Natriuret Pep (<300) pg/mL Serum Total Protein 8.0 (6.3-8.2) g/dL Albumin 3.8 (3.5-5.0) g/dL Prealbumin (17.6-36.0) mg/dL Influenza Type A Ag NEGATIVE (NEGATIVE) Influenza Type B Ag NEGATIVE (NEGATIVE) RSV (PCR) NEGATIVE (NEGATIVE) SARS-CoV-2 (PCR) NEGATIVE (NEGATIVE) 02/02/23 02/02/23 02/02/23 Range/Units 17:21 17:17 17:15 WBC 5.8 (4.0-10.5) x10^3/uL RBC 3.96 L (4.1-5.4) x10^6/uL Hgb 11.1 L (12.0-16.0) g/dL Hct 36.2 (35-47) % MCV 91.4 (78-100) fL MCH 28.0 (26-32) pg MCHC 30.7 L (32-36) g/dL RDW 14.0 (11.5-14.0) % Plt Count 267 (150-450) x10^3/uL MPV 10.2 (7.5-11.0) fL Gran % 68.8 H (36.0-66.0) % Immature Gran % (Auto) 2.1 H (0.00-0.4) % Nucleat RBC Rel Count 0.0 (0.00-0.1) % Eos # (Auto) 0.02 (0-0.5) x10^3/uL Immature Gran # (Auto) 0.12 H (0.00-0.03) x10^3u/L Absolute Lymphs (auto) 1.05 (1.0-4.6) x10^3/uL Absolute Monos (auto) 0.61 (0.0-1.3) x10^3/uL Absolute Nucleated RBC 0.00 (0.00-0.01) x10^3u/L Lymphocytes % 18.0 L (24.0-44.0) % Monocytes % 10.5 (0.0-12.0) % Eosinophils % 0.3 (0.00-5.0) % Basophils % 0.3 (0.0-0.4) % Absolute Granulocytes 4.00 (1.4-6.9) x10^3/uL Segmented Neutrophils (36.0-66.0) % Band Neutrophils (0.0-2.0) % Lymphocytes (Manual) (24-44) % Monocytes (Manual) (0.0-12.0) % Basophils # 0.02 (0-0.4) x10^3/uL Platelet Estimate (NORMAL) RBC Morphology Anisocytosis PT (9.4-12.5) SECONDS INR (0.8-3.0) APTT (25.1-36.5) SECONDS Sodium (137-145) mmol/L Potassium (3.5-5.1) mmol/L Chloride (98-107) mmol/L Carbon Dioxide (22-30) mmol/L Anion Gap (5-15) MEQ/L BUN (7-17) mg/dL Creatinine (0.52-1.04) mg/dL Estimated GFR ML/MIN Glucose (74-106) mg/dL POC Glucometer (74 to 106) mg/dL Lactic Acid 1.6 (0.4-2.0) Calcium (8.4-10.2) mg/dL Total Bilirubin (0.2-1.3) mg/dL AST (14-36) U/L ALT (0-35) U/L Alkaline Phosphatase (38-126) U/L Troponin I < 0.012 (0.000-0.034) ng/mL NT-Pro-B Natriuret Pep 1140 (<300) pg/mL Serum Total Protein (6.3-8.2) g/dL Albumin (3.5-5.0) g/dL Prealbumin (17.6-36.0) mg/dL Influenza Type A Ag (NEGATIVE) Influenza Type B Ag (NEGATIVE) RSV (PCR) (NEGATIVE) SARS-CoV-2 (PCR) (NEGATIVE) - Progress Progress: improved, re-examined Air Movement: fair Blood Culture(s) Obtained: Yes Antibiotics given: Yes Discussed with : Other Will see patient in: hospital (observation) Counseled pt/family regarding: lab results, diagnosis, rad results <JANETT JENSEN - Last Filed: 02/02/23 21:15> <ALONDRA HOYOS - Last Filed: 02/09/23 07:38> - Progress Progress Note: 02/02/23 21:15 57-year-old is checked out to me at shift change from Dr. Hoyos with pending CTA chest. Patient presented with increasing shortness of breath. Does have history of bilateral pneumonia with effusion needing thoracentesis. Patient oxygen saturation dropped in the 80s and is currently on 2 L oxygen. She has a normal white count, fairly unremarkable chemistries and negative troponins. EKG normal sinus rhythm with no ST elevations. CTA showed bilateral airspace disease with still having some residual effusion on the right side. I have given her Solu-Medrol, DuoNeb and started on Zithromax and aztreonam. I have discussed with Dr. Pratt hospitalist on-call, reviewed history, work-up and patient is eccepted for admission. I have discussed lab work, imaging findings and plan of care with patient in detail who understand and agrees with it. (JANETT JENSEN) 02/02/23 19:05 Care turned over to Dr. Jensen at 1900 w CTA pending (ALONDRA HOYOS) Medical Desision Making - External Record(s) Reviewed Records reviewed as a part of evaluation & management: Discharge Summary - Discussion of managment Care discussed with:: hospitalist (Dr. Pratt) Reviewed:: Test results Agreed on:: Treatment plan, place in obs Will see patient: in hospital - Diagnostic Testing Diagnostic test were ordered, analyzed, and reviewed by me: Yes Radiological Interpretation: Reviewed by me - Risk of complications The pt has a high risk of morbidity or mortality based on: Decision regarding hospitilization or escalation of hosp level of care <JANETT JENSEN - Last Filed: 02/02/23 21:15> - Departure Departure Disposition: Observation <JANETT JENSEN - Last Filed: 02/02/23 21:15> - Departure Critical Care Time: Yes Critical Care Time(excluding separately billable procedures): Critical 30-74 mins <ALONDRA HOYOS - Last Filed: 02/09/23 07:38> - Departure Clinical Impression: Bilateral pneumonia Qualifiers: Pneumonia type: due to unspecified organism Lung location: lower lobe of lung Qualified Code(s): J18.9 - Pneumonia, unspecified organism Respiratory failure Qualifiers: Chronicity: acute Respiratory failure complication: hypoxia Qualified Code(s): J96.01 - Acute respiratory failure with hypoxia Condition: Stable
[2023-02-02] MEDS ORDERED: TYLENOL EXTRA STRENGTH 500 MG PO ONE (18:01)
[2023-02-02 18:02] LABS: INFLUENZA A NEGATIVE (NEGATIVE); INFLUENZA B NEGATIVE (NEGATIVE); RESPIRATORY SYNCTIAL VIRUS NEGATIVE (NEGATIVE); SARS-CoV-2 Xpert Express NEGATIVE (NEGATIVE)
[2023-02-02 18:06] LABS: NT PRO BNPII 1140 pg/mL (<300); TROPONIN < 0.012 ng/mL (0.000-0.034)
[2023-02-02] MEDS ORDERED: TYLENOL EXTRA STRENGTH 500 MG ONE (18:06)
[2023-02-02] MEDS ORDERED: Zithromax 500 MG/ 250 ML NaCl Premix 500 MG/250 ML IVPB IV STA (20:36)
[2023-02-02] MEDS ORDERED: AZACTAM 1 GM*** 2 GM in Sodium Chloride 0.9% 100 ML IV ONE (20:38)
[2023-02-02] MEDS ORDERED: DUONEB 0.5-3 MG/3 ml Neb IH ONE ×2 (20:57→21:07)
[2023-02-02] MEDS ORDERED: solu-MEDROL 125 MG, Sterile H2O 10 ml 2 ML IV ONE ×2 (20:57)
[2023-02-02] MEDS ORDERED: solu-MEDROL ONE (21:39)
[2023-02-02] MEDS ORDERED: Sterile H2O 10 ml IJ ONE (21:39)
[2023-02-02] MEDS ORDERED: Zithromax 500 MG/ 250 ML NaCl Premix 500 MG/250 ML IVPB IV ONE (21:39)
[2023-02-02] MEDS ORDERED: Zofran 4 MG/2 ML VIAL IV PRN (22:39)
[2023-02-02] MEDS: AZACTAM 1 GM*** 2 GM in Sodium Chloride 0.9% 100 ML IV SCH (23:08)
[2023-02-03] MEDS: solu-MEDROL 60 MG, Sterile H2O 10 ml 2 ML IV SCH ×4 (00:43→06:09)
[2023-02-03] MEDS: DUONEB 0.5-3 MG/3 ml Neb IH SCH ×4 (01:02→19:06)
[2023-02-03] MEDS ORDERED: Tessalon Perles 100 MG PO PRN ×2 (01:35→09:46)
[2023-02-03 04:41] LABS: ALBUMIN 3.3 g/dL (3.5-5.0); ALKALINE PHOSPHATASE 56 U/L (38-126); ANION GAP 11.2 MEQ/L (5-15); BLOOD UREA NITROGEN 13 mg/dL (7-17); CHLORIDE 98 mmol/L (98-107); Calcium 8.2 mg/dL (8.4-10.2); Carbon Dioxide 32 mmol/L (22-30); Creatinine 1 0.56 mg/dL (0.52-1.04); EST GLOMERULAR FILTRATION RATE > 60.0 ML/MIN; Glucose 396 mg/dL (74-106); PREALBUMIN 7.71 mg/dL (17.6-36.0); Potassium 4.8 mmol/L (3.5-5.1); SGOT/AST 26 U/L (14-36); SGPT/ALT 53 U/L (0-35); SODIUM 137 mmol/L (137-145); Total Protein 6.9 g/dL (6.3-8.2)
[2023-02-03 04:49] LABS: Hematocrit 35.2 % (35-47); Hemoglobin 10.9 g/dL (12.0-16.0); Mean Cell Volume 92.1 fL (78-100); Mean Corpuscular Hemoglobin 28.5 pg (26-32); Mean Platelet Volume 10.8 fL (7.5-11.0); Platelet Count 257 x10^3/uL (150-450); Red Blood Count 3.82 x10^6/uL (4.1-5.4); Red Cell Distribution Width 14.1 % (11.5-14.0); White Blood Count 5.9 x10^3/uL (4.0-10.5)
[2023-02-03] MEDS ORDERED: D5w 100ML Mini Bag 100 ML 100 ML IV ONE (05:13)
[2023-02-03] MEDS ORDERED: AZACTAM 1 GM ONE (05:13)
[2023-02-03] MEDS ORDERED: solu-MEDROL ONE (05:16)
[2023-02-03] MEDS ORDERED: Sterile H2O 10 ml IJ ONE (05:16)
[2023-02-03] MEDS: AZACTAM 1 GM*** 2 GM in Sodium Chloride 0.9% 100 ML IV SCH ×3 (06:17→21:22)
[2023-02-03 06:25] LABS: BAND 1 % (0.0-2.0); Lymphocytes 10 % (24-44); Monocyte 1 % (0.0-12.0); Neutrophils 88 % (36.0-66.0); Platelet Estimate NORMAL (NORMAL); Total Cells Counted 100
[2023-02-03 06:28] LABS: ANISOCYTOSIS 1+
[2023-02-03] MEDS: HUMALOG SQ PRN ×4 (07:10→21:22)
[2023-02-03] MEDS: Advair Hfa 115/21 Common canister IH SCH ×2 (07:19→19:06)
--- NOTE | 2023-02-03 08:55 | PCM.HP ---
History of Present Illness - Chief Complaint Chief Complaint: Bilateral pneumonia History of Present Illness: is a 57 year old female with recent hospitalization with pneumonia and pleural effusion, she has had multiple bouts of severe pneumonia and bronchospasm for unknown reasons. she was coughing and became hypoxic and short of breath rather suddenly yesterday so came to ER and was admitted last night. She has been following with Dr Dawson. - Review of Systems Constitutional: No Fever, No Chills Respiratory: Cough, Short Of Breath Cardiac: No Chest Pain, No Edema, No Syncope Abdominal/Gastrointestinal: No Abdominal Pain, No Nausea, No Vomiting, No Diarrhea Genitourinary Symptoms: No Dysuria Skin: No Rash All Other Systems: Reviewed and Negative Medications & Allergies Home Medications: Home Medication List Albuterol Sulfate [Ventolin Hfa] 2 puffs IH Q4HPRN PRN #2 unit 08/14/21 [Rx Confirmed 02/02/23] Metformin HCl 500 mg [Glucophage 500 MG] 500 mg PO BIDWM #60 tablet 08/14/21 [Rx Confirmed 02/02/23] Budesonide/Formoterol Fumarate [Budesonide-Formoterol 160-4.5] 2 puff IH BID 05/20/22 [History Confirmed 02/02/23] Albuterol/Ipratropium 3ml Neb* [DUONEB 0.5-3 MG/3 ml Neb] 3 ml IH Q6H PRN PRN #100 unit 05/26/22 [Rx Confirmed 02/02/23] Benzonatate 100 mg PO Q6HPRN PRN #30 cap 05/26/22 [Rx Confirmed 02/02/23] Prednisone 10 mg [Deltasone 10 mg] 10 mg PO DAILY #20 tablet 01/16/23 [Rx Confirmed 02/02/23] Allergies/Adverse Reactions: Allergies Allergy/AdvReac Type Severity Reaction Status Date / Time Penicillins Allergy Unknown Verified 02/02/23 17:23 - Past Medical History Past Medical History: Yes Neurological History: No Pertinent History ENT History: No Pertinent History Cardiac History: No Pertinent History Respiratory History: Asthma, Pneumonia Endocrine Medical History: Diabetes Type II Musculoskelatal History: Fractures GI Medical History: Colitis History: No Pertinent History Pyscho-Social History: No Pertinent History Reproductive Disorders: No Pertinent History Comment: fx l ankle in high school , pathological fx l foot metatarsals approx imately age 30 - Past Surgical History Past Surgical History: Yes Neuro Surgical History: Other Cardiac History: No Pertinent History Respiratory Surgery: No Pertinent History GI Surgical History: No Pertinent History Genitourinary Surgical Hx: No Pertinent History Musculskeletal Surgical Hx: No Pertinent History Female Surgical History: Section, Tubal Ligation Other Surgical History: subdural hematoma removed from right side of head at age 6 - Social History Smoking Status: Never smoker Exposure to second hand smoke: No Alcohol: None Drug Use: marijuana - Physical Exam Vital Signs: Vital Signs - 24 hr Temp Pulse Resp BP BP Pulse Ox 02/03/23 07:21 70 20 95 02/03/23 07:02 97.1 F 72 21 120/80 95 02/03/23 04:00 97.2 F 70 18 120/60 94 L 02/03/23 01:07 70 18 91 L 02/02/23 23:00 97.9 F 70 18 119/66 92 L 02/02/23 22:01 74 18 126/69 94 L 02/02/23 21:30 97.6 F 73 31 H 137/57 93 L 02/02/23 21:22 73 17 93 L 02/02/23 21:00 71 18 103/58 94 L 02/02/23 20:30 70 23 97/59 91 L 02/02/23 20:00 80 35 H 93/65 92 L 02/02/23 19:30 90 22 108/56 93 L 02/02/23 19:06 92 L 02/02/23 19:00 87 22 116/59 93 L 02/02/23 18:53 91 H 22 92 L 02/02/23 18:20 98 H 23 02/02/23 18:18 91 H 16 93 L 02/02/23 16:54 103.1 F 94 H 25 H 123/63 92 L General Appearance: no apparent distress, obese Respiratory Exam: rhonchi (bilateral) Cardiovascular Exam: regular rate/rhythm, normal heart sounds, normal peripheral pulses Gastrointestinal/Abdomen Exam: soft, normal bowel sounds, No tenderness, No mass Extremity Exam: normal inspection, normal range of motion, pelvis stable Skin Exam: normal color, warm, dry, No rash Results - Labs Lab/Micro Results: Lab Results-Last 24 Hours 05/17/23 05/17/23 05/17/23 Range/Units 17:15 17:17 17:21 WBC 5.8 (4.0-10.5) x10^3/uL RBC 3.96 L (4.1-5.4) x10^6/uL Hgb 11.1 L (12.0-16.0) g/dL Hct 36.2 (35-47) % MCV 91.4 (78-100) fL MCH 28.0 (26-32) pg MCHC 30.7 L (32-36) g/dL RDW 14.0 (11.5-14.0) % Plt Count 267 (150-450) x10^3/uL MPV 10.2 (7.5-11.0) fL Gran % 68.8 H (36.0-66.0) % Immature Gran % (Auto) 2.1 H (0.00-0.4) % Nucleat RBC Rel Count 0.0 (0.00-0.1) % Eos # (Auto) 0.02 (0-0.5) x10^3/uL Immature Gran # (Auto) 0.12 H (0.00-0.03) x10^3u/L Absolute Lymphs (auto) 1.05 (1.0-4.6) x10^3/uL Absolute Monos (auto) 0.61 (0.0-1.3) x10^3/uL Absolute Nucleated RBC 0.00 (0.00-0.01) x10^3u/L Lymphocytes % 18.0 L (24.0-44.0) % Monocytes % 10.5 (0.0-12.0) % Eosinophils % 0.3 (0.00-5.0) % Basophils % 0.3 (0.0-0.4) % Absolute Granulocytes 4.00 (1.4-6.9) x10^3/uL Segmented Neutrophils (36.0-66.0) % Band Neutrophils (0.0-2.0) % Lymphocytes (Manual) (24-44) % Monocytes (Manual) (0.0-12.0) % Basophils # 0.02 (0-0.4) x10^3/uL Platelet Estimate (NORMAL) RBC Morphology Anisocytosis PT (9.4-12.5) SECONDS INR (0.8-3.0) APTT (25.1-36.5) SECONDS Sodium (137-145) mmol/L Potassium (3.5-5.1) mmol/L Chloride (98-107) mmol/L Carbon Dioxide (22-30) mmol/L Anion Gap (5-15) MEQ/L BUN (7-17) mg/dL Creatinine (0.52-1.04) mg/dL Estimated GFR ML/MIN Glucose (74-106) mg/dL POC Glucometer (74 to 106) mg/dL Lactic Acid 1.6 (0.4-2.0) Calcium (8.4-10.2) mg/dL Total Bilirubin (0.2-1.3) mg/dL AST (14-36) U/L ALT (0-35) U/L Alkaline Phosphatase (38-126) U/L Troponin I < 0.012 (0.000-0.034) ng/mL NT-Pro-B Natriuret Pep 1140 (<300) pg/mL Serum Total Protein (6.3-8.2) g/dL Albumin (3.5-5.0) g/dL Prealbumin (17.6-36.0) mg/dL Influenza Type A Ag (NEGATIVE) Influenza Type B Ag (NEGATIVE) RSV (PCR) (NEGATIVE) SARS-CoV-2 (PCR) (NEGATIVE) 02/02/23 02/02/23 02/02/23 Range/Units 17:21 17:21 17:21 WBC (4.0-10.5) x10^3/uL RBC (4.1-5.4) x10^6/uL Hgb (12.0-16.0) g/dL Hct (35-47) % MCV (78-100) fL MCH (26-32) pg MCHC (32-36) g/dL RDW (11.5-14.0) % Plt Count (150-450) x10^3/uL MPV (7.5-11.0) fL Gran % (36.0-66.0) % Immature Gran % (Auto) (0.00-0.4) % Nucleat RBC Rel Count (0.00-0.1) % Eos # (Auto) (0-0.5) x10^3/uL Immature Gran # (Auto) (0.00-0.03) x10^3u/L Absolute Lymphs (auto) (1.0-4.6) x10^3/uL Absolute Monos (auto) (0.0-1.3) x10^3/uL Absolute Nucleated RBC (0.00-0.01) x10^3u/L Lymphocytes % (24.0-44.0) % Monocytes % (0.0-12.0) % Eosinophils % (0.00-5.0) % Basophils % (0.0-0.4) % Absolute Granulocytes (1.4-6.9) x10^3/uL Segmented Neutrophils (36.0-66.0) % Band Neutrophils (0.0-2.0) % Lymphocytes (Manual) (24-44) % Monocytes (Manual) (0.0-12.0) % Basophils # (0-0.4) x10^3/uL Platelet Estimate (NORMAL) RBC Morphology Anisocytosis PT 12.2 (9.4-12.5) SECONDS INR 1.13 (0.8-3.0) APTT 26.8 (25.1-36.5) SECONDS Sodium 137 (137-145) mmol/L Potassium 3.9 (3.5-5.1) mmol/L Chloride 98 (98-107) mmol/L Carbon Dioxide 30 (22-30) mmol/L Anion Gap 13.3 (5-15) MEQ/L BUN 14 (7-17) mg/dL Creatinine 0.60 (0.52-1.04) mg/dL Estimated GFR > 60.0 ML/MIN Glucose 140 H (74-106) mg/dL POC Glucometer (74 to 106) mg/dL Lactic Acid (0.4-2.0) Calcium 8.7 (8.4-10.2) mg/dL Total Bilirubin 0.60 (0.2-1.3) mg/dL AST 36 (14-36) U/L ALT 60 H (0-35) U/L Alkaline Phosphatase 58 (38-126) U/L Troponin I (0.000-0.034) ng/mL NT-Pro-B Natriuret Pep (<300) pg/mL Serum Total Protein 8.0 (6.3-8.2) g/dL Albumin 3.8 (3.5-5.0) g/dL Prealbumin (17.6-36.0) mg/dL Influenza Type A Ag NEGATIVE (NEGATIVE) Influenza Type B Ag NEGATIVE (NEGATIVE) RSV (PCR) NEGATIVE (NEGATIVE) SARS-CoV-2 (PCR) NEGATIVE (NEGATIVE) 02/02/23 02/03/23 02/03/23 Range/Units 20:56 01:37 04:00 WBC (4.0-10.5) x10^3/uL RBC (4.1-5.4) x10^6/uL Hgb (12.0-16.0) g/dL Hct (35-47) % MCV (78-100) fL MCH (26-32) pg MCHC (32-36) g/dL RDW (11.5-14.0) % Plt Count (150-450) x10^3/uL MPV (7.5-11.0) fL Gran % (36.0-66.0) % Immature Gran % (Auto) (0.00-0.4) % Nucleat RBC Rel Count (0.00-0.1) % Eos # (Auto) (0-0.5) x10^3/uL Immature Gran # (Auto) (0.00-0.03) x10^3u/L Absolute Lymphs (auto) (1.0-4.6) x10^3/uL Absolute Monos (auto) (0.0-1.3) x10^3/uL Absolute Nucleated RBC (0.00-0.01) x10^3u/L Lymphocytes % (24.0-44.0) % Monocytes % (0.0-12.0) % Eosinophils % (0.00-5.0) % Basophils % (0.0-0.4) % Absolute Granulocytes (1.4-6.9) x10^3/uL Segmented Neutrophils (36.0-66.0) % Band Neutrophils (0.0-2.0) % Lymphocytes (Manual) (24-44) % Monocytes (Manual) (0.0-12.0) % Basophils # (0-0.4) x10^3/uL Platelet Estimate (NORMAL) RBC Morphology Anisocytosis PT (9.4-12.5) SECONDS INR (0.8-3.0) APTT (25.1-36.5) SECONDS Sodium (137-145) mmol/L Potassium (3.5-5.1) mmol/L Chloride (98-107) mmol/L Carbon Dioxide (22-30) mmol/L Anion Gap (5-15) MEQ/L BUN (7-17) mg/dL Creatinine (0.52-1.04) mg/dL Estimated GFR ML/MIN Glucose (74-106) mg/dL POC Glucometer 270 H (74 to 106) mg/dL Lactic Acid (0.4-2.0) Calcium (8.4-10.2) mg/dL Total Bilirubin (0.2-1.3) mg/dL AST (14-36) U/L ALT (0-35) U/L Alkaline Phosphatase (38-126) U/L Troponin I 0.015 < 0.012 (0.000-0.034) ng/mL NT-Pro-B Natriuret Pep (<300) pg/mL Serum Total Protein (6.3-8.2) g/dL Albumin (3.5-5.0) g/dL Prealbumin (17.6-36.0) mg/dL Influenza Type A Ag (NEGATIVE) Influenza Type B Ag (NEGATIVE) RSV (PCR) (NEGATIVE) SARS-CoV-2 (PCR) (NEGATIVE) 02/03/23 02/03/23 02/03/23 Range/Units 04:00 04:00 06:40 WBC 5.9 (4.0-10.5) x10^3/uL RBC 3.82 L (4.1-5.4) x10^6/uL Hgb 10.9 L (12.0-16.0) g/dL Hct 35.2 (35-47) % MCV 92.1 (78-100) fL MCH 28.5 (26-32) pg MCHC 31.0 L (32-36) g/dL RDW 14.1 H (11.5-14.0) % Plt Count 257 (150-450) x10^3/uL MPV 10.8 (7.5-11.0) fL Gran % (36.0-66.0) % Immature Gran % (Auto) (0.00-0.4) % Nucleat RBC Rel Count (0.00-0.1) % Eos # (Auto) (0-0.5) x10^3/uL Immature Gran # (Auto) (0.00-0.03) x10^3u/L Absolute Lymphs (auto) (1.0-4.6) x10^3/uL Absolute Monos (auto) (0.0-1.3) x10^3/uL Absolute Nucleated RBC (0.00-0.01) x10^3u/L Lymphocytes % (24.0-44.0) % Monocytes % (0.0-12.0) % Eosinophils % (0.00-5.0) % Basophils % (0.0-0.4) % Absolute Granulocytes (1.4-6.9) x10^3/uL Segmented Neutrophils 88 H (36.0-66.0) % Band Neutrophils 1 (0.0-2.0) % Lymphocytes (Manual) 10 L (24-44) % Monocytes (Manual) 1 (0.0-12.0) % Basophils # (0-0.4) x10^3/uL Platelet Estimate NORMAL (NORMAL) RBC Morphology ABNORMAL Anisocytosis 1+ PT (9.4-12.5) SECONDS INR (0.8-3.0) APTT (25.1-36.5) SECONDS Sodium 137 (137-145) mmol/L Potassium 4.8 D (3.5-5.1) mmol/L Chloride 98 (98-107) mmol/L Carbon Dioxide 32 H (22-30) mmol/L Anion Gap 11.2 (5-15) MEQ/L BUN 13 (7-17) mg/dL Creatinine 0.56 (0.52-1.04) mg/dL Estimated GFR > 60.0 ML/MIN Glucose 396 H (74-106) mg/dL POC Glucometer 343 H (74 to 106) mg/dL Lactic Acid (0.4-2.0) Calcium 8.2 L (8.4-10.2) mg/dL Total Bilirubin 0.50 (0.2-1.3) mg/dL AST 26 (14-36) U/L ALT 53 H (0-35) U/L Alkaline Phosphatase 56 (38-126) U/L Troponin I (0.000-0.034) ng/mL NT-Pro-B Natriuret Pep (<300) pg/mL Serum Total Protein 6.9 (6.3-8.2) g/dL Albumin 3.3 L (3.5-5.0) g/dL Prealbumin 7.71 L (17.6-36.0) mg/dL Influenza Type A Ag (NEGATIVE) Influenza Type B Ag (NEGATIVE) RSV (PCR) (NEGATIVE) SARS-CoV-2 (PCR) (NEGATIVE) Accuchecks Date 02/03/23 Time 07:02 - Radiology Impressions Radiology Exams & Impressions: Radiology Procedures Category Date Time Status CHEST WITH CONTRAST [CT] Stat Exams 02/02/23 17:50 Taken - Other Procedures and Tests Respiratory Therapy 02/02/23 21:22 Respiratory Therapy Assessment DAILY 02/03/23 01:06 Oxygen Nasal Cannula 2 lpm Assessment/Plan (1) Bilateral pneumonia Current Visit: Yes Status: Acute Qualifiers: Pneumonia type: due to unspecified organism Lung location: unspecified part of lung Qualified Code(s): J18.9 - Pneumonia, unspecified organism Assessment & Plan: continue azactam and zithromax, consult pulm and see if we can obtain a sputum culture. Code(s): J18.9 - PNEUMONIA, UNSPECIFIED ORGANISM (2) Respiratory failure Current Visit: Yes Status: Acute Qualifiers: Chronicity: acute Respiratory failure complication: hypoxia Qualified Code(s): J96.01 - Acute respiratory failure with hypoxia Assessment & Plan: started on IV steroids in ER, will follow Code(s): J96.90 - RESPIRATORY FAILURE, UNSP, UNSP W HYPOXIA OR HYPERCAPNIA (3) Diabetes mellitus type 2 in obese Current Visit: No Status: Chronic Assessment & Plan: sliding scale insulin coverage Code(s): E11.69 - TYPE 2 DIABETES MELLITUS WITH OTHER SPECIFIED COMPLICATION; E66.9 - OBESITY, UNSPECIFIED
[2023-02-03] MEDS: PROTONIX 40 MG IV IV SCH (09:55)
[2023-02-03] MEDS: ENOXAPARIN SODIUM SQ SCH (09:55)
[2023-02-03] MEDS: solu-MEDROL 60 MG, Sterile H2O 10 ml 1 ML IV SCH ×4 (11:12→17:02)
[2023-02-03] MEDS: Tessalon Perles 100 MG PO PRN ×2 (12:14→22:16)
--- NOTE | 2023-02-03 12:44 | CONS ---
CONSULT DATE: 02/03/2023 HISTORY: Margarette Chavez is a 57-year-old woman, well known to me, with history of asthma, who was recently treated for bilateral pneumonia and hypoxic respiratory failure has been readmitted through the emergency room. The patient started feeling sick this morning and came to the emergency room. Her CT chest did show bilateral lower lobe infiltrate suggestive of pneumonia. The patient has been started on Azactam and Zithromax. In addition, she was continued on bronchodilators and other supportive therapy. At the time of my evaluation, the patient does report feeling somewhat better. She has cough which has been largely nonproductive. She denies any chest pain. PAST MEDICAL HISTORY: Positive for recent history of bilateral pneumonia, hypoxic respiratory failure, history of bronchial asthma and obstructive airway disease and diabetes mellitus. PAST SURGICAL HISTORY: No recent surgery. PERSONAL AND SOCIAL HISTORY: She is a nonsmoker. MEDICATIONS: Home and current medications are reviewed. ALLERGIES: PENICILLIN. PHYSICAL EXAMINATION: This is a middle aged woman who appears comfortable. Vital signs noted. HEENT: Normocephalic. Oral exam showed small oropharynx. NECK: Supple. CVS: First and second heart sounds are normal, regular, rhythmic. RESPIRATORY: Shows diminished breath sounds, bilateral rhonchi are heard. ABDOMEN: Obese. EXTREMITIES: No edema is noted. LABORATORY DATA AND TESTS: Labs, x-rays, CT's were all reviewed. ASSESSMENT: This is a 57-year-old woman admitted with: 1) Recurrent bilateral lower lobe pneumonia. 2) Bronchial asthma with exacerbation. 3) Hypoxemia. 4) Diabetes mellitus. RECOMMENDATIONS: 1) The patient has been started on broad spectrum antibiotics. 2) Continue bronchodilator, steroids and other supportive care. 3) Will obtain immunoglobulin level as well as PET scan as outpatient followed by possible bronchoscopy to investigate cause of recurrent pneumonia. Discussed the plan with the patient. All questions answered. Thank you for allowing me to participate in the care of your patient.
--- NOTE | 2023-02-03 15:07 | XRAY ---
Indication: Short of breath. Pulmonary embolus. Pneumonia. Multiple contiguous axial images obtained through the chest using 100 cc Isovue 370 contrast and PE protocol. Comparison: January 10, 2023 Adequate opacification of the pulmonary arteries. However mild diffuse respiration artifact limits evaluation for pulmonary embolus. No obvious central pulmonary embolus. Heart not enlarged. Aorta remains normal in course and caliber. Stable small nonpathologic mediastinal nodes and tiny right hilar calcified nodes. Examination of the lung parenchyma again demonstrates moderate bilateral mid to lower lung consolidating/nonconsolidating airspace disease again right lung greater than left minimally improved. There remains mild right effusion also minimally improved. Bony thorax intact again with mild degenerative changes throughout the spine. Limited upper abdomen again demonstrates fatty liver and 13.5 cm splenomegaly. Impression: 1. Pulmonary embolus evaluation limited by respiration artifact. Again no obvious pulmonary embolus. 2. Again bilateral consolidating/nonconsolidating airspace disease with right effusion minimally improved. 3. Again incidental fatty liver, splenomegaly, chronic bony findings, and old granulomas disease.
[2023-02-03] MEDS: Zithromax 500 MG/ 250 ML NaCl Premix 500 MG/250 ML IVPB IV SCH (21:23)
[2023-02-04] MEDS: solu-MEDROL 60 MG, Sterile H2O 10 ml 1 ML IV SCH ×8 (00:16→17:39)
[2023-02-04] MEDS: DUONEB 0.5-3 MG/3 ml Neb IH SCH ×4 (00:24→18:35)
[2023-02-04 05:07] LABS: Absolute Neutrophil Ct (ANC) 9.26 x10^3/uL (1.4-6.9); BASOPHIL % 0.3 % (0.0-0.4); Basophil (Absolute #) 0.03 x10^3/uL (0-0.4); Eosinophil (Absolute #) 0 x10^3/uL (0-0.5); Hematocrit 35.2 % (35-47); Hemoglobin 10.7 g/dL (12.0-16.0); IMMATURE GRAN # 0.36 x10^3u/L (0.00-0.03); IMMATURE GRAN % 3.3 % (0.00-0.4); Lymphocyte (Absolute #) 0.73 x10^3/uL (1.0-4.6); Lymphocytes % 6.7 % (24.0-44.0); Mean Cell Volume 92.4 fL (78-100); Mean Corpuscular Hemoglobin 28.1 pg (26-32); Mean Corpuscular Hgb Concent. 30.4 g/dL (32-36); Mean Platelet Volume 10.4 fL (7.5-11.0); Monocyte (Absolute #) 0.54 x10^3/uL (0.0-1.3); Monocytes % 4.9 % (0.0-12.0); Neutrophil % 84.8 % (36.0-66.0); Platelet Count 295 x10^3/uL (150-450); Red Blood Count 3.81 x10^6/uL (4.1-5.4); Red Cell Distribution Width 13.7 % (11.5-14.0); White Blood Count 10.9 x10^3/uL (4.0-10.5)
[2023-02-04] MEDS: Advair Hfa 115/21 Common canister IH SCH ×2 (05:14→18:49)
[2023-02-04] MEDS ORDERED: Sodium Chloride 0.9% 0 ML ONE (05:28)
[2023-02-04 05:37] LABS: ALBUMIN 3.6 g/dL (3.5-5.0); ALKALINE PHOSPHATASE 58 U/L (38-126); ANION GAP 12.6 MEQ/L (5-15); BLOOD UREA NITROGEN 13 mg/dL (7-17); CHLORIDE 100 mmol/L (98-107); Calcium 8.8 mg/dL (8.4-10.2); Carbon Dioxide 31 mmol/L (22-30); Creatinine 1 0.58 mg/dL (0.52-1.04); EST GLOMERULAR FILTRATION RATE > 60.0 ML/MIN; Glucose 343 mg/dL (74-106); Potassium 4.2 mmol/L (3.5-5.1); SGOT/AST 25 U/L (14-36); SGPT/ALT 54 U/L (0-35); SODIUM 139 mmol/L (137-145); Total Protein 7.8 g/dL (6.3-8.2)
[2023-02-04] MEDS: AZACTAM 1 GM*** 2 GM in Sodium Chloride 0.9% 100 ML IV SCH ×3 (06:12→23:48)
[2023-02-04] MEDS: Tessalon Perles 100 MG PO PRN ×3 (06:14→22:10)
--- NOTE | 2023-02-04 08:48 | PCM.NOTE ---
Date and Time: 02/04/23 0846 Subjective Assessment: patient notes some improvement in her breathing, feels like she is doing better. Objective Exam General Appearance: no apparent distress Neurologic Exam: alert, oriented x 3 Respiratory Exam: prolonged expirations, wheezing Cardiovascular Exam: regular rate/rhythm, normal heart sounds Gastrointestinal/Abdomen Exam: soft, No tenderness, No mass Extremity Exam: normal inspection, normal range of motion OBJECTIVE DATA Vital Signs: Vital Signs - 24 hr Temp Pulse Resp BP Pulse Ox 02/04/23 07:19 97.0 F 88 18 133/71 90 L 02/04/23 05:16 85 18 94 L 02/04/23 04:00 97.9 F 75 19 131/87 96 02/04/23 00:25 63 20 97 02/03/23 23:43 96.9 F 69 19 136/65 94 L 02/03/23 19:47 97.5 F 85 19 126/74 93 L 02/03/23 19:10 85 16 94 L 02/03/23 16:00 97.3 F 86 18 141/78 95 02/03/23 13:18 78 16 92 L 02/03/23 11:44 97.0 F 79 18 137/60 95 Pain Assessment - Last Documented Pain Intensity 0 Pain Scale Used 0-10 Pain Scale Intake and Output: Intake & Output 02/01/23 02/02/23 02/03/23 02/04/23 11:59 11:59 11:59 11:59 Intake Total 360 1440 Balance 360 1440 Weight 100.3 kg 100.3 kg Lab Results: Lab Results-Last 24 Hours 02/03/23 02/03/23 02/03/23 Range/Units 11:39 16:37 20:47 WBC (4.0-10.5) x10^3/uL RBC (4.1-5.4) x10^6/uL Hgb (12.0-16.0) g/dL Hct (35-47) % MCV (78-100) fL MCH (26-32) pg MCHC (32-36) g/dL RDW (11.5-14.0) % Plt Count (150-450) x10^3/uL MPV (7.5-11.0) fL Gran % (36.0-66.0) % Immature Gran % (Auto) (0.00-0.4) % Nucleat RBC Rel Count (0.00-0.1) % Eos # (Auto) (0-0.5) x10^3/uL Immature Gran # (Auto) (0.00-0.03) x10^3u/L Absolute Lymphs (auto) (1.0-4.6) x10^3/uL Absolute Monos (auto) (0.0-1.3) x10^3/uL Absolute Nucleated RBC (0.00-0.01) x10^3u/L Lymphocytes % (24.0-44.0) % Monocytes % (0.0-12.0) % Eosinophils % (0.00-5.0) % Basophils % (0.0-0.4) % Absolute Granulocytes (1.4-6.9) x10^3/uL Basophils # (0-0.4) x10^3/uL Sodium (137-145) mmol/L Potassium (3.5-5.1) mmol/L Chloride (98-107) mmol/L Carbon Dioxide (22-30) mmol/L Anion Gap (5-15) MEQ/L BUN (7-17) mg/dL Creatinine (0.52-1.04) mg/dL Estimated GFR ML/MIN Glucose (74-106) mg/dL POC Glucometer 368 H 419 H 367 H (74 to 106) mg/dL Calcium (8.4-10.2) mg/dL Total Bilirubin (0.2-1.3) mg/dL AST (14-36) U/L ALT (0-35) U/L Alkaline Phosphatase (38-126) U/L Serum Total Protein (6.3-8.2) g/dL Albumin (3.5-5.0) g/dL 02/04/23 02/04/23 02/04/23 Range/Units 04:55 04:55 06:54 WBC 10.9 H (4.0-10.5) x10^3/uL RBC 3.81 L (4.1-5.4) x10^6/uL Hgb 10.7 L (12.0-16.0) g/dL Hct 35.2 (35-47) % MCV 92.4 (78-100) fL MCH 28.1 (26-32) pg MCHC 30.4 L (32-36) g/dL RDW 13.7 (11.5-14.0) % Plt Count 295 (150-450) x10^3/uL MPV 10.4 (7.5-11.0) fL Gran % 84.8 H (36.0-66.0) % Immature Gran % (Auto) 3.3 H (0.00-0.4) % Nucleat RBC Rel Count 0.0 (0.00-0.1) % Eos # (Auto) 0 (0-0.5) x10^3/uL Immature Gran # (Auto) 0.36 H (0.00-0.03) x10^3u/L Absolute Lymphs (auto) 0.73 L (1.0-4.6) x10^3/uL Absolute Monos (auto) 0.54 (0.0-1.3) x10^3/uL Absolute Nucleated RBC 0.00 (0.00-0.01) x10^3u/L Lymphocytes % 6.7 L (24.0-44.0) % Monocytes % 4.9 (0.0-12.0) % Eosinophils % 0.0 (0.00-5.0) % Basophils % 0.3 (0.0-0.4) % Absolute Granulocytes 9.26 H (1.4-6.9) x10^3/uL Basophils # 0.03 (0-0.4) x10^3/uL Sodium 139 (137-145) mmol/L Potassium 4.2 (3.5-5.1) mmol/L Chloride 100 (98-107) mmol/L Carbon Dioxide 31 H (22-30) mmol/L Anion Gap 12.6 (5-15) MEQ/L BUN 13 (7-17) mg/dL Creatinine 0.58 (0.52-1.04) mg/dL Estimated GFR > 60.0 ML/MIN Glucose 343 H (74-106) mg/dL POC Glucometer 314 H (74 to 106) mg/dL Calcium 8.8 (8.4-10.2) mg/dL Total Bilirubin 0.40 (0.2-1.3) mg/dL AST 25 (14-36) U/L ALT 54 H (0-35) U/L Alkaline Phosphatase 58 (38-126) U/L Serum Total Protein 7.8 (6.3-8.2) g/dL Albumin 3.6 (3.5-5.0) g/dL Radiology Exams: Radiology Procedures Category Date Time Status CHEST WITH CONTRAST [CT] Stat Exams 02/02/23 17:50 Completed Assessment/Plan (1) Bilateral pneumonia Current Visit: Yes Status: Acute Qualifiers: Pneumonia type: due to unspecified organism Lung location: unspecified part of lung Qualified Code(s): J18.9 - Pneumonia, unspecified organism Assessment & Plan: continue azactam and zithromax, clinically improving. Code(s): J18.9 - PNEUMONIA, UNSPECIFIED ORGANISM (2) Acute exacerbation of chronic obstructive airways disease Current Visit: No Status: Acute Assessment & Plan: continue IV solu medrol 60mg iv q6 hrs at this time, currently on 2L oxygen and stable, improving clinically. Code(s): J44.1 - CHRONIC OBSTRUCTIVE PULMONARY DISEASE W (ACUTE) EXACERBATION (3) Respiratory failure Current Visit: Yes Status: Acute Qualifiers: Chronicity: acute Respiratory failure complication: hypoxia Qualified Code(s): J96.01 - Acute respiratory failure with hypoxia Code(s): J96.90 - RESPIRATORY FAILURE, UNSP, UNSP W HYPOXIA OR HYPERCAPNIA (4) Diabetes mellitus type 2 in obese Current Visit: No Status: Chronic Code(s): E11.69 - TYPE 2 DIABETES MELLITUS WITH OTHER SPECIFIED COMPLICATION; E66.9 - OBESITY, UNSPECIFIED
[2023-02-04] MEDS: PROTONIX 40 MG IV IV SCH (11:17)
[2023-02-04] MEDS: ENOXAPARIN SODIUM SQ SCH (11:24)
[2023-02-04] MEDS: HUMALOG SQ PRN ×3 (12:02→22:09)
[2023-02-04] MEDS ORDERED: solu-MEDROL ONE (17:05)
[2023-02-04] MEDS ORDERED: Sodium Chloride 3 ML UD NEBULES IH ONE (18:40)
[2023-02-04] MEDS: Zithromax 500 MG/ 250 ML NaCl Premix 500 MG/250 ML IVPB IV SCH (22:10)
[2023-02-05] MEDS: solu-MEDROL 60 MG, Sterile H2O 10 ml 1 ML IV SCH ×10 (00:23→23:53)
[2023-02-05] MEDS: DUONEB 0.5-3 MG/3 ml Neb IH SCH ×4 (00:57→19:30)
[2023-02-05] MEDS: Tessalon Perles 100 MG PO PRN ×3 (03:53→21:33)
[2023-02-05 06:00] LABS: Hematocrit 34.4 % (35-47); Hemoglobin 10.6 g/dL (12.0-16.0); Mean Cell Volume 92.5 fL (78-100); Mean Corpuscular Hemoglobin 28.5 pg (26-32); Mean Corpuscular Hgb Concent. 30.8 g/dL (32-36); Mean Platelet Volume 10.9 fL (7.5-11.0); Platelet Count 277 x10^3/uL (150-450); Red Blood Count 3.72 x10^6/uL (4.1-5.4); Red Cell Distribution Width 13.8 % (11.5-14.0); White Blood Count 15.5 x10^3/uL (4.0-10.5)
[2023-02-05 06:25] LABS: ANION GAP 10.8 MEQ/L (5-15); BLOOD UREA NITROGEN 23 mg/dL (7-17); CHLORIDE 100 mmol/L (98-107); Calcium 8.5 mg/dL (8.4-10.2); Carbon Dioxide 31 mmol/L (22-30); Creatinine 1 0.61 mg/dL (0.52-1.04); EST GLOMERULAR FILTRATION RATE > 60.0 ML/MIN; Glucose 375 mg/dL (74-106); Potassium 4.6 mmol/L (3.5-5.1); SODIUM 137 mmol/L (137-145)
[2023-02-05 07:00] LABS: BAND 5 % (0.0-2.0); Lymphocytes 5 % (24-44); Monocyte 4 % (0.0-12.0); Neutrophils 86 % (36.0-66.0); Total Cells Counted 100
[2023-02-05 07:01] LABS: Platelet Estimate NORMAL (NORMAL)
[2023-02-05] MEDS: Advair Hfa 115/21 Common canister IH SCH ×2 (07:28→19:31)
[2023-02-05] MEDS: HUMALOG SQ PRN ×4 (08:32→21:47)
[2023-02-05] MEDS: ENOXAPARIN SODIUM SQ SCH (08:32)
[2023-02-05] MEDS: AZACTAM 1 GM*** 2 GM in Sodium Chloride 0.9% 100 ML IV SCH (08:32)
[2023-02-05] MEDS: PROTONIX 40 MG IV IV SCH (08:32)
--- NOTE | 2023-02-05 08:48 | PCM.NOTE ---
Date and Time: 02/05/23846 Subjective Assessment: last 24 hours events noted - Review of Systems Constitutional: No Fever, No Chills Eyes: No Symptoms Ears, Nose, & Throat: No Symptoms Respiratory: No Cough, No Short Of Breath Cardiac: No Chest Pain, No Edema, No Syncope Abdominal/Gastrointestinal: No Abdominal Pain, No Nausea, No Vomiting, No Diarrhea Genitourinary Symptoms: No Dysuria Musculoskeletal: No Back Pain, No Neck Pain Skin: No Rash Neurological: No Dizziness, No Focal Weakness, No Sensory Changes Psychological: No Symptoms Endocrine: No Symptoms Hematologic/Lymphatic: No Symptoms Immunological/Allergic: No Symptoms Objective Exam General Appearance: no apparent distress, alert Neurologic Exam: alert, oriented x 3, cooperative, normal mood/affect, nml cerebellar function, sensation nml, No motor deficits Skin Exam: normal color, warm, dry Eye Exam: PERRL, EOMI, eyes nml inspection Ears, Nose, Throat Exam: normal ENT inspection, pharynx normal, moist mucous membranes Neck Exam: normal inspection, non-tender, supple, full range of motion Respiratory Exam: normal breath sounds, lungs clear, No respiratory distress Cardiovascular Exam: regular rate/rhythm, normal heart sounds Gastrointestinal/Abdomen Exam: soft, No tenderness, No mass Extremity Exam: normal inspection, normal range of motion Back Exam: normal inspection, normal range of motion, No CVA tenderness, No vertebral tenderness Pelvic Exam: deferred Rectal Exam: deferred OBJECTIVE DATA Vital Signs: Vital Signs - 24 hr Temp Pulse Resp BP Pulse Ox 02/05/23 08:00 97.1 F 75 20 160/86 93 L 02/05/23 07:31 77 18 95 02/05/23 04:00 97.6 F 88 24 128/75 94 L 02/05/23 00:57 71 18 97 02/04/23 23:34 97.7 F 77 24 118/74 95 02/04/23 19:49 97.3 F 88 26 H 127/68 95 02/04/23 18:35 77 22 93 L 02/04/23 16:00 97.1 F 88 18 138/88 95 02/04/23 13:25 84 18 94 L 02/04/23 11:48 97.3 F 72 18 142/85 94 L Pain Assessment - Last Documented Pain Intensity 0 Pain Scale Used 0-10 Pain Scale Intake and Output: Intake & Output 02/02/23 02/03/23 02/04/23 02/05/23 11:59 11:59 11:59 11:59 Intake Total 360 1920 2770 Balance 360 192 2770 Weight 100.3 kg 100.3 kg 100.3 kg Lab Results: Lab Results-Last 24 Hours 02/04/23 02/04/23 02/05/23 Range/Units 16:14 21:10 05:42 WBC 15.5 H (4.0-10.5) x10^3/uL RBC 3.72 L (4.1-5.4) x10^6/uL Hgb 10.6 L (12.0-16.0) g/dL Hct 34.4 L (35-47) % MCV 92.5 (78-100) fL MCH 28.5 (26-32) pg MCHC 30.8 L (32-36) g/dL RDW 13.8 (11.5-14.0) % Plt Count 277 (150-450) x10^3/uL MPV 10.9 (7.5-11.0) fL Segmented Neutrophils 86 H (36.0-66.0) % Band Neutrophils 5 H (0.0-2.0) % Lymphocytes (Manual) 5 L (24-44) % Monocytes (Manual) 4 (0.0-12.0) % Platelet Estimate NORMAL (NORMAL) RBC Morphology NORMAL Sodium (137-145) mmol/L Potassium (3.5-5.1) mmol/L Chloride (98-107) mmol/L Carbon Dioxide (22-30) mmol/L Anion Gap (5-15) MEQ/L BUN (7-17) mg/dL Creatinine (0.52-1.04) mg/dL Estimated GFR ML/MIN Glucose (74-106) mg/dL POC Glucometer 429 H 361 H (74 to 106) mg/dL Calcium (8.4-10.2) mg/dL 02/05/23 02/05/23 Range/Units 05:42 07:52 WBC (4.0-10.5) x10^3/uL RBC (4.1-5.4) x10^6/uL Hgb (12.0-16.0) g/dL Hct (35-47) % MCV (78-100) fL MCH (26-32) pg MCHC (32-36) g/dL RDW (11.5-14.0) % Plt Count (150-450) x10^3/uL MPV (7.5-11.0) fL Segmented Neutrophils (36.0-66.0) % Band Neutrophils (0.0-2.0) % Lymphocytes (Manual) (24-44) % Monocytes (Manual) (0.0-12.0) % Platelet Estimate (NORMAL) RBC Morphology Sodium 137 (137-145) mmol/L Potassium 4.6 (3.5-5.1) mmol/L Chloride 100 (98-107) mmol/L Carbon Dioxide 31 H (22-30) mmol/L Anion Gap 10.8 (5-15) MEQ/L BUN 23 H (7-17) mg/dL Creatinine 0.61 (0.52-1.04) mg/dL Estimated GFR > 60.0 ML/MIN Glucose 375 H (74-106) mg/dL POC Glucometer 350 H (74 to 106) mg/dL Calcium 8.5 (8.4-10.2) mg/dL Multi-Disciplinary Progress Notes: Multi-Disciplinary Progress Notes 02/04/23 11:16 Case Management Note by Isabella Marlow S/W PATIENT- SHE CONTINUES TO DENY ANY NEW NEEDS AT TIME OF DC. PATIENT C URRENTLY ON 2L/NC. OXYGEN ORDER FORM PLACED ON CHART FOR WEEKEND IN CASE PATIENT NEEDS HOME OXYGEN ORDERED AT TIME OF DC. OTHERWISE- PATIENT PLANS TO RETURN HOME TO HER PLF AT TIME OF DC Initialized on 02/04/23 11:16 - END OF NOTE Assessment/Plan (1) Bilateral pneumonia Current Visit: Yes Status: Acute Qualifiers: Pneumonia type: due to unspecified organism Lung location: lower lobe of lung Qualified Code(s): J18.9 - Pneumonia, unspecified organism Assessment & Plan: Chief Complaint Diagnosis Bilateral pneumonia Allergies Allergy/AdvReac Type Severity Reaction Status Date / Time Penicillins Allergy Unknown Verified 02/02/23 17:23 Vital Signs (Last 24 hours) Temp Pulse Resp BP Pulse Ox 02/05/23 08:00 97.1 F 75 20 160/86 93 L 02/05/23 07:31 77 18 95 02/05/23 04:00 97.6 F 88 24 128/75 94 L 02/05/23 00:57 71 18 97 02/04/23 23:34 97.7 F 77 24 118/74 95 02/04/23 19:49 97.3 F 88 26 H 127/68 95 02/04/23 18:35 77 22 93 L 02/04/23 16:00 97.1 F 88 18 138/88 95 02/04/23 13:25 84 18 94 L 02/04/23 11:48 97.3 F 72 18 142/85 94 L Current Medications Generic Name Dose Route Start Last Admin Trade Name Freq PRN Reason Stop Dose Admin Albuterol/Ipratropium 3 ml 02/03/23 01:00 02/05/23 07:27 Ipratropium/Albuterol Sulfate 3 Ml Ampul.Neb IH 03/05/23 00:59 3 ml Q6HRT CAMI Administration Benzonatate 100 mg 02/03/23 09:49 02/05/23 03:53 Benzonatate 100 Mg Capsule PO 03/05/23 09:48 100 mg Q6H PRN PRN Administration COUGH Methylprednisolone Sodium 0 mg 02/03/23 12:00 02/05/23 05:43 Succinate 60 mg/ Sterile Water IV 03/05/23 11:59 60 mg 1 ml Q6HT CAMI Administration Enoxaparin Sodium 40 mg 02/03/23 10:00 02/05/23 08:32 Enoxaparin Sodium 40 Mg/0.4 Ml Syringe SQ 03/05/23 09:59 40 mg DAILY CAMI Administration Azithromycin 500 mg in 250 mls @ 250 mls/hr 02/03/23 22:00 02/04/23 22:10 Zithromax 500 Mg/ 250 Ml Nacl Premix IV 03/05/23 21:59 250 mls/hr Q24H22 CAMI Administration Aztreonam 2 gm/ Sodium 100 mls @ 200 mls/hr 02/02/23 22:39 02/05/23 08:32 Chloride IV 02/05/23 22:38 200 mls/hr Q8HT CAMI Administration Insulin Human Lispro 0 unit 02/02/23 22:39 02/05/23 08:32 Insulin Lispro 1 Unit SQ 03/04/23 22:38 6 unit UD PRN Administration HYPERGLYCEMIA Ondansetron HCl 4 mg 05/17/23 22:39 Ondansetron Hcl 4 Mg/2 Ml Vial IV 03/04/23 22:38 Q6H PRN PRN NAUSEA/VOMITING Pantoprazole Sodium 40 mg 02/03/23 10:00 02/05/23 08:32 Pantoprazole 40 Mg Vial IV 03/05/23 09:59 40 mg Q24H10 CAMI Administration Fluticasone/Salmeterol 2 puff 02/03/23 07:00 02/05/23 07:28 Fluticasone/Salmeterol 115/21 - 120 Puff Common Canister IH 03/05/23 06:59 2 puff BIDRT CAMI Administration Discontinued Medications Generic Name Dose Route Start Last Admin Trade Name Freq PRN Reason Stop Dose Admin Acetaminophen 1,000 mg 02/02/23 18:01 02/02/23 18:11 Acetaminophen 500 Mg Tablet PO 02/02/23 18:02 1,000 mg STAT ONE Administration Acetaminophen Confirm 02/02/23 18:06 Acetaminophen 500 Mg Tablet Administered 02/02/23 18:07 Dose 1,000 mg .ROUTE .STK-MED ONE Albuterol/Ipratropium 3 ml 02/02/23 20:57 02/02/23 21:10 Ipratropium/Albuterol Sulfate 3 Ml Ampul.Neb IH 02/02/23 20:58 3 ml STAT ONE Administration Albuterol/Ipratropium Confirm 02/02/23 21:07 Ipratropium/Albuterol Sulfate 3 Ml Ampul.Neb Administered 02/02/23 21:08 Dose 3 ml IH .STK-MED ONE Aztreonam Confirm 02/03/23 05:13 Aztreonam 1 Gm Vial Administered 02/03/23 05:14 Dose 1 gm .ROUTE .STK-MED ONE Benzonatate 100 mg 02/03/23 01:35 02/03/23 06:19 Benzonatate 100 Mg Capsule PO 03/05/23 01:34 100 mg TID PRN PRN Administration COUGH Methylprednisolone Sodium 0 mg 02/02/23 20:57 02/02/23 21:42 Succinate 125 mg/ Sterile IV 02/02/23 20:58 125 mg Water 2 ml STAT ONE Administration Methylprednisolone Sodium 0 mg 02/03/23 00:00 02/03/23 06:09 Succinate 60 mg/ Sterile Water IV 03/05/23 00:00 60 mg 2 ml Q6HT CAMI Administration Azithromycin 500 mg in 250 mls @ 250 mls/hr 02/02/23 20:36 02/02/23 21:41 Zithromax 500 Mg/ 250 Ml Nacl Premix IV 02/02/23 21:35 250 mls/hr STAT STA 250 mls/hr Administration Aztreonam 2 gm/ Sodium 100 mls @ 200 mls/hr 02/02/23 20:38 02/02/23 20:51 Chloride IV 02/02/23 21:07 200 mls/hr STAT ONE Administration Azithromycin Confirm 02/02/23 21:39 Zithromax 500 Mg/ 250 Ml Nacl Premix Administered 02/02/23 21:40 Dose 500 mg in 250 mls @ ud IV .STK-MED ONE Dextrose Confirm 02/03/23 05:13 D5w 100ml Mini Bag 100 Ml Administered 02/03/23 05:14 Dose 100 mls @ ud IV .STK-MED ONE Sodium Chloride Confirm 02/04/23 05:28 Sodium Chloride 0.9% Administered 02/04/23 05:29 Dose 100 mls @ ud .ROUTE .STK-MED ONE Methylprednisolone Sodium Succinate Confirm 02/02/23 21:39 Methylprednis Sod Succ 125 Mg/2 Ml Vial Administered 02/02/23 21:40 Dose 125 mg .ROUTE .STK-MED ONE Methylprednisolone Sodium Succinate Confirm 02/03/23 05:16 Methylprednis Sod Succ 125 Mg/2 Ml Vial Administered 02/03/23 05:17 Dose 125 mg .ROUTE .STK-MED ONE Methylprednisolone Sodium Succinate Confirm 02/04/23 17:05 Methylprednisolone Sod Suc 40m 40 Mg/Ml Vial Administered 02/04/23 17:06 Dose 80 mg .ROUTE .STK-MED ONE Sodium Chloride Confirm 02/04/23 18:40 Sodium Cl For Inhalation 3 Ml Ud Nebule Administered 02/04/23 18:41 Dose 6 ml IH .STK-MED ONE Sterile Water Confirm 02/02/23 21:39 Water For Injection,Sterile 10 Ml Vial Administered 02/02/23 21:40 Dose 10 ml IJ .STK-MED ONE Sterile Water Confirm 02/03/23 05:16 Water For Injection,Sterile 10 Ml Vial Administered 02/03/23 05:17 Dose 10 ml IJ .STK-MED ONE Intake & Output (Last 24 hours) 02/02/23 02/03/23 02/04/23 02/05/23 11:59 11:59 11:59 11:59 Intake Total 360 1920 2770 Balance 360 1919 2770 Weight 100.3 kg 100.3 kg 100.3 kg Microbiology Results (Last 24 hours) 02/02/23 04:00 Blood Blood Culture - Preliminary NO GROWTH TO DATE 02/02/23 20:56 Blood Blood Culture - Preliminary Laboratory Results (Last 24 hours) 02/05/23 02/05/23 02/05/23 07:52 05:42 05:42 WBC 15.5 H RBC 3.72 L Hgb 10.6 L Hct 34.4 L MCV 92.5 MCH 28.5 MCHC 30.8 L RDW 13.8 Plt Count 277 MPV 10.9 Segmented Neutrophils 86 H Band Neutrophils 5 H Lymphocytes (Manual) 5 L Monocytes (Manual) 4 Platelet Estimate NORMAL RBC Morphology NORMAL Sodium 137 Potassium 4.6 Chloride 100 Carbon Dioxide 31 H Anion Gap 10.8 BUN 23 H Creatinine 0.61 Estimated GFR > 60.0 Glucose 375 H POC Glucometer 350 H Calcium 8.5 02/04/23 02/04/23 21:10 16:14 WBC RBC Hgb Hct MCV MCH MCHC RDW Plt Count MPV Segmented Neutrophils Band Neutrophils Lymphocytes (Manual) Monocytes (Manual) Platelet Estimate RBC Morphology Sodium Potassium Chloride Carbon Dioxide Anion Gap BUN Creatinine Estimated GFR Glucose POC Glucometer 361 H 429 H Calcium Orders (Last 24 hours) Category Date Time Status BMP AM.LAB Lab 02/05/23 05:42 Completed CBC W DIFF AM.LAB Lab 02/05/23 05:42 Completed Manual Differential NC Routine Lab 02/05/23 05:42 Completed POCT GLUCOSE Stat Lab 02/04/23 16:14 Completed POCT GLUCOSE Stat Lab 02/04/23 21:10 Completed POCT GLUCOSE Stat Lab 02/05/23 07:52 Completed PROCALCITONIN Urgent Lab 02/05/23 05:42 Received Methylprednisolone Sod Suc 40M [[id number]] Med 02/04/23 17:05 Discontinued 80 mg .ROUTE .STK-MED ONE NaCl 3Ml For Inhalation [Sodium Chloride 3 ML UD Med 02/04/23 18:40 Discontinued NEBULES] 6 ml IH .STK-MED ONE Patient Care Notes (Last 24 hours) 02/04/23 11:16 Case Management Note by Isabella Marlow S/W PATIENT- SHE CONTINUES TO DENY ANY NEW NEEDS AT TIME OF DC. PATIENT CURRENTLY ON 2L/NC. OXYGEN ORDER FORM PLACED ON CHART FOR WEEKEND IN CASE PATIENT NEEDS HOME OXYGEN ORDERED AT TIME OF DC. OTHERWISE- PATIENT PLANS TO RETURN HOME TO HER PLF AT TIME OF DC Initialized on 02/04/23 11:16 - END OF NOTE Code(s): J18.9 - PNEUMONIA, UNSPECIFIED ORGANISM (2) Acute exacerbation of chronic obstructive airways disease Current Visit: No Status: Acute Code(s): J44.1 - CHRONIC OBSTRUCTIVE PULMONARY DISEASE W (ACUTE) EXACERBATION
[2023-02-05 09:09] LABS: Immunoglobulin A, Qn 399 mg/dL (87-352); Immunoglobulin G, Qn 1199 mg/dL (586-1602)
[2023-02-05 11:05] LABS: HIV Screen 4th Generation wRfx Non Reactive (Non Reactive); Immunoglobulin M, Qn 136 mg/dL (26-217)
[2023-02-05] MEDS: Glucophage 500 MG PO SCH (16:02)
[2023-02-05] MEDS: Zithromax 500 MG/ 250 ML NaCl Premix 500 MG/250 ML IVPB IV SCH (21:33)
[2023-02-06] MEDS: DUONEB 0.5-3 MG/3 ml Neb IH SCH ×3 (00:07→19:22)
[2023-02-06] MEDS: Tessalon Perles 100 MG PO PRN ×4 (03:07→23:41)
[2023-02-06] MEDS: solu-MEDROL 60 MG, Sterile H2O 10 ml 1 ML IV SCH ×8 (05:51→23:41)
[2023-02-06 05:54] LABS: Hematocrit 34.9 % (35-47); Hemoglobin 10.9 g/dL (12.0-16.0); Mean Cell Volume 91.1 fL (78-100); Mean Corpuscular Hemoglobin 28.5 pg (26-32); Mean Corpuscular Hgb Concent. 31.2 g/dL (32-36); Mean Platelet Volume 10.7 fL (7.5-11.0); Platelet Count 295 x10^3/uL (150-450); Red Blood Count 3.83 x10^6/uL (4.1-5.4); White Blood Count 17.1 x10^3/uL (4.0-10.5)
[2023-02-06 06:04] LABS: ALBUMIN 3.5 g/dL (3.5-5.0); ALKALINE PHOSPHATASE 60 U/L (38-126); ANION GAP 12.3 MEQ/L (5-15); BLOOD UREA NITROGEN 22 mg/dL (7-17); CHLORIDE 99 mmol/L (98-107); Calcium 8.8 mg/dL (8.4-10.2); Carbon Dioxide 32 mmol/L (22-30); Creatinine 1 0.62 mg/dL (0.52-1.04); EST GLOMERULAR FILTRATION RATE > 60.0 ML/MIN; Glucose 353 mg/dL (74-106); Potassium 4.4 mmol/L (3.5-5.1); SGOT/AST 19 U/L (14-36); SGPT/ALT 38 U/L (0-35); SODIUM 139 mmol/L (137-145); Total Protein 7.5 g/dL (6.3-8.2)
[2023-02-06] MEDS: Advair Hfa 115/21 Common canister IH SCH ×2 (08:12→19:22)
--- NOTE | 2023-02-06 08:17 | PCM.NOTE ---
Date and Time: 02/06/23814 Subjective Assessment: doing better, last 24 hours events noted. - Review of Systems Constitutional: No Fever, No Chills Eyes: No Symptoms Ears, Nose, & Throat: No Symptoms Respiratory: No Cough, No Short Of Breath Cardiac: No Chest Pain, No Edema, No Syncope Abdominal/Gastrointestinal: No Abdominal Pain, No Nausea, No Vomiting, No Diarrhea Genitourinary Symptoms: No Dysuria Musculoskeletal: No Back Pain, No Neck Pain Skin: No Rash Neurological: No Dizziness, No Focal Weakness, No Sensory Changes Psychological: No Symptoms Endocrine: No Symptoms Hematologic/Lymphatic: No Symptoms Immunological/Allergic: No Symptoms Objective Exam General Appearance: no apparent distress, alert Neurologic Exam: alert, oriented x 3, cooperative, normal mood/affect, nml cerebellar function, sensation nml, No motor deficits Skin Exam: normal color, warm, dry Eye Exam: PERRL, EOMI, eyes nml inspection Ears, Nose, Throat Exam: normal ENT inspection, pharynx normal, moist mucous membranes Neck Exam: normal inspection, non-tender, supple, full range of motion Respiratory Exam: normal breath sounds, lungs clear, No respiratory distress Cardiovascular Exam: regular rate/rhythm, normal heart sounds Gastrointestinal/Abdomen Exam: soft, No tenderness, No mass Extremity Exam: normal inspection, normal range of motion Back Exam: normal inspection, normal range of motion, No CVA tenderness, No vertebral tenderness Pelvic Exam: deferred Rectal Exam: deferred OBJECTIVE DATA Vital Signs: Vital Signs - 24 hr Temp Pulse Resp BP Pulse Ox 02/06/23 07:09 97.8 F 58 L 20 170/76 93 L 02/06/23 03:49 97.2 F 80 24 132/78 93 L 02/06/23 00:08 73 20 97 02/05/23 23:59 97.2 F 77 20 149/85 94 L 02/05/23 19:52 97.1 F 73 20 155/79 95 02/05/23 19:31 73 20 95 02/05/23 16:00 97.5 F 87 20 144/80 94 L 02/05/23 13:22 88 18 95 02/05/23 12:00 97.3 F 89 19 178/89 92 L 02/05/23 09:05 91 L Pain Assessment - Last Documented Pain Intensity 0 Pain Scale Used 0-10 Pain Scale Intake and Output: Intake & Output 02/03/23 02/04/23 02/05/23 02/06/23 11:59 11:59 11:59 11:59 Intake Total 360 1920 3230 1611 Balance 360 1920 3230 1611 Weight 100.3 kg 100.3 kg 100.3 kg 102.9 kg Lab Results: Lab Results-Last 24 Hours 02/04/23 02/05/23 02/05/23 Range/Units 04:55 05:42 12:13 WBC (4.0-10.5) x10^3/uL RBC (4.1-5.4) x10^6/uL Hgb (12.0-16.0) g/dL Hct (35-47) % MCV (78-100) fL MCH (26-32) pg MCHC (32-36) g/dL RDW (11.5-14.0) % Plt Count (150-450) x10^3/uL MPV (7.5-11.0) fL Sodium (137-145) mmol/L Potassium (3.5-5.1) mmol/L Chloride (98-107) mmol/L Carbon Dioxide (22-30) mmol/L Anion Gap (5-15) MEQ/L BUN (7-17) mg/dL Creatinine (0.52-1.04) mg/dL Estimated GFR ML/MIN Glucose (74-106) mg/dL POC Glucometer 319 H (74 to 106) mg/dL Calcium (8.4-10.2) mg/dL Total Bilirubin (0.2-1.3) mg/dL AST (14-36) U/L ALT (0-35) U/L Alkaline Phosphatase (38-126) U/L Serum Total Protein (6.3-8.2) g/dL Albumin (3.5-5.0) g/dL Procalcitonin 0.097 H (0.030-0.080) ng/mL IgG 1199 (586-1602) mg/dL IgA 399 H (87-352) mg/dL IgM 136 (26-217) mg/dL HIV 1&2 Ab/P24 Ag 4thGn Non Reactive (Non Reactive) 02/05/23 02/05/23 02/05/23 Range/Units 16:07 16:10 21:36 WBC (4.0-10.5) x10^3/uL RBC (4.1-5.4) x10^6/uL Hgb (12.0-16.0) g/dL Hct (35-47) % MCV (78-100) fL MCH (26-32) pg MCHC (32-36) g/dL RDW (11.5-14.0) % Plt Count (150-450) x10^3/uL MPV (7.5-11.0) fL Sodium (137-145) mmol/L Potassium (3.5-5.1) mmol/L Chloride (98-107) mmol/L Carbon Dioxide (22-30) mmol/L Anion Gap (5-15) MEQ/L BUN (7-17) mg/dL Creatinine (0.52-1.04) mg/dL Estimated GFR ML/MIN Glucose (74-106) mg/dL POC Glucometer 468 H 450 H 370 H (74 to 106) mg/dL Calcium (8.4-10.2) mg/dL Total Bilirubin (0.2-1.3) mg/dL AST (14-36) U/L ALT (0-35) U/L Alkaline Phosphatase (38-126) U/L Serum Total Protein (6.3-8.2) g/dL Albumin (3.5-5.0) g/dL Procalcitonin (0.030-0.080) ng/mL IgG (586-1602) mg/dL IgA (87-352) mg/dL IgM (26-217) mg/dL HIV 1&2 Ab/P24 Ag 4thGn (Non Reactive) 02/06/23 02/06/23 02/06/23 Range/Units 05:27 05:27 06:40 WBC 17.1 H (4.0-10.5) x10^3/uL RBC 3.83 L (4.1-5.4) x10^6/uL Hgb 10.9 L (12.0-16.0) g/dL Hct 34.9 L (35-47) % MCV 91.1 (78-100) fL MCH 28.5 (26-32) pg MCHC 31.2 L (32-36) g/dL RDW 14.0 (11.5-14.0) % Plt Count 295 (150-450) x10^3/uL MPV 10.7 (7.5-11.0) fL Sodium 139 (137-145) mmol/L Potassium 4.4 (3.5-5.1) mmol/L Chloride 99 (98-107) mmol/L Carbon Dioxide 32 H (22-30) mmol/L Anion Gap 12.3 (5-15) MEQ/L BUN 22 H (7-17) mg/dL Creatinine 0.62 (0.52-1.04) mg/dL Estimated GFR > 60.0 ML/MIN Glucose 353 H (74-106) mg/dL POC Glucometer 351 H (74 to 106) mg/dL Calcium 8.8 (8.4-10.2) mg/dL Total Bilirubin 0.40 (0.2-1.3) mg/dL AST 19 (14-36) U/L ALT 38 H (0-35) U/L Alkaline Phosphatase 60 (38-126) U/L Serum Total Protein 7.5 (6.3-8.2) g/dL Albumin 3.5 (3.5-5.0) g/dL Procalcitonin (0.030-0.080) ng/mL IgG (586-1602) mg/dL IgA (87-352) mg/dL IgM (26-217) mg/dL HIV 1&2 Ab/P24 Ag 4thGn (Non Reactive) Assessment/Plan (1) Bilateral pneumonia Current Visit: Yes Status: Acute Qualifiers: Pneumonia type: due to unspecified organism Lung location: lower lobe of lung Qualified Code(s): J18.9 - Pneumonia, unspecified organism Assessment & Plan: Chief Complaint Diagnosis Bilateral pneumonia Allergies Allergy/AdvReac Type Severity Reaction Status Date / Time Penicillins Allergy Unknown Verified 02/02/23 17:23 Vital Signs (Last 24 hours) Temp Pulse Resp BP Pulse Ox 02/06/23 08:13 77 18 96 02/06/23 07:09 97.8 F 58 L 20 170/76 93 L 02/06/23 03:49 97.2 F 80 24 132/78 93 L 02/06/23 00:08 73 20 97 02/05/23 23:59 97.2 F 77 20 149/85 94 L 02/05/23 19:52 97.1 F 73 20 155/79 95 02/05/23 19:31 73 20 95 02/05/23 16:00 97.5 F 87 20 144/80 94 L 02/05/23 13:22 88 18 95 02/05/23 12:00 97.3 F 89 19 178/89 92 L 02/05/23 09:05 91 L Current Medications Generic Name Dose Route Start Last Admin Trade Name Freq PRN Reason Stop Dose Admin Albuterol/Ipratropium 3 ml 02/03/23 01:00 02/06/23 08:09 Ipratropium/Albuterol Sulfate 3 Ml Ampul.Neb IH 03/05/23 00:59 3 ml Q6HRT CAMI Administration Benzonatate 100 mg 02/03/23 09:49 02/06/23 03:07 Benzonatate 100 Mg Capsule PO 03/05/23 09:48 100 mg Q6H PRN PRN Administration COUGH Methylprednisolone Sodium 0 mg 02/03/23 12:00 02/06/23 05:51 Succinate 60 mg/ Sterile Water IV 03/05/23 11:59 60 mg 1 ml Q6HT CAMI Administration Enoxaparin Sodium 40 mg 02/03/23 10:00 02/05/23 08:32 Enoxaparin Sodium 40 Mg/0.4 Ml Syringe SQ 03/05/23 09:59 40 mg DAILY CAMI Administration Azithromycin 500 mg in 250 mls @ 250 mls/hr 02/03/23 22:00 02/05/23 21:33 Zithromax 500 Mg/ 250 Ml Nacl Premix IV 03/05/23 21:59 250 mls/hr Q24H22 CAMI Administration Insulin Human Lispro 0 unit 02/02/23 22:39 02/05/23 21:47 Insulin Lispro 1 Unit SQ 03/04/23 22:38 8 unit UD PRN Administration HYPERGLYCEMIA Metformin HCl 500 mg 02/05/23 17:00 02/05/23 16:02 Metformin Hcl 500 Mg Tablet PO 03/07/23 16:59 500 mg BIDWM CAMI Administration Ondansetron HCl 4 mg 02/02/23 22:39 Ondansetron Hcl 4 Mg/2 Ml Vial IV 03/04/23 22:38 Q6H PRN PRN NAUSEA/VOMITING Pantoprazole Sodium 40 mg 02/03/23 10:00 02/05/23 08:32 Pantoprazole 40 Mg Vial IV 03/05/23 09:59 40 mg Q24H10 CAMI Administration Fluticasone/Salmeterol 2 puff 02/03/23 07:00 02/06/23 08:12 Fluticasone/Salmeterol 115/21 - 120 Puff Common Canister IH 03/05/23 06:59 2 puff BIDRT CAMI Administration Discontinued Medications Generic Name Dose Route Start Last Admin Trade Name Freq PRN Reason Stop Dose Admin Acetaminophen 1,000 mg 02/02/23 18:01 02/02/23 18:11 Acetaminophen 500 Mg Tablet PO 02/02/23 18:02 1,000 mg STAT ONE Administration Acetaminophen Confirm 02/02/23 18:06 Acetaminophen 500 Mg Tablet Administered 02/02/23 18:07 Dose 1,000 mg .ROUTE .STK-MED ONE Albuterol/Ipratropium 3 ml 02/02/23 20:57 02/02/23 21:10 Ipratropium/Albuterol Sulfate 3 Ml Ampul.Neb IH 02/02/23 20:58 3 ml STAT ONE Administration Albuterol/Ipratropium Confirm 02/02/23 21:07 Ipratropium/Albuterol Sulfate 3 Ml Ampul.Neb Administered 02/02/23 21:08 Dose 3 ml IH .STK-MED ONE Aztreonam Confirm 02/03/23 05:13 Aztreonam 1 Gm Vial Administered 02/03/23 05:14 Dose 1 gm .ROUTE .STK-MED ONE Benzonatate 100 mg 02/03/23 01:35 02/03/23 06:19 Benzonatate 100 Mg Capsule PO 03/05/23 01:34 100 mg TID PRN PRN Administration COUGH Methylprednisolone Sodium 0 mg 02/02/23 20:57 02/02/23 21:42 Succinate 125 mg/ Sterile IV 02/02/23 20:58 125 mg Water 2 ml STAT ONE Administration Methylprednisolone Sodium 0 mg 02/03/23 00:00 02/03/23 06:09 Succinate 60 mg/ Sterile Water IV 03/05/23 00:00 60 mg 2 ml Q6HT CAMI Administration Azithromycin 500 mg in 250 mls @ 250 mls/hr 02/02/23 20:36 02/02/23 21:41 Zithromax 500 Mg/ 250 Ml Nacl Premix IV 02/02/23 21:35 250 mls/hr STAT STA 250 mls/hr Administration Aztreonam 2 gm/ Sodium 100 mls @ 200 mls/hr 02/02/23 20:38 02/02/23 20:51 Chloride IV 02/02/23 21:07 200 mls/hr STAT ONE Administration Azithromycin Confirm 02/02/23 21:39 Zithromax 500 Mg/ 250 Ml Nacl Premix Administered 02/02/23 21:40 Dose 500 mg in 250 mls @ ud IV .STK-MED ONE Aztreonam 2 gm/ Sodium 100 mls @ 200 mls/hr 02/02/23 22:39 02/05/23 08:32 Chloride IV 02/05/23 22:38 200 mls/hr Q8HT CAMI Administration Dextrose Confirm 02/03/23 05:13 D5w 100ml Mini Bag 100 Ml Administered 02/03/23 05:14 Dose 100 mls @ ud IV .STK-MED ONE Sodium Chloride Confirm 02/04/23 05:28 Sodium Chloride 0.9% Administered 02/04/23 05:29 Dose 100 mls @ ud .ROUTE .STK-MED ONE Methylprednisolone Sodium Succinate Confirm 02/02/23 21:39 Methylprednis Sod Succ 125 Mg/2 Ml Vial Administered 02/02/23 21:40 Dose 125 mg .ROUTE .STK-MED ONE Methylprednisolone Sodium Succinate Confirm 02/03/23 05:16 Methylprednis Sod Succ 125 Mg/2 Ml Vial Administered 02/03/23 05:17 Dose 125 mg .ROUTE .STK-MED ONE Methylprednisolone Sodium Succinate Confirm 02/04/23 17:05 Methylprednisolone Sod Suc 40m 40 Mg/Ml Vial Administered 02/04/23 17:06 Dose 80 mg .ROUTE .STK-MED ONE Sodium Chloride Confirm 02/04/23 18:40 Sodium Cl For Inhalation 3 Ml Ud Nebule Administered 02/04/23 18:41 Dose 6 ml IH .STK-MED ONE Sterile Water Confirm 02/02/23 21:39 Water For Injection,Sterile 10 Ml Vial Administered 02/02/23 21:40 Dose 10 ml IJ .STK-MED ONE Sterile Water Confirm 02/03/23 05:16 Water For Injection,Sterile 10 Ml Vial Administered 02/03/23 05:17 Dose 10 ml IJ .STK-MED ONE Intake & Output (Last 24 hours) 02/03/23 02/04/23 02/05/23 02/06/23 11:59 11:59 11:59 11:59 Intake Total 360 1920 3230 1611 Balance 360 1920 3230 1611 Weight 100.3 kg 100.3 kg 100.3 kg 102.9 kg Microbiology Results (Last 24 hours) 02/02/23 04:00 Blood Blood Culture - Preliminary NO GROWTH TO DATE Laboratory Results (Last 24 hours) 02/06/23 02/06/23 02/06/23 06:40 05:27 05:27 WBC 17.1 H RBC 3.83 L Hgb 10.9 L Hct 34.9 L MCV 91.1 MCH 28.5 MCHC 31.2 L RDW 14.0 Plt Count 295 MPV 10.7 Sodium 139 Potassium 4.4 Chloride 99 Carbon Dioxide 32 H Anion Gap 12.3 BUN 22 H Creatinine 0.62 Estimated GFR > 60.0 Glucose 353 H POC Glucometer 351 H Calcium 8.8 Total Bilirubin 0.40 AST 19 ALT 38 H Alkaline Phosphatase 60 Serum Total Protein 7.5 Albumin 3.5 Procalcitonin IgG IgA IgM HIV 1&2 Ab/P24 Ag 4thGn 02/05/23 02/05/23 02/05/23 21:36 16:10 16:07 WBC RBC Hgb Hct MCV MCH MCHC RDW Plt Count MPV Sodium Potassium Chloride Carbon Dioxide Anion Gap BUN Creatinine Estimated GFR Glucose POC Glucometer 370 H 450 H 468 H Calcium Total Bilirubin AST ALT Alkaline Phosphatase Serum Total Protein Albumin Procalcitonin IgG IgA IgM HIV 1&2 Ab/P24 Ag 4thGn 02/05/23 02/05/23 02/04/23 12:13 05:42 04:55 WBC RBC Hgb Hct MCV MCH MCHC RDW Plt Count MPV Sodium Potassium Chloride Carbon Dioxide Anion Gap BUN Creatinine Estimated GFR Glucose POC Glucometer 319 H Calcium Total Bilirubin AST ALT Alkaline Phosphatase Serum Total Protein Albumin Procalcitonin 0.097 H IgG 1199 IgA 399 H IgM 136 HIV 1&2 Ab/P24 Ag 4thGn Non Reactive Orders (Last 24 hours) Category Date Time Status CBC AM.LAB Lab 02/06/23 05:27 Completed CMP AM.LAB Lab 02/06/23 05:27 Completed POCT GLUCOSE Stat Lab 02/05/23 07:52 Completed POCT GLUCOSE Stat Lab 02/05/23 12:13 Completed POCT GLUCOSE Stat Lab 02/05/23 16:07 Completed POCT GLUCOSE Stat Lab 02/05/23 16:10 Completed POCT GLUCOSE Stat Lab 02/05/23 21:36 Completed POCT GLUCOSE Stat Lab 02/06/23 06:40 Completed Metformin HCl 500 mg [Glucophage 500 MG] Med 02/05/23 17:00 Active 500 mg PO BIDWM Patient Care Notes (Last 24 hours) 02/06/23 03:34 Nursing Note by Yola House Pt noted to have 10 beat run of SVT, spontaneously resolved to PJC then NSR. Pt voiced no symptoms and was noted to be sleeping at the time Initialized on 02/06/23 03:34 - END OF NOTE 02/05/23 11:27 Nursing Note by Mira Coles CALLED AND REPORTED PRO CALCITONIN LEVEL TO DR. LEYVA. RECEIVED ORDER TO D/C AZTREONAM AND CONTINUE AZITHROMYCIN. STATES OK TO RESTART METFORMIN TODAY WELL. PHARMACY AWARE. Initialized on 02/05/23 11:27 - END OF NOTE 02/05/23 10:46 Nursing Note by Mira Coles ROUNDED ON PATIENT WITH DR. LEYVA. NO NEW ORDERS RECEIVED AT THIS TIME. Initialized on 02/05/23 10:46 - END OF NOTE Code(s): J18.9 - PNEUMONIA, UNSPECIFIED ORGANISM (2) Acute exacerbation of chronic obstructive airways disease Current Visit: No Status: Acute Code(s): J44.1 - CHRONIC OBSTRUCTIVE PU LMONARY DISEASE W (ACUTE) EXACERBATION
[2023-02-06] MEDS: HUMALOG SQ PRN ×4 (08:30→22:12)
[2023-02-06] MEDS: Glucophage 500 MG PO SCH ×2 (08:31→16:38)
[2023-02-06] MEDS: PROTONIX 40 MG IV IV SCH (10:12)
[2023-02-06] MEDS: ENOXAPARIN SODIUM SQ SCH (10:12)
[2023-02-06] MEDS: Zithromax 500 MG/ 250 ML NaCl Premix 500 MG/250 ML IVPB IV SCH (22:12)
[2023-02-07] MEDS: DUONEB 0.5-3 MG/3 ml Neb IH SCH ×2 (01:23→07:17)
[2023-02-07] MEDS: solu-MEDROL 60 MG, Sterile H2O 10 ml 1 ML IV SCH ×2 (06:01)
[2023-02-07] MEDS: Tessalon Perles 100 MG PO PRN (06:50)
[2023-02-07] MEDS: Advair Hfa 115/21 Common canister IH SCH (07:17)
[2023-02-07 07:29] VITALS: BP 167/81; PULSE 70
[2023-02-07] MEDS: HUMALOG SQ PRN (08:03)
[2023-02-07] MEDS: Glucophage 500 MG PO SCH (08:04)
--- NOTE | 2023-02-07 08:23 | PCM.DS ---
Discharge Summary Date of Admission: 02/03/23 08:50 Admitting Physician: PIEDAD CRAMER MD Consults: Consults on Case 02/03/23 08:50 Consult Pulmonology ROUTINE Primary Care Provider: ALEXSANDRA HINOJOSA JAYDEN Allergies Allergies Penicillins Allergy (Unknown, Verified 02/02/23 17:23) Hospital Summary - Hospital Course Hospital Course: patient admitted with recurrent pneumonia and asthma exacerbation, treated with antibiotics and steroids. doing much better, on room air and cough and wheezing are much improved. she is felt ready for discharge today and she feels much better and comfortable with going home today. - Vitals & Intake/Output Vital Signs: Vital Signs Temperature 97.5 F 02/07/23 07:29 Pulse Rate 70 02/07/23 07:29 Respiratory Rate 18 02/07/23 07:29 Blood Pressure 167/81 02/07/23 07:29 O2 Sat by Pulse Oximetry 93 L 02/07/23 07:29 Intake & Output: Intake & Output 02/04/23 02/05/23 02/06/23 02/07/23 11:59 11:59 11:59 11:59 Intake Total 1920 3230 2091 1200 Balance 1920 3230 2091 1200 Weight 100.3 kg 100.3 kg 102.9 kg 102.9 kg - Lab Result Diagrams: 02/06/23 05:27 02/06/23 05:27 Lab Results-Last 24 Hrs: Lab Results-Last 24 Hours 02/06/23 02/06/23 02/06/23 Range/Units 11:30 15:46 21:15 POC Glucometer 375 H 397 H 359 H (74 to 106) mg/dL 02/07/23 Range/Units 07:02 POC Glucometer 408 H (74 to 106) mg/dL Micro Results-Entire Visit: Microbiology 02/02/23 20:56 Blood Culture - Final Blood NO GROWTH 02/02/23 04:00 Blood Culture - Final Blood NO GROWTH Accuchecks Date 02/07/23 Date 02/06/23 Date 02/06/23 Time 07:26 Time 15:59 Time 13:06 - Procedures and Test Procedures and Tests throughout Hospitalization: Therapy Orders & Screens 02/02/23 21:22 Respiratory Therapy Assessment DAILY Comment: 02/03/23 01:06 Oxygen Nasal Cannula 2 lpm Comment: Diagnosis: Bilateral pneumonia Respiratory MDI BID Comment: Diagnosis: Bilateral pneumonia Discharge Exam General Appearance: no apparent distress, obese Neurologic Exam: alert, oriented x 3 Respiratory Exam: normal breath sounds, lungs clear, No respiratory distress Cardiovascular Exam: regular rate/rhythm, normal heart sounds Gastrointestinal/Abdomen Exam: soft, No tenderness, No mass Extremity Exam: normal inspection, normal range of motion Final Diagnosis/Problem List - Final Discharge Diagnosis/Problem (1) Bilateral pneumonia Current Visit: Yes Status: Acute Assessment & Plan: much improved, home on po levaquin x 7 days Code(s): J18.9 - PNEUMONIA, UNSPECIFIED ORGANISM (2) Acute exacerbation of chronic obstructive airways disease Current Visit: No Status: Acute Assessment & Plan: has nebs at home, po prednisone taper Code(s): J44.1 - CHRONIC OBSTRUCTIVE PULMONARY DISEASE W (ACUTE) EXACERBATION (3) Respiratory failure Current Visit: Yes Status: Acute Code(s): J96.90 - RESPIRATORY FAILURE, UNSP, UNSP W HYPOXIA OR HYPERCAPNIA (4) Diabetes mellitus type 2 in obese Current Visit: No Status: Chronic Code(s): E11.69 - TYPE 2 DIABETES MELLITUS WITH OTHER SPECIFIED COMPLICATION; E66.9 - OBESITY, UNSPECIFIED - Discharge Disposition: Home, Self-Care Condition: Stable Prescriptions: New Prednisone 20 mg [Deltasone 20 mg] 20 mg PO UD #18 tablet levoFLOXacin [Levofloxacin] 500 mg PO DAILY #7 tablet Continue Metformin HCl 500 mg [Glucophage 500 MG] 500 mg PO BIDWM #60 tablet Albuterol Sulfate [Ventolin Hfa] 2 puffs IH Q4HPRN PRN #2 unit PRN Reason: Shortness Of Breath/Wheezing Budesonide/Formoterol Fumarate [Budesonide-Formoterol 160-4.5] 2 puff IH BID Albuterol/Ipratropium 3ml Neb* [DUONEB 0.5-3 MG/3 ml Neb] 3 ml IH Q6H PRN PRN #100 unit PRN Reason: Cough Benzonatate 100 mg PO Q6HPRN PRN #30 cap PRN Reason: Cough Prednisone 10 mg [Deltasone 10 mg] 10 mg PO DAILY #20 tablet Additional Instructions: YOU HAVE A PET SCAN ORDERED AT [facility] ON FEBRUARY 09 AT 8:30am. YOU WILL NEED TO BE NPO (NOTHING TO EAT OR DRINK) EXCEPT WATER FOR 6 HRS PRIOR TO PROCEDURE. Follow up with: ZEE HAIRSTON [ACTIVE STAFF] - 02/16/23 2:45 am (IN [place]) ALEXSANDRA HINOJOSA MD [Primary Care Provider] -
[2023-02-07 08:47] VITALS: O2SAT 92
[2023-02-07] MEDS: ENOXAPARIN SODIUM SQ SCH (08:53)
[2023-02-07] MEDS: PROTONIX 40 MG IV IV SCH (08:54)
== END 2023-02-07 09:41 | disposition home or self-care (01) | DRG 193 ==
LOC: ED 16:51 → MED SURG 22:29 → OBSVTOIN 02-03 08:50 → ED 02-03 16:51 → MED SURG 02-03 22:29
PROVIDERS: ADMIT Internal Medicine; ATTEND Family Medicine
DX: J18.9 Pneumonia, unspecified organism (principal); J96.90 Respiratory failure, unspecified, unspecified whether with hypoxia or hypercapnia; J44.1 Chronic obstructive pulmonary disease with (acute) exacerbation; J45.901 Unspecified asthma with (acute) exacerbation; E11.69 Type 2 diabetes mellitus with other specified complication; E66.9 Obesity, unspecified; Z79.899 Other long term (current) drug therapy; Z20.828 Contact with and (suspected) exposure to other viral communicable diseases
CPT/HCPCS: 0241U; 36415; 71260; 80048; 80053; 82784; 82947; 83521; 83605; 83880; 84134; 84145; 84484; 85025; 85027; 85610; 85730; 87040; 87389; 93005; 93268; 94640; 94760; 96365; 96367; 96374; 99285; 99291; 71046; J0456; J1650; J1817; J2920; J2930; A9270-GY; G0378